=== PATIENT | male | born 1970 | race Caucasian/White ===

== ENCOUNTER → 2022-02-14 15:42 | Outpatient (BNVA) | payer MEDICARE, MEDICAID, SELFPAY | PROVIDERS: PCP Family Medicine; Referring Provider Family Medicine; Visit Provider Nurse Practitioner | DX: Z12.11 Encounter for screening for malignant neoplasm of colon (principal); K75.81 Nonalcoholic steatohepatitis (NASH); K21.9 Gastro-esophageal reflux disease without esophagitis; Z87.19 Personal history of other diseases of the digestive system | CPT/HCPCS: 99212 ==

== ENCOUNTER 2022-06-27 11:58 | Outpatient (REF) | payer MEDICARE, MEDICAID, SELFPAY ==
[2022-06-27 12:37] LABS: MANUAL DIFF FLAG NO
[2022-06-27 13:41] LABS: Basophils Percent Auto 0.3 % (0-2); Eosinophils Absolute Auto 0.2 X10*3/uL (0.0-0.4); Eosinophils Percent Auto 3.2 % (0-4); Hematocrit 42.5 % (42.0-52.0); Hemoglobin 13.9 g/dl (14.0-18.0); Imm Gran Abs Auto 0.03 X10*3/uL (0.00-0.03); Imm Gran Pct Auto 0.4 % (0.0-0.4); Lymphocytes Absolute Auto 2.2 X10*3/uL (1.2-4.9); Lymphocytes Percent Auto 29.7 % (20-40); Mean Corpuscular HGB Conc 32.7 g/dl (31.0-36.0); Mean Corpuscular Hemoglobin 29.8 pg (27.0-33.0); Mean Platelet Volume 10.5 fL (9.4-12.4); Monocytes Absolute Auto 0.7 X10*3/uL (0.1-1.2); Monocytes Percent Auto 9.6 % (2-11); Neutrophils Absolute Auto 4.3 x10*3/uL (2.0-8.3); Neutrophils Percent Auto 56.8 % (45-73); Platelet Count 197 X10*3/uL (160-400); Red Blood Count 4.67 X10*6/uL (4.60-5.80); White Blood Count 7.5 X10*3/uL (4.8-10.8)
[2022-06-27 14:13] LABS: Alanine Aminotransferase 30 U/L (0-40); Albumin Level 4.1 g/dL (3.5-5.0); Alkaline Phosphatase 100 U/L (39-117); Anion Gap 15 (12-20); Aspartate Amino Transferase 23 U/L (5-37); Bilirubin Total 0.2 mg/dL (0.0-1.0); Blood Urea Nitrogen 15 mg/dL (9-16); Calcium 9.4 mg/dL (8.4-10.2); Carbon Dioxide 26 mmol/L (22-29); Chloride 104 mmol/L (96-108); Estimated Glomerular Filt Rate > 60; Glucose Random 90 mg/dL (60-115); Potassium 4.8 mmol/L (3.3-5.1); Sodium 140 mmol/L (135-145); Total Protein 7.2 g/dL (6.5-8.0)
== END 2022-06-27 11:59 | disposition home or self-care (01) ==
LOC: HO.LAB 11:58
PROVIDERS: PCP Family Medicine; Visit Provider Nurse Practitioner
DX: K21.9 Gastro-esophageal reflux disease without esophagitis (principal); K75.81 Nonalcoholic steatohepatitis (NASH); Z87.19 Personal history of other diseases of the digestive system
CPT/HCPCS: 36415; 80053; 85025

== ENCOUNTER 2022-07-01 08:47 | Day surgery (SDC) | payer MEDICARE, MEDICAID, SELFPAY ==
[2022-07-01 08:59] VITALS: BMI 26.6
[2022-07-01 09:24] LABS: Glucose, Whole Blood 33 mg/dL (60-115)
[2022-07-01 09:24] LABS: Glucose, Whole Blood 38 mg/dL (60-115)
[2022-07-01] MEDS: Lactated Ringers 1,000 ML 100 ML IVCONT (09:28)
--- NOTE | 2022-07-01 09:28 | P.HPSUR_ITS ---
Pre-Procedural Eval Section A Date of Service: 07/01/22 Section B Chief Complaint: screening Relevant Family History (Specify if Yes): No Present Medications: see Short Stay Collaborative assessment Medical History: Significant History (GERD, JACOBO) History of Previous Operations: Relevant previous surgery/procedure and date(s) (History of esophagogastroduodenoscopy (EGD) Hx of cholecystectomy Hx of edwin ulder surgery) Allergies: Allergies Allergy/AdvReac Type Severity Reaction Status Date / Time No Known Allergies Allergy Unverified 06/26/22 15:27 [No Known Allergies*] Review of Systems Sugical H&P ROS: Negative: Constitution, Cardiovascular, Respiratory and Gastrointestinal Exam Surgical H&P Exam: Normal: Heart, Normal: Lungs, Normal: Extremities and Normal: Abdomen Plan Diagnosis/Plan: Unchanged I have reviewed the history and physical and performed a pertinent physical examination on my patient. No changes have occurred unless specified.
--- NOTE | 2022-07-01 09:29 | PC.NURSE ---
Addendum entered by Shabbir Madison RN 07/01/22 09:53: POC [address] Linda aware. Original Note: patient POC 34 critical, rechecked and POC 33. Patient asymptomatic and denies dizziness or blurred vision, patient states he can tell when blood sugar is too low and feels normal . Dr Linda, anesthesiologist notified and D5W 250mL running. will recheck POC.
[2022-07-01 09:33] VITALS: BP 96/51; PULSE 53; RESP 16; TEMP 36.6; O2SAT 98
[2022-07-01 09:54] LABS: Glucose, Whole Blood 105 mg/dL (60-115)
--- NOTE | 2022-07-01 09:57 | P.CONAN_ITS ---
HPI - Anesthesia Eval Consult details Narrative: Colonic Surveillance [facility] Active Problems Active Problems: All Active Problems (Updated 06/26/22 @ 15:28 by Joya Kelley RN) Colon cancer screening (Acute) JACOBO (nonalcoholic steatohepatitis) (Acute) GERD (gastroesophageal reflux disease) (Acute) History of pancreatitis (Acute) Past Medical History Medical History Anemia Anxiety disorder Chronic back pain Depression Diabetes Elevated cholesterol GERD (gastroesophageal reflux disease) Family History Family History Mother Diabetes Heart problem Father Diabetes Brother No problems noted. Maternal Grandfather Heart problem Family history of problems with anesthesia: No Surgical History Surgical History History of esophagogastroduodenoscopy (EGD) History of lithotripsy Hx of cholecystectomy Hx of shoulder surgery History of Problems with Anesthesia: No Social History Social History Patient Tobacco Use Status: Current everyday Tobacco user Tobacco use type: Cigarette Cigarettes Per Day: 3 Second Hand Smoke Exposure: No Use of substances other than those prescribed or required for medical reasons: Yes Are you DNR?: No Advance Directives: No Advance Directives Information Provided: Yes Advance Directives on File: No Meds Allergies Allergy/AdvReac Type Severity Reaction Status Date / Time No Known Allergies Allergy Unverified 06/26/22 15:27 [No Known Allergies*] Active Medications: Current Medications Lactated Ringer's (Lr) 1,000 mls @ 100 mls/hr IVCONT .Q10H HUGH Last Admin: 07/01/22 09:28 Dose: 100 mls/hr Dextrose (D5w) 250 mls @ 0 mls/hr IV .Q0M PRN PRN Reason: Per Protocol Home Medications Medication Instructions Recorded Confirmed Last Taken Type [id number] 1 cap PO QID 07/10/20 06/26/22 Unknown History 24,000-76,000-120,000 unit capsule,delayed rel (Creon) omeprazole 20 mg capsule,delayed 20 mg PO DAILY 07/10/20 06/26/22 Unknown History release alcohol swabs (Alcohol Prep Pads) 1 pad topical QID 02/14/22 06/26/22 Unknown History aspirin 81 mg tablet,delayed 81 mg PO DAILY 02/14/22 06/26/22 Unknown History release atorvastatin 20 mg tablet 20 mg PO DAILY 02/14/22 06/26/22 Unknown History blood sugar diagnostic (FreeStyle #10 ea 02/14/22 Unknown History Lite Strips) cholecalciferol (vitamin D3) 25 25 mcg PO QAM 02/14/22 06/26/22 Unknown History mcg (1,000 unit) capsule (Vitamin D3) clonazepam 1 mg tablet 1 mg PO TID PRN Anxiety 02/14/22 06/26/22 Unknown History cyanocobalamin (vitamin B-12) 1,000 mcg PO DAILY 02/14/22 06/26/22 Unknown History 1,000 mcg tablet empagliflozin 25 mg tablet 25 mg PO DAILY 02/14/22 06/26/22 Unknown History (Jardiance) ergocalciferol (vitamin D2) 1,250 1,250 mcg PO QWEEK 02/14/22 06/26/22 Unknown History mcg (50,000 unit) capsule escitalopram oxalate 20 mg tablet 20 mg PO DAILY 02/14/22 06/26/22 Unknown History insulin aspart U-100 100 unit/mL 20 unit subcut TID 02/14/22 06/26/22 Unknown History (3 mL) subcutaneous pen (Novolog Flexpen U-100 Insulin aspart) lancets 33 gauge (TRUEplus Lancets) #100 ea 02/14/22 Unknown History losartan 25 mg tablet 12.5 mg PO DAILY 02/14/22 06/26/22 Unknown History metformin 500 mg tablet,extended 500 mg PO DAILY 02/14/22 06/26/22 Unknown History release 24 hr omega-3 fatty acids-fish oil 340 2 cap PO BID 02/14/22 06/26/22 Unknown History mg-1,000 mg capsule (Fish Oil) pen needle, diabetic 32 gauge x #50 ea 02/14/22 Unknown History (Pentips) trazodone 150 mg tablet 150 mg PO BEDTIME 02/14/22 06/26/22 Unknown History insulin degludec 100 unit/mL (3 60 unit subcut BEDTIME 06/26/22 06/26/22 Unknown History mL) subcutaneous pen (Tresiba FlexTouch U-100 insulin) Exam Exam Date and Time: July 01, 2022 0957 Height,Weight and Vital Signs: Height 5 ft 7 in Weight 77.111 kg Last Vital Signs Temp 97.8 F 07/01/22 09:33 Pulse 53 07/01/22 09:33 Resp 16 07/01/22 09:33 BP 96/51 L 07/01/22 09:33 Pulse Ox 98 07/01/22 09:33 O2 Del Method 07/01/22 09:33 Pertinent Lab Results Pertinent Lab Results: Laboratory Tests 07/01/22 07/01/22 07/01/22 09:17 09:21 09:51 POC Glucose 38 L* 33 L* 105 Airway Mallampati Class: II TM Dist: >3cm Neck ROM: Full Loose/Missing/Broken Teeth: No (teeth all spaced apart, none loose as per patient) Heart: [id number] Lungs: cta b/l Assessment and Plan Assessment Anesthesia Assessment: Anesthesia Plan Discussed Final Anesthetic Review Family History of Problems with Anesthesia: No History of Problems with Anesthesia: No NPO: Yes ASA Class: III Final Preanesthetic Review: No Changes in Pt Med Stat, Meds/Allgs Chart Reviewed, Consent Obtained/Reviewed and Anes Risks/Benef Reviewed Patient Risk: Intermediate Procedure Risk: Intermediate Assessment/Block/Sedation in SS: Assess/Block/Sedation-SS Anesthetic Plan Anesthetic Plan: MAC: and Agree w/ Assess. and Plan Disposition: Standard PACU
[2022-07-01 11:19] VITALS: BP 129/72; PULSE 58; RESP 16; TEMP 36.3; O2SAT 98
--- NOTE | 2022-07-01 11:21 | P.BOP_ITS ---
Brief Operative Note Date of Service: 07/01/22 Pre-op diagnosis: Colon cancer screening Post-op diagnosis: other (Colon polyp, diverticulosis, hemorrhoids) Procedure: COLONOSCOPY TO CECUM WITH SNARE POLYPECTOMY Surgeon: Linnette Worrell MD Anesthesia: MAC Was an Digital Marketing Intern used for this Procedure?: Yes Digital Marketing Intern: James Chaves Estimated blood loss (mL): 0 Pathology: other (A) Polyp Transverse Colon) Condition: stable Disposition: PACU
--- NOTE | 2022-07-01 11:21 | W.PM.OPN ---
Operative Note Operative Note Date of Service: 07/01/22 Narrative: Pre-op diagnosis: Colon cancer screening Post-op diagnosis:?other (Colon polyp, diverticulosis, hemorrhoids) Surgeon: Linnette Worrell MD Anesthesia:?MAC COLONOSCOPY TILL CECUM WITH SNARE POLYPECTOMY Consent: Indications for the procedure and potential complications of bleeding, perforation, reaction to medications and missed diagnosis were discussed with the patient and informed consent was obtained. Instrument: Olympus PCF H 190 L variable stiffness pediatric colonoscope Monitoring: Vital signs and clinical assessment, intermittent blood pressure monitoring, continuous EKG monitoring, Pulse oximetry and Carbon Dioxide monitoring were done throughout the procedure. Colon withdrawl time was 25 minutes. Procedure: The patient was placed in the left lateral decubitis position and pre-procedure medications were administered. After a digital rectal examination of the ano-rectum, the video colonoscope was inserted into the rectum and advanced through the colon to the cecum. The colonoscope was slowly withdrawn in a retrograde panoramic fashion and the colon mucosa was carefully examined including a retroflexed view of the rectum. Findings and interventions are described below. Procedure Difficulty: LLQ pressure applied to intubate the ascending colon/cecum Findings: Terminal Ileum: Not evaluated Cecum: Normal Ascending Colon: Normal Transverse Colon: A 10 mm sessile polyp removed with a cold snare Descending Colon: Normal Sigmoid Colon: Moderate diverticulosis Rectum: Normal Ano-rectum: Moderate internal hemorrhoids Colon preparation: Good after copious irrigation and fair in some areas of the colon Impression and Post Procedure Diagnosis: Colonoscopy Findings: One medium sized polyp removed Moderate diverticulosis seen in the sigmoid colon Moderate hemorrhoids on retroflexed exam. Plan: Await pathology results Patient has an appointment on 07/16/22 in the [facility] with Soniya Hanson NP. Repeat Colonoscopy interval based on path results - in 3 years if polyps are adenomatous and due to fair prep (adult colonoscope for future colonoscopies). Above findings were reviewed with the patient and colon polyps and diverticulosis handouts were given in the discharge area
[2022-07-01 11:34] VITALS: BP 108/65; PULSE 50; RESP 17; TEMP 36.1; O2SAT 98
[2022-07-01 11:48] VITALS: BP 116/54; PULSE 52; RESP 18; TEMP 36.6; O2SAT 98
== END 2022-07-01 12:31 | disposition home or self-care (01) ==
PROVIDERS: PCP Family Medicine; Visit Provider Internal Medicine Gastroenterology
PROC: 0DJD8ZZ Inspection of Lower Intestinal Tract, Via Natural or Artificial Opening Endoscopic (ICD-10-PCS; CPT 45378; principal; 2022-07-01 10:10)
DX: Z12.11 Encounter for screening for malignant neoplasm of colon (principal); D12.3 Benign neoplasm of transverse colon; K57.30 Diverticulosis of large intestine without perforation or abscess without bleeding; K64.8 Other hemorrhoids; K21.9 Gastro-esophageal reflux disease without esophagitis; K75.81 Nonalcoholic steatohepatitis (NASH); E11.9 Type 2 diabetes mellitus without complications; E78.00 Pure hypercholesterolemia, unspecified; Z79.4 Long term (current) use of insulin; Z79.82 Long term (current) use of aspirin; Z79.899 Other long term (current) drug therapy; Z90.49 Acquired absence of other specified parts of digestive tract; F17.210 Nicotine dependence, cigarettes, uncomplicated
CPT/HCPCS: 45385; 82947; 88305

== ENCOUNTER → 2022-07-16 15:21 | Outpatient (BNVA) | payer MEDICARE, MEDICAID, SELFPAY | PROVIDERS: PCP Family Medicine; Visit Provider Nurse Practitioner | DX: D12.6 Benign neoplasm of colon, unspecified (principal); Z98.890 Other specified postprocedural states | CPT/HCPCS: 99212 ==

== ENCOUNTER 2023-04-20 21:52 | Inpatient (IN) | payer MEDICARE, MEDICAID, SELFPAY ==
--- NOTE | ~2023-04-20 | CT_ITS ---
EXAMINATION: CT ABDOMEN AND PELVIS WITHOUT CONTRAST CLINICAL INFORMATION: Abdominal pain. COMPARISON: CT of the abdomen and pelvis done on 04/15/2019. TECHNIQUE: Multidetector volumetric imaging was performed from the superior aspect of the liver through the pubic symphysis. Sagittal and coronal reformatted images were obtained on the technologist's workstation. This CT examination was performed using dose optimization techniques as appropriate, variously including the following: *Automated exposure control *Adjustment of mA and/or kV according to patient size (this includes techniques or standardized protocols for targeted exams where dose is matched to indication/reason for exam; i.e. extremities or head) *Use of iterative reconstruction technique DLP: 448 mGy-cm FINDINGS: LUNG BASES: The visualized lung bases are unremarkable. LIVER, GALLBLADDER, AND BILIARY TREE: The liver is normal in size, shape, and attenuation. No focal hepatic lesion .The gallbladder is surgically absent. Possible pneumobilia within the distal part of the common bile duct. PANCREAS: Clusters of microcalcification in the head of the pancreas and extending into the uncinate process as well as the proximal part of the body, consistent with chronic calcific pancreatitis. No evidence of any ductal dilatation or discrete pancreatic mass on this nonenhanced study. SPLEEN: Unremarkable. ADRENAL GLANDS: Unremarkable. KIDNEYS AND URETERS: The kidneys are normal in size, shape, and attenuation. No hydronephrosis, hydroureter, or calculi seen. No perinephric stranding. BLADDER: Suboptimally distended, shows apparent diffuse wall thickening possibly physiologic. GASTROINTESTINAL TRACT: The small and large bowel loops are decompressed. Nonvisualized appendix without any inflammatory changes around the cecum, unchanged. ABDOMINAL WALL: No significant hernia is appreciated. LYMPH NODES: Normal. VASCULAR: Calcific atherosclerotic disease of the aorta without aneurysm formation. PELVIC VISCERA: Unremarkable. OSSEOUS STRUCTURES: No suspicious focal lesion. CT/CT abdomen pelvis wo IV con IMPRESSION: 1. No CT evidence of any acute intra-abdominal and/or intrapelvic pathology. 2. Incidental note is made of extensive calcification involving the pancreas, consistent with chronic calcific pancreatitis. No evidence of any ductal dilatation or discrete mass on this nonenhanced study. 3. Surgically absent gallbladder and possible pneumobilia involving the distal common bile duct. Fleischner guidelines were followed.
[2023-04-20 21:56] VITALS: BP 121/79; BP 134/81; PULSE 66; PULSE 72; RESP 18; TEMP 37.7; O2SAT 100; O2SAT 99; BMI 25.6
[2023-04-20 22:22] LABS: MANUAL DIFF FLAG NO
[2023-04-20 22:23] LABS: Basophils Percent Auto 0.2 % (0-2); Eosinophils Percent Auto 0.2 % (0-4); Hematocrit 39.2 % (42.0-52.0); Hemoglobin 13.6 g/dl (14.0-18.0); Imm Gran Abs Auto 0.11 X10*3/uL (0.00-0.03); Imm Gran Pct Auto 0.7 % (0.0-0.4); Lymphocytes Absolute Auto 1.5 X10*3/uL (1.2-4.9); Lymphocytes Percent Auto 9.8 % (20-40); Mean Corpuscular HGB Conc 34.7 g/dl (31.0-36.0); Mean Corpuscular Hemoglobin 29.2 pg (27.0-33.0); Mean Corpuscular Volume 84.1 fL (80.0-98.0); Monocytes Percent Auto 6.7 % (2-11); Neutrophils Absolute Auto 12.6 x10*3/uL (2.0-8.3); Neutrophils Percent Auto 82.4 % (45-73); Platelet Count 152 X10*3/uL (160-400); Red Blood Count 4.66 X10*6/uL (4.60-5.80); Red Cell Distribution Width 13.2 % (11.0-16.0); White Blood Count 15.3 X10*3/uL (4.8-10.8)
--- NOTE | 2023-04-20 22:36 | ED_ITS ---
HPI - Abdominal Pain General Chief Complaint: Abdominal Pain Stated Complaint: hand cramping/ abd pain Time Seen by Provider: 04/20/23 22:28 Source: patient and EMS Mode of arrival: EMS Limitations: no limitations History of Present Illness HPI narrative: 53-year-old male with history of insulin-dependent diabetes controlled with insulin, patient felt the diaphoretic and shaky felt his blood sugar was low there started to have cramps in both hands and on the right side of the abdomen which she never happened before when blood sugar goes down, cramps are better still complaining of right-sided abdominal pain. No nausea, vomiting, no diarrhea. Related Data Home Medications Medication Instructions Recorded Confirmed [id number] 1 cap PO QID 07/10/20 06/26/22 24,000-76,000-120,000 unit capsule,delayed rel (Creon) omeprazole 20 mg capsule,delayed 20 mg PO DAILY 07/10/20 06/26/22 release alcohol swabs (Alcohol Prep Pads) 1 pad topical QID 02/14/22 06/26/22 aspirin 81 mg tablet,delayed 81 mg PO DAILY 02/14/22 06/26/22 release atorvastatin 20 mg tablet 20 mg PO DAILY 02/14/22 06/26/22 blood sugar diagnostic (FreeStyle #10 ea 02/14/22 Lite Strips) cholecalciferol (vitamin D3) 25 25 mcg PO QAM 02/14/22 06/26/22 mcg (1,000 unit) capsule (Vitamin D3) clonazepam 1 mg tablet 1 mg PO TID PRN Anxiety 02/14/22 06/26/22 cyanocobalamin (vitamin B-12) 1,000 mcg PO DAILY 02/14/22 06/26/22 1,000 mcg tablet empagliflozin 25 mg tablet 25 mg PO DAILY 02/14/22 06/26/22 (Jardiance) ergocalciferol (vitamin D2) 1,250 1,250 mcg PO QWEEK 02/14/22 06/26/22 mcg (50,000 unit) capsule escitalopram oxalate 20 mg tablet 20 mg PO DAILY 02/14/22 06/26/22 insulin aspart U-100 100 unit/mL 20 unit subcut TID 02/14/22 06/26/22 (3 mL) subcutaneous pen (Novolog FlexPen U-100 Insulin aspart) lancets 33 gauge (TRUEplus Lancets) #100 ea 02/14/22 losartan 25 mg tablet 12.5 mg PO DAILY 02/14/22 06/26/22 metformin 500 mg tablet,extended 500 mg PO DAILY 02/14/22 06/26/22 release 24 hr omega-3 fatty acids-fish oil 340 2 cap PO BID 02/14/22 06/26/22 mg-1,000 mg capsule (Fish Oil) pen needle, diabetic 32 gauge x #50 ea 02/14/22 (Pentips) trazodone 150 mg tablet 150 mg PO BEDTIME 02/14/22 06/26/22 insulin degludec 100 unit/mL (3 60 unit subcut BEDTIME 06/26/22 06/26/22 mL) subcutaneous pen (Tresiba FlexTouch U-100 insulin) Allergies Allergy/AdvReac Type Severity Reaction Status Date / Time No Known Allergies Allergy Verified 04/20/23 22:07 [No Known Allergies*] Review of Systems Review of Systems All other systems are reviewed and are negative Constitutional: Reports as per HPI and Reports no additional constitutional complaints Eyes: Reports as per HPI and Reports no additional eye complaints Reports system reviewed and no additional complaints, except as documented Cardiovascular: Reports as per HPI and Reports no additional cardiovascular complaints Respiratory: Reports as per HPI and Reports no additional respiratory complaints Gastrointestinal: Reports as per HPI and Reports no additional gastrointestinal complaints Genitourinary: Reports no additional female genitourinary complaints Musculoskeletal: Reports no additional musculoskeletal complaints Skin/Breast: Reports system reviewed and no additional complaints, except as docu Psychiatric: Reports no additional psychiatric complaints Endocrine: Reports no additional endocrine complaints Hematologic/Lymphatic: Reports no additional hematologic/lymphatic complaints Allergic/Immunologic: Reports no additional allergic/immunologic complaints Reports system reviewed and no additional complaints, except as documented and Reports Abnormal speech present PMFSH Past Medical History Medical History Anemia Anxiety disorder Chronic back pain Depression Diabetes Elevated cholesterol GERD (gastroesophageal reflux disease) Surgical History H/O colonoscopy History of esophagogastroduodenoscopy (EGD) History of lithotripsy Hx of cholecystectomy Hx of shoulder surgery Family History Family History Mother Diabetes Heart problem Father Diabetes Brother No problems noted. Maternal Grandfather Heart problem Social History Social History Alcohol intake: never Patient Tobacco Use Status: Current everyday Tobacco user Tobacco use type: Cigarette Cigarettes Per Day: 3 Smoked in Last 30 Days: Yes Second Hand Smoke Exposure: No Use of substances other than those prescribed or required for medical reasons: Yes Substance Use Type: Marijuana Substance Use Frequency: Chronic Longstanding Advance Directives: No Advance Directives Information Provided: No Physical Exam ED Vital Signs: Vital Signs - 24 hr 04/20/23 21:56 Temperature 99.8 F Pulse Rate 66 Respiratory Rate 18 Blood Pressure 134/81 Pulse Oximetry 99 Oxygen Delivery Method Room Air BMI result Body Mass Index 25.6 Vital signs have been reviewed as appeared to be correct. Blood pressure normal. Heart rate normal. Respiration rate normal. Temperature normal. Oxygen saturation normal. Appearance: Alert. Oriented X3. No acute distress. Head: Normal external exam. Normocephalic. Atraumatic. No Smyth signs noted. No raccoon eyes noted Eyes: PERRLA. EOMI. Conjunctiva and sclera normal. Eyelids normal. ENT: TM's Normal. Pharynx normal. Uvula midline. Moist mucous membranes. No trismus noted. No drooling noted. No muffled voice noted. Neck: Normal inspection. Neck supple. FROM. No adenopathy. Thyroid Normal. No meningeal signs. No neck mass noted. CVS: Normal heart rate and rhythm. Heart sound normal. No murmurs noted. Pulses normal throughout. Respiratory: No respiratory distress. Painless inspiration. Breath sounds normal. No wheezes/rales/rhonchi noted. Chest nontender. No accessory muscle usage noted or decreased air movement noted. Abdomen: Soft and nontender. Bowel sounds normal in all 4 quadrants. No distention noted. No organomegaly noted. No visible injury noted. Back: No CVA tenderness. Full range of motion noted. Skin: Skin warm and dry. Normal skin color. Normal skin turgor. No rashes/lesions/lacerations noted. Extremities: No lower extremity edema. Extremities exhibit normal range of motion. Extremities nontender. Neuro: Oriented X 3. Cranial nerve exam: II-XII are grossly intact No motor deficit. No sensory deficit. Reflexes normal. Course Course Course Narrative: 53-year-old male insulin-dependent diabetes came in for hypoglycemia, patient found to be in acute renal insufficiency will start the patient on IV hydration and admit the patient for close monitoring of kidney function. Medical Decision Making Differential Diagnosis Differential Diagnoses: The differential diagnosis associated with the presentation includes (DKA, hyperglycemia, electrolyte abnormality, severe anemia, UTI.) Admission/Observation Consideration of admission/observation: Escalation of care including admission/observation considered Consult Healthcare Provider Management of the patient was discussed with: Hospitalist (Dr. Leggett) Lab Data MDM Lab Attestation statement: I reviewed the patient's lab results. 04/20/23 22:12 04/20/23 22:12 Labs: Lab Results 04/20/23 04/20/23 04/20/23 Range/Units 22:12 22:12 23:58 WBC 15.3 H (4.8-10.8) X10*3/uL RBC 4.66 (4.60-5.80) X10*6/uL Hgb 13.6 L (14.0-18.0) g/dl Hct 39.2 L (42.0-52.0) % MCV 84.1 (80.0-98.0) fL MCH 29.2 (27.0-33.0) pg MCHC 34.7 (31.0-36.0) g/dl RDW 13.2 (11.0-16.0) % Plt Count 152 L (160-400) X10*3/uL MPV 10.0 (9.4-12.4) fL Immature Gran % (Auto) 0.7 H (0.0-0.4) % Neut % (Auto) 82.4 H (45-73) % Lymph % (Auto) 9.8 L (20-40) % [place] % (Auto) 6.7 (2-11) % Eos % (Auto) 0.2 (0-4) % Baso % (Auto) 0.2 (0-2) % Lymph # (Auto) 1.5 (1.2-4.9) X10*3/uL [place] # (Auto) 1.0 (0.1-1.2) X10*3/uL Eos # (Auto) 0.0 (0.0-0.4) X10*3/uL Baso # (Auto) 0.0 (0.0-0.2) X10*3/uL Abs Immat Gran (auto) 0.11 H (0.00-0.03) X10*3/uL Absolute Neuts (auto) 12.6 H (2.0-8.3) x10*3/uL Absolute Nucleated RBC 0.000 (0.0-0.012) X10*3/uL Nucleated RBC % (auto) 0.0 (0.0-0.2) /100WBC Sodium 130 L (135-145) mmol/L Potassium 3.8 D (3.3-5.1) mmol/L Chloride 98 (96-108) mmol/L Carbon Dioxide 18 L (22-29) mmol/L Anion Gap 18 (12-20) BUN 27 H (9-16) mg/dL Creatinine 1.98 H (0.5-1.4) mg/dL Estim Creat Clear Calc 39.8 Estimated GFR 35 Random Glucose 367 H* (60-115) mg/dL Calcium 9.6 (8.4-10.2) mg/dL Total Bilirubin 0.4 (0.0-1.0) mg/dL AST 16 (5-37) U/L ALT 34 (0-40) U/L Alkaline Phosphatase 110 (39-117) U/L Total Protein 7.8 (6.5-8.0) g/dL Albumin 4.1 (3.5-5.0) g/dL Lipase < 4 L (8-78) U/L Urine Color Yellow Urine Appearance Clear Urine pH 5.5 (5.0-9.0) Ur Specific [place] 1.020 (1.005-1.025) Urine Protein 30 (1+) H (Neg-Trace) mg/dL Urine Glucose (UA) >=1000 H (Negative) mg/dL Urine Ketones 15 (Negative) mg/dL Urine Blood Negative (Negative) Urine Nitrite Negative (Negative) Ur Leukocyte Esterase Negative (Negative) Urine RBC 0-2 (0-2) /HPF Urine WBC 0-5 (0-5) /HPF Ur Squamous Epith Cells 0-2 (0-2) /HPF Calcium Oxalate Crystal Present Urine Bacteria None Seen (None Seen) Hyaline Casts >20 (0-2) /LPF Independent Interpretation I performed an independent interpretation of an: CT Scan (Abdomen and pelvis: No acute intra-abdominal pathology, chronic calcific pancreatitis.) Radiology Impression Discussion of test interpretation with radiology: I have reviewed the radiolog ist's reading. (1. No CT evidence of any acute intra-abdominal and/or intrapelvic pathology. 2. Incidental note is made of extensive calcification involving the pancreas, consistent with chronic calcific pancreatitis. No evidence of any ductal dilatation or discrete mass on this nonenhanced study. 3. Surgically abs) Medications Administered Discontinued Medications Generic Name Dose Route Start Last Admin Trade Name Freq PRN Reason Stop Dose Admin Sodium Chloride 1,000 mls @ 999 mls/hr 04/20/23 22:55 04/20/23 23:00 Ns IV 04/20/23 23:55 999 mls/hr .Q1H1M STA Administration Discharge Plan Discharge Clinical Impression: Acute renal insufficiency, Acute hyperglycemia, Leukocytosis Patient Disposition: Admitted As Inpatient
[2023-04-20 22:40] LABS: Alanine Aminotransferase 34 U/L (0-40); Albumin Level 4.1 g/dL (3.5-5.0); Alkaline Phosphatase 110 U/L (39-117); Anion Gap 18 (12-20); Aspartate Amino Transferase 16 U/L (5-37); Bilirubin Total 0.4 mg/dL (0.0-1.0); Blood Urea Nitrogen 27 mg/dL (9-16); Calcium 9.6 mg/dL (8.4-10.2); Carbon Dioxide 18 mmol/L (22-29); Chloride 98 mmol/L (96-108); Creatinine Clr Calc Pharmacy 39.8; Estimated Glomerular Filt Rate 35; Glucose Random 367 mg/dL (60-115); Lipase < 4 U/L (8-78); Potassium 3.8 mmol/L (3.3-5.1); Sodium 130 mmol/L (135-145); Total Protein 7.8 g/dL (6.5-8.0)
[2023-04-20] MEDS: 0.9 % Sodium Chloride 1,000 ML 999 ML IV (23:00)
--- NOTE | 2023-04-20 23:54 | P.HPHOSP_ITS ---
History of Present Illness Date of Service: 04/20/23 Chief Complaint: Cramps This is a 53-year-old male with pertinent history of chronic pancreatitis, gastroesophageal reflux disease, mood disorder, insulin-dependent diabetes mellitus who presents to the emergency department for evaluation of cramps in bilateral upper extremities and abdominal discomfort. Patient states he had a busy day and did not eat or drink much throughout the day. Denies vomiting or diarrhea. Patient states that he had cramps in bilateral upper extremities and abdominal cramps which he thought was due to hypoglycemia and patient drank some juice. This symptoms resolved with juice but patient decided to present to the ER for further evaluations. He denies fever, chills, chest discomfort, palpitations, shortness of breath, changes in urinary or bowel habits. In the emergency department, creatinine was found to be elevated Review of Systems Constitutional: Constitutional: Reports fatigue, Reports lethargy and Reports malaise Cardiovascular: Cardiovascular: Reports no additional cardiovascular complaints Respiratory: Respiratory: Reports no additional respiratory complaints Gastrointestinal: Gastrointestinal: Reports no additional gastrointestinal complaints Genitourinary: Genitourinary: Reports no additional male genitourinary complaints Endocrine: Endocrine: Reports fatigue [facility] Medical History Anemia Anxiety disorder Chronic back pain Depression Diabetes Elevated cholesterol GERD (gastroesophageal reflux disease) Family History Mother Diabetes Heart problem Father Diabetes Brother No problems noted. Maternal Grandfather Heart problem Surgical History H/O colonoscopy History of esophagogastroduodenoscopy (EGD) History of lithotripsy Hx of cholecystectomy Hx of shoulder surgery Social History Alcohol intake: never Patient Tobacco Use Status: Current everyday Tobacco user Tobacco use type: Cigarette Cigarettes Per Day: 3 Smoked in Last 30 Days: Yes Second Hand Smoke Exposure: No Use of substances other than those prescribed or required for medical reasons: Yes Substance Use Type: Marijuana Substance Use Frequency: Chronic Longstanding Advance Directives: No Advance Directives Information Provided: No Meds Allergies Allergy/AdvReac Type Severity Reaction Status Date / Time No Known Allergies Allergy Verified 04/20/23 22:07 [No Known Allergies*] Active Medications: Current Medications Sodium Chloride (Ns) 1,000 mls @ 999 mls/hr IV .Q1H1M STA Stop: 04/20/23 23:55 Last Admin: 04/20/23 23:00 Dose: 999 mls/hr Home Medications Medication Instructions Recorded Confirmed Last Taken Type [id number]-[id number] 1 cap PO QID 07/10/20 06/26/22 Unknown History 24,000-76,000-120,000 unit capsule,delayed rel (Creon) omeprazole 20 mg capsule,delayed 20 mg PO DAILY 07/10/20 06/26/22 Unknown History release alcohol swabs (Alcohol Prep Pads) 1 pad topical QID 02/14/22 06/26/22 Unknown History aspirin 81 mg tablet,delayed 81 mg PO DAILY 02/14/22 06/26/22 Unknown History release atorvastatin 20 mg tablet 20 mg PO DAILY 02/14/22 06/26/22 Unknown History blood sugar diagnostic (FreeStyle #10 ea 02/14/22 Unknown History Lite Strips) cholecalciferol (vitamin D3) 25 25 mcg PO QAM 02/14/22 06/26/22 Unknown History mcg (1,000 unit) capsule (Vitamin D3) clonazepam 1 mg tablet 1 mg PO TID PRN Anxiety 02/14/22 06/26/22 Unknown History cyanocobalamin (vitamin B-12) 1,000 mcg PO DAILY 02/14/22 06/26/22 Unknown History 1,000 mcg tablet empagliflozin 25 mg tablet 25 mg PO DAILY 02/14/22 06/26/22 Unknown History (Jardiance) ergocalciferol (vitamin D2) 1,250 1,250 mcg PO QWEEK 02/14/22 06/26/22 Unknown History mcg (50,000 unit) capsule escitalopram oxalate 20 mg tablet 20 mg PO DAILY 02/14/22 06/26/22 Unknown History insulin aspart U-100 100 unit/mL 20 unit subcut TID 02/14/22 06/26/22 Unknown History (3 mL) subcutaneous pen (Novolog FlexPen U-100 Insulin aspart) lancets 33 gauge (TRUEplus Lancets) #100 ea 02/14/22 Unknown History losartan 25 mg tablet 12.5 mg PO DAILY 02/14/22 06/26/22 Unknown History metformin 500 mg tablet,extended 500 mg PO DAILY 02/14/22 06/26/22 Unknown History release 24 hr omega-3 fatty acids-fish oil 340 2 cap PO BID 02/14/22 06/26/22 Unknown History mg-1,000 mg capsule (Fish Oil) pen needle, diabetic 32 gauge x #50 ea 02/14/22 Unknown History (Pentips) trazodone 150 mg tablet 150 mg PO BEDTIME 02/14/22 06/26/22 Unknown History insulin degludec 100 unit/mL (3 60 unit subcut BEDTIME 06/26/22 06/26/22 Unknown History mL) subcutaneous pen (Tresiba FlexTouch U-100 insulin) Physical Exam Vital Signs and Narrative: Vital Signs: Last Vital Signs Temp 99.8 F 04/20/23 21:56 Pulse 66 04/20/23 21:56 Resp 18 04/20/23 21:56 BP 134/81 04/20/23 21:56 Pulse Ox 99 04/20/23 21:56 O2 Del Method Room Air 04/20/23 21:56 BMI result Body Mass Index 25.6 Middle-aged male lying in bed in no distress Neck supple, no JVD Regular rate and rhythm, S1-S2 heard Regular breath sounds bilaterally, no wheezing or crackles appreciated Abdomen soft nontender, no guarding, no rigidity Patient is awake, alert and oriented to self, place, time and person ; no focal motor deficit Psych: Normal mood No pedal edema Results Labs 04/20/23 22:12 04/20/23 22:12 Labs: Laboratory Results - last 24 hr 04/20/23 04/20/23 22:12 22:12 MCV 84.1 MCH 29.2 MCHC 34.7 RDW 13.2 Plt Count 152 L MPV 10.0 Immature Gran % (Auto) 0.7 H Neut % (Auto) 82.4 H Lymph % (Auto) 9.8 L [place] % (Auto) 6.7 Eos % (Auto) 0.2 Baso % (Auto) 0.2 Lymph # (Auto) 1.5 [place] # (Auto) 1.0 Eos # (Auto) 0.0 Baso # (Auto) 0.0 Abs Immat Gran (auto) 0.11 H Absolute Neuts (auto) 12.6 H Absolute Nucleated RBC 0.000 Nucleated RBC % (auto) 0.0 Anion Gap 18 Estim Creat Clear Calc 39.8 Estimated GFR 35 Random Glucose 367 H* Calcium 9.6 Total Bilirubin 0.4 AST 16 ALT 34 Alkaline Phosphatase 110 Total Protein 7.8 Albumin 4.1 Lipase < 4 L Imaging Radiologist's Impressions: Impressions Abdomen/Pelvis CT 04/20/23 23:[address]: [address] evidence of any acute intra-abdominal and/or intrapelvic pathology. 2. Incidental note is made of extensive calcification involving the pancreas, consistent with chronic calcific pancreatitis. No evidence of any ductal dilatation or discrete mass on this nonenhanced study. 3. Surgically absent gallbladder and possible pneumobilia involving the distal common bile duct. Fleischner guidelines were followed. Assessment and Plan (1) Acute renal insufficiency: Status: Acute Plan This is a 53-year-old male with pertinent history of chronic pancreatitis, gastroesophageal reflux disease, mood disorder, insulin-dependent diabetes mellitus who will be admitted for evaluation and treatment of MARÍA ELENA #. Acute kidney injury, stage I nonoliguric. Resuscitated with IV crystalloids. Monitor creatinine and urine output with crystalloid resuscitation. Avoid nephrotoxins #. Essential hypertension. Hold losartan in the setting of above. #. Chronic pancreatitis with pancreatic insufficiency. Continue pancreatic enzyme supplements #. Insulin-dependent diabetes mellitus with hyperglycemia. Reduce basal insuli n and initiate Accu-Cheks with sliding scale insulin. No evidence of hypoglycemia in the ER #. Mood disorder. Continue home mood stabilizers #. Reactive leukocytosis Med rec pending Full code DVT prophylaxis: Peewee Will admit as inpatient and will likely require to midnight hospital stay for close monitoring of kidney function and optimizing insulin regimen Time Spent With Patient Time: Total time managing care of this patient today ____ minutes. Quality Stroke Does the patient have a stroke diagnosis?: No VTE Prior VTE?: No VTE Risk Level:: Medical - moderate - high VTE Device Contraindication: Treatment Not Indicated VTE Drug Contraindication: N/A - Med Ordered
[2023-04-21 00:09] LABS: Appearance Urine Clear; Color Urine Yellow; Glucose Urine UA >=1000 mg/dL (Negative); Leukocyte Esterase Urine Negative (Negative); Nitrite Urine Negative (Negative); PH 5.5 (5.0-9.0); UMIC TRIGGER UACC YES; Urine Blood Negative (Negative); Urine Ketones 15 mg/dL (Negative); Urine Protein 30 (1+) mg/dL (Neg-Trace)
[2023-04-21 00:22] LABS: Bacteria Urine None Seen (None Seen); Calcium Oxalate Crystals Urine Present; Hyaline Casts Urine >20 /LPF (0-2); RBC Urine 0-2 /HPF (0-2); Squamous Epithelial Cell Urine 0-2 /HPF (0-2); WBC Urine 0-5 /HPF (0-5)
[2023-04-21 00:43] VITALS: BP 143/74; PULSE 61; RESP 18; TEMP 37.5; O2SAT 99
--- NOTE | 2023-04-21 00:44 | PC.NURSE ---
this rn made dr gomez aware of poc of 295 and oral temp of 99.5 no new orders at this time
[2023-04-21 00:45] LABS: Glucose, Whole Blood 295 mg/dL (60-115)
--- NOTE | 2023-04-21 03:00 | PC.NURSE ---
med rec completed via medical record
[2023-04-21 05:14] LABS: MANUAL DIFF FLAG NO
[2023-04-21 05:17] LABS: Basophils Percent Auto 0.3 % (0-2); Eosinophils Absolute Auto 0.2 X10*3/uL (0.0-0.4); Eosinophils Percent Auto 1.7 % (0-4); Hematocrit 40.7 % (42.0-52.0); Imm Gran Abs Auto 0.04 X10*3/uL (0.00-0.03); Imm Gran Pct Auto 0.3 % (0.0-0.4); Lymphocytes Absolute Auto 2.8 X10*3/uL (1.2-4.9); Lymphocytes Percent Auto 23.8 % (20-40); Mean Corpuscular HGB Conc 34.4 g/dl (31.0-36.0); Mean Corpuscular Hemoglobin 29.2 pg (27.0-33.0); Mean Corpuscular Volume 84.8 fL (80.0-98.0); Mean Platelet Volume 10.2 fL (9.4-12.4); Monocytes Percent Auto 8.5 % (2-11); Neutrophils Absolute Auto 7.6 x10*3/uL (2.0-8.3); Neutrophils Percent Auto 65.4 % (45-73); Platelet Count 168 X10*3/uL (160-400); Red Cell Distribution Width 13.2 % (11.0-16.0); White Blood Count 11.6 X10*3/uL (4.8-10.8)
[2023-04-21 05:34] LABS: Anion Gap 13 (12-20); Blood Urea Nitrogen 21 mg/dL (9-16); Calcium 9.5 mg/dL (8.4-10.2); Carbon Dioxide 22 mmol/L (22-29); Chloride 102 mmol/L (96-108); Creatinine Clr Calc Pharmacy 65.7; Estimated Glomerular Filt Rate > 60; Glucose Random 261 mg/dL (60-115); Potassium 3.7 mmol/L (3.3-5.1); Sodium 133 mmol/L (135-145)
[2023-04-21 06:00] VITALS: BP 117/79; PULSE 57; RESP 17; TEMP 36.9; O2SAT 98
[2023-04-21 07:00] VITALS: BP 119/81; PULSE 58; RESP 18; TEMP 36.6; O2SAT 98
--- NOTE | 2023-04-21 07:14 | PHA.MEDREC ---
Pharmacy Consult ? Medication Reconciliation Pharmacy has completed the medication reconciliation. Completed by RN reviewed by pharmacy Hunter
[2023-04-21 07:25] LABS: Glucose, Whole Blood 373 mg/dL (60-115)
[2023-04-21] MEDS: Escitalopram Oxalate 20 MG TABLET PO (07:56)
[2023-04-21] MEDS: Aspirin Enteric Coated 81 MG TABLET.DR PO (07:56)
[2023-04-21] MEDS: Cyanocobalamin (Vitamin B-12) 1,000 MCG TABLET 1000 MCG PO (07:56)
[2023-04-21] MEDS: Atorvastatin Calcium 20 MG TABLET PO (07:56)
[2023-04-21] MEDS: Insulin Lispro 100 UNIT/ML 3 ML VIAL SUBCUT (07:57)
[2023-04-21] MEDS: Enoxaparin Sodium 40 MG/0.4 ML SYRINGE SUBCUT (07:57)
[2023-04-21] MEDS: Cholecalciferol (Vitamin D3) 25 MCG TABLET PO (07:57)
[2023-04-21] MEDS: 0.9 % Sodium Chloride Flush 3 ML SYRINGE IVFLUSH (08:00)
--- NOTE | 2023-04-21 08:42 | PC.NURSE ---
Jardiance and Creon not available. Pharmacy called.
--- NOTE | 2023-04-21 09:00 | PC.NURSE ---
pt seen by Dr. Marcelino, per doctor possible d/c today.
[2023-04-21] MEDS: Empagliflozin 25 MG TABLET PO (09:03)
[2023-04-21] MEDS: Lipase/Prot/Amylase 24/76/120K 1 CAP CAPSULE.DR 2 CAP PO (09:03)
--- NOTE | 2023-04-21 09:16 | PM.DS ---
DS: Providers Provider Date of Service: 04/21/23 Date of admission: 04/20/23 23:51 Primary care physician: Mae Hall MD DS: Diagnosis Discharge Diagnosis (1) Acute renal insufficiency: Status: Acute DS: Summary Hospital Course Hospital Course: Date of Service: 04/20/23 Chief Complaint: Cramps This is a 53-year-old male with pertinent history of chronic pancreatitis, gastroesophageal reflux disease, mood disorder, insulin-dependent diabetes mellitus who presents to the emergency department for evaluation of cramps in bilateral upper extremities and abdominal discomfort.? Patient states he had a busy day and did not eat or drink much throughout the day.? Denies vomiting or diarrhea.? Patient states that he had cramps in bilateral upper extremities and abdominal cramps which he thought was due to hypoglycemia and patient drank some juice.? This symptoms resolved with juice but patient decided to present to the ER for further evaluations.? He denies fever, chills, chest discomfort, palpitations, shortness of breath, changes in urinary or bowel habits. In the emergency department, creatinine was found to be elevated. History of presenting illness 53-year-old male with pertinent history of chronic pancreatitis, gastroesophageal reflux disease, mood disorder, insulin-dependent diabetes mellitus admitted to [facility] with a diagnosis of acute kidney injury likely pre renal patient treated with IV fluids, renal function normalized, patient also noted to have elevated WBC count that is trending down , likely reactive, no evidence of infection, since patient is feeling better with complete resolution of his abdominal and upper extremity g therefore he is being discharged home he is recommended to resume losartan low-dose, in regard to insulin dependent diabetes mellitus he has been recommended to follow blood sugars and continue all home medications in regard to Chronic pancreatitis with pancreatic insufficiency his recommended to continue pancreatic enzyme supplements Time Spent with Patient Time attestation: Total time managing care of this patient today ____ minutes. Discharge coordination time: Greater than 30 minutes Quality: Safe Use of Opioids Does Pt have an Active Cancer Diagnosis on the Problem List?: No Quality: Stroke Does the patient have a stroke diagnosis?: No Physical Exam Vital Signs: Vital Signs: Last Vital Signs Temp 97.9 F 04/21/23 07:00 Pulse 58 04/21/23 07:00 Resp 18 04/21/23 07:00 BP 119/81 04/21/23 07:00 Pulse Ox 98 04/21/23 07:00 O2 Del Method Room Air 04/21/23 07:00 BMI result Body Mass Index 25.6 Const: Other: General awake alert in no acute distress. Neck is supple no JVD. CVS regular rate rhythm, Respiratory lungs clear to auscultation, no respiratory distress, no wheeze, no rhonchi. Gastrointestinal abdomen soft, nontender, bowel sounds audible, x3, no guarding , no rigidity. Extremities no edema. Neuro nonfocal ,moving all 4 extremity, speech clear. Skin no rash psych appropriate affect DS: Data Data Completed and Pending Labs on day of discharge: Laboratory Results - last 24 hr 04/20/23 04/20/23 04/20/23 22:12 22:12 23:58 WBC 15.3 H RBC 4.66 Hgb 13.6 L Hct 39.2 L MCV 84.1 MCH 29.2 MCHC 34.7 RDW 13.2 Plt Count 152 L MPV 10.0 Immature Gran % (Auto) 0.7 H Neut % (Auto) 82.4 H Lymph % (Auto) 9.8 L [place] % (Auto) 6.7 Eos % (Auto) 0.2 Baso % (Auto) 0.2 Lymph # (Auto) 1.5 [place] # (Auto) 1.0 Eos # (Auto) 0.0 Baso # (Auto) 0.0 Abs Immat Gran (auto) 0.11 H Absolute Neuts (auto) 12.6 H Absolute Nucleated RBC 0.000 Nucleated RBC % (auto) 0.0 Sodium 130 L Potassium 3.8 D Chloride 98 Carbon Dioxide 18 L Anion Gap 18 BUN 27 H Creatinine 1.98 H Estim Creat Clear Calc 39.8 Estimated GFR 35 POC Glucose Random Glucose 367 H* Calcium 9.6 Total Bilirubin 0.4 AST 16 ALT 34 Alkaline Phosphatase 110 Total Protein 7.8 Albumin 4.1 Lipase < 4 L Urine Color Yellow Urine Appearance Clear Urine pH 5.5 Ur Specific [place] 1.020 Urine Protein 30 (1+) H Urine Glucose (UA) >=1000 H Urine Ketones 15 Urine Blood Negative Urine Nitrite Negative Ur Leukocyte Esterase Negative Urine RBC 0-2 Urine WBC 0-5 Ur Squamous Epith Cells 0-2 Calcium Oxalate Crystal Present Urine Bacteria None Seen Hyaline Casts >20 04/21/23 04/21/23 04/21/23 00:41 04:43 04:43 WBC 11.6 H RBC 4.80 Hgb 14.0 Hct 40.7 L MCV 84.8 MCH 29.2 MCHC 34.4 RDW 13.2 Plt Count 168 MPV 10.2 Immature Gran % (Auto) 0.3 Neut % (Auto) 65.4 Lymph % (Auto) 23.8 [place] % (Auto) 8.5 Eos % (Auto) 1.7 Baso % (Auto) 0.3 Lymph # (Auto) 2.8 [place] # (Auto) 1.0 Eos # (Auto) 0.2 Baso # (Auto) 0.0 Abs Immat Gran (auto) 0.04 H Absolute Neuts (auto) 7.6 Absolute Nucleated RBC 0.000 Nucleated RBC % (auto) 0.0 Sodium 133 L Potassium 3.7 Chloride 102 Carbon Dioxide 22 Anion Gap 13 BUN 21 H Creatinine 1.20 Estim Creat Clear Calc 65.7 Estimated GFR > 60 POC Glucose 295 H Random Glucose 261 H Calcium 9.5 Total Bilirubin AST ALT Alkaline Phosphatase Total Protein Albumin Lipase Urine Color Urine Appearance Urine pH Ur Specific [place] Urine Protein Urine Glucose (UA) Urine Ketones Urine Blood Urine Nitrite Ur Leukocyte Esterase Urine RBC Urine WBC Ur Squamous Epith Cells Calcium Oxalate Crystal Urine Bacteria Hyaline Casts 04/21/23 07:22 WBC RBC Hgb Hct MCV MCH MCHC RDW Plt Count MPV Immature Gran % (Auto) Neut % (Auto) Lymph % (Auto) [place] % (Auto) Eos % (Auto) Baso % (Auto) Lymph # (Auto) [place] # (Auto) Eos # (Auto) Baso # (Auto) Abs Immat Gran (auto) Absolute Neuts (auto) Absolute Nucleated RBC Nucleated RBC % (auto) Sodium Potassium Chloride Carbon Dioxide Anion Gap BUN Creatinine Estim Creat Clear Calc Estimated GFR POC Glucose 373 H* Random Glucose Calcium Total Bilirubin AST ALT Alkaline Phosphatase Total Protein Albumin Lipase Urine Color Urine Appearance Urine pH Ur Specific [place] Urine Protein Urine Glucose (UA) Urine Ketones Urine Blood Urine Nitrite Ur Leukocyte Esterase Urine RBC Urine WBC Ur Squamous Epith Cells Calcium Oxalate Crystal Urine Bacteria Hyaline Casts Discharge Plan Discharge Anticipated Discharge Date/Time: 04/21/23 08:59 Patient Disposition: Home, Self-Care Discharge Diagnosis: acute kidney injury Referrals: Mae Hall MD [Primary Care Provider] - 1 Week Discharge Medications: Continued insulin degludec [Tresiba FlexTouch U-100] 100 unit/mL (3 mL) insulin pen 60 unit subcut BEDTIME omeprazole 20 mg capsule,delayed release(DR/EC) 20 mg PO BID Creon 24,000-76,000 -120,000 unit capsule,delayed release(DR/EC) 2 cap PO TID Rx Instructions: administer with meals and/or snacks Jardiance 25 mg tablet 25 mg PO DAILY Fish Oil 340-1,000 mg capsule 2 cap PO BID insulin aspart U-100 [Novolog FlexPen U-100 Insulin] 100 unit/mL (3 mL) insulin pen 20 unit subcut TID escitalopram oxalate 20 mg tablet 20 mg PO DAILY cholecalciferol (vitamin D3) [Vitamin D3] 25 mcg (1,000 unit) capsule 25 mcg PO QAM metformin 500 mg tablet extended release 24 hr 500 mg PO DAILY alcohol swabs [Alcohol Prep Pads] Pads, Medicated 1 pad topical QID trazodone 150 mg tablet 150 mg PO BEDTIME PRN (Reason: Insomnia) aspirin 81 mg tablet,delayed release (DR/EC) 81 mg PO DAILY cyanocobalamin (vitamin B-12) 1,000 mcg tablet 1,000 mcg PO DAILY clonazepam 1 mg tablet 1 mg PO TID PRN (Reason: Anxiety) atorvastatin 20 mg tablet 20 mg PO DAILY (DME) lancets [TRUEplus Lancets] 33 gauge misc See Rx Instructions Not Applicable QID Qty: 100 Rx Instructions: As directed (DME) pen needle, diabetic [Pentips] 32 gauge x 5/32 needle See Rx Instructions .ROUTE .MEDSUPPLY Qty: 50 Rx Instructions: As directed losartan 25 mg tablet 12.5 mg PO DAILY (DME) FreeStyle Lite Strips Strip See Rx Instructions Not Applicable QID Qty: 10 Rx Instructions: As directed ergocalciferol (vitamin D2) 1,250 mcg (50,000 unit) capsule 1,250 mcg PO QWEEK Discharge Orders: Discharge Order (Routine); Ordered 04/21/23 Ordered By: Thomas Marcelino Diet: Diabetic diet Activity on Discharge: As tolerated Stand Alone Forms: Patient Portal Discharge page Care Plan Goals: drink plenty of fluids, monitor blood sugars follow diabetic diet Health Concerns: Diabetes mellitus Plan of Treatment: outpatient follow-up with primary care physician call for appointment. Assessment: as above
[2023-04-21 10:00] VITALS: BP 128/78; PULSE 54
--- NOTE | 2023-04-28 16:01 | P.CDIM_ITS ---
PROVIDER RESPONSE TEXT: To clarify, the appropriate diagnosis supported by the clinical indicators: Acute renal failure QUERY TEXT: PHYSICIAN'S DOCUMENTATION REQUEST Date of Query: 04/25/2023 10:25 AM EDT Patient Name: Jose Alfredo Celis Admit Date: 04/21/2023 Dear Thomas Marcelino, A review of the medical record indicates additional documentation may be needed. Please review below and update the documentation accordingly. Clinical Indicators: Ed: 04/20 - Clinical impression - Acute renal insufficiency Discharge summary 04/21 - Discharge dx: Acute kidney insufficiency Admitted to hospital with a diagnosis of acute kidney injury likely pre renal patient treated with IV fluids. Renal function normal BUN 27 Cr 1.98 GFR 35 >60 Clarity and consistency of a diagnosis documented within the medical record: Acute renal failure Acute kidney Insufficiency Other (explain)Clinically unable to determine (explain)Thank you, Evelyn Castellanos, CCS, CDIS Use of terms such as suspected, likely, concern for, or probable (associated with a specific diagnosi s that is being evaluated, monitored, or treated as if it exists) are acceptable and can be coded in the inpatient se tting, when documented at the time of discharge. Please use your independent medical judgment in providing your response. THIS QUERY IS PART OF THE PERMANENT MEDICAL RECORD
== END 2023-04-21 14:07 | disposition home or self-care (01) | DRG 683 ==
LOC: HO.ED 04-21 00:25 → HO.EDOVER 04-21 00:38
PROVIDERS: Admitting Provider Student in an Organized Health Care Education/Training Program; Emergency Provider Emergency Medicine; PCP Family Medicine; Visit Provider Hospitalist
DX: N17.9 Acute kidney failure, unspecified (principal); K86.1 Other chronic pancreatitis; E11.65 Type 2 diabetes mellitus with hyperglycemia; F41.9 Anxiety disorder, unspecified; F32.A Depression, unspecified; K21.9 Gastro-esophageal reflux disease without esophagitis; E78.00 Pure hypercholesterolemia, unspecified; K86.89 Other specified diseases of pancreas; I10 Essential (primary) hypertension; F17.210 Nicotine dependence, cigarettes, uncomplicated; Z71.6 Tobacco abuse counseling; Z79.4 Long term (current) use of insulin; Z79.82 Long term (current) use of aspirin; Z79.84 Long term (current) use of oral hypoglycemic drugs; Z79.899 Other long term (current) drug therapy
CPT/HCPCS: 36415; 74176; 80048; 80053; 81001; 82947; 83690; 85025; 99285; J1650

== ENCOUNTER → 2023-04-20 23:51 | Outpatient (BNV) | payer MEDICARE, MEDICAID, SELFPAY | PROVIDERS: Admitting Provider Student in an Organized Health Care Education/Training Program; Emergency Provider Emergency Medicine; PCP Family Medicine; Visit Provider Student in an Organized Health Care Education/Training Program | DX: N28.9 Disorder of kidney and ureter, unspecified (principal) | CPT/HCPCS: 99222; 99239 ==

== ENCOUNTER 2023-05-20 16:43 | Emergency (ER) | payer MEDICARE, MEDICAID, SELFPAY ==
[2023-05-20 16:49] VITALS: BMI 25.3
--- NOTE | 2023-05-20 17:09 | ECG_ITS ---
Test Reason : ALTERED MENTAL STATUS Blood Pressure : / mmHG Vent. Rate : 061 BPM Atrial Rate : 061 BPM P-R Int : 118 ms QRS Dur : 092 ms QT Int : 490 ms P-R-T Axes : 069 063 069 degrees QTc Int : 493 ms Normal sinus rhythm Prolonged QT Abnormal ECG When compared with ECG of 22-MAY-2015 17:58, Non-specific change in ST segment in Anterior leads Nonspecific T wave abnormality no longer evident in Inferior leads QT has lengthened Referred By: Cristobal John Electronically Signed By:EVON LEO
[2023-05-20 17:10] VITALS: BP 175/91; PULSE 72; RESP 16
--- NOTE | 2023-05-20 17:15 | PC.NURSE ---
A & Ox3. BIBA @ 16:49 from home c/o feeling weak, nothing to eat today and slurred speech. 18g was placed in L ac by EMS. Upon assessment diaphoretic, has chills, slurred speech, difficulty sitting still, and lethargic. Presented hypertensive w/ a BP of 175/91 w/ hr of 72. pt POC upon arrival was 41. Kofi CASTELLANOS was notified, verbal order for 50 mls of 50% Dextrose IV push was ordered and given. Shortly after receiving IV dextrose, pts speech was improved. Speaking clearly and full sentences. Pt verbalized that he was feeling better. JASMIN Kirby notified. Pt placed on bedside monitor. 17 :23 -- BP recheck 125/87 w/ HR of 63.
--- NOTE | 2023-05-20 17:25 | ED.GENADULT ---
HPI - General Adult General Chief complaint: Altered Mental Status Stated complaint: AMS WEAKNESS Time Seen by Provider: 05/20/23 16:59 Source: patient, RN notes reviewed and old records reviewed Mode of arrival: EMS Limitations: no limitations History of Present Illness HPI narrative: 53-year-old male presents for evaluation of ?altered mental status and weakness. ? Patient arrives via EMS and apparently he called self to reports that he was not feeling himself. He is speaking very slowly He reports that he is ?cold and weak. ? On arrival to the ED a point of care glucose found his glucose to be 41 He was given an amp of D50 with immediate improvement in his symptoms Patient became more awake, speaking clearly and reported that he feels much better He is able to the report that he takes Lantus at night and denies taking any extra insulin or double dosing by accident He states he not take any insulin today but did not eat much today. He reports that his girlfriend thought his sugar was level and gave him ?soda and a banana earlier. ? He denies any other complaints or concerns at this time Related Data Home Medications Medication Instructions Recorded Confirmed [id number] 2 cap PO TID 07/10/20 04/21/23 24,000-76,000-120,000 unit capsule,delayed rel (Creon) omeprazole 20 mg capsule,delayed 20 mg PO BID 07/10/20 04/21/23 release alcohol swabs (Alcohol Prep Pads) 1 pad topical QID 02/14/22 06/26/22 aspirin 81 mg tablet,delayed 81 mg PO DAILY 02/14/22 04/21/23 release atorvastatin 20 mg tablet 20 mg PO DAILY 02/14/22 04/21/23 blood sugar diagnostic (FreeStyle #10 ea 02/14/22 Lite Strips) cholecalciferol (vitamin D3) 25 25 mcg PO QAM 02/14/22 04/21/23 mcg (1,000 unit) capsule (Vitamin D3) clonazepam 1 mg tablet 1 mg PO TID PRN Anxiety 02/14/22 04/21/23 cyanocobalamin (vitamin B-12) 1,000 mcg PO DAILY 02/14/22 04/21/23 1,000 mcg tablet empagliflozin 25 mg tablet 25 mg PO DAILY 02/14/22 04/21/23 (Jardiance) ergocalciferol (vitamin D2) 1,250 1,250 mcg PO QWEEK 02/14/22 04/21/23 mcg (50,000 unit) capsule escitalopram oxalate 20 mg tablet 20 mg PO DAILY 02/14/22 04/21/23 insulin aspart U-100 100 unit/mL 20 unit subcut TID 02/14/22 04/21/23 (3 mL) subcutaneous pen (Novolog FlexPen U-100 Insulin aspart) lancets 33 gauge (TRUEplus Lancets) #100 ea 02/14/22 losartan 25 mg tablet 12.5 mg PO DAILY 02/14/22 04/21/23 metformin 500 mg tablet,extended 500 mg PO DAILY 02/14/22 04/21/23 release 24 hr omega-3 fatty acids-fish oil 340 2 cap PO BID 02/14/22 04/21/23 mg-1,000 mg capsule (Fish Oil) pen needle, diabetic 32 gauge x #50 ea 02/14/22 (Pentips) trazodone 150 mg tablet 150 mg PO BEDTIME PRN Insomnia 02/14/22 04/21/23 insulin degludec 100 unit/mL (3 60 unit subcut BEDTIME 06/26/22 04/21/23 mL) subcutaneous pen (Tresiba FlexTouch U-100 insulin) Allergies Allergy/AdvReac Type Severity Reaction Status Date / Time No Known Allergies Allergy Verified 05/20/23 17:17 [No Known Allergies*] Review of Systems Constitutional: Constitutional: Denies body ache(s), Denies chills, Denies fever(s), Denies headache(s) and Reports weakness Eyes: Eyes: Denies blurry vision ENT: Denies dizziness and Denies headache(s) Cardiovascular: Cardiovascular: Denies chest pain and Denies dyspnea Respiratory: Respiratory: Denies cough and Denies dyspnea Gastrointestinal: Gastrointestinal: Denies abdominal pain, Denies nausea and Denies vomiting Musculoskeletal: Musculoskeletal: Denies back pain Integumentary/Breasts: Skin/Breast: Denies rash Neurologic: Denies dizziness, Denies headache(s) and Reports weakness PMFSH Past Medical History Medical History Anemia Anxiety disorder Chronic back pain Depression Diabetes Elevated cholesterol GERD (gastroesophageal reflux disease) Surgical History H/O colonoscopy History of esophagogastroduodenoscopy (EGD) History of lithotripsy Hx of cholecystectomy Hx of shoulder surgery Family History Family History Mother Diabetes Heart problem Father Diabetes Brother No problems noted. Maternal Grandfather Heart problem Social History Social History Alcohol intake: never Patient Tobacco Use Status: Current everyday Tobacco user Tobacco use type: Cigarette Cigarettes Per Day: 3 Second Hand Smoke Exposure: No Use of substances other than those prescribed or required for medical reasons: No Substance Use Type: Marijuana Advance Directives: No Advance Directives Information Provided: No Physical Exam ED Vital Signs: Vital Signs - 24 hr 05/20/23 17:10 05/20/23 18:00 Temperature 98.4 F Pulse Rate 72 64 Respiratory Rate 16 16 Blood Pressure 175/91 H 108/65 Pulse Oximetry 100 Oxygen Delivery Method Room Air BMI result Body Mass Index 25.3 Course Reevaluation(s) Reevaluation #1: He remains awake, and oriented without any complaints or concerns. Vital signs are stable Time: 17:50 Reevaluation #2: Patient re-evaluated again, he is sitting up eating dinner, remains asymptomatic. Time: 19:01 Reevaluation #3: Patient's glucose repeated and it went down to 53 again. The patient was alert and oriented time. He was given or issues which improved the glucose to 73. Will continue to monitor the patient is a do not feel he is safe for discharge as his glucose has now drops more than 1 occasion without receiving any insulin. I again asked the patient if he can remember taking a 2nd dose of insulin last night or this morning and he does not believe he did so. It is unclear why his glucose is dropping Time: 19:38 Additional Reevaluation(s): 9:37 p.m. patient has additional repeat glucose was 170. He has not had any further intervention for several hours now on his glucose remains adequate. He remains asymptomatic, he is stable for discharge Medications Administered Discontinued Medications Generic Name Dose Route Start Last Admin Trade Name Freq PRN Reason Stop Dose Admin Dextrose 25 gm 05/20/23 17:29 05/20/23 17:32 Dextrose 50 % 25 Gm/50 Ml Syringe IVPUSH 05/20/23 17:30 25 gm ONCE ONE Administration Medical Decision Making Medical Decision Making [facility] Narrative: 53-year-old male presents for evaluation of altered mental status. His point of care glucose was 41 on arrival and he immediately improved with IV dextrose. Plan to check basic labs, EKG. The patient is awake alert deficits or complaints at this time. Will follow his glucose levels closely Differential Diagnosis Differential Diagnoses: The differential diagnosis associated with the presentation includes Hypoglycemia Medication noncompliance Altered mental status CVA Sepsis Lab Data 05/20/23 17:50 05/20/23 17:50 Labs: Lab Results 05/20/23 05/20/23 05/20/23 Range/Units 16:57 17:26 17:50 WBC 8.8 (4.8-10.8) X10*3/uL RBC 4.77 (4.60-5.80) X10*6/uL Hgb 13.9 L (14.0-18.0) g/dl Hct 43.0 (42.0-52.0) % MCV 90.1 (80.0-98.0) fL MCH 29.1 (27.0-33.0) pg MCHC 32.3 (31.0-36.0) g/dl RDW 14.2 (11.0-16.0) % Plt Count 167 (160-400) X10*3/uL MPV 9.8 (9.4-12.4) fL Immature Gran % (Auto) 0.2 (0.0-0.4) % Neut % (Auto) 79.4 H (45-73) % Lymph % (Auto) 14.7 L (20-40) % [place] % (Auto) 5.0 (2-11) % Eos % (Auto) 0.5 (0-4) % Baso % (Auto) 0.2 (0-2) % Lymph # (Auto) 1.3 (1.2-4.9) X10*3/uL [place] # (Auto) 0.4 (0.1-1.2) X10*3/uL Eos # (Auto) 0.0 (0.0-0.4) X10*3/uL Baso # (Auto) 0.0 (0.0-0.2) X10*3/uL Abs Immat Gran (auto) 0.02 (0.00-0.03) X10*3/uL Absolute Neuts (auto) 7.0 (2.0-8.3) x10*3/uL Absolute Nucleated RBC 0.000 (0.0-0.012) X10*3/uL Nucleated RBC % (auto) 0.0 (0.0-0.2) /100WBC PT 11.2 (11.1-13.3) SEC INR 0.9 (0.9-1.1) APTT 33.7 (26.0-36.4) SEC Sodium 139 (135-145) mmol/L Potassium 5.2 H D (3.3-5.1) mmol/L Chloride 106 (96-108) mmol/L Carbon Dioxide 27 (22-29) mmol/L Anion Gap 11 L (12-20) BUN 15 (9-16) mg/dL Creatinine 0.82 (0.5-1.4) mg/dL Estim Creat Clear Calc 96.2 Estimated GFR > 60 POC Glucose 41 L* 169 H (60-115) mg/dL Random Glucose 122 H (60-115) mg/dL Calcium 9.0 (8.4-10.2) mg/dL Total Bilirubin 0.3 (0.0-1.0) mg/dL AST 20 (5-37) U/L ALT 16 (0-40) U/L Alkaline Phosphatase 81 (39-117) U/L Troponin I High Sens < 2.7 (<3.5-35.0) ng/L Total Protein 7.7 (6.5-8.0) g/dL Albumin 4.2 (3.5-5.0) g/dL Lipase < 4 L (8-78) U/L Ethyl Alcohol < 10 mg/dL 05/20/23 05/20/23 05/20/23 Range/Units 18:14 19:18 19:23 WBC (4.8-10.8) X10*3/uL RBC (4.60-5.80) X10*6/uL Hgb (14.0-18.0) g/dl Hct (42.0-52.0) % MCV (80.0-98.0) fL MCH (27.0-33.0) pg MCHC (31.0-36.0) g/dl RDW (11.0-16.0) % Plt Count (160-400) X10*3/uL MPV (9.4-12.4) fL Immature Gran % (Auto) (0.0-0.4) % Neut % (Auto) (45-73) % Lymph % (Auto) (20-40) % [place] % (Auto) (2-11) % Eos % (Auto) (0-4) % Baso % (Auto) (0-2) % Lymph # (Auto) (1.2-4.9) X10*3/uL [place] # (Auto) (0.1-1.2) X10*3/uL Eos # (Auto) (0.0-0.4) X10*3/uL Baso # (Auto) (0.0-0.2) X10*3/uL Abs Immat Gran (auto) (0.00-0.03) X10*3/uL Absolute Neuts (auto) (2.0-8.3) x10*3/uL Absolute Nucleated RBC (0.0-0.012) X10*3/uL Nucleated RBC % (auto) (0.0-0.2) /100WBC PT (11.1-13.3) SEC INR (0.9-1.1) APTT (26.0-36.4) SEC Sodium (135-145) mmol/L Potassium (3.3-5.1) mmol/L Chloride (96-108) mmol/L Carbon Dioxide (22-29) mmol/L Anion Gap (12-20) BUN (9-16) mg/dL Creatinine (0.5-1.4) mg/dL Estim Creat Clear Calc Estimated GFR POC Glucose 159 H 53 L* 72 (60-115) mg/dL Random Glucose (60-115) mg/dL Calcium (8.4-10.2) mg/dL Total Bilirubin (0.0-1.0) mg/dL AST (5-37) U/L ALT (0-40) U/L Alkaline Phosphatase (39-117) U/L Troponin I High Sens (<3.5-35.0) ng/L Total Protein (6.5-8.0) g/dL Albumin (3.5-5.0) g/dL Lipase (8-78) U/L Ethyl Alcohol mg/dL 05/20/23 Range/Units 20:35 WBC (4.8-10.8) X10*3/uL RBC (4.60-5.80) X10*6/uL Hgb (14.0-18.0) g/dl Hct (42.0-52.0) % MCV (80.0-98.0) fL MCH (27.0-33.0) pg MCHC (31.0-36.0) g/dl RDW (11.0-16.0) % Plt Count (160-400) X10*3/uL MPV (9.4-12.4) fL Immature Gran % (Auto) (0.0-0.4) % Neut % (Auto) (45-73) % Lymph % (Auto) (20-40) % [place] % (Auto) (2-11) % Eos % (Auto) (0-4) % Baso % (Auto) (0-2) % Lymph # (Auto) (1.2-4.9) X10*3/uL [place] # (Auto) (0.1-1.2) X10*3/uL Eos # (Auto) (0.0-0.4) X10*3/uL Baso # (Auto) (0.0-0.2) X10*3/uL Abs Immat Gran (auto) (0.00-0.03) X10*3/uL Absolute Neuts (auto) (2.0-8.3) x10*3/uL Absolute Nucleated RBC (0.0-0.012) X10*3/uL Nucleated RBC % (auto) (0.0-0.2) /100WBC PT (11.1-13.3) SEC INR (0.9-1.1) APTT (26.0-36.4) SEC Sodium (135-145) mmol/L Potassium (3.3-5.1) mmol/L Chloride (96-108) mmol/L Carbon Dioxide (22-29) mmol/L Anion Gap (12-20) BUN (9-16) mg/dL Creatinine (0.5-1.4) mg/dL Estim Creat Clear Calc Estimated GFR POC Glucose 129 H (60-115) mg/dL Random Glucose (60-115) mg/dL Calcium (8.4-10.2) mg/dL Total Bilirubin (0.0-1.0) mg/dL AST (5-37) U/L ALT (0-40) U/L Alkaline Phosphatase (39-117) U/L Troponin I High Sens (<3.5-35.0) ng/L Total Protein (6.5-8.0) g/dL Albumin (3.5-5.0) g/dL Lipase (8-78) U/L Ethyl Alcohol mg/dL Discharge Plan Discharge Clinical Impression: Hypoglycemia Patient Disposition: Home, Self-Care Instructions: Hypoglycemia in a Person with Diabetes (ED) Additional Instructions: Make sure you take her insulin exactly as prescribed. You need to make sure you are eating and or drinking some sugary food/beverage is if you are taking your insulin This will help prevent your blood sugar from going too low as it did today Prescriptions: No Action insulin degludec [Tresiba FlexTouch U-100] 100 unit/mL (3 mL) insulin pen 60 unit subcut BEDTIME omeprazole 20 mg capsule,delayed release(DR/EC) 20 mg PO BID Creon 24,000-76,000 -120,000 unit capsule,delayed release(DR/EC) 2 cap PO TID Rx Instructions: administer with meals and/or snacks Jardiance 25 mg tablet 25 mg PO DAILY Fish Oil 340-1,000 mg capsule 2 cap PO BID insulin aspart U-100 [Novolog FlexPen U-100 Insulin] 100 unit/mL (3 mL) insulin pen 20 unit subcut TID escitalopram oxalate 20 mg tablet 20 mg PO DAILY cholecalciferol (vitamin D3) [Vitamin D3] 25 mcg (1,000 unit) capsule 25 mcg PO QAM metformin 500 mg tablet extended release 24 hr 500 mg PO DAILY alcohol swabs [Alcohol Prep Pads] Pads, Medicated 1 pad topical QID trazodone 150 mg tablet 150 mg PO BEDTIME PRN (Reason: Insomnia) aspirin 81 mg tablet,delayed release (DR/EC) 81 mg PO DAILY cyanocobalamin (vitamin B-12) 1,000 mcg tablet 1,000 mcg PO DAILY clonazepam 1 mg tablet 1 mg PO TID PRN (Reason: Anxiety) atorvastatin 20 mg tablet 20 mg PO DAILY (DME) lancets [TRUEplus Lancets] 33 gauge misc See Rx Instructions Not Applicable QID Qty: 100 Rx Instructions: As directed (DME) pen needle, diabetic [Pentips] 32 gauge x 5/32 needle See Rx Instructions .ROUTE .MEDSUPPLY Qty: 50 Rx Instructions: As directed losartan 25 mg tablet 12.5 mg PO DAILY (DME) FreeStyle Lite Strips Strip See Rx Instructions Not Applicable QID Qty: 10 Rx Instructions: As directed ergocalciferol (vitamin D2) 1,250 mcg (50,000 unit) capsule 1,250 mcg PO QWEEK
--- NOTE | 2023-05-20 17:26 | PC.NURSE ---
POC recheck of 169. Speech clear and speaking in full sentences w/o difficulty
[2023-05-20] MEDS: Dextrose 50 % 25 GM/50 ML SYRINGE IVPUSH (17:32)
[2023-05-20 17:55] LABS: MANUAL DIFF FLAG NO
[2023-05-20 17:59] LABS: Basophils Percent Auto 0.2 % (0-2); Eosinophils Percent Auto 0.5 % (0-4); Hemoglobin 13.9 g/dl (14.0-18.0); Imm Gran Abs Auto 0.02 X10*3/uL (0.00-0.03); Imm Gran Pct Auto 0.2 % (0.0-0.4); Lymphocytes Absolute Auto 1.3 X10*3/uL (1.2-4.9); Lymphocytes Percent Auto 14.7 % (20-40); Mean Corpuscular HGB Conc 32.3 g/dl (31.0-36.0); Mean Corpuscular Hemoglobin 29.1 pg (27.0-33.0); Mean Corpuscular Volume 90.1 fL (80.0-98.0); Mean Platelet Volume 9.8 fL (9.4-12.4); Monocytes Absolute Auto 0.4 X10*3/uL (0.1-1.2); Neutrophils Percent Auto 79.4 % (45-73); Platelet Count 167 X10*3/uL (160-400); Red Blood Count 4.77 X10*6/uL (4.60-5.80); Red Cell Distribution Width 14.2 % (11.0-16.0); White Blood Count 8.8 X10*3/uL (4.8-10.8)
[2023-05-20 18:00] VITALS: BP 108/65; PULSE 64; RESP 16; TEMP 36.9; O2SAT 100
[2023-05-20 18:04] LABS: INTERNATIONAL NORM RATIO 0.9 (0.9-1.1); Prothrombin Time 11.2 SEC (11.1-13.3)
[2023-05-20 18:07] LABS: Partial Thromboplastin Time 33.7 SEC (26.0-36.4)
--- NOTE | 2023-05-20 18:16 | PC.NURSE ---
POC recheck 159
[2023-05-20 18:18] LABS: Alanine Aminotransferase 16 U/L (0-40); Albumin Level 4.2 g/dL (3.5-5.0); Alkaline Phosphatase 81 U/L (39-117); Anion Gap 11 (12-20); Aspartate Amino Transferase 20 U/L (5-37); Bilirubin Total 0.3 mg/dL (0.0-1.0); Blood Urea Nitrogen 15 mg/dL (9-16); Carbon Dioxide 27 mmol/L (22-29); Chloride 106 mmol/L (96-108); Creatinine Clr Calc Pharmacy 96.2; Estimated Glomerular Filt Rate > 60; Ethanol < 10 mg/dL; Glucose Random 122 mg/dL (60-115); Lipase < 4 U/L (8-78); Potassium 5.2 mmol/L (3.3-5.1); Sodium 139 mmol/L (135-145); Total Protein 7.7 g/dL (6.5-8.0)
[2023-05-20 18:21] LABS: Troponin-I High Sensitivity < 2.7 ng/L (<3.5-35.0)
[2023-05-20 19:27] LABS: Glucose, Whole Blood 53 mg/dL (60-115)
[2023-05-20 19:27] LABS: Glucose, Whole Blood 159 mg/dL (60-115)
[2023-05-20 19:27] LABS: Glucose, Whole Blood 41 mg/dL (60-115)
[2023-05-20 19:27] LABS: Glucose, Whole Blood 169 mg/dL (60-115)
[2023-05-20 19:27] LABS: Glucose, Whole Blood 72 mg/dL (60-115)
[2023-05-20 20:39] LABS: Glucose, Whole Blood 129 mg/dL (60-115)
[2023-05-20 21:48] VITALS: BP 130/73; PULSE 67; RESP 14; TEMP 37.3; O2SAT 99
== END 2023-05-20 21:59 | disposition home or self-care (01) ==
PROVIDERS: Physician Assistant; Emergency Provider Internal Medicine
DX: E11.649 Type 2 diabetes mellitus with hypoglycemia without coma (principal); E78.5 Hyperlipidemia, unspecified; D64.9 Anemia, unspecified; K75.81 Nonalcoholic steatohepatitis (NASH); F17.210 Nicotine dependence, cigarettes, uncomplicated; Z79.899 Other long term (current) drug therapy; Z79.4 Long term (current) use of insulin; Z79.82 Long term (current) use of aspirin
CPT/HCPCS: 36415; 80053; 80307; 82947; 83690; 84484; 85025; 85610; 85730; 93005; 96374; 99284; 99285

== ENCOUNTER 2023-05-21 14:07 | Observation (INO) | payer MEDICARE, MEDICAID, SELFPAY ==
[2023-05-21 14:12] VITALS: BP 115/66; BP 140/86; PULSE 59; PULSE 62; RESP 18; TEMP 36.7; O2SAT 98; O2SAT 99; BMI 26.6
[2023-05-21 14:17] LABS: Glucose, Whole Blood 60 mg/dL (60-115)
--- NOTE | 2023-05-21 14:43 | ED.GENADULT ---
HPI - General Adult General Chief complaint: General Medical Stated complaint: LOW BLOOD SUGAR ? Time Seen by Provider: 05/21/23 14:35 Source: patient and EMS Mode of arrival: EMS Limitations: no limitations History of Present Illness HPI narrative: 53-year-old male insulin-dependent diabetes managed by 64 units of Lantus at nighttime and sliding scale with NovoLog. He has been on this daily routine for the past 30 days, patient found himself disoriented and confused call 911 found to have low blood sugar in the 80s that went down to 60s, patient was given orange juice in the ED and started to feel gradually back to normal. Patient also was seen yesterday in the emergency department for hypoglycemia. Patient ensured that he follow his doctor instruction and take the exact dose as instructed. Related Data Home Medications Medication Instructions Recorded Confirmed [id number]-jykaucur-rfrqfer 2 cap PO TID 07/10/20 04/21/23 24,000-76,000-120,000 unit capsule,delayed rel (Creon) omeprazole 20 mg capsule,delayed 20 mg PO BID 07/10/20 04/21/23 release alcohol swabs (Alcohol Prep Pads) 1 pad topical QID 02/14/22 06/26/22 aspirin 81 mg tablet,delayed 81 mg PO DAILY 02/14/22 04/21/23 release atorvastatin 20 mg tablet 20 mg PO DAILY 02/14/22 04/21/23 blood sugar diagnostic (FreeStyle #10 ea 02/14/22 Lite Strips) cholecalciferol (vitamin D3) 25 25 mcg PO QAM 02/14/22 04/21/23 mcg (1,000 unit) capsule (Vitamin D3) clonazepam 1 mg tablet 1 mg PO TID PRN Anxiety 02/14/22 04/21/23 cyanocobalamin (vitamin B-12) 1,000 mcg PO DAILY 02/14/22 04/21/23 1,000 mcg tablet empagliflozin 25 mg tablet 25 mg PO DAILY 02/14/22 04/21/23 (Jardiance) ergocalciferol (vitamin D2) 1,250 1,250 mcg PO QWEEK 02/14/22 04/21/23 mcg (50,000 unit) capsule escitalopram oxalate 20 mg tablet 20 mg PO DAILY 02/14/22 04/21/23 insulin aspart U-100 100 unit/mL 20 unit subcut TID 02/14/22 04/21/23 (3 mL) subcutaneous pen (Novolog FlexPen U-100 Insulin aspart) lancets 33 gauge (TRUEplus Lancets) #100 ea 02/14/22 losartan 25 mg tablet 12.5 mg PO DAILY 02/14/22 04/21/23 metformin 500 mg tablet,extended 500 mg PO DAILY 02/14/22 04/21/23 release 24 hr omega-3 fatty acids-fish oil 340 2 cap PO BID 02/14/22 04/21/23 mg-1,000 mg capsule (Fish Oil) pen needle, diabetic 32 gauge x #50 ea 02/14/22 (Pentips) trazodone 150 mg tablet 150 mg PO BEDTIME PRN Insomnia 02/14/22 04/21/23 insulin degludec 100 unit/mL (3 60 unit subcut BEDTIME 06/26/22 04/21/23 mL) subcutaneous pen (Tresiba FlexTouch U-100 insulin) Allergies Allergy/AdvReac Type Severity Reaction Status Date / Time No Known Allergies Allergy Verified 05/20/23 17:17 [No Known Allergies*] Review of Systems Review of Systems: All other systems are reviewed and are negative Constitutional: Reports as per HPI and Reports no additional constitutional complaints Eyes: Reports as per HPI and Reports no additional eye complaints Reports system reviewed and no additional complaints, except as documented Cardiovascular: Reports as per HPI and Reports no additional cardiovascular complaints Respiratory: Reports as per HPI and Reports no additional respiratory complaints Gastrointestinal: Reports as per HPI and Reports no additional gastrointestinal complaints Genitourinary: Reports no additional female genitourinary complaints Musculoskeletal: Reports no additional musculoskeletal complaints Skin/Breast: Reports system reviewed and no additional complaints, except as docu Psychiatric: Reports no additional psychiatric complaints Endocrine: Reports no additional endocrine complaints Hematologic/Lymphatic: Reports no additional hematologic/lymphatic complaints Allergic/Immunologic: Reports no additional allergic/immunologic complaints Reports system reviewed and no additional complaints, except as documented and Reports Abnormal speech present PMFSH Past Medical History Medical History Anemia Elevated cholesterol Diabetes GERD (gastroesophageal reflux disease) Chronic back pain Depression Anxiety disorder Surgical History H/O colonoscopy History of lithotripsy Hx of shoulder surgery Hx of cholecystectomy History of esophagogastroduodenoscopy (EGD) Family History Family History Mother Diabetes Heart problem Father Diabetes Brother No problems noted. Maternal Grandfather Heart problem Social History Social History Alcohol intake: never Patient Tobacco Use Status: Current everyday Tobacco user Tobacco use type: Cigarette Cigarettes Per Day: 3 Smoked in Last 30 Days: Yes Second Hand Smoke Exposure: No Use of substances other than those prescribed or required for medical reasons: Yes Substance Use Type: Marijuana Advance Directives: No Advance Directives Information Provided: Yes Physical Exam ED Vital Signs: Vital Signs - 24 hr 05/21/23 14:12 Temperature 98.1 F Pulse Rate 59 Respiratory Rate 18 Blood Pressure 115/66 Pulse Oximetry 99 Oxygen Delivery Method Room Air BMI result Body Mass Index 26.6 Vital signs have been reviewed and appear to be correct. Blood pressure elevated. Heart rate normal. Respiratory rate normal. Temperature normal. Oxygen saturation normal. Appearance: Alert. Oriented X3. No acute distress. Head: Normal external exam. Normocephalic. Atraumatic. No Smyth signs noted. No raccoon eyes noted Eyes: PERRLA. EOMI. Conjunctiva and sclera normal. Eyelids normal. ENT: TM's Normal. Pharynx normal. Uvula midline. Moist mucous membranes. No trismus noted. No drooling noted. No muffled voice noted. Neck: Normal inspection. Neck supple. FROM. No adenopathy. Thyroid Normal. No meningeal signs. No neck mass noted. CVS: Normal heart rate and rhythm. Heart sound normal. No murmurs noted. Pulses normal throughout. Respiratory: No respiratory distress. Painless inspiration. Breath sounds normal. No wheezes/rales/rhonchi noted. Chest nontender. No accessory muscle usage noted or decreased air movement noted. Abdomen: Soft and nontender. Bowel sounds normal in all 4 quadrants. No distention noted. No organomegaly noted. No visible injury noted. Back: No CVA tenderness. Full range of motion noted. Skin: Skin warm and dry. Normal skin color. Normal skin turgor. No rashes/lesions/lacerations noted. Extremities: No lower extremity edema. Extremities exhibit normal range of motion. Extremities nontender. Neuro: Oriented X 3. Cranial nerve exam: II-XII are grossly intact No motor deficit. No sensory deficit. Reflexes normal. Course Course Course Narrative: 2nd return to the ED for hypoglycemia reaction to insulin. Will start the patient on D5W 1/2normal saline and admit for continuous POC and adjustment of outpatient Insulin dosage. Medications Administered Discontinued Medications Generic Name Dose Route Start Last Admin Trade Name Freq PRN Reason Stop Dose Admin Sodium Chloride 1,000 mls @ 999 mls/hr 05/21/23 14:50 05/21/23 15:03 Ns IV 05/21/23 15:50 999 mls/hr .Q1H1M ONE Administration Medical Decision Making Differential Diagnosis Differential Diagnoses: The differential diagnosis associated with the presentation includes ( Hypoglycemia due to insulin, electrolyte abnormality, severe anemia.) Admission/Observation Consideration of admission/observation: Escalation of care including admission/observation considered Consult Healthcare Provider Management of the patient was discussed with: Hospitalist ( Dr. Dailey) Lab Data MDM Lab Attestation statement: I reviewed the patient's lab results. 05/21/23 15:02 05/21/23 15:02 Labs: Lab Results 05/21/23 05/21/23 05/21/23 Range/Units 14:11 14:50 15:02 WBC 6.8 (4.8-10.8) X10*3/uL RBC 4.32 L (4.60-5.80) X10*6/uL Hgb 12.6 L (14.0-18.0) g/dl Hct 38.6 L (42.0-52.0) % MCV 89.4 (80.0-98.0) fL MCH 29.2 (27.0-33.0) pg MCHC 32.6 (31.0-36.0) g/dl RDW 14.2 (11.0-16.0) % Plt Count 148 L (160-400) X10*3/uL MPV 9.3 L (9.4-12.4) fL Immature Gran % (Auto) 0.3 (0.0-0.4) % Neut % (Auto) 69.1 (45-73) % Lymph % (Auto) 21.4 (20-40) % [place] % (Auto) 8.2 (2-11) % Eos % (Auto) 0.7 (0-4) % Baso % (Auto) 0.3 (0-2) % Lymph # (Auto) 1.5 (1.2-4.9) X10*3/uL [place] # (Auto) 0.6 (0.1-1.2) X10*3/uL Eos # (Auto) 0.1 (0.0-0.4) X10*3/uL Baso # (Auto) 0.0 (0.0-0.2) X10*3/uL Abs Immat Gran (auto) 0.02 (0.00-0.03) X10*3/uL Absolute Neuts (auto) 4.7 (2.0-8.3) x10*3/uL Absolute Nucleated RBC 0.000 (0.0-0.012) X10*3/uL Nucleated RBC % (auto) 0.0 (0.0-0.2) /100WBC Sodium 140 (135-145) mmol/L Potassium 4.1 D (3.3-5.1) mmol/L Chloride 110 H (96-108) mmol/L Carbon Dioxide 28 (22-29) mmol/L Anion Gap 6 L (12-20) BUN 12 (9-16) mg/dL Creatinine 0.88 (0.5-1.4) mg/dL Estim Creat Clear Calc 89.7 Estimated GFR > 60 POC Glucose 60 68 (60-115) mg/dL Random Glucose 61 (60-115) mg/dL Calcium 8.8 (8.4-10.2) mg/dL Lipase 5 L (8-78) U/L 05/21/ Range/Units 15:38 WBC (4.8-10.8) X10*3/uL RBC (4.60-5.80) X10*6/uL Hgb (14.0-18.0) g/dl Hct (42.0-52.0) % MCV (80.0-98.0) fL MCH (27.0-33.0) pg MCHC (31.0-36.0) g/dl RDW (11.0-16.0) % Plt Count (160-400) X10*3/uL MPV (9.4-12.4) fL Immature Gran % (Auto) (0.0-0.4) % Neut % (Auto) (45-73) % Lymph % (Auto) (20-40) % [place] % (Auto) (2-11) % Eos % (Auto) (0-4) % Baso % (Auto) (0-2) % Lymph # (Auto) (1.2-4.9) X10*3/uL [place] # (Auto) (0.1-1.2) X10*3/uL Eos # (Auto) (0.0-0.4) X10*3/uL Baso # (Auto) (0.0-0.2) X10*3/uL Abs Immat Gran (auto) (0.00-0.03) X10*3/uL Absolute Neuts (auto) (2.0-8.3) x10*3/uL Absolute Nucleated RBC (0.0-0.012) X10*3/uL Nucleated RBC % (auto) (0.0-0.2) /100WBC Sodium (135-145) mmol/L Potassium (3.3-5.1) mmol/L Chloride (96-108) mmol/L Carbon Dioxide (22-29) mmol/L Anion Gap (12-20) BUN (9-16) mg/dL Creatinine (0.5-1.4) mg/dL Estim Creat Clear Calc Estimated GFR POC Glucose 119 H (60-115) mg/dL Random Glucose (60-115) mg/dL Calcium (8.4-10.2) mg/dL Lipase (8-78) U/L Chronic Conditions Patient?s care impacted by: Diabetes Discharge Plan Discharge Clinical Impression: Hypoglycemia due to insulin Patient Disposition: Admitted As Inpatient
--- NOTE | 2023-05-21 14:48 | PC.NURSE ---
poc was 60 at 1411 gave OJ and sandwich will recheck poc in an hour.
[2023-05-21 14:53] LABS: Glucose, Whole Blood 68 mg/dL (60-115)
[2023-05-21] MEDS: 0.9 % Sodium Chloride 1,000 ML 999 ML IV (15:03)
[2023-05-21 15:07] LABS: MANUAL DIFF FLAG NO
[2023-05-21 15:10] LABS: Basophils Percent Auto 0.3 % (0-2); Eosinophils Absolute Auto 0.1 X10*3/uL (0.0-0.4); Eosinophils Percent Auto 0.7 % (0-4); Hematocrit 38.6 % (42.0-52.0); Hemoglobin 12.6 g/dl (14.0-18.0); Imm Gran Abs Auto 0.02 X10*3/uL (0.00-0.03); Imm Gran Pct Auto 0.3 % (0.0-0.4); Lymphocytes Absolute Auto 1.5 X10*3/uL (1.2-4.9); Lymphocytes Percent Auto 21.4 % (20-40); Mean Corpuscular HGB Conc 32.6 g/dl (31.0-36.0); Mean Corpuscular Hemoglobin 29.2 pg (27.0-33.0); Mean Corpuscular Volume 89.4 fL (80.0-98.0); Mean Platelet Volume 9.3 fL (9.4-12.4); Monocytes Absolute Auto 0.6 X10*3/uL (0.1-1.2); Monocytes Percent Auto 8.2 % (2-11); Neutrophils Absolute Auto 4.7 x10*3/uL (2.0-8.3); Neutrophils Percent Auto 69.1 % (45-73); Platelet Count 148 X10*3/uL (160-400); Red Blood Count 4.32 X10*6/uL (4.60-5.80); Red Cell Distribution Width 14.2 % (11.0-16.0); White Blood Count 6.8 X10*3/uL (4.8-10.8)
[2023-05-21 15:24] LABS: Anion Gap 6 (12-20); Blood Urea Nitrogen 12 mg/dL (9-16); Calcium 8.8 mg/dL (8.4-10.2); Carbon Dioxide 28 mmol/L (22-29); Chloride 110 mmol/L (96-108); Creatinine Clr Calc Pharmacy 89.7; Estimated Glomerular Filt Rate > 60; Glucose Random 61 mg/dL (60-115); Lipase 5 U/L (8-78); Potassium 4.1 mmol/L (3.3-5.1); Sodium 140 mmol/L (135-145)
[2023-05-21 15:43] LABS: Glucose, Whole Blood 119 mg/dL (60-115)
[2023-05-21 16:18] VITALS: BP 137/72; PULSE 56; RESP 15; TEMP 36.9; O2SAT 97
[2023-05-21] MEDS: Dextrose 5 % and 0.9 % NaCl 1,000 ML 100 ML IVCONT (16:23)
--- NOTE | 2023-05-21 17:11 | PHA.MEDREC ---
Pharmacy Consult ? Medication Reconciliation Pharmacy has completed the medication reconciliation. Patient report his medication are in a box. Patient listed medications out of the box included clonazepam, trazodone and insulins. Report Novolog is a SSI and Tresiba is 64 units. Patient unsure what day of the week his vitaming D2 is. Lori Lu, PharmD
[2023-05-21 17:20] VITALS: BP 148/74; PULSE 56; RESP 18; TEMP 36.8; O2SAT 98
[2023-05-21 17:28] LABS: Glucose, Whole Blood 118 mg/dL (60-115)
--- NOTE | 2023-05-21 18:46 | PM.IMHP ---
History of Present Illness Date of Service: 06/04/23 Attending physician on admission: Chelle Dailey Chief Complaint: hypoglycemia 53-year-old male with pertinent history of chronic pancreatitis, gastroesophageal reflux disease, mood disorder, insulin-dependent diabetes mellitus who presents to the emergency department for evaluation of hypoglycemia: Patient says that he is having on and off symptom of hypoglycemia including generalized weakness, confusion, sweatiness also on and off leg cramps-he uses some juice. This symptoms resolved with juice but patient decided to present to the ER for further evaluations. He says that these symptoms are from at least 2 months since his Lantus is increased from 60 to 64 units. On and off also decreased p.o. intake. denies fever, chills, chest discomfort, palpitations, shortness of breath, changes in urinary or bowel habits. Review of Systems Review of Systems: As above. [facility] Medical History Anemia Elevated cholesterol Diabetes GERD (gastroesophageal reflux disease) Chronic back pain Depression Anxiety disorder Family History Mother Diabetes Heart problem Father Diabetes Brother No problems noted. Maternal Grandfather Heart problem Surgical History H/O colonoscopy History of lithotripsy Hx of shoulder surgery Hx of cholecystectomy History of esophagogastroduodenoscopy (EGD) Social History Alcohol intake: never Patient Tobacco Use Status: Current everyday Tobacco user Tobacco use type: Cigarette Cigarettes Per Day: 3 Smoked in Last 30 Days: Yes Second Hand Smoke Exposure: No Use of substances other than those prescribed or required for medical reasons: Yes Substance Use Type: Marijuana Advance Directives: No Advance Directives Information Provided: Yes Meds Allergies Allergy/AdvReac Type Severity Reaction Status Date / Time No Known Allergies Allergy Verified 05/20/23 17:17 [No Known Allergies*] Active Medications: Current Medications Lipase/Protease/Amylase (Lipase/Prot/Amylase 24/76/120k 1 Cap Capsule.) 2 cap PO TID HUGH Aspirin (Aspirin Enteric Coated 81 Mg Tablet.) 81 mg PO DAILY@1200 [facility] Atorvastatin Calcium (Atorvastatin Calcium 20 Mg Tablet) 20 mg PO BEDTIME [facility] Clonazepam (Clonazepam 1 Mg Tablet) 1 mg PO TID PRN PRN Reason: Anxiety Cyanocobalamin (Cyanocobalamin (Vitamin B-12) 1,000 Mcg Tablet) 1,000 mcg PO DAILY [facility] Enoxaparin Sodium (Enoxaparin Sodium 40 Mg/0.4 Ml Syringe) 40 mg SUBCUT DAILY [facility] Ergocalciferol (Ergocalciferol (Vitamin D2) 1,250 Mcg Capsule) 1,250 mcg PO [facility] Escitalopram Oxalate (Escitalopram Oxalate 20 Mg Tablet) 20 mg PO DAILY [facility] Dextrose/Sodium Chloride (D5ns) 1,000 mls @ 100 mls/hr IVCONT .Q10H [facility] Last Admin: 05/21/23 16:23 Dose: 100 mls/hr Losartan Potassium (Losartan Potassium 25 Mg Tablet) 12.5 mg PO DAILY [facility]; Protocol Omeprazole (Omeprazole 20 Mg Capsule.Dr) 20 mg PO BID@0630,1630 [facility] Sodium Chloride (0.9 % Sodium Chloride Flush 3 Ml Syringe) 3 ml IVFLUSH QSHIFT [facility] Trazodone HCl (Trazodone Hcl 50 Mg Tablet) 150 mg PO BEDTIME PRN PRN Reason: Insomnia Vitamin D (Cholecalciferol (Vitamin D3) 25 Mcg Tablet) 25 mcg PO DAILY [facility] Home Medications Medication Instructions Recorded Confirmed Last Taken Type pqqlim-bkocgjrx-jfjrikj 2 cap PO TID 07/10/20 05/21/23 Unknown History 24,000-76,000-120,000 unit capsule,delayed rel (Creon) omeprazole 20 mg capsule,delayed 20 mg PO BID 07/10/20 05/21/23 Unknown History release aspirin 81 mg tablet,delayed 81 mg PO DAILY@1200 02/14/22 05/21/23 Unknown History release atorvastatin 20 mg tablet 20 mg PO BEDTIME 02/14/22 05/21/23 Unknown History blood sugar diagnostic (FreeStyle #10 ea 02/14/22 Unknown History Lite Strips) cholecalciferol (vitamin D3) 25 25 mcg PO QAM 02/14/22 05/21/23 Unknown History mcg (1,000 unit) capsule (Vitamin D3) clonazepam 1 mg tablet 1 mg PO TID PRN Anxiety 02/14/22 05/21/23 Unknown History cyanocobalamin (vitamin B-12) 1,000 mcg PO DAILY 02/14/22 05/21/23 Unknown History 1,000 mcg tablet empagliflozin 25 mg tablet 25 mg PO DAILY 02/14/22 05/21/23 Unknown History (Jardiance) ergocalciferol (vitamin D2) 1,250 1,250 mcg PO QWEEK 02/14/22 05/21/23 Unknown History mcg (50,000 unit) capsule escitalopram oxalate 20 mg tablet 20 mg PO DAILY 02/14/22 05/21/23 Unknown History insulin aspart U-100 100 unit/mL 0 sliding scale dose subcut TIDAC 02/14/22 05/21/23 Unknown History (3 mL) subcutaneous pen (Novolog FlexPen U-100 Insulin aspart) lancets 33 gauge (TRUEplus Lancets) #100 ea 02/14/22 Unknown History losartan 25 mg tablet 12.5 mg PO DAILY 02/14/22 05/21/23 Unknown History metformin 500 mg tablet,extended 500 mg PO DAILY@1730 02/14/22 05/21/23 Unknown History release 24 hr pen needle, diabetic 32 gauge x #50 ea 02/14/22 Unknown History (Pentips) trazodone 150 mg tablet 150 mg PO BEDTIME PRN Insomnia 02/14/22 05/21/23 Unknown History insulin degludec 100 unit/mL (3 64 unit subcut BEDTIME 06/26/22 05/21/23 Unknown History mL) subcutaneous pen (Tresiba FlexTouch U-100 insulin) omega-3 300 mg-dha 120 mg-epa 180 2 cap PO BID@1200,2100 05/21/23 05/21/23 Unknown History mg-fish oil 1,000 mg capsule Physical Exam Vital Signs and Narrative: Vital Signs: Last Vital Signs Temp 98.2 F 05/21/23 17:20 Pulse 56 05/21/23 17:20 Resp 18 05/21/23 17:20 BP 148/74 H 05/21/23 17:20 Pulse Ox 98 05/21/23 17:20 O2 Del Method Room Air 05/21/23 17:20 BMI result Body Mass Index 26.6 Middle-aged male lying in bed in no distress Neck supple, no JVD Regular rate and rhythm, S1-S2 heard Regular breath sounds bilaterally, no wheezing or crackles appreciated Abdomen soft nontender, no guarding, no rigidity Patient is awake, alert and oriented to self, place, time and person ; no focal motor deficit Psych: Normal mood No pedal edema Results Labs 05/21/23 15:02 05/21/23 15:02 Labs: Laboratory Results - last 24 hr 05/21/23 05/21/23 05/21/23 14:11 14:50 15:02 MCV 89.4 MCH 29.2 MCHC 32.6 RDW 14.2 Plt Count 148 L MPV 9.3 L Immature Gran % (Auto) 0.3 Neut % (Auto) 69.1 Lymph % (Auto) 21.4 [place] % (Auto) 8.2 Eos % (Auto) 0.7 Baso % (Auto) 0.3 Lymph # (Auto) 1.5 [place] # (Auto) 0.6 Eos # (Auto) 0.1 Baso # (Auto) 0.0 Abs Immat Gran (auto) 0.02 Absolute Neuts (auto) 4.7 Absolute Nucleated RBC 0.000 Nucleated RBC % (auto) 0.0 Anion Gap 6 L Estim Creat Clear Calc 89.7 Estimated GFR > 60 POC Glucose 60 68 Random Glucose 61 Calcium 8.8 Lipase 5 L 05/21/23 05/21/23 15:38 17:22 MCV MCH MCHC RDW Plt Count MPV Immature Gran % (Auto) Neut % (Auto) Lymph % (Auto) [place] % (Auto) Eos % (Auto) Baso % (Auto) Lymph # (Auto) [place] # (Auto) Eos # (Auto) Baso # (Auto) Abs Immat Gran (auto) Absolute Neuts (auto) Absolute Nucleated RBC Nucleated RBC % (auto) Anion Gap Estim Creat Clear Calc Estimated GFR POC Glucose 119 H 118 H Random Glucose Calcium Lipase Assessment and Plan (1) Hypoglycemia due to insulin: Status: Acute Plan 53-year-old male with pertinent history of chronic pancreatitis, gastroesophageal reflux disease, mood disorder, insulin-dependent diabetes mellitus who will be admitted for eval-with hypoglycemia. Insulin-dependent diabetes mellitus with hyperglycemia. hold lantus ,check hba1c levels Encouraged for p.o. intake, fingerstick with adjusted sliding scale coverage, avoid coverage below 200 mg/dL. Continue IV fluid with d5ns. Essential hypertension. continue losartan in the setting of above. Chronic pancreatitis with pancreatic insufficiency. Continue pancreatic enzyme supplements Mood disorder. Continue home mood stabilizers DVT prophylaxis: Lovenox patient will likely require to midnight hospital stay for close monitoring -for hypoglycemia, optimizing insulin regimen Time Spent With Patient Time: Total time managing care of this patient today ____ minutes. Quality Stroke Does the patient have a stroke diagnosis?: No VTE Prior VTE?: No VTE Risk Level:: Medical - moderate - high VTE Device Contraindication: N/A - Device Ordered VTE Drug Contraindication: N/A - Med Ordered
[2023-05-21] MEDS: Enoxaparin Sodium 40 MG/0.4 ML SYRINGE SUBCUT (19:44)
[2023-05-21 20:00] VITALS: BP 140/71; PULSE 62; RESP 18; TEMP 36.6; O2SAT 99
[2023-05-21 21:02] LABS: Glucose, Whole Blood 201 mg/dL (60-115)
[2023-05-21] MEDS: Atorvastatin Calcium 20 MG TABLET PO (21:18)
[2023-05-21] MEDS: Lipase/Prot/Amylase 24/76/120K 1 CAP CAPSULE.DR 2 CAP PO (21:18)
[2023-05-21] MEDS: Insulin Lispro 100 UNIT/ML 3 ML VIAL SUBCUT (21:18)
[2023-05-21 21:29] VITALS: BMI 27.6
[2023-05-21 23:43] LABS: Appearance Urine Clear; Color Urine Yellow; Glucose Urine UA 100 mg/dL (Negative); Leukocyte Esterase Urine Negative (Negative); Nitrite Urine Negative (Negative); PH 5.5 (5.0-9.0); Urine Blood Negative (Negative); Urine Ketones Negative (Negative); Urine Protein Negative (Neg-Trace)
[2023-05-22] VITALS: BP 141/79; PULSE 56; RESP 20; TEMP 36.2; O2SAT 97
[2023-05-22] MEDS: Dextrose 5 % and 0.9 % NaCl 1,000 ML 100 ML IVCONT (02:56)
[2023-05-22 04:00] VITALS: BP 130/70; PULSE 59; RESP 18; TEMP 36.2; O2SAT 98
[2023-05-22] MEDS: Omeprazole 20 MG CAPSULE.DR PO (05:52)
[2023-05-22 07:54] LABS: Estimated Average Glucose 252 mg/dL; Hemoglobin A1c % 10.4 % (<6.0)
[2023-05-22 08:00] VITALS: BP 141/68; PULSE 52; RESP 18; TEMP 36.7; O2SAT 96
[2023-05-22 08:04] LABS: Glucose, Whole Blood 243 mg/dL (60-115)
[2023-05-22] MEDS: Insulin Lispro 100 UNIT/ML 3 ML VIAL SUBCUT (08:09)
[2023-05-22] MEDS: Lipase/Prot/Amylase 24/76/120K 1 CAP CAPSULE.DR 2 CAP PO (08:10)
[2023-05-22] MEDS: Cholecalciferol (Vitamin D3) 25 MCG TABLET PO (08:10)
[2023-05-22] MEDS: Losartan Potassium 25 MG TABLET 12.5 MG PO (08:10)
[2023-05-22] MEDS: Escitalopram Oxalate 20 MG TABLET PO (08:10)
[2023-05-22] MEDS: Cyanocobalamin (Vitamin B-12) 1,000 MCG TABLET 1000 MCG PO (08:10)
[2023-05-22 11:18] LABS: Glucose, Whole Blood 180 mg/dL (60-115)
[2023-05-22 11:36] VITALS: BP 165/78; PULSE 58; RESP 18; TEMP 37.1; O2SAT 99
[2023-05-22] MEDS: Aspirin Enteric Coated 81 MG TABLET.DR PO (11:45)
--- NOTE | 2023-05-22 11:57 | PM.DS ---
DS: Providers Provider Date of Service: 05/22/23 Date of admission: 05/21/23 18:35 Date of discharge: 05/22/23 Primary care physician: Unknown Physician DS: Diagnosis Discharge Diagnosis (1) Hypoglycemia due to insulin: Status: Acute DS: Summary Hospital Course Hospital Course: 53-year-old male with pertinent history of chronic pancreatitis, gastroesophageal reflux disease, mood disorder, insulin-dependent diabetes mellitus who presents to the emergency department for evaluation of cramps in bilateral upper extremities and abdominal discomfort. Patient states he had a busy day and did not eat or drink much throughout the day. Denies vomiting or diarrhea. Patient states that he had cramps in bilateral upper extremities and abdominal cramps which he thought was due to hypoglycemia and patient drank some juice. This symptoms resolved with juice but patient decided to present to the ER for further evaluations. He denies fever, chills, chest discomfort, palpitations, shortness of breath, changes in urinary or bowel habits. In the emergency department, creatinine was found to be elevated. hospital course: Patient was admitted for hypoglycemia-which seems to be related to decreased p.o. intake, and use of increased does of Lantus: Patient was given IV D5 NS-fingersticks some approved a IV fluids stopped and fingersticks are maintained, hemoglobin A1c 10.4,no further episode of hypoglycemia, patient was encouraged for p.o. intake and diabetic education given, in addition we adjusted his Tresiba to 10 units. He was strongly advised to monitor fingersticks at home and follow-up with primary doctor. Assessment plan coordination time spent 50 minute. Above management Discussed with patient in detail-he understands and in agreement with above plan. Time Spent with Patient Time attestation: Total time managing care of this patient today ____ minutes. Discharge coordination time: Greater than 30 minutes Quality: Safe Use of Opioids Does Pt have an Active Cancer Diagnosis on the Problem List?: No Quality: Stroke Does the patient have a stroke diagnosis?: No Physical Exam Vital Signs: Vital Signs: Last Vital Signs Temp 98.7 F 05/22/23 11:36 Pulse 58 05/22/23 11:36 Resp 18 05/22/23 11:36 BP 165/78 H 05/22/23 11:36 Pulse Ox 99 05/22/23 11:36 O2 Del Method Room Air 05/22/23 11:36 BMI result Body Mass Index 27.6 resting in bed ,not in any distress. Neck supple, no JVD Regular rate and rhythm, S1-S2 heard Regular breath sounds bilaterally, no wheezing or crackles appreciated Abdomen soft nontender, no guarding, no rigidity Patient is awake, alert and oriented to self, place, time and person ; no focal motor deficit Psych: Normal mood No pedal edema DS: Data Data Completed and Pending Labs on day of discharge: Laboratory Results - last 24 hr 05/21/23 05/21/23 05/21/23 14:11 14:50 15:02 WBC 6.8 RBC 4.32 L Hgb 12.6 L Hct 38.6 L MCV 89.4 MCH 29.2 MCHC 32.6 RDW 14.2 Plt Count 148 L MPV 9.3 L Immature Gran % (Auto) 0.3 Neut % (Auto) 69.1 Lymph % (Auto) 21.4 [place] % (Auto) 8.2 Eos % (Auto) 0.7 Baso % (Auto) 0.3 Lymph # (Auto) 1.5 [place] # (Auto) 0.6 Eos # (Auto) 0.1 Baso # (Auto) 0.0 Abs Immat Gran (auto) 0.02 Absolute Neuts (auto) 4.7 Absolute Nucleated RBC 0.000 Nucleated RBC % (auto) 0.0 Sodium 140 Potassium 4.1 D Chloride 110 H Carbon Dioxide 28 Anion Gap 6 L BUN 12 Creatinine 0.88 Estim Creat Clear Calc 89.7 Estimated GFR > 60 POC Glucose 60 68 Random Glucose 61 Estimat Average Glucose 252 Hemoglobin A1c % 10.4 H Calcium 8.8 Lipase 5 L Urine Color Urine Appearance Urine pH Ur Specific [place] Urine Protein Urine Glucose (UA) Urine Ketones Urine Blood Urine Nitrite Ur Leukocyte Esterase 05/21/23 05/21/23 05/21/23 15:38 17:22 20:56 WBC RBC Hgb Hct MCV MCH MCHC RDW Plt Count MPV Immature Gran % (Auto) Neut % (Auto) Lymph % (Auto) [place] % (Auto) Eos % (Auto) Baso % (Auto) Lymph # (Auto) [place] # (Auto) Eos # (Auto) Baso # (Auto) Abs Immat Gran (auto) Absolute Neuts (auto) Absolute Nucleated RBC Nucleated RBC % (auto) Sodium Potassium Chloride Carbon Dioxide Anion Gap BUN Creatinine Estim Creat Clear Calc Estimated GFR POC Glucose 119 H 118 H 201 H Random Glucose Estimat Average Glucose Hemoglobin A1c % Calcium Lipase Urine Color Urine Appearance Urine pH Ur Specific [place] Urine Protein Urine Glucose (UA) Urine Ketones Urine Blood Urine Nitrite Ur Leukocyte Esterase 05/21/23 05/22/23 05/22/23 23:28 07:48 11:10 WBC RBC Hgb Hct MCV MCH MCHC RDW Plt Count MPV Immature Gran % (Auto) Neut % (Auto) Lymph % (Auto) [place] % (Auto) Eos % (Auto) Baso % (Auto) Lymph # (Auto) [place] # (Auto) Eos # (Auto) Baso # (Auto) Abs Immat Gran (auto) Absolute Neuts (auto) Absolute Nucleated RBC Nucleated RBC % (auto) Sodium Potassium Chloride Carbon Dioxide Anion Gap BUN Creatinine Estim Creat Clear Calc Estimated GFR POC Glucose 243 H 180 H Random Glucose Estimat Average Glucose Hemoglobin A1c % Calcium Lipase Urine Color Yellow Urine Appearance Clear Urine pH 5.5 Ur Specific [place] 1.020 Urine Protein Negative Urine Glucose (UA) 100 H Urine Ketones Negative Urine Blood Negative Urine Nitrite Negative Ur Leukocyte Esterase Negative Discharge Plan Discharge Anticipated Discharge Date/Time: 05/22/23 11:47 Patient Disposition: Home, Self-Care Discharge Diagnosis: hypoglycemia Referrals: Physician,Alfredo J [Primary Care Provider] - 1 Week Discharge Medications: Continued omega 6-byw-fre-fish oil 300 mg (120 mg- 180mg)-1,000 mg capsule 2 cap PO BID@1200,2100 omeprazole 20 mg capsule,delayed release(DR/EC) 20 mg PO BID Creon 24,000-76,000 -120,000 unit capsule,delayed release(DR/EC) 2 cap PO TID Rx Instructions: administer with meals and/or snacks Jardiance 25 mg tablet 25 mg PO DAILY insulin aspart U-100 [Novolog FlexPen U-100 Insulin] 100 unit/mL (3 mL) insulin pen 0 sliding scale dose subcut TIDAC Protocol: Insulin Correction Scale Less than or equal to 110 ---- Give (units): 0 111 to 150 Give (units): 0 151 to 200 Give (units): 2 201 to 250 Give (units): 4 251 to 300 Give (units): 6 301 to 350 Give (units): 8 Greater than 350 Give (units): 10 Call MD if Blood Glucose > : 350 escitalopram oxalate 20 mg tablet 20 mg PO DAILY cholecalciferol (vitamin D3) [Vitamin D3] 25 mcg (1,000 unit) capsule 25 mcg PO QAM metformin 500 mg tablet extended release 24 hr 500 mg PO DAILY@1730 trazodone 150 mg tablet 150 mg PO BEDTIME PRN (Reason: Insomnia) aspirin 81 mg tablet,delayed release (DR/EC) 81 mg PO DAILY@1200 cyanocobalamin (vitamin B-12) 1,000 mcg tablet 1,000 mcg PO DAILY clonazepam 1 mg tablet 1 mg PO TID PRN (Reason: Anxiety) atorvastatin 20 mg tablet 20 mg PO BEDTIME (DME) lancets [TRUEplus Lancets] 33 gauge misc See Rx Instructions Not Applicable QID Qty: 100 Rx Instructions: As directed (DME) pen needle, diabetic [Pentips] 32 gauge x 5/32 needle See Rx Instructions .ROUTE .MEDSUPPLY Qty: 50 Rx Instructions: As directed losartan 25 mg tablet 12.5 mg PO DAILY (DME) FreeStyle Lite Strips Strip See Rx Instructions Not Applicable QID Qty: 10 Rx Instructions: As directed ergocalciferol (vitamin D2) 1,250 mcg (50,000 unit) capsule 1,250 mcg PO QWEEK Changed insulin degludec [Tresiba FlexTouch U-100] 100 unit/mL (3 mL) insulin pen 10 unit subcut BEDTIME Qty: 1 0RF Discharge Orders: Discharge Order (Routine); Ordered 05/22/23 Ordered By: Chelle Dailey Diet: Advance to usual diet Activity on Discharge: As tolerated Stand Alone Forms: Patient Portal Discharge page Care Plan Goals: Patient was admitted for hypoglycemia-which seems to be related to decreased p.o. intake, and use of increased does of Lantus: Patient was given IV D5 NS-fingersticks some approved a IV fluids stopped and fingersticks are maintained, hemoglobin A1c 10.4,no further episode of hypoglycemia, patient was encouraged for p.o. intake and diabetic education given, in addition we adjusted his Tresiba to 10 units. He was strongly advised to monitor fingersticks at home and follow-up with primary doctor. Health Concerns: As above. Plan of Treatment: As above. Assessment: As above.
--- NOTE | 2023-05-22 13:10 | MHC.CM.PN ---
Patient discharged prior to being seen by gerri.
== END 2023-05-22 12:37 | disposition home or self-care (01) ==
LOC: HO.ED 17:12 → HO.EDOVER 18:54 → HO.S3 19:19
PROVIDERS: Admitting Provider Internal Medicine; Emergency Provider Emergency Medicine; Visit Provider Internal Medicine
DX: E16.0 Drug-induced hypoglycemia without coma (principal); T38.3X5A Adverse effect of insulin and oral hypoglycemic [antidiabetic] drugs, initial encounter; E11.649 Type 2 diabetes mellitus with hypoglycemia without coma; Z79.4 Long term (current) use of insulin; F17.200 Nicotine dependence, unspecified, uncomplicated; Z71.6 Tobacco abuse counseling
CPT/HCPCS: 36415; 80048; 81003; 82947; 83036; 83690; 85025; 96360; 96361; 96372; 99221; 99285; J1650

== ENCOUNTER → 2023-05-21 18:35 | Outpatient (BNV) | payer MEDICARE, MEDICAID, SELFPAY | PROVIDERS: Admitting Provider Internal Medicine; Emergency Provider Emergency Medicine; Visit Provider Internal Medicine | DX: E11.649 Type 2 diabetes mellitus with hypoglycemia without coma (principal); T38.3X5A Adverse effect of insulin and oral hypoglycemic [antidiabetic] drugs, initial encounter | CPT/HCPCS: 99222; 99239 ==

== ENCOUNTER 2023-07-30 10:03 | Outpatient (REF) | payer MEDICARE, MEDICAID, SELFPAY ==
[2023-07-30 11:24] LABS: MANUAL DIFF FLAG NO
[2023-07-30 11:35] LABS: Basophils Percent Auto 0.4 % (0-2); Eosinophils Absolute Auto 0.2 X10*3/uL (0.0-0.4); Eosinophils Percent Auto 2.9 % (0-4); Hematocrit 41.6 % (42.0-52.0); Hemoglobin 13.3 g/dl (14.0-18.0); Imm Gran Abs Auto 0.03 X10*3/uL (0.00-0.03); Imm Gran Pct Auto 0.4 % (0.0-0.4); Lymphocytes Absolute Auto 2.2 X10*3/uL (1.2-4.9); Lymphocytes Percent Auto 28.8 % (20-40); Mean Corpuscular Hemoglobin 29.6 pg (27.0-33.0); Mean Corpuscular Volume 92.4 fL (80.0-98.0); Mean Platelet Volume 10.5 fL (9.4-12.4); Monocytes Absolute Auto 0.6 X10*3/uL (0.1-1.2); Monocytes Percent Auto 8.5 % (2-11); Neutrophils Absolute Auto 4.4 x10*3/uL (2.0-8.3); Platelet Count 185 X10*3/uL (160-400); Red Cell Distribution Width 14.2 % (11.0-16.0); White Blood Count 7.5 X10*3/uL (4.8-10.8)
[2023-07-30 11:54] LABS: Cholesterol 171 mg/dL (<200); HDL Cholesterol 46 mg/dL (>40); LDL Cholesterol Calculated 79 mg/dL (<100); Triglycerides 233 mg/dL (<150)
[2023-07-30 12:17] LABS: Alanine Aminotransferase 27 U/L (0-40); Albumin Level 4.3 g/dL (3.5-5.0); Alkaline Phosphatase 77 U/L (39-117); Anion Gap 11 (12-20); Aspartate Amino Transferase 32 U/L (5-37); Bilirubin Total 0.3 mg/dL (0.0-1.0); Blood Urea Nitrogen 22 mg/dL (9-16); Calcium 9.4 mg/dL (8.4-10.2); Carbon Dioxide 24 mmol/L (22-29); Chloride 104 mmol/L (96-108); Estimated Glomerular Filt Rate > 60; Glucose Random 277 mg/dL (60-115); Potassium 4.3 mmol/L (3.3-5.1); Sodium 135 mmol/L (135-145); Total Protein 7.9 g/dL (6.5-8.0)
[2023-07-30 12:23] LABS: HBS Num1 71.01 mIU/mL (0-7.99); HBc Num1 0.09 S/CO (0.00-0.79); HIV AB/AG Nonreactive (Nonreactive); HIV Num 1 0.04 S/CO (0.00-0.99); Hepatitis B Core Antibody Nonreactive (Nonreactive); ~HepC Num1 0.09 S/CO (0.00-0.79); ~Hepatitis B Surface Antibody REACTIVE (Nonreactive); ~Hepatitis C Antibody Nonreactive (Nonreactive)
[2023-07-30 12:28] LABS: Folate 10.3 ng/mL (> or = 4.0); Vitamin B12 692 pg/mL (200-900)
[2023-07-30 12:37] LABS: Creatinine Urine 188.87 mg/dL
[2023-07-30 12:38] LABS: Free T4 (Free Thyroxine) 0.78 ng/dL (0.71-1.85)
[2023-07-30 13:38] LABS: Reflex LDLD? No
[2023-07-30 15:27] LABS: CT PCR NOT DETECTED (Not Detect.); NG PCR NOT DETECTED (Not Detect.)
== END 2023-07-30 10:04 | disposition home or self-care (01) ==
LOC: HO.HHCL 10:03
PROVIDERS: Visit Provider Family Medicine
DX: Z11.4 Encounter for screening for human immunodeficiency virus [HIV] (principal); E11.65 Type 2 diabetes mellitus with hyperglycemia; Z20.2 Contact with and (suspected) exposure to infections with a predominantly sexual mode of transmission; Z79.4 Long term (current) use of insulin; Z11.59 Encounter for screening for other viral diseases; Z72.89 Other problems related to lifestyle
CPT/HCPCS: 0353U; 80053; 80061; 82043; 82570; 82607; 82746; 84439; 84443; 85025; 86704; 86706; 86803; 87389

== ENCOUNTER 2023-10-19 02:39 | Emergency (ER) | payer MEDICARE, MEDICAID, SELFPAY ==
--- NOTE | ~2023-10-19 | CT_ITS ---
EXAMINATION: CT ABDOMEN AND PELVIS WITH CONTRAST CLINICAL INFORMATION: Abdominal pain. COMPARISON: None available. TECHNIQUE: Multidetector volumetric images were obtained from the superior aspect of the liver through the pubic symphysis following administration 85 mL of Omnipaque 350 intravenous contrast. Sagittal and coronal reformatted images were obtained on the technologist's workstation. Oral contrast: No This CT examination was performed using dose optimization techniques as appropriate, variously including the following: *Automated exposure control *Adjustment of mA and/or kV according to patient size (this includes techniques or standardized protocols for targeted exams where dose is matched to indication/reason for exam; i.e. extremities or head) *Use of iterative reconstruction technique DLP: 599 mGy-cm FINDINGS: LUNG BASES: The visualized lung bases are unremarkable. LIVER, GALLBLADDER, AND BILIARY TREE: The liver is normal in size and attenuation. There is intrahepatic biliary duct dilatation. There has been a prior cholecystectomy. PANCREAS: There is pancreatic head calcification. Common bile duct measures up to 1 cm and appears to taper abruptly at the superior pancreatic head. SPLEEN: Unremarkable. ADRENAL GLANDS: Unremarkable. KIDNEYS AND URETERS: The kidneys are normal in size, shape, and attenuation. There is a small right lower pole renal cyst. There is bilateral renal collecting system prominence and prominence of both ureters without ureteral calculi. BLADDER: The urinary bladder is mildly distended. GASTROINTESTINAL TRACT: There is retained stool. Appendix is visualized and is within normal limits. ABDOMINAL WALL: No significant hernia is appreciated. LYMPH NODES: Normal. 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 PELVIC VISCERA: Unremarkable. OSSEOUS STRUCTURES: There is mild diffuse thoracolumbar disc degenerative change. CT/CT abdomen pelvis w IV con IMPRESSION: 1. Pancreatic head calcification suggestive of chronic pancreatitis. There is dilatation of the common bile duct and intrahepatic biliary duct dilatation. There is abrupt tapering of the common bile duct at the superior pancreatic head. This could be further evaluated with MRI/MRCP. 2. Splenic/retroperitoneal varices. 3. Bilateral renal collecting system prominence and prominence of both ureters without ureteral calculi. 4. Constipation. Fleischner guidelines were followed.
[2023-10-19 02:45] VITALS: BP 150/88; BP 150/90; PULSE 72; PULSE 74; RESP 20; TEMP 36.7; O2SAT 96; O2SAT 97; BMI 29.8
--- NOTE | 2023-10-19 02:51 | ECG_ITS ---
Test Reason : ABDOMINAL PAIN Blood Pressure : / mmHG Vent. Rate : 066 BPM Atrial Rate : 066 BPM P-R Int : 142 ms QRS Dur : 076 ms QT Int : 416 ms P-R-T Axes : 049 037 056 degrees QTc Int : 436 ms Normal sinus rhythm Normal ECG When compared with ECG of 20-MAY-2023 17:39, QT has shortened Referred By: Trisha Camargo Electronically Signed By:Oscar Ramos
--- NOTE | 2023-10-19 02:54 | ED_ITS ---
HPI - Abdominal Pain General Chief Complaint: Abdominal Pain Stated Complaint: lower stomach pain Time Seen by Provider: 10/19/23 02:46 Source: patient Mode of arrival: EMS Limitations: no limitations History of Present Illness HPI narrative: Patient comes to the emergency room complaining of diffuse abdominal pain but much worse in the epigastric area, nausea vomiting, no diarrhea or fever. Patient states that he has had history of pancreatitis in the past. Patient denies drinking alcohol. Patient states that the 1st time that he had pancreatitis, no one was able to tell him why he had pancreatitis. Patient denies hematuria dysuria. No flank pain. Related Data Home Medications Medication Instructions Recorded Confirmed mgazsi-cxqafjti-kyyphhu 2 cap PO TID 07/10/20 05/21/23 24,000-76,000-120,000 unit capsule,delayed rel (Creon) omeprazole 20 mg capsule,delayed 20 mg PO BID 07/10/20 05/21/23 release aspirin 81 mg tablet,delayed 81 mg PO DAILY@1200 02/14/22 05/21/23 release atorvastatin 20 mg tablet 20 mg PO BEDTIME 02/14/22 05/21/23 blood sugar diagnostic (FreeStyle #10 ea 02/14/22 Lite Strips) cholecalciferol (vitamin D3) 25 25 mcg PO QAM 02/14/22 05/21/23 mcg (1,000 unit) capsule (Vitamin D3) clonazepam 1 mg tablet 1 mg PO TID PRN Anxiety 02/14/22 05/21/23 cyanocobalamin (vitamin B-12) 1,000 mcg PO DAILY 02/14/22 05/21/23 1,000 mcg tablet empagliflozin 25 mg tablet 25 mg PO DAILY 02/14/22 05/21/23 (Jardiance) ergocalciferol (vitamin D2) 1,250 1,250 mcg PO QWEEK 02/14/22 05/21/23 mcg (50,000 unit) capsule escitalopram oxalate 20 mg tablet 20 mg PO DAILY 02/14/22 05/21/23 insulin aspart U-100 100 unit/mL 0 sliding scale dose subcut TIDAC 02/14/22 05/21/23 (3 mL) subcutaneous pen (Novolog FlexPen U-100 Insulin aspart) lancets 33 gauge (TRUEplus Lancets) #100 ea 02/14/22 losartan 25 mg tablet 12.5 mg PO DAILY 02/14/22 05/21/23 metformin 500 mg tablet,extended 500 mg PO DAILY@1730 02/14/22 05/21/23 release 24 hr pen needle, diabetic 32 gauge x #50 ea 02/14/22 (Pentips) trazodone 150 mg tablet 150 mg PO BEDTIME PRN Insomnia 02/14/22 05/21/23 omega-3 300 mg-dha 120 mg-epa 180 2 cap PO BID@1200,2100 05/21/23 05/21/23 mg-fish oil 1,000 mg capsule Previous Rx's Medication Instructions Recorded insulin degludec 100 unit/mL (3 10 unit (0.1 mL) subcut BEDTIME #1 05/22/23 mL) subcutaneous pen (Tresiba mL FlexTouch U-100 insulin) hyoscyamine sulfate 0.125 mg tablet 0.125 mg PO QID PRN dyspepsia #14 10/19/23 tabs ondansetron HCl 4 mg tablet 4 mg PO Q6H PRN nausea and 10/19/23 vomiting #20 tabs Allergies Allergy/AdvReac Type Severity Reaction Status Date / Time No Known Allergies Allergy Verified 10/19/23 02:52 [No Known Allergies*] Review of Systems Review of Systems Constitutional : No Weight loss, No Fever, No Chills, No Night Sweats, No Fatigue, No Malaise ENT/Mouth : No Hearing loss, No Ear Pain, No Nasal Congestion, No Sinus Pain, No Hoarseness, No sore throat, No Rhinorrhea, No Swallowing Difficulty Eyes: No Eye Pain, No Swelling, No Redness, No Foreign Body, No Discharge, No Vision Changes Cardiovascular : No Chest Pain, No SOB, No Dyspnea on Exertion, No Orthopnea, No Edema, No Palpitations Respiratory : No Cough, No Sputum, No Wheezing, No Smoke Exposure, No Dyspnea Gastrointestinal : Complaining of nausea, vomiting, no diarrhea, complaining of diffuse abdominal pain but much worse in the epigastric area. No blood/black stool Genitourinary : no irregular bleeding, No Dysuria, No Urinary Frequency, No Hematuria, No Urinary Incontinence, No Urgency, No Flank Pain, No Urinary Flow Changes, No Hesitancy Musculoskeletal : No joint pain, No Myalgias, No Joint Swelling Skin : No Skin Lesions, No rash Neuro : No Weakness, No Numbness, No Paresthesias, No Loss of Consciousness, No Dizziness, No Headache Psych : No Anxiety/Panic, No Depression, No SI/HI/AH/VH, No Social Issues, Heme/Lymph: No Bruising, No Bleeding,No Lymphadenopathy Endocrine : No Polyuria, No Polydipsia, No Temperature Intolerance [facility] Past Medical History Medical History Anemia Elevated cholesterol Diabetes GERD (gastroesophageal reflux disease) Chronic back pain Depression Anxiety disorder Surgical History H/O colonoscopy History of lithotripsy Hx of shoulder surgery Hx of cholecystectomy History of esophagogastroduodenoscopy (EGD) Family History Family History Mother Diabetes Heart problem Father Diabetes Brother No problems noted. Maternal Grandfather Heart problem Social History Social History Alcohol intake: never Patient Tobacco Use Status: Current everyday Tobacco user Tobacco use type: Cigarette Cigarettes Per Day: 3 Smoked in Last 30 Days: No Second Hand Smoke Exposure: No Use of substances other than those prescribed or required for medical reasons: No Substance Use Type: Marijuana Advance Directives: No Advance Directives Information Provided: No Physical Exam ED Vital Signs: Vital Signs - 24 hr 10/19/23 02:45 10/19/23 06:04 Temperature 98.1 F 98.0 F Pulse Rate 74 61 Respiratory Rate 20 16 Blood Pressure 150/88 H 163/81 H Pulse Oximetry 97 96 Oxygen Delivery Method Room Air Room Air BMI result Body Mass Index 29.8 Const Other: Appearance: Alert. Oriented X3. No acute distress. Eyes: Pupils equal, round and reactive to light. ENT: Pharynx normal. Neck: Normal inspection. Neck supple. No lymph nodes noted. No crepitus CVS: Normal heart rate and rhythm. Pulses normal. Normal S1 and S2 Respiratory: No respiratory distress. Breath sounds normal. No Wheezing. No rales Abdomen: Soft , distended, tenderness to palpation in epigastric area, guarding in the right upper quadrant Skin: Skin warm and dry. Normal skin color. Normal skin turgor. Extremities: No lower extremity edema. No Lacerations. No Rash Neuro: Oriented X 3. No motor deficit. No sensory deficit. Moving all extremities. No slurred speech. CN 2 through 12 grossly intact Psych: calm, cooperative, normal affect Course Course Course Narrative: -patient receiving IV fluids, Zofran and morphine -all the labs and imaging pending Medical Decision Making Medical Decision Making [facility] Narrative: -my interpretation of labs: White blood cell count is normal, LFTs normal. -my interpretation of CT scan: No SBO, no obvious abnormality. -CT scan report: Tested dilation of the common bile duct and intrahepatic biliary duct dilation. Patient's LFTs are normal. This can be secondary to chronic pancreatitis versus cholecystectomy. At this time, patient's pain is well-controlled, there is no need to do an emergent MRCP. 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 Differential Diagnosis Differential Diagnoses: The differential diagnosis associated with the presentation includes (Acute pancreatitis, chronic pancreatitis, gastritis, gastroenteritis) Admission/Observation Consideration of admission/observation: Escalation of care including admission/observation considered (Given patient's initial presentation, patient was considered) Lab Data [facility] Lab Attestation statement: I reviewed the patient's lab results. 10/19/23 02:59 10/19/23 02:59 Labs: Lab Results 10/19/23 10/19/23 Range/Units 02:59 06:08 WBC 7.2 (4.8-10.8) X10*3/uL RBC 4.12 L (4.60-5.80) X10*6/uL Hgb 12.2 L (14.0-18.0) g/dl Hct 35.5 L (42.0-52.0) % MCV 86.2 (80.0-98.0) fL MCH 29.6 (27.0-33.0) pg MCHC 34.4 (31.0-36.0) g/dl RDW 13.2 (11.0-16.0) % Plt Count 216 (160-400) X10*3/uL MPV 9.4 (9.4-12.4) fL Immature Gran % (Auto) 0.4 (0.0-0.4) % Neut % (Auto) 52.6 (45-73) % Lymph % (Auto) 33.8 (20-40) % Weber % (Auto) 11.0 (2-11) % Eos % (Auto) 1.8 (0-4) % Baso % (Auto) 0.4 (0-2) % Lymph # (Auto) 2.4 (1.2-4.9) X10*3/uL Weber # (Auto) 0.8 (0.1-1.2) X10*3/uL Eos # (Auto) 0.1 (0.0-0.4) X10*3/uL Baso # (Auto) 0.0 (0.0-0.2) X10*3/uL Abs Immat Gran (auto) 0.03 (0.00-0.03) X10*3/uL Absolute Neuts (auto) 3.8 (2.0-8.3) x10*3/uL Absolute Nucleated RBC 0.000 (0.0-0.012) X10*3/uL Nucleated RBC % (auto) 0.0 (0.0-0.2) /100WBC PT 10.5 L (11.1-13.3) SEC INR 0.9 (0.9-1.1) Sodium 137 (135-145) mmol/L Potassium 4.8 (3.3-5.1) mmol/L Chloride 104 (96-108) mmol/L Carbon Dioxide 25 (22-29) mmol/L Anion Gap 13 (12-20) BUN 20 H (9-16) mg/dL Creatinine 1.12 (0.5-1.4) mg/dL Estim Creat Clear Calc 79.0 Estimated GFR > 60 Random Glucose 205 H (60-115) mg/dL Calcium 8.5 D (8.4-10.2) mg/dL Magnesium 1.9 (1.6-2.6) mg/dL Total Bilirubin 0.2 (0.0-1.0) mg/dL Direct Bilirubin < 0.2 (0.0-0.5) mg/dL AST 22 (5-37) U/L ALT 31 (0-40) U/L Alkaline Phosphatase 79 (39-117) U/L Troponin I High Sens 3.0 (<3.5-35.0) ng/L Total Protein 7.3 (6.5-8.0) g/dL Albumin 3.8 (3.5-5.0) g/dL Lipase < 4 L (8-78) U/L Urine Color Yellow Urine Appearance Clear Urine pH 5.5 (5.0-9.0) Ur Specific [place] 1.025 (1.005-1.025) Urine Protein Negative (Neg-Trace) mg/dL Urine Glucose (UA) Negative (Negative) mg/dL Urine Ketones Negative (Negative) mg/dL Urine Blood Negative (Negative) Urine Nitrite Negative (Negative) Ur Leukocyte Esterase Negative (Negative) Urine Opiates Screen POSITIVE H (Not Detect) Urine Fentanyl Screen Not Detected (Not Detect) Ur Barbiturates Screen Not Detected (Not Detect) Ur Phencyclidine Scrn Not Detected (Not Detect) Ur Amphetamines Screen Not Detected (Not Detect) U Benzodiazepines Scrn Not Detected (Not Detect) Urine Cocaine Screen Not Detected (Not Detect) U Marijuana (THC) Screen Not Detected (Not Detect) Ethyl Alcohol < 10 mg/dL Independent Interpretation I performed an independent interpretation of an: CT Scan Radiology Impression Discussion of test interpretation with radiology: I have reviewed the radiologist's reading. Radiologist Impression: FINDINGS: LUNG BASES: The visualized lung bases are unremarkable. LIVER, GALLBLADDER, AND BILIARY TREE: The liver is normal in size and attenuation. There is intrahepatic biliary duct dilatation. There has been a prior cholecystectomy. PANCREAS: There is pancreatic head calcification. Common bile duct measures up to 1 cm and appears to taper abruptly at the superior pancreatic head. SPLEEN: Unremarkable. ADRENAL GLANDS: Unremarkable. KIDNEYS AND URETERS: The kidneys are normal in size, shape, and attenuation. There is a small right lower pole renal cyst. There is bilateral renal collecting system prominence and prominence of both ureters without ureteral calculi. BLADDER: The urinary bladder is mildly distended. GASTROINTESTINAL TRACT: There is retained stool. Appendix is visualized and is within normal limits. ABDOMINAL WALL: No significant hernia is appreciated. LYMPH NODES: Normal. 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 PELVIC VISCERA: Unremarkable. OSSEOUS STRUCTURES: There is mild diffuse thoracolumbar disc degenerative change. CT/CT abdomen pelvis w IV con IMPRESSION: 1. Pancreatic head calcification suggestive of chronic pancreatitis. There is dilatation of the common bile duct and intrahepatic biliary duct dilatation. There is abrupt tapering of the common bile duct at the superior pancreatic head. This could be further evaluated with MRI/MRCP. 2. Splenic/retroperitoneal varices. 3. Bilateral renal collecting system prominence and prominence of both ureters without ureteral calculi. 4. Constipation. Fleischner guidelines were followed. Medications Administered Discontinued Medications Generic Name Dose Route Start Last Admin Trade Name Freq PRN Reason Stop Dose Admin Sodium Chloride 1,000 mls @ 999 mls/hr 10/19/23 02:51 10/19/23 04:02 Ns IVCONT 10/19/23 03:51 Infused .Q1H1M ONE Infusion Iohexol 85 ml 10/19/23 04:13 10/19/23 04:14 Iohexol 350 Mg/Ml 100 Ml Infus..Btl IV 10/19/23 04:14 85 ml ONCE ONE Administration Ketorolac Tromethamine 30 mg 10/19/23 05:11 10/19/23 06:11 Ketorolac Tromethamine 30 Mg/Ml Vial IVPUSH 10/19/23 05:12 30 mg ONCE ONE Administration Morphine Sulfate 4 mg 10/19/23 02:51 10/19/23 03:02 Morphine Sulfate 4 Mg/Ml Cartridge IVPUSH 10/19/23 02:52 4 mg ONCE ONE Administration Protocol Ondansetron HCl 4 mg 10/19/23 02:51 10/19/23 03:02 Ondansetron Hcl 4 Mg/2 Ml Vial IVPUSH 10/19/23 02:52 4 mg ONCE ONE Administration Critical Care Time Critical Care Time Critical Care Time: Yes Total Critical Care Time: 60 Attestation: I have personally provided critical care time. Time includes review of lab data, radiology results, discussion with consultants, and monitoring for potential decompensation. Intervention performed as documented. Discharge Plan Discharge Clinical Impression: Nausea & vomiting, Abdominal pain Patient Disposition: Home, Self-Care Instructions: Acute Nausea and Vomiting (ED), Abdominal Pain (ED) Additional Instructions: Please follow-up with your primary care physician tomorrow. If you have any worsening or new symptoms, please return to the emergency room or call 911 Prescriptions: New hyoscyamine sulfate 0.125 mg tablet 0.125 mg PO QID PRN (Reason: dyspepsia) Qty: 14 0RF ondansetron HCl 4 mg tablet 4 mg PO Q6H PRN (Reason: nausea and vomiting) Qty: 20 0RF No Action omega 5-zdc-kaj-fish oil 300 mg (120 mg- 180mg)-1,000 mg capsule 2 cap PO BID@1200,2100 insulin degludec [Tresiba FlexTouch U-100] 100 unit/mL (3 mL) insulin pen 10 unit subcut BEDTIME Qty: 1 0RF omeprazole 20 mg capsule,delayed release(DR/EC) 20 mg PO BID Creon 24,000-76,000 -120,000 unit capsule,delayed release(DR/EC) 2 cap PO TID Rx Instructions: administer with meals and/or snacks Jardiance 25 mg tablet 25 mg PO DAILY insulin aspart U-100 [Novolog FlexPen U-100 Insulin] 100 unit/mL (3 mL) insulin pen 0 sliding scale dose subcut TIDAC Protocol: Insulin Correction Scale Less than or equal to 110 ---- Give (units): 0 111 to 150 Give (units): 0 151 to 200 Give (units): 2 201 to 250 Give (units): 4 251 to 300 Give (units): 6 301 to 350 Give (units): 8 Greater than 350 Give (units): 10 Call MD if Blood Glucose > : 350 escitalopram oxalate 20 mg tablet 20 mg PO DAILY cholecalciferol (vitamin D3) [Vitamin D3] 25 mcg (1,000 unit) capsule 25 mcg PO QAM metformin 500 mg tablet extended release 24 hr 500 mg PO DAILY@1730 trazodone 150 mg tablet 150 mg PO BEDTIME PRN (Reason: Insomnia) aspirin 81 mg tablet,delayed release (DR/EC) 81 mg PO DAILY@1200 cyanocobalamin (vitamin B-12) 1,000 mcg tablet 1,000 mcg PO DAILY clonazepam 1 mg tablet 1 mg PO TID PRN (Reason: Anxiety) atorvastatin 20 mg tablet 20 mg PO BEDTIME (DME) lancets [TRUEplus Lancets] 33 gauge misc See Rx Instructions Not Applicable QID Qty: 100 Rx Instructions: As directed (DME) pen needle, diabetic [Pentips] 32 gauge x needle See Rx Instructions .ROUTE .MEDSUPPLY Qty: 50 Rx Instructions: As directed losartan 25 mg tablet 12.5 mg PO DAILY (DME) FreeStyle Lite Strips Strip See Rx Instructions Not Applicable QID Qty: 10 Rx Instructions: As directed ergocalciferol (vitamin D2) 1,250 mcg (50,000 unit) capsule 1,250 mcg PO QWEEK
[2023-10-19 03:02] LABS: MANUAL DIFF FLAG NO
[2023-10-19] MEDS: Morphine Sulfate 4 MG/ML CARTRIDGE IVPUSH (03:02)
[2023-10-19] MEDS: ondansetron HCL 4 MG/2 ML VIAL IVPUSH (03:02)
[2023-10-19 03:03] LABS: Basophils Percent Auto 0.4 % (0-2); Eosinophils Absolute Auto 0.1 X10*3/uL (0.0-0.4); Eosinophils Percent Auto 1.8 % (0-4); Hematocrit 35.5 % (42.0-52.0); Hemoglobin 12.2 g/dl (14.0-18.0); Imm Gran Abs Auto 0.03 X10*3/uL (0.00-0.03); Imm Gran Pct Auto 0.4 % (0.0-0.4); Lymphocytes Absolute Auto 2.4 X10*3/uL (1.2-4.9); Lymphocytes Percent Auto 33.8 % (20-40); Mean Corpuscular HGB Conc 34.4 g/dl (31.0-36.0); Mean Corpuscular Hemoglobin 29.6 pg (27.0-33.0); Mean Corpuscular Volume 86.2 fL (80.0-98.0); Mean Platelet Volume 9.4 fL (9.4-12.4); Monocytes Absolute Auto 0.8 X10*3/uL (0.1-1.2); Neutrophils Absolute Auto 3.8 x10*3/uL (2.0-8.3); Neutrophils Percent Auto 52.6 % (45-73); Platelet Count 216 X10*3/uL (160-400); Red Blood Count 4.12 X10*6/uL (4.60-5.80); Red Cell Distribution Width 13.2 % (11.0-16.0); White Blood Count 7.2 X10*3/uL (4.8-10.8)
[2023-10-19] MEDS: 0.9 % Sodium Chloride 1,000 ML 999 ML IVCONT (03:04)
[2023-10-19 03:09] LABS: INTERNATIONAL NORM RATIO 0.9 (0.9-1.1); Prothrombin Time 10.5 SEC (11.1-13.3)
--- OUTSIDE RECORDS SUMMARY | 2023-10-19 03:17 | XMS_ITS | Continuity of Care Document ---
Author Name Unknown Organization [facility] ter Address [address] [place] [id number] Care Team Providers Care Inspector Insulation Name Role Phone Rafael MCLEAN, Mae Primary Care Physician [place] [facility] [place]09[place]23 - 06/11/[address] [address]- Encounter Diagnosis DKA (diabetic ketoacidosis)(Final) - 06/09/23 Abdominal pain(Final) - 06/09/23 Metabolic acidosis(Final) - 06/09/23 Discharge Disposition: A-D/C Home Attending Physician: Charley Hyman MD Admitting Physician: Mehnaz Gómez MD Referring Physician: Not on Staff, Referring MD Allergies, Adverse Reactions, Alerts No Known Allergies Immunizations Given and Recorded Vaccine Date Status Refusal Reason pneumococcal 23-valent vaccine 08/16/14 Given Medications Aspirin Tablet 81 mg, By Mouth, Daily, Maintenance, 08/19/14 10:51:46 Start Date: 08/19/14 Status: Ordered atorvastatin 20 mg oral tablet = 20 mg, By Mouth, Daily at bedtime, 0 Refills, Maintenance, 08/19/14 10:50:04, Tablet Start Date: 08/19/14 Status: Ordered bupropion 200 mg oral tablet, extended release = 200 mg, By Mouth, Daily at bedtime, 0 Refills, Maintenance, 08/19/14 10:51:20, ER Tablet Start Date: 08/19/14 Status: Ordered Creon 24,000 units oral delayed release capsule 2 capsule, By Mouth, 3 times a day, with meals, 0 Refills, Maintenance Start Date: 08/31/13 Status: Ordered ferrous sulfate 325 mg oral tablet 1 tablet = 325 mg, By Mouth, 2 times a day, 0 Refills, Maintenance Start Date: 08/31/13 Status: Ordered Fish Oil 1000 mg oral capsule 2 capsule = 2,000 mg, By Mouth, 2 times a day, 0 Refills, Maintenance Start Date: 08/31/13 Status: Ordered Freestyle Lite Monitor See Instructions, # 1 each, Maintenance, use as directed for Type 2 Diabetes Mellitus ICD code 10 E10. 9 i for lifetime use to check blood sugars three times a day before meals and once at night as needed for symptoms of hypoglycemia., 06/11/23 15... Start Date: 06/11/23 Status: Ordered Freestyle Lite Test Strips See Instructions, # 600 each, Tot. Refills 2, Maintenance, use as directed for Type 2 Diabetes Mellitus ICD code 10 E10. 9 i for lifetime use to check blood sugars three times a day before meals and once at night as needed for symptoms of hypoglyc... Start Date: 06/11/23 Stop Date: 09/09/23 Status: Ordered insulin aspart 100 units/mL subcutaneous solution See Instructions, check blood sugars before every meal and given insulin novolong 10-15 minutes before eating. For sugars (100-139) give 10 units. for (140-179) give 12 units. for (180-219) give 14 units. for (220-259) give 16 units. for (260-299... Start Date: 06/11/23 Status: Ordered Klonopin 1 mg oral tablet 1 tablet = 1 mg, By Mouth, Daily, in am, 0 Refills, Maintenance Start Date: 08/31/13 Status: Ordered Klonopin 2 mg oral tablet 1 tablet = 2 mg, By Mouth, Daily at bedtime, 0 Refills, Maintenance Start Date: 08/31/13 Status: Ordered Lantus 100 u/ml subcutaneous solution = 32 units, Subcutaneous Injection, Daily, rotate injection sites. take onc e a day, # 15 mL, 0 Refills, Maintenance, 06/11/23 15:48:00 EDT, [place], [facility], Partial fill upon patient request if the prescription is for a sched... Start Date: 06/11/23 Status: Ordered losartan 25 mg oral tablet = 25 mg, By Mouth, Daily, 0 Refills, Maintenance, 08/19/14 10:49:01, Tablet Start Date: 08/19/14 Status: Ordered metFORMIN 500 mg oral tablet, extended release 1 tablet = 500 mg, By Mouth, Daily, # 30 tablet, 0 Refills, Maintenance, 06/11/23 15:41:00 EDT, ER Tablet, [facility], Partial fill upon patient request if the prescription is fora schedule II opioid drug., 170, cm, 06/10/23 2:52:... Start Date: 06/11/23 Status: Ordered omeprazole 20 mg oral enteric coated capsule 1 capsule = 20 mg, By Mouth, Daily, 0 Refills, Maintenance, 08/31/13 19:29:11 Start Date: 08/31/13 Status: Ordered Percocet-5/325 325 mg-5 mg oral tablet 1, tablet, By Mouth, Every 6 hours, PRN, # 8 tablet, Refills 0, Tot. Refills 0, Maintenance, Pain ,Moderate, 03/24/16 23:28:52, Print Requisition Start Date: 03/24/16 Stop Date: 03/26/16 Status: Ordered Vistaril pamoate 25 mg oral capsule 2 capsule = 50 mg, By Mouth, Daily at bedtime, 0 Refills, Maintenance, 05/31/15 7:40:50 Start Date: 05/31/15 Status: Ordered Vitamin B-12 Tablet 1 tab, By Mouth, Daily, Maintenance, 08/31/13 19:30:10 Start Date: 08/31/13 Status: Ordered Vitamin C 500 mg oral tablet 1 tablet = 500 mg, By Mouth, 2 times a day, 0 Refills, Maintenance Start Date: 08/31/13 Status: Ordered Problem List Condition Confirmation Course Effective Dates Status [facility] at Informant Ankle pain Confirmed Active Marijuana use Confirmed Active Chronic abdominal pain Confirmed Active Chronic pancreatitis Confirmed Active Depression Confirmed Active Diabetes mellitus 1 Confirmed Active Dyslipidemia Confirmed Active Limitation due to disability 2 Confirmed Active Drug or alcohol risk assessment or counseling 3 Confirmed Active H/O anxiety disorder Confirmed Active History of suicide attempt Confirmed Active H/O obsessive compulsive disorder Confirmed Active History of surgery 4 Confirmed Active Personal history of kidney stones Confirmed Active History of nicotine use Confirmed Active Hypertension Confirmed Active Low back pain Confirmed Active Myofascial pain Confirmed Active Tendon rupture, Achilles 5 Confirmed Active 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 Active 1Pancreatic exocrine insufficiency 2initial Oswestry Disability Index: 44% ( severe disability ) on 05/05/15; initial [place]:8 on 05/05/15 3SOAPP-R: 35 on 05/05/15 4Left shoulder surgery 1990s 5x 2 Results Orders for Microbiology Reports Name Date Blood Culture 06/09/23 Blood Culture #2 06/09/23 Microbiology Reports TEST:Blood Culture, Second Order STATUS:Unauthenticated BODY SITE: SOURCE:Blood COLLECTED DATE/TIME:06/09/23 6:32 PM Blood Culture, Second Order SPECIMEN DESCRIPTION : BLOOD R HAND SPECIAL REQUESTS : NONE CULTURE : NO GROWTH AFTER 48 HOURS REPORT STATUS : PRELIMINARY REPORT TEST:Blood Culture STATUS:Unauthenticated BODY SITE: SOURCE:Blood COLLECTED DATE/TIME:06/09/23 6:00 PM Blood Culture SPECIMEN DESCRIPTION : BLOOD LAC SPECIAL REQUESTS : NONE CULTURE : NO GROWTH AFTER 48 HOURS REPORT STATUS : PRELIMINARY REPORT Radiology Reports * Exam Date Time Procedure Performing Provider Status 06/09/23 5:[address] Angio Abdomen and Pelvis Tia Ortiz; Auth (Verified) Notes: (CT Angio Abdomen and Pelvis) Reason For Exam: Renal artery dissection suspected;Other: RESULT: CT Angio Abdomen and Pelvis EXAMINATION: CT Angio Chest, CT Angio Abdomen and Pelvis INDICATION: Hx of Present Illness: pt presented to ED with SOB Back pain x1day. EMS [id number]. Tachypnea, pt given fent, ASA, ad calcium en route. EKG noted peaked T waves.; Reason: Other:; Aortic disease, nontraumatic; Clinical Question(s): Other:; Aortic Dissection; Order Comment: TECHNIQUE: An initial noncontrast CT of the chest was performed. Spiral CTA of the chest, abdomen, and pelvis was performed after rapid IV contrast administration without cardiac gating triggered by an DOMINGA on the aorta. Images are formatted in multiple planes using 2-D multiplanar and 3-D maximum intensity projection. Gated axial images through the aortic root were also acquired during a [id number] injection of IV contrast with separate reconstructions of this data set formatted in multiple planes using 2-D multiplanar and 3-D maximum intensity projection. cc of was administered intravenously. Weight-based protocol using automatic tube modulation was used to optimize exposure parameters. CTDIvol Body: 6.00 mGy, DLP Body: 459 mGy*cm. COMPARISONS: CT abdomen and pelvis without contrast 03/24/2026 ANGIOGRAPHIC FINDINGS: No aortic dissection or aneurysm. Mild atherosclerotic calcification. The right brachiocephalic andleft common carotid arteries share a common origin, a normal anatomic variant. Pulmonary arteries are normal in caliber. No evidence of central pulmonary embolism on this study performed without dedicated technique. Abdominal aorta: No aortic aneurysm or dissection. Minimal vascular calcifications. Celiac axis: Patent. Superior mesenteric artery: Patent. Right renal artery: Patent. Left renal artery: Patent. Inferior mesenteric artery: Patent. Right common iliac artery: Patent. Right internal iliac artery: Patent. Right external iliac artery: Patent. Right common femoral artery: Patent. Visualized right superficial and deep femoral arteries: Patent. Left common iliac artery: Patent. Left internal iliac artery: Patent. Left external iliac artery: Patent. Left common femoral artery: Patent. Visualized left superficial and deep femoral arteries: Patent. NON-ANGIOGRAPHIC FINDINGS: Planning And Analysis Manager View Findings, Lines and Tubes: None. Trachea and Airways: Patent without evidence of tracheal or endobronchial lesion. Lungs and Pleura: Clear lungs. No effusion or pneumothorax. Mediastinum and christiano: No mass or hematoma. No mediastinal or hilar lymphadenopathy. No esophageal abnormality. Heart: Heart is normal in size. No pericardial effusion. Mild coronary artery calcification. Chest Wall Soft Tissues: Normal. Liver: Hepatomegaly. Hepatic steatosis. No focal liver lesions. Gallbladder: Surgically absent. Bile ducts: The common bile duct measures approximately 1 cm which is unchanged from the prior study and is likely result of prior cholecystectomy. Spleen: Normal. Pancreas: Several calcifications are seen within the pancreas, increased from the prior study, suggesting chronic pancreatitis. The pancreas is severely atrophic, particularly the pancreatic body andtail. The pancreatic duct is difficult to visualize . Adrenal Glands: Normal. Kidneys and Ureters: No hydronephrosis or nephroureterolithiasis Bladder: Moderately distended. No asymmetric wall thickening. Stomach, Small bowel and Large Bowel: Stomach is moderately distended. Limited evaluation of bowel due to phase of enhancement, no oral contrast and mild motion. No gross abnormality Appendix: Normal. Peritoneum, omentum and mesentery: No ascites or pneumoperitoneum. No omental or mesenteric lesions. Lymph nodes: No pathologically enlarged lymph nodes. Blood vessels: No abnormalities are seen. No aneurysm. Abdominal /pelvic wall: Unremarkable. Reproductive organs: Unremarkable. Bones: Moderate chronic degenerative changes in the spine. No acute findings. . IMPRESSION: No acute arterial abnormality. Ancillary findings including hepatic steatosis and sequelae of chronic pancreatitis as above WSN: [id number] Ordering Physician: Hernando Young Dictated By: Ross Farias MD Dictated Date/Time: 06/09/23 6:21 pm Reviewed By: Ross Farias MD Signed By: Ross Farias MD Signed Date/Time: 06/09/23 6:21 pm Transcribed By: JATIN Transcribed Date/Time: 06/09/23 5:59 pm * Exam Date Time Procedure Performing Provider Status 06/09/23 5:[address] Angio Chest Tia Ortiz; Auth (Verified) Notes: (CT Angio Chest) Reason For Exam: Aortic disease, nontraumatic;Other: RESULT: CT Angio Chest EXAMINATION: CT Angio Chest, CT Angio Abdomen and Pelvis INDICATION: Hx of Present Illness: pt presented to ED with SOB Back pain x1day. EMS [id number]. Tachypnea, pt given fent, ASA, ad calcium en route. EKG noted peaked T waves.; Reason: Other:; Aortic disease, nontraumatic; Clinical Question(s): Other:; Aortic Dissection; Order Comment: TECHNIQUE: An initial noncontrast CT of the chest was performed. Spiral CTA of the chest, abdomen, and pelvis was performed after rapid IV contrast administration without cardiac gating triggered by an DOMINGA on the aorta. Images are formatted in multiple planes using 2-D multiplanar and 3-D maximum intensity projection. Gated axial images through the aortic root were also acquired during a [id number] injection of IV contrast with separate reconstructions of this data set formatted in multiple planes using 2-D multiplanar and 3-D maximum intensity projection. cc of was administered intravenously. Weight-based protocol using automatic tube modulation was used to optimize exposure parameters. CTDIvol Body: 6.00 mGy, DLP Body: 459 mGy*cm. COMPARISONS: CT abdomen and pelvis without contrast 03/24/2026 ANGIOGRAPHIC FINDINGS: No aortic dissection or aneurysm. Mild atherosclerotic calcification. The right brachiocephalic andleft common carotid arteries share a common origin, a normal anatomic variant. Pulmonary arteries are normal in caliber. No evidence of central pulmonary embolism on this study performed without dedicated technique. Abdominal aorta: No aortic aneurysm or dissection. Minimal vascular calcifications. Celiac axis: Patent. Superior mesenteric artery: Patent. Right renal artery: Patent. Left renal artery: Patent. Inferior mesenteric artery: Patent. Right common iliac artery: Patent. Right internal iliac artery: Patent. Right external iliac artery: Patent. Right common femoral artery: Patent. Visualized right superficial and deep femoral arteries: Patent. Left common iliac artery: Patent. Left internal iliac artery: Patent. Left external iliac artery: Patent. Left common femoral artery: Patent. Visualized left superficial and deep femoral arteries: Patent. NON-ANGIOGRAPHIC FINDINGS: Planning And Analysis Manager View Findings, Lines and Tubes: None. Trachea and Airways: Patent without evidence of tracheal or endobronchial lesion. Lungs and Pleura: Clear lungs. No effusion or pneumothorax. Mediastinum and christiano: No mass or hematoma. No mediastinal or hilar lymphadenopathy. No esophageal abnormality. Heart: Heart is normal in size. No pericardial effusion. Mild coronary artery calcification. Chest Wall Soft Tissues: Normal. Liver: Hepatomegaly. Hepatic steatosis. No focal liver lesions. Gallbladder: Surgically absent. Bile ducts: The common bile duct measures approximately 1 cm which is unchanged from the prior study and is likely result of prior cholecystectomy. Spleen: Normal. Pancreas: Several calcifications are seen within the pancreas, increased from the prior study, suggesting chronic pancreatitis. The pancreas is severely atrophic, particularly the pancreatic body andtail. The pancreatic duct is difficult to visualize . Adrenal Glands: Normal. Kidneys and Ureters: No hydronephrosis or nephroureterolithiasis Bladder: Moderately distended. No asymmetric wall thickening. Stomach, Small bowel and Large Bowel: Stomach is moderately distended. Limited evaluation of bowel due to phase of enhancement, no oral contrast and mild motion. No gross abnormality Appendix: Normal. Peritoneum, omentum and mesentery: No ascites or pneumoperitoneum. No omental or mesenteric lesions. Lymph nodes: No pathologically enlarged lymph nodes. Blood vessels: No abnormalities are seen. No aneurysm. Abdominal /pelvic wall: Unremarkable. Reproductive organs: Unremarkable. Bones: Moderate chronic degenerative changes in the spine. No acute findings. . IMPRESSION: No acute arterial abnormality. Ancillary findings including hepatic steatosis and sequelae of chronic pancreatitis as above WSN: [id number] Ordering Physician: Hernando Young Dictated By: Ross Farias MD Dictated Date/Time: 06/09/23 6:21 pm Reviewed By: Ross Farias MD Signed By: Ross Farias MD Signed Date/Time: 06/09/23 6:21 pm Transcribed By: JATIN Transcribed Date/Time: 06/09/23 5:59 pm Vital Signs Most recent to oldest [Reference Range]: 1 2 3 Height 170 cm (06/10/23 2:52 AM) Weight 63.3 kg (06/10/23 2:52 AM) Oxygen Saturation [94-100 %] 97 % (06/11/23 4:00 PM) 98 % (06/11/23 2:00 PM) 98 % (06/11/23 12:00 PM) Pulse Rate [55-90 bpm] 77 bpm (06/11/23 12:00 PM) 72 bpm (06/11/23 8:00 AM) 67 bpm (06/10/23 12:00 PM) Body Mass Index [18.5-24.99 kg/m2] 21.9 kg/m2 (06/10/23 2:52 AM) Blood Pressure [90-138/55-84 mm Hg] 112/76mm Hg (06/11/23 4:00 PM) 132/79mm Hg (06/11/23 2:00 PM) 116/79mm Hg (06/11/23 12:00 PM) Respiratory Rate [16-30 br/min] 16 br/min (06/11/23 4:00 PM) 16 br/min (06/11/23 2:00 PM) 11 br/min *L* (06/11/23 12:00 PM) Temperature [96.8-100.4 DegF] 98.7 DegF (06/11/23 12:00 PM) 98.7 DegF (06/11/23 8:00 AM) 98.1 DegF (06/11/23 4:00 AM) Mode of Delivery (Oxygen) Room air (06/11/23 4:00 PM) Room air (06/11/23 2:00 PM) Room air (06/11/23 12:00 PM) Blood pressure sites Arm, right (06/11/23 4:00 PM) Arm, right (06/11/23 2:00 PM) Arm, right (06/11/23 12:00 PM) Temperature Route Temporal (06/11/23 12:00 PM) Temporal (06/11/23 8:00 AM) Oral (06/11/23 4:00 AM) Dry Weight 63.3 kg (06/10/23 2:52 AM) Social History Social History Type Response Smoking Status Current some day smo ker; Type: Cigarettes; Interested in cessation: Yes; Tobacco use times per day: 2 cigarettes a day; Number of years: 25; entered on: 08/15/14 Sex History and physical note * Sarmad Virk MD: PERFORM, MODIFY Event Display: History and Physical Hospital Authored Date: [id number] Patient: ??VAUGHN CARDENAS ? Age:??53 Years?Sex:??Male?:??1970?? Chief Complaint/Reason for Consultation Pt reports SOB and chest tightness starting 06/08, called ems this AM. Peaked T waves notes, pt anx. History of Present Illness 53-year-old male with a history of chronic pancreatitis and chronic abdominal pain??presented to the emergency room earlier today complaining of acute on chronic abdominal pain??and worsening shortness of breath.?? He tells me that??he has a long history of chronic abdominal pain??but it was getting worse over the last??24 hours.?? He describes it as a central abdominal pain without radiation??and sharp in nature.?? He also developed shortness of breath??which was new for him. ??He denied any cough,??fever, diarrhea,??blood per rectum, focal weakness,??dysuria, chest pain.?? He did vomit several times today.?? In the emergency room he had a CT abdomen??which revealed evidence of chronic panc reatitis no acute change.?? He was also found to be in DKA??and was started on insulin infusion.?? For what I can tell he has not been checking his blood sugars at home. ??He states he is taking Tresiba??but is not very clear about the dose.?? After receiving IV fluids and starting the insulin he tells me the abdominal pain has??nearly resolved and his shortness of breath has also improved. ? RESULT: CT Angio Abdomen and Pelvis EXAMINATION: CT Angio Chest, CT Angio Abdomen and Pelvis?? FINDINGS: IMPRESSION:?? No acute arterial abnormality. Ancillary findings including hepatic steatosis and sequelae of chronic pancreatitis as above Review of Systems Constitutional:??Fatigue Eyes:??No visual loss, blurred vision, double vision or yellow sclera ENT:??No hearing loss, sneezing, congestion, runny nose or sore throat. Respiratory:??No shortness of breath, cough or sputum production. Cardiovascular:??No chest pain, chest pressure or chest discomfort. No palpitations or pedal edema. Gastrointestinal:??Abdominal pain Genitourinary:??No burning micturition. No urinary frequency or incontinence. Neurologic:??No headache, dizziness, syncope, unilateral weakness, ataxia, numbness or tingling in the extremities. Musculoskeletal:??No muscle pain, back pain, joint pain or stiffness. Skin:??No rash or itching. Endocrine:??No reports of sweating. No cold or heat intolerance. No polyuria or polydipsia. Psychiatric:??No depression or anxiety. Objective Measurements?? Height: 170 cm (06/10/23) Weight: 63.3 kg (06/10/23) Dry Weight: 63.3 kg (06/10/23) Body Mass Index: 21.9 kg/m2 (06/10/23) ? Vital Signs?? Temperature: 97.7 DegF (06/10/23 03:00:00) Temperature Route: Axillary (06/10/23 03:00:00) Pulse Rate:??53 bpm??Low (06/10/23 02:52:00) Heart Rate Monitored:??52 bpm??Low (06/10/23 00:34:00) Respiratory Rate:??13 br/min??Low (06/10/23 03:00:00) Systolic Blood Pressure: 127 mm Hg (06/10/23 02:52:00) Diastolic Blood Pressure: 73 mm Hg (06/10/23 02:52:00) Blood pressure sites: Arm, right (06/10/23 02:52:00) Mean Arterial Pressure: 91 mm Hg (06/10/23 02:52:00) Pulse Pressure: 54 mm Hg (06/10/23 02:52:00) Oxygen Saturation: 99 % (06/10/23 03:00:00) Mode of Delivery (Oxygen): Room air (06/10/23 02:52:00) Early Warning Score: 8 (06/10/23 04:44:49) ? Physical Exam Constitutional: Alert, in no distress. Mental Status: Oriented to person, place and time. Head: Normocephalic. Eyes: Pupils are equal, round and reactive to light. Extraocular muscles intact. Ear, Nose and Throat: Oropharynx clear, mucous membranes moist. Neck: Supple, Full range of motion. Respiratory: Clear to auscultation. No wheezing, rales or rhonchi. Cardiovascular: S1 S2 regular. No murmurs, rubs or gallops. Gastrointestinal: Abdomen soft, non-tender, non-distended. Normal bowel sounds.. Neurologic: Cranial nerves II-XII grossly intact. No focal neurological deficits. Flexor plantar response. Moves all extremities spontaneously. Sensation intact bilaterally. Skin: No rashes or lesions. No petechiae or purpura.?? Musculoskeletal: No cyanosis or clubbing. No gross deformities. Normal range of motion. Psychiatric: Normal mood and affect Assessment/Plan 53-year-old male??with a history of type 1 diabetes, chronic pancreatitis??presents emergency room with??DKA??abdominal pain,??MARÍA ELENA, and leukocytosis ? DKA (diabetic ketoacidosis) (E11.10):??. Type 1 diabetes (E10.9):??. It is unclear if he is taking his insulin properly at home. ??It does not appear he is checking hissugars. He was noted to be in DKA on arrival and was started on an insulin infusion We will continue with DKA protocol, insulin infusion, and admission to intermediate care Check electrolytes??every 4 hourly Transition off insulin infusion once??gap closes and patient able to tolerate diet Continue IV hydration with??half-normal saline Bids consult this morning His shortness of breath has resolved I suspect this was likely secondary to his underlying acidosis Continue to monitor ? MARÍA ELENA (acute kidney injury) (N17.9):??. Likely element of??prerenal azotemia in the setting of dehydration Continue IV fluids as above Hold losartan Monitor renal function ? Chronic pancreatitis (K86.1):??. Abdominal pain (R10.9):??. Abdominal pain improved with IV hydration Likely chronic pancreatitis/abdominal pain exacerbated by DKA ? Anxiety and depression (F41.9):??. Continue clonazepam as needed and escitalopram ? Hypertension (I10):??. Holding losartan in light of MARÍA ELENA ? Leukocytosis (D72.829):??. No clear infectious source noted. Possibly secondary to DKA Abdominal exam benign Blood culture sent from the emergency room He did receive a dose of ceftriaxone in the ER We will hold further antibiotics pending culture results ? VTE Prophylaxis:??. Heparin subcu ? Code Status:??. Full code Confirmed with patient at bedside ? Patient seen 06/09/2023? Histories Allergies Allergies ?(Active and Proposed Allergies Only) NKA? (Severity: Unknown severity, Onset: Unknown) ? Past Medical History/Problem List Chronic abdominal pain Chronic pancreatitis Depression Diabetes mellitus Dyslipidemia anxiety disorder obsessive compulsive disorder nicotine use Hypertension Low back pain Moderate somatic symptom disorder with predominant pain Myofascial pain kidney stones Tendon rupture, Achilles Endoscopic retrograde cholangiopancreatography (ERCP); with sphincterotomy/papillotomy: 10/10/15 Cholecystectomy ? Social History Lives with his family Smokes occasional cigar Denies alcohol use ? Family History Father diabetes ? Medications Home Medications Aspirin (Aspirin Tablet)?81?Milligram?By Mouth?Daily Atorvastatin (atorvastatin 20 mg oral tablet)?20?Milligram?By Mouth?Daily at bedtime Clonazepam (Klonopin 1 mg oral tablet)?1?tab(s)?1?Milligram?By Mouth?Daily??as needed Cyanocobalamin (Vitamin B-12 Tablet)?1 tab?By Mouth?Daily Insulin Aspart (NovoLog Inj)?See Instructions?4U breakfast, 6U lunch and dinner, TID with meals. insulin degludec (Tresiba)?20?unit(s)?Subcutaneous Infusion?Daily Tresiba??20 units??daily Losartan (losartan 25 mg oral tablet)?25?Milligram?By Mouth?Daily Metformin (metformin 1000 mg oral tablet)?1?tab(s)?1,000?Milligram?By Mouth?2 times a day Omeprazole (omeprazole 20 mg oral enteric coated capsule)?1?capsule?20?Milligram?By Mouth?Daily Pancrelipase (Creon 24,000 units oral delayed release capsule)?2?capsule?By Mouth?3 times a day?with meals ? Results Recent Labs BLOOD BANK Blood Type O Positive ()?? 06/09/2023 15:58 Antibody Screen Negative ()?? 06/09/2023 15:58 ?? BLOOD COUNT & DIFF WBC 26.0 k/mm3 (High)?? 06/10/2023 02:35 RBC 4.75 m/mm3 ()?? 06/10/2023 02:35 Hgb 13.6 Gm/dL (Low)?? 06/10/2023 02:35 Hct 41.2 % ()?? 06/10/2023 02:35 MCV 86.7 femtoliters ()?? 06/10/2023 02:35 MCH 28.6 pg ()?? 06/10/2023 02:35 MCHC 33.0 g/dL ()?? 06/10/2023 02:35 Platelet Count 205 k/mm3 ()?? 06/10/2023 02:35 RDW-SD 44.0 femtoliters ()?? 06/10/2023 02:35 MPV 10.0 femtoliters ()?? 06/10/2023 02:35 Nucleated RBC (Automated) 0.0 #/100 WBC'S ()?? 06/10/2023 02:35 Abs. NRBC 0.0 k/mm3 ()?? 06/10/2023 02:35 Abs. Neut 22.7 k/mm3 (High)?? 06/09/2023 16:14 Abs. Lymph 2.0 k/mm3 ()?? 06/09/2023 16:14 Abs. [place] 1.0 k/mm3 ()?? 06/09/2023 16:14 Abs. Eo 0.0 k/mm3 ()?? 06/09/2023 16:14 Abs. Baso 0.1 k/mm3 ()?? 06/09/2023 16:14 Neut % 86.6 % (High)?? 06/09/2023 16:14 Lymph % 7.5 % (Low)?? 06/09/2023 16:14 [place] % 3.8 % (Low)?? 06/09/2023 16:14 Eos % 0.0 % ()?? 06/09/2023 16:14 Baso % 0.3 % ()?? 06/09/2023 16:14 RBC Morphology MODERATE ()?? 06/09/2023 16:14 Hemoglobin (POC) POC Cartridge 13.9 Gm/dL ()?? 06/09/2023 20:31 Hematocrit (POC) POC Cartridge 41 % ()?? 06/09/2023 20:31 Imm Gran 1.8 % ()?? 06/09/2023 16:14 Abs. Imm Gran 0.5 k/mm3 ()?? 06/09/2023 16:14 ?? BLOOD GAS pH Venous (POC) POC Cartridge 7.18 (Low)?? 06/09/2023 20:31 pCO2 Venous (POC) POC Cartridge 32.4 mm Hg (Low)?? 06/09/2023 20:31 pO2 Venous (POC) POC Cartridge 24 mm Hg (Low)?? 06/09/2023 20:31 Est Bicarbonate (POC) POC Cartridge 12.0 mmol/L (Low)?? 06/09/2023 20:31 % O2 Sat Venous (POC) POC Cartridge 31 ()?? 06/09/2023 20:31 Base Excess (POC) POC Cartridge NEGATIVE 16 ()?? 06/09/2023 20:31 Specimen Type - Blood Gas VENOUS ()?? 06/09/2023 20:31 pH, Venous 7.04 (Low)?? 06/09/2023 16:50 pCO2, Venous 20 mm Hg (Low)?? 06/09/2023 16:50 pO2, Venous 87 mm Hg (High)?? 06/09/2023 16:50 Bicarbonate, Estimated(Venous) 5 mmol/L (Low)?? 06/09/2023 16:50 ?? CARDIAC High Sensitivity Troponin (HSTnT) 30 ng/L (High)?? 06/09/2023 16:14 ?? CHEM GENERAL Sodium 141 mmol/L ()?? 06/10/2023 02:36 Potassium 4.6 mmol/L ()?? 06/10/2023 02:36 Chloride 107 mmol/L ()?? 06/10/2023 02:36 Bicarbonate Level 18 mmol/L (Low)?? 06/10/2023 02:36 Anion Gap 16 ()?? 06/10/2023 02:36 Sodium (POC) POC Cartridge 139 mmol/L ()?? 06/09/2023 20:31 Potassium (POC) POC Cartridge 5.3 mmol/L (High)?? 06/09/2023 20:31 Glucose Level 731 mg/dL (Critical)?? 06/09/2023 16:14 Glucose (POC) POC Cartridge 351 (High)?? 06/09/2023 20:31 Glucose, POC 173 mg/dL (High)?? 06/10/2023 04:43 Beta Hydroxybutyrate 14.24 mmol/L (High)?? 06/09/2023 17:55 BUN 44 mg/dL (High)?? 06/09/2023 16:14 Creatinine-Blood 2.0 mg/dL (High)?? 06/09/2023 16:14 Estimated GFR Creatinine 38 ML/MIN/1.73 M2 ()?? 06/09/2023 16:14 Osmolality 322 mOs/kg (High)?? 06/10/2023 02:36 Calcium 11.2 mg/dL (High)?? 06/09/2023 16:14 Ionized Calcium (POC) POC Cartridge 1.20 mmol/L ()?? 06/09/2023 20:31 Phosphorus 5.1 mg/dL (High)?? 06/09/2023 17:55 Magnesium 2.3 mg/dL ()?? 06/09/2023 17:55 Protein, Total 8.1 Gm/dL ()?? 06/09/2023 16:14 Albumin 4.8 Gm/dL ()?? 06/09/2023 16:14 Alkaline Phosphatase 206 units/L (High)?? 06/09/2023 16:14 Lipase 7 units/L (Low)?? 06/09/2023 16:14 AST (SGOT) 14 units/L ()?? 06/09/2023 16:14 ALT (SGPT) 43 units/L (High)?? 06/09/2023 16:14 Bilirubin, Total 0.3 mg/dL ()?? 06/09/2023 16:14 Bilirubin, Direct <0.2 mg/dL ()?? 06/09/2023 16:14 Bilirubin, Indirect Direct bilirubin is less than the measureable limit. Therefore, indirect mg/dL ()?? 06/09/2023 16:14 Lactate 1.8 mmol/L ()?? 06/10/2023 02:36 ?? COAG APTT 31.3 seconds ()?? 06/09/2023 16:14 ?? HEME OTHER Hold Blue Top SPECIMEN DISCARDED AFTER 4 HOURS. ()?? 06/09/2023 16:14 ?? LIPID STUDIES Triglycerides 876 mg/dL (High)?? 06/09/2023 16:14 ?? MISC. CHEMISTRY Hold Red Top SPECIMEN DISCARDED AFTER 1 WEEK ()?? 06/09/2023 16:14 ?? UA/URINALYSIS Appear/Color, Urine COLORLESS ()?? 06/09/2023 18:45 Specific [place], Urine 1.023 ()?? 06/09/2023 18:45 pH, Urine 5.5 ()?? 06/09/2023 18:45 Albumin, Urine 1+ (Abnormal)?? 06/09/2023 18:45 Glucose, Urine 4+ (Abnormal)?? 06/09/2023 18:45 Ketones, Urine 4+ (Abnormal)?? 06/09/2023 18:45 Bilirubin, Urine NEGATIVE ()?? 06/09/2023 18:45 Hemoglobin, Urine 1+ (Abnormal)?? 06/09/2023 18:45 Nitrite, Urine NEGATIVE ()?? 06/09/2023 18:45 Leukocyte, Urine NEGATIVE ()?? 06/09/2023 18:45 Urobilinogen NORMAL mg/dL ()?? 06/09/2023 18:45 WBC's, Urine 1 /HPF ()?? 06/09/2023 18:45 RBC's, Urine 2 /HPF ()?? 06/09/2023 18:45 Squamous Epith 1 /HPF ()?? 06/09/2023 18:45 Mucus SLIGHT /LPF ()?? 06/09/2023 18:45 Budding Yeast SLIGHT /HPF ()?? 06/09/2023 18:45 Hold Urine Culture Testing available 48 hours from time of collection. ()?? 06/09/2023 18:45 ?? URINE OTHER Est Creatinine Clearance 37.80 mL/min ()?? 06/10/2023 02:57 ?? VIROLOGY COVID-19 by RT-PCR NEGATIVE ()?? 06/09/2023 18:00 ? EKG study * Event Display: ECG 12-Lead Authored Date: Please click on pdf link to open report * Event Display: ECG 12-Lead Authored Date: Ventricular Rate: 52 BPM Atrial Rate: 52 BPM P-R Interval: 126 ms QRS Duration: 84 ms Q-T Interval: 472 ms QTC Calculation(Bazett): 438 ms P [place]: 56 degrees R [place]: 70 degrees T [place]: 80 degrees Sinus bradycardia Otherwise normal ECG When compared with ECG of 24-MAR-2016 21:54, Nonspecific T wave abnormality no longer evident in Inferior leads Nonspecific T wave abnormality no longer evident in Lateral leads Confirmed by JAMES CARBALLO MD ([id number]) on 06/10/2023 9:36:09 AM Jewell: JAMES CARBALLO MD * Event Display: EKG Authored Date: Cardiology * Event Display: Cardiac Rhythm Strips Authored Date: Hospital Progress note * Subha Meier RN: PERFORM, SIGN, VERIFY, SIGN, MODIFY Event Display: Progress Note Hospital Authored Date: Patient: VAUGHN CARDENAS Age: 53 years Sex: Male : 1970 Associated Diagnoses: None Author: Renea CHRISTINE, Subha Findings Problem Related to Alteration in Endocrine : Alteration in Endocrine Function/new 06/11/2023 13:00 EDT Alteration in Endocrine Related to DKA (Diabetic Ketoacidosis) Goals & Outcomes, Endocrine Vital signs, electrolytes & blood glucose will stabilize Interventions, Endocrine Assess/monitor GI/ status, Assess skin turgor, temperature & capillary refill, Consider Top Taper Machine consult; review recommendations, DVT prophylaxis as ordered, Maintain IV access, Maintain strict I&O, Monitor & document daily weight, Monitor pt's response to IVhydration Goals/Interventions, Endocrine Yes Endocrine, Problem Start 06/10/2023 14:34 Reviewed Plan with, Endocrine Patient Patient Progression, Endocrine Pt progressing according to plan . Nursing Data Cardiac Data. : Cardiac Data. 06/11/2023 9:00 EDT Cardiovascular Symptoms None Nail Bed Color, Fingers [place] Skin Temperature Upper Extremities Warm Skin Temperature Lower Extremities Warm Capillary Refill < 3 seconds . Gastrointestinal Data. : Gastrointestinal Data. 06/11/2023 9:00 EDT Gastrointestinal Symptoms Nausea Abdomen Soft, Non-tender Bowel Sounds LUQ Present Bowel Sounds RUQ Present Bowel Sounds LLQ Present Bowel Sounds RLQ Present Last Bowel Movement 06/10/2023 Gastrointestinal Comment Zofran administered . Integumentary Data. : Integumentary Data. 06/11/2023 9:00 EDT Skin Color Normal for ethnicity Skin Description Moist Skin Temperature Warm Skin Integrity Intact Skin Turgor Elastic Mucous Membrane Color [place] Mucous Membrane Description Moist Sensory Perception No impairment Moisture Rarely moist Activity Walks occasionally Mobility Slightly limited Nutrition Adequate Friction and Shear No apparent problem Srinivasan Score 20 Nursing Care Plan initiated/updated Not applicable . Musculoskeletal Data. : Musculoskeletal Data. 06/11/2023 9:00 EDT Musculoskeletal Symptoms None Range of Motion Description Full motion . Neurological Data. : Neurological Data. 06/11/2023 9:00 EDT Neurological Symptoms None Level of Consciousness Full Consciousness Orientated to person, place, time Person, Place, Time, Event Memory Intact Swallow - Neuro Normal . Respiratory/Pulmonary Data. 06/11/2023 9:00 EDT Respiratory Symptoms None Respiratory effort Unlabored Respiratory pattern Regular Left Upper Lobe Breath Sounds Clear Right Upper Lobe Breath Sounds Clear Right Middle Lobe Breath Sounds Clear Left Lower Lobe Breath Sounds Clear Right Lower Lobe Breath Sounds Clear Respiratory Treatment(s) Other: None . Vital Signs : VITAL SIGNS SECTION 06/11/2023 8:00 EDT Temperature 98.7 DegF Temperature Route Temporal Pulse Rate 72 bpm Respiratory Rate 20 br/min Systolic Blood Pressure 128 mm Hg Diastolic Blood Pressure 80 mm Hg Blood pressure sites Arm, right Pulse Pressure 48 mm Hg Oxygen Saturation 99 % Mode of Delivery (Oxygen) Room air . Narrative/Incidental Patient alert/oriented x4. Denies pain. C/O nausea. Zofran administered with +effect. Lungs clear. +BS x4. Abdomen soft, non-tender. See biophysical for full assessment. Bed in low position, bed alarm on. Call figueroa within reach, frequent rounding maintained. . * Subha Meier RN: PERFORM Event Display: Progress Note Hospital Authored Date: Patient discharged with all belongings. States understanding of discharge instructions. * Joi MCLEAN, Velasquez: PERFORM Event Display: Progress Note Hospital Authored Date: Patient: ??VAUGHN CARDENAS ? Age:??53 Years?Sex:??Male?:??1970?? Subjective No acute events overnight. Patient reported that he had a snack after dinner last night, he ate pudding. He will eat a snack at night if it is offered to him. Today he admitted that his blood glucosehas been poorly controlled at home, as it is always high, so he thinks a blood glucose in the 200'sis actually pretty good comparing. He also stated that he had a CGM in the past and was doing better while using that, but since his insurance does not cover it any more and he has not been able to use it, his diabetes has gotten out of control. He also does not currently have a glucometer at home.? Current Inpatient glycemic history and management: - Basal insulin: Lantus 32 units daily - Prandial insulin: Humalog??8 units starting at??100 mg/dL with interval increase of??2 units for every??40 mg/dL rise in blood glucose TIDAC - Diet: 75 g carb per meal ?? Glycemic trends reviewed: Blood glucose range in the past 24 hours 157-230, bedtime??BG??157 and??this morning FBG 217. He received a total of Lantus 32 units and Humalog??12 units yesterday. He was transitioned off the insulin gtt yesterday. Review of Systems Reviewed and negative except??as noted??above. Objective Vitals & Measurements T:??98.7?F?? TMIN:??98.0?F?? TMAX:??99.2?F?? HR:??70??(Monitored)?? RR:??18?? BP:??141/80?? SpO2:??99%?? Physical Exam GENERAL APPEARANCE:??In no acute distress. HEENT: sclerae anicteric, conjunctivae pink and moist. EOMI. Oral mucosa moist NECK: Supple and symmetric. LUNGS: No respiratory distress. CARDIOVASCULAR: Regular rate and rhythm. EXTREMITIES: No cyanosis, clubbing or edema. NEUROLOGIC: Alert and oriented x 3. Normal affect. Assessment/Plan 53-year-old male with medical history of insulin dependent??diabetes mellitus, chronic pancreatitis, chronic abdominal pain who presented on 06/09/23 with complaints of acute on chronic abdominal pain and worsening dyspnea. Labs on presentation were indicative of DKA with VBG pH 7.11, bicarb 7, anion gap 45, blood glucose 731, beta hydroxybutyrate 16.67 and lactate 5.1. He was started on an insulin gtt. BID was consulted for assistance in management of??insulin dependent??diabetes mellitus.? #Insulin-dependent diabetes mellitus HbA1C 13.8% on 06/10/23. Glycemic trends reviewed.?His high fasting blood glucose is likely due to snacking overnight without insulin coverage. Recommend continuing Lantus 32??units??and Humalog sliding scale??8??units starting at 100 mg/dL with interval increase of??2 units??for every 40 mg/dL rise in blood glucose,??3times daily AC, hold if NPO.?? Will add a bedtime snack scale if he has a snack after dinner. Please avoid administering an additional dose of Humalog within a 2 hour period of a previous dose to avoid insulin stacking, which increases your risk of hypoglycemia.??Humalog sliding scale?2??units starting at??140 mg/dL with interval increase of??2 units??for every 40 mg/dL rise in blood glucose, for bedtime snack, hold if snack is held.?? We will continue to monitor glycemic trends and titrate insulin accordingly. Final discharge recommendations detailed below; it is advised that Jardiance is held in the settingof poorly controlled diabetes, due to the increased risk of infections. He will need supplies, suchas a glucometer, lancets, strips and glucose tablets on discharge.?? It is recommended that he follows up with [facility] endocrine on discharge. ? Please copy and paste into the patient's discharge instructions. Discharge recommendations: - Discontinue Jardiance - Resume Metformin 500mg daily - Lantus??32 units every morning - Humalog or NovoLog before meals as per the scale below: Blood sugar? Humalog/NovoLog (units) 100 - 139?10 140 - 179? 12 180 - 219? 14 220 - 259? 16 260 - 299? 18 300 - 339? 20 340 - 379? 22 >380? 24 ?? You will need to test your blood sugar before meals and administer Humalog or NovoLog 10-15 minutesprior to eating, dose determined by the blood sugar level (as detailed by the scale above).? If your fasting??blood glucose is consistently?>120 and your 2 hour post meal??>250, please call your primary care provider for further assistance. ? Hypoglycemia Patient Instructions Hypoglycemia or low blood glucose is when your glucose levels fallen low enough to cause symptoms. This is usually <70 mg/dl, but this may vary from person to person. Symptoms of hypoglycemia include:?? - feeling shaky? - feeling sleepy/lethargic - being nervous or anxious? - feeling weak, having no energy - sweating, chills, clamminess? - blurred/impaired vision - mood swings, irritability, impatience? -tingling/numbness in lips, tongue, cheeks - confusion? - headaches - palpitations/fast heartbeat? - coordination problems, clumsiness - feeling light-headed or dizzy? - nightmares or crying out in sleep - hunger, nausea? - seizures ? How to manage hypoglycemia/low blood sugar:?? Follow the 15-15 rule: have 15 grams of carbohydrate (options listed below) to raise your blood glucose and check it after 15 minutes. If it is still <70 mg/dl or below your low target, have another serving.?? Repeat these steps until your blood glucose is back to normal, eat a meal or snack to ensure it does not go low again.? 15 grams of carbohydrates: -??4 ounces (1/2 cup) of juice or regular soda -??1 tablespoon of sugar, honey or corn syrup -??8 ounces of nonfat or 1% milk -??15 pieces of Skittles?? -??4-7 pieces of hard candy (lifesavers, peppermints or jellybeans) -??3-4 glucose tablets ?? Please call??your primary care provider or us if you need assistance managing your hypoglycemia ([phone]).? Severe hypoglycemia:??When hypoglycemia or low blood sugar is not treated and you need someone to help you recover.?? Glucagon can be injected following the instructions in the Glucagon kit.? Please call 911 if the person is unconscious or glucagon is not sufficient or available! ? Plan of care discussed with Dr.??Nicola, addendum to follow. The plan was also discussed with the patient and the primary team. ?? Thank you for the consultation, we will follow along with you. Please contact us with any questionsor concerns.? Velasquez Tamez MD Endocrinology Fellow, PGY-V * Nicola MCLEAN, Issra: PERFORM Event Display: Progress Note Hospital Authored Date: Attending Attestation : I have discussed the case and seen the patient with the fellow, I agree with the evaluation and treatment plan as outlined in the fellow's note . ?? * Yoselyn Loyola RN: PERFORM, SIGN, VERIFY Event Display: Progress Note Hospital Authored Date: Patient: VAUGHN CARDENAS Age: 53 years Sex: Male : 1970 Associated Diagnoses: None Author: Yoselyn Loyola RN Findings Problem Related to Alteration in Endocrine : Alteration in Endocrine Function/new 06/11/2023 1:00 EDT Alteration in Endocrine Related to DKA (Diabetic Ketoacidosis) Goals & Outcomes, Endocrine Vital signs, electrolytes & blood glucose will stabilize Interventions, Endocrine Maintain IV access, Assess & monitor for insulin effects; hypoglycemia, Collaborate w/provider re: insulin dosage adjustments . Evaluation AOx3. VSS. Tolerating diabetic diet with no NV. POC glucose stable, no s/s hypo/hyperglycemia. See flowsheets for assessment/care. Consult note * Velasquez Tamez MD: PERFORM, MODIFY, MODIFY, MODIFY, MODIFY, MODIFY, MODIFY Event Display: Consultation Note Authored Date: Patient: ??VAUGHN CARDENAS ? Age:??53 Years?Sex:??Male?:??1970?? Chief Complaint Pt reports SOB and chest tightness starting 06/08, called ems this AM. Peaked T waves notes, pt anx. Reason for Consultation Consult type: BIDS Reason: Insulin dependent diabetes mellitus management; DKA Requesting Provider: Sarmad Virk MD History of Present Illness 53-year-old male with medical history of insulin dependent??diabetes mellitus,??hyperlipidemia,??chronic pancreatitis, chronic abdominal pain who presented on 06/09/23 with complaints of acute on chronic abdominal pain and worsening dyspnea. Labs on presentation were indicative of DKA with VBG pH 7.11, bicarb 7, anion gap 45, blood glucose 731, beta hydroxybutyrate 16.67 and lactate 5.1. He was started on an insulin gtt. BID was consulted for assistance in management of??insulin dependent??diabetes mellitus.? Seen and evaluated bedside, patient reported that he does not feel well.?? He was unable to??explain exactly how he feels.??On further questioning, it appears that there may be a component of medication non-adherence. ?? Diabetes History: DM duration: 13 years ago. He mentioned that he was diagnosed with type I diabetes mellitus, however, his home regimen??is more indicative of??type II diabetes mellitus diagnosis. ?? Outpatient diabetes medications: Tresiba??20 units every evening, NovoLog sliding scale (reportedly he takes 14 to 15 units with meals,??but admits to missing doses), Jardiance 25 mg daily, metformin 500 mg daily ?? Home blood glucose monitoring: SMBG, per report checks 2-3 times a day ?? Home blood glucose control: Per report blood glucose, normal??in the 120-130 range ?? HbA1C: None on file. ?? Hypoglycemia: Reportedly his blood glucose was 130s about 3 weeks ago.?? He reported symptoms ofweakness, confusion, palpitations and shakiness when??he has hypoglycemia. ?? Complications: Retinopathy: Denied Nephropathy: No Neuropathy:??Denied numbness and paresthesias Ulcer(s)/amputation(s):??Denied ASCVD: No history of heart disease, peripheral artery disease or stroke. Gastroparesis:??Denied ?? Outpatient DM provider:??PCP ? Current Inpatient glycemic history and management: ?- Basal insulin: Insulin gtt @ 5 units/hr ?- Diet:??NPO ?- IVF:??D5 half-normal saline @ 200 cc/hr ?? Glycemic trends reviewed: Blood glucose range in the past 24 hours??117-731. Review of Systems Reviewed and negative except??as noted??above. Physical Exam Vitals & Measurements T:??98.2?F?? TMIN:??97.7?F?? TMAX:??98.3?F?? HR:??63??(Monitored)?? RR:??15?? BP:??112/69?? SpO2:??100%?? WT:??63.3??kg?? GENERAL APPEARANCE:??Ill appearing HEENT: sclerae anicteric, conjunctivae pink and moist. EOMI. Oral mucosa moist NECK: Supple and symmetric. LUNGS: No respiratory distress. CARDIOVASCULAR: Regular rate and rhythm. EXTREMITIES: No cyanosis or??clubbing. NEUROLOGIC: Alert and oriented x 3. Normal affect. Assessment/Plan 53-year-old male with medical history of insulin dependent??diabetes mellitus, chronic pancreatitis, chronic abdominal pain who presented on 06/09/23 with complaints of acute on chronic abdominal pain and worsening dyspnea. Labs on presentation were indicative of DKA with VBG pH 7.11, bicarb 7, anion gap 45, blood glucose 731, beta hydroxybutyrate 16.67 and lactate 5.1. He was started on an insulin gtt. BID was consulted for assistance in management of??insulin dependent??diabetes mellitus.? #Insulin-dependent diabetes mellitus There is no HbA1c on file, will order. With his history of chronic pancreatitis, patient possibly has pancreoprivic diabetes, will add on a C-peptide level to assess his insulin reserve. If his C- peptide is high, it indicates he has some insulin reserve. However, if it is low this cannot be accurately assessed in the acute setting of glucotoxicity; if it is low this will need to be reassessed when his diabetes is better controlled. His most recent bicarb and AG have improved and are at goal, therefore, he can be transitioned to abasal-bolus regimen. 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 We will continue to monitor glycemic trends and titrate insulin accordingly. Final discharge recommendations pending hospital course.? Plan of care discussed with Dr.??Nicola, addendum to follow. The plan was also discussed with thepatient. ?? Thank you for the consultation, we will follow along with you. Please contact us with any questionsor concerns.? Velasquez Tamez MD Endocrinology Fellow, PGY-V Problem List/Past Medical History Ongoing Ankle pain Chronic abdominal pain Chronic pancreatitis Depression Diabetes mellitus Drug or alcohol risk assessment or counseling Dyslipidemia H/O anxiety disorder H/O obsessive compulsive disorder History of nicotine use History of suicide attempt History of surgery Hypertension Limitation due to disability Low back pain Marijuana use Moderate somatic symptom disorder with predominant pain Myofascial pain Personal history of kidney stones Tendon rupture, Achilles Procedure/Surgical History ???Endoscopic retrograde cholangiopancreatography (ERCP); with sphincterotomy/papillotomy (10/10/2015) Medications Inpatient 0.45% NaCl 1,000 mL, 1000 mL, IV Infusion Acetaminophen Tablet, 650 mg, By Mouth, Every 4 hours, PRN aspirin 81 mg oral delayed release tablet, 81 mg, By Mouth, Daily clonazePAM 1 mg oral tablet, 1 mg, By Mouth, Every 8 hours, PRN D5%/NaCl 0.45% 1,000 mL, 1000 mL, IV Infusion Docusate Sodium Capsule, 100 mg= 1 capsule, By Mouth, 2 times a day, PRN escitalopram 10 mg oral tablet, 20 mg, By Mouth, Daily in AM Heparin Inj, 5000 units= 1 mL, Subcutaneous Injection, 3 times a day Influenza, Quadrivalent Vaccine (Fluzone Quad), 0.5 mL, Intramuscular, Once Insulin R 100 units in 100 mL Premix 100 units [5 units/hr] + NaCL 0.9% Premixed IV 100 mL Lipitor 20 mg oral tablet, 20 mg, By Mouth, Daily at bedtime Melatonin Tablet, 3 mg, By Mouth, Daily at bedtime, PRN NaCL 0.9% Flush, 3 mL, IV Push, Every 8 hours NaCL 0.9% Flush, 3 mL, IV Push, Every 8 hours, PRN NaCL 0.9% Flush, 3 mL, IV Push, Every 8 hours Ondansetron Inj, 4 mg, IV Push, Every 4 hours, PRN Senna Tablet, 8.6 mg= 1 tablet, By Mouth, 2 times a day, PRN traZODone 50 mg oral tablet, 150 mg, By Mouth, Daily at bedtime, PRN Home Aspirin Tablet, 81 mg, By Mouth, Daily atorvastatin 20 mg oral tablet, 20 mg, By Mouth, Daily at bedtime bupropion 200 mg oral tablet, extended release, 200 mg, By Mouth, Daily at bedtime Creon 24,000 units oral delayed release capsule, 2 capsule, By Mouth, 3 times a day ferrous sulfate 325 mg oral tablet, 325 mg= 1 tablet, By Mouth, 2 times a day Fish Oil 1000 mg oral capsule, 2000 mg= 2 capsule, By Mouth, 2 times a day Klonopin 1 mg oral tablet, 1 mg= 1 tablet, By Mouth, Daily Klonopin 2 mg oral tablet, 2 mg= 1 tablet, By Mouth, Daily at bedtime losartan 25 mg oral tablet, 25 mg, By Mouth, Daily metformin 1000 mg oral tablet, 1000 mg= 1 tablet, By Mouth, 2 times a day Novolin N human recombinant 100 u/ml subcutaneous injection, 52 units, Subcutaneous Injection, Daily at bedtime NovoLog Inj, See Instructions omeprazole 20 mg oral enteric coated capsule, 20 mg= 1 capsule, By Mouth, Daily Percocet-5/325 325 mg-5 mg oral tablet, 1 tablet, By Mouth, Every 6 hours, PRN Tresiba, 20 units, Subcutaneous Infusion, Daily Vistaril pamoate 25 mg oral capsule, 50 mg= 2 capsule, By Mouth, Daily at bedtime Vitamin B-12 Tablet, 1 tab, By Mouth, Daily Vitamin C 500 mg oral tablet, 500 mg= 1 tablet, By Mouth, 2 times a day Allergies NKA Social History Alcohol Use: Never. Employment/School Status: Unemployed. Home/Environment Living situation: Home/Independent. Lives with: Mother, Siblings. Substance Abuse Use: Current. Type: Marijuana. Other: does not have state certificate. Frequency: Several times perday. Tobacco Current some day smoker, Type: Cigarettes. Tobacco use times per day: 2 cigarettes a day. 25 Numberof years:. Interested in cessation: Yes. Immunizations Vaccine Date Status pneumococcal 23-valent vaccine 08/16/2014 Given * Nicola MCLEAN, Issra: PERFORM Event Display: Consultation Note Authored Date: [id number] Attending Attestation : I have discussed the case and seen the patient with the fellow, I agree with the evaluation and treatment plan as outlined in the fellow's note . ?? Note * Subha Meier RN: PERFORM Event Display: Discharge/Transfer Note Hospital Authored Date: [id number] Nursing Discharge Note Entered On: 06/11/2023 18:13 EDT Performed On: 06/11/2023 18:12 EDT by Subha Meier RN Nursing Discharge Note 2 Discharge Time : 06/11/2023 18:04 EDT Discharge Level of Care at Discharge : Homehealth/VNA Discharge VNA/Hospice/Home Care(v001) : [facility] [phone] Patient Left Unit Via : Wheelchair Patient Accompanied Off Unit with : Responsible adult DC Instructions Provided & Signed by Pt : Yes Patient Understands D/C Instructions : Yes Patient Instructions Discharge Signed : Yes Did Pt have Specialty Bed or Wound Vac : No Sbuha Meier RN - 06/11/2023 18:12 EDT * Fawn Espana MD: MODIFY, MODIFY, PERFORM Event Display: Discharge/Transfer Note Hospital Authored Date: [id number] Patient: ??CARDENASVAUGHN Waterman ? Age:??53 Years?Sex:??Male?:??1970?? Patient Information Discharge Location: [facility] Primary Care Physician: Mae Hall MD Admit Date/Time: 06/09/23 20:31 Discharge Disposition Discharge Disposition: Home: No Services Discharge Diagnosis MARÍA ELENA (acute kidney injury) (N17.9) Abdominal pain (R10.9) Anxiety and depression (F41.9) Chronic pancreatitis (K86.1) DKA (diabetic ketoacidosis) (E11.10) Hypertension (I10) Leukocytosis (D72.829) Metabolic acidosis (E87.20) Type 1 diabetes (E10.9) ?? _ Discharge Medications Ascorbic Acid (Vitamin C 500 mg oral tablet)?1?tab(s)?500?Milligram?By Mouth?2 times a day Aspirin (Aspirin Tablet)?81?Milligram?By Mouth?Daily Atorvastatin (atorvastatin 20 mg oral tablet)?20?Milligram?By Mouth?Daily at bedtime BuPROpion (bupropion 200 mg oral tablet, extended release)?200?Milligram?By Mouth?Dailyat bedtime Clonazepam (Klonopin 1 mg oral tablet)?1?tab(s)?1?Milligram?By Mouth?Daily?in am Clonazepam (Klonopin 2 mg oral tablet)?1?tab(s)?2?Milligram?By Mouth?Daily at bedtime Cyanocobalamin (Vitamin B-12 Tablet)?1 tab?By Mouth?Daily Durable Medical Equipment (Freestyle Lite Monitor)?See Instructions?use as directed for Type 2 Diabetes Mellitus ICD code 10 E10. 9 ifor lifetime useto check blood sugars three times a day before meals and once at night as needed for symptoms of hypoglycemia. Durable Medical Equipment (Freestyle Lite Test Strips)?See Instructions?for 90?Days?useas directed for Type 2 Diabetes Mellitus ICD code 10 E10. 9 ifor lifetime useto check blood sugars three times a day before meals and once at night as needed for symptoms of hypoglycemia. Ferrous Sulfate (ferrous sulfate 325 mg oral tablet)?1?tab(s)?325?Milligram?By Mouth?2 times a day HydrOXYzine (Vistaril pamoate 25 mg oral capsule)?2?capsule?50?Milligram?By Mouth?Daily at bedtime Insulin Aspart (insulin aspart 100 units/mL subcutaneous solution)?See Instructions?check blood sugars before every meal and given insulin novolong 10-15 minutes before eating. For sugars (100-139) give 10 units. for (140-179) give 12 units. for (180-219) give 14 units. for (220-259) give 16 units. ??for (260-299) give 18 units. fo... Insulin Glargine (Lantus 100 u/ml subcutaneous solution)?32?unit(s)?Subcutaneous Injection?Daily?rotate injection sites. take onc e a day Losartan (losartan 25 mg oral tablet)?25?Milligram?By Mouth?Daily Metformin (metFORMIN 500 mg oral tablet, extended release)?1?tab(s)?500?Milligram?ByMouth?Daily [place]oc[place]ont[place]-3 Polyunsaturated Fatty Acids (Fish Oil 1000 mg oral capsule)?2?capsule?2,000?Milligram?By Mouth?2 times a day Omeprazole (omeprazole 20 mg oral enteric coated capsule)?1?capsule?20?Milligram?By Mouth?Daily Oxycodone / Acetaminophen (Percocet-5/325 325 mg-5 mg oral tablet)?1?tab(s)?By Mouth?Every 6 hours?as needed?for 2?Days?Pain , Moderate Pancrelipase (Creon 24,000 units oral delayed release capsule)?2?capsule?By Mouth?3 times a day?with meals ? Medications Started none Medications Discontinued jardiance Doses Changed tresiba, novolog, metformin PCP Follow-Up/Heads-Up - please send prior auth for medicare part B for glucose sensor. ej said that medicare part Brequires it and they sent you the documentation for it in December - HbA1c ~14. modified diabetes regimen - stopping jardiance Hospital Course ??This is a 53-year-old male past medical history of nephrolithiasis, chronic and recurrent pancreatitis, insulin-dependent type 1 diabetes, hyperlipidemia presented on 06/09/2023 with abdominal pain and shortness of breath??and was found to be in diabetic ketoacidosis. ??Patient found to be with leukocytosis and underwent CTA chest which was negative for any pulmonary emboli or infectious processas well as CT angio abdomen and pelvis which was negative for any acute intra-abdominal abnormality. ??Patient was started on diabetic ketoacidosis management protocol with insulin drip and fluids. ??Patient closed there on 06/10/2023 and started on their home insulin regimen. ??Etiology was suspected to be due to difficulty with compliance with her home insulin regimen (A1c 13.8). ??Has been tolerating regular diet by mouth and is now ready to continue their care at home. ? Diabetic ketoacidosis abdominal pain?? vomiting Leukocytosis (resolved) ? s/p insulin drip?? started on insulin total daily dose ??total daily dose of 1.0 unit/kg (Lantus 32 units QHS and sliding scale 8 units starting at 100 mg/dL with interval increase of 2 units for 40 every mg/dL rise inblood glucose, 3 times daily AC, hold if NPO) etiology attributed to difficulty with ocmpliance with home insulin regimen. leukocytosis 2/2 stress state and resolved with DKA resolution - no evidence of infectious process? Recommendations: please follow up with endocrinology please follow the instructions for insulin coverage as velow: ? Please copy and paste into the patient's discharge instructions. Discharge recommendations: - Discontinue Jardiance - Resume Metformin 500mg daily - Lantus??32 units every morning - Humalog or NovoLog before meals as per the scale below: Blood sugar? Humalog/NovoLog (units) 100 - 139?10 140 - 179? 12 180 - 219? 14 220 - 259? 16 260 - 299? 18 300 - 339? 20 340 - 379? 22 > 380? 24 ?? You will need to test your blood sugar before meals and administer Humalog or NovoLog 10-15 minutesprior to eating, dose determined by the blood sugar level (as detailed by the scale above).? If your fasting??blood glucose is consistently?>120 and your 2 hour post meal??>250, please call your primary care provider for further assistance. ? Hypoglycemia Patient Instructions Hypoglycemia or low blood glucose is when your glucose levels fallen low enough to cause symptoms. This is usually <70 mg/dl, but this may vary from person to person. Symptoms of hypoglycemia include:?? - feeling shaky? - feeling sleepy/lethargic - being nervous or anxious? - feeling weak, having no energy - sweating, chills, clamminess? - blurred/impaired vision - mood swings, irritability, impatience? -tingling/numbness in lips, tongue, cheeks - confusion? - headaches - palpitations/fast heartbeat? - coordination problems, clumsiness - feeling light-headed or dizzy? - nightmares or crying out in sleep - hunger, nausea? - seizures ? How to manage hypoglycemia/low blood sugar:?? Follow the 15-15 rule: have 15 grams of carbohydrate (options listed below) to raise your blood glucose and check it after 15 minutes. If it is still <70 mg/dl or below your low target, have another serving.?? Repeat these steps until your blood glucose is back to normal, eat a meal or snack to ensure it does not go low again.? 15 grams of carbohydrates: -??4 ounces (1/2 cup) of juice or regular soda -??1 tablespoon of sugar, honey or corn syrup -??8 ounces of nonfat or 1% milk -??15 pieces of Skittles?? -??4-7 pieces of hard candy (lifesavers, peppermints or jellybeans) -??3-4 glucose tablets ?? Please call??your primary care provider or us if you need assistance managing your hypoglycemia ([phone]).? Severe hypoglycemia:??When hypoglycemia or low blood sugar is not treated and you need someone to help you recover.?? Glucagon can be injected following the instructions in the Glucagon kit.? Please call 911 if the person is unconscious or glucagon is not sufficient or available! ? MARÍA ELENA, resolved (2/2 dehydration/prerenal azotemia d/t DKA) Hypertension: continue home losartan?Fawn Espana MD, MPH Medicine Pediatrics Resident PGY-2. P. [id number] Patient??and plan discussed with attending physician, Dr. Espana Objective Vital Signs?? Temperature: 98.7 DegF (06/11/23 12:00:00) Temperature Route: Temporal (06/11/23 12:00:00) Pulse Rate: 77 bpm (06/11/23 12:00:00) Heart Rate Monitored: 70 bpm (06/11/23 14:00:00) Respiratory Rate: 16 br/min (06/11/23 14:00:00) Systolic Blood Pressure: 132 mm Hg (06/11/23 14:00:00) Diastolic Blood Pressure: 79 mm Hg (06/11/23 14:00:00) Blood pressure sites: Arm, right (06/11/23 14:00:00) Pulse Pressure: 53 mm Hg (06/11/23 14:00:00) Oxygen Saturation: 98 % (06/11/23 14:00:00) Mode of Delivery (Oxygen): Room air (06/11/23 14:00:00) Early Warning Score: 0 (06/11/23:43:46) ? . Physical Exam Constitutional: Alert, in no distress, sitting up comfortably in bed talking garciaht [place] Mental Status: Oriented to person, place and time. Head: Normocephalic. Eyes: Pupils are equal, round. Extraocular muscles intact. Respiratory: Clear to auscultation. Cardiovascular: S1 S2 regular. Gastrointestinal: Abdomen soft, non-tender, non-distended. Normal bowel sounds. . Psychiatric: anxious Consultants Endocrinology - Joi MCLEAN, Velasquez Pending Results Add On Lab Order ordered on 06/10/2023 Add On Lab Order ordered on 06/10/2023 Blood Culture ordered on 06/09/2023 Blood Culture #2 ordered on 06/09/2023 C Peptide ordered on 06/10/2023 Hold Lavender Tube (BB) ordered on 06/09/2023 Patient Education Titles Diabetic Ketoacidosis?? Discharge Instructions: Checking for Ketones?? Follow-Up Appointments Added Follow Up ?Time Frame ?Comments Rafael MCLEAN , Mae?Within one week?please call to make an appointment Patient Instructions You came to the hospital for chest pain and were found to be in diabetic ketoacidosis. You had a work up for infection that was negative. Your A1c level was very high so we think it may have been cause you need more strict management of your sugars. We spoke with the diabetes doctors who gave us the recommendations as below: ?? Please follow up with your PCP in the next week Please stop Jardiance Please continue metformin 500mg daily please oyster picker your new freestyle lyte monitor from [facility] today. Your pharmacist said you recently picked up lancets and test strips but I am sending a script just in case ?? Here are your new insulin instructions: - Lantus??32 units every morning - Humalog or NovoLog before meals as per the scale below: Blood sugar? Humalog/NovoLog (units) 100 - 139?10 140 - 179? 12 180 - 219? 14 220 - 259? 16 260 - 299? 18 300 - 339? 20 340 - 379? 22 > 380? 24 ?? You will need to test your blood sugar before meals and administer Humalog or NovoLog 10-15 minutesprior to eating, dose determined by the blood sugar level (as detailed by the scale above).? If your fasting??blood glucose is consistently?>120 and your 2 hour post meal??>250, please call your primary care provider for further assistance. ? Hypoglycemia Patient Instructions Hypoglycemia or low blood glucose is when your glucose levels fallen low enough to cause symptoms. This is usually <70 mg/dl, but this may vary from person to person. Symptoms of hypoglycemia include:?? - feeling shaky? - feeling sleepy/lethargic - being nervous or anxious? - feeling weak, having no energy - sweating, chills, clamminess? - blurred/impaired vision - mood swings, irritability, impatience? -tingling/numbness in lips, tongue, cheeks - confusion? - headaches - palpitations/fast heartbeat? - coordination problems, clumsiness - feeling light-headed or dizzy? - nightmares or crying out in sleep - hunger, nausea? - seizures ? How to manage hypoglycemia/low blood sugar:?? Follow the 15-15 rule: have 15 grams of carbohydrate (options listed below) to raise your blood glucose and check it after 15 minutes. If it is still <70 mg/dl or below your low target, have another serving.?? Repeat these steps until your blood glucose is back to normal, eat a meal or snack to ensure it does not go low again.? 15 grams of carbohydrates: -??4 ounces (1/2 cup) of juice or regular soda -??1 tablespoon of sugar, honey or corn syrup -??8 ounces of nonfat or 1% milk -??15 pieces of Skittles?? -??4-7 pieces of hard candy (lifesavers, peppermints or jellybeans) -??3-4 glucose tablets ?? Please call??your primary care provider or us if you need assistance managing your hypoglycemia ([phone]).? Severe hypoglycemia:??When hypoglycemia or low blood sugar is not treated and you need someone to help you recover.?? Glucagon can be injected following the instructions in the Glucagon kit.? Please call 911 if the person is unconscious or glucagon is not sufficient or available! Home Health Face to Face ^HomeHealthFTF Results Discharge Labs BLOOD BANK Blood Type O Positive ()?? 06/09/2023 15:58 Antibody Screen Negative ()?? 06/09/2023 15:58 ?? BLOOD COUNT & DIFF WBC 10.2 k/mm3 ()?? 06/11/2023 04:16 RBC 4.65 m/mm3 (Low)?? 06/11/2023 04:16 Hgb 13.6 Gm/dL (Low)?? 06/11/2023 04:16 Hct 39.1 % (Low)?? 06/11/2023 04:16 MCV 84.1 femtoliters ()?? 06/11/2023 04:16 MCH 29.2 pg ()?? 06/11/2023 04:16 MCHC 34.8 g/dL ()?? 06/11/2023 04:16 Platelet Count 158 k/mm3 ()?? 06/11/2023 04:16 RDW-SD 42.5 femtoliters ()?? 06/11/2023 04:16 MPV 10.4 femtoliters ()?? 06/11/2023 04:16 Nucleated RBC (Automated) 0.0 #/100 WBC'S ()?? 06/11/2023 04:16 Abs. NRBC 0.0 k/mm3 ()?? 06/11/2023 04:16 Abs. Neut 7.6 k/mm3 (High)?? 06/11/2023 04:16 Abs. Lymph 1.9 k/mm3 ()?? 06/11/2023 04:16 Abs. [place] 0.7 k/mm3 ()?? 06/11/2023 04:16 Abs. Eo 0.1 k/mm3 ()?? 06/11/2023 04:16 Abs. Baso 0.0 k/mm3 ()?? 06/11/2023 04:16 Neut % 73.9 % ()?? 06/11/2023 04:16 Lymph % 18.2 % ()?? 06/11/2023 04:16 [place] % 6.7 % ()?? 06/11/2023 04:16 Eos % 0.6 % ()?? 06/11/2023 04:16 Baso % 0.2 % ()?? 06/11/2023 04:16 RBC Morphology MODERATE ()?? 06/09/2023 16:14 Hemoglobin (POC) POC Cartridge 13.9 Gm/dL ()?? 06/09/2023 20:31 Hematocrit (POC) POC Cartridge 41 % ()?? 06/09/2023 20:31 Imm Gran 0.4 % ()?? 06/11/2023 04:16 Abs. Imm Gran 0.0 k/mm3 ()?? 06/11/2023 04:16 ? BLOOD GAS pH Venous (POC) POC Cartridge 7.18 (Low)?? 06/09/2023 20:31 pCO2 Venous (POC) POC Cartridge 32.4 mm Hg (Low)?? 06/09/2023 20:31 pO2 Venous (POC) POC Cartridge 24 mm Hg (Low)?? 06/09/2023 20:31 Est Bicarbonate (POC) POC Cartridge 12.0 mmol/L (Low)?? 06/09/2023 20:31 % O2 Sat Venous (POC) POC Cartridge 31 ()?? 06/09/2023 20:31 Base Excess (POC) POC Cartridge NEGATIVE 16 ()?? 06/09/2023 20:31 Specimen Type - Blood Gas VENOUS ()?? 06/09/2023 20:31 pH, Venous 7.04 (Low)?? 06/09/2023 16:50 pCO2, Venous 20 mm Hg (Low)?? 06/09/2023 16:50 pO2, Venous 87 mm Hg (High)?? 06/09/2023 16:50 Bicarbonate, Estimated(Venous) 5 mmol/L (Low)?? 06/09/2023 16:50 ? CARDIAC High Sensitivity Troponin (HSTnT) 30 ng/L (High)?? 06/09/2023 16:14 ? CHEM GENERAL Sodium 136 mmol/L ()?? 06/11/2023 04:19 Potassium 3.3 mmol/L (Low)?? 06/11/2023 04:19 Chloride 96 mmol/L (Low)?? 06/11/2023 04:19 Bicarbonate Level 27 mmol/L ()?? 06/11/2023 04:19 Anion Gap 13 ()?? 06/11/2023 04:19 Sodium (POC) POC Cartridge 139 mmol/L ()?? 06/09/2023 20:31 Potassium (POC) POC Cartridge 5.3 mmol/L (High)?? 06/09/2023 20:31 Glucose Level 180 mg/dL (High)?? 06/11/2023 04:19 Glucose (POC) POC Cartridge 351 (High)?? 06/09/2023 20:31 Glucose, POC 237 mg/dL (High)?? 06/11/2023 11:16 Hemoglobin A1C (Monitoring) 13.8 % (High)?? 06/10/2023 02:35 Beta Hydroxybutyrate 14.24 mmol/L (High)?? 06/09/2023 17:55 BUN 11 mg/dL ()?? 06/11/2023 04:19 Creatinine-Blood 0.6 mg/dL (Low)?? 06/11/2023 04:19 Estimated GFR Creatinine 114 ML/MIN/1.73 M2 ()?? 06/11/2023 04:19 Osmolality 322 mOs/kg (High)?? 06/10/2023 02:36 Calcium 8.3 mg/dL (Low)?? 06/11/2023 04:19 Ionized Calcium (POC) POC Cartridge 1.20 mmol/L ()?? 06/09/2023 20:31 Phosphorus 5.1 mg/dL (High)?? 06/09/2023 17:55 Magnesium 1.8 mg/dL ()?? 06/11/2023 04:19 Protein, Total 6.1 Gm/dL (Low)?? 06/11/2023 04:19 Albumin 3.6 Gm/dL ()?? 06/11/2023 04:19 AG Ratio 1.4 ()?? 06/11/2023 04:19 Alkaline Phosphatase 138 units/L (High)?? 06/11/2023 04:19 Lipase 7 units/L (Low)?? 06/09/2023 16:14 AST (SGOT) 20 units/L ()?? 06/11/2023 04:19 ALT (SGPT) 27 units/L ()?? 06/11/2023 04:19 Bilirubin, Total 0.4 mg/dL ()?? 06/11/2023 04:19 Bilirubin, Direct <0.2 mg/dL ()?? 06/09/2023 16:14 Bilirubin, Indirect Direct bilirubin is less than the measureable limit. Therefore, indirect mg/dL ()?? 06/09/2023 16:14 Lactate 1.8 mmol/L ()?? 06/10/2023 02:36 ? COAG APTT 31.3 seconds ()?? 06/09/2023 16:14 ? HEME OTHER Hold Blue Top SPECIMEN DISCARDED AFTER 4 HOURS. ()?? 06/09/2023 16:14 ? LIPID STUDIES Triglycerides 876 mg/dL (High)?? 06/09/2023 16:14 ? MISC. CHEMISTRY Hold Red Top SPECIMEN DISCARDED AFTER 1 WEEK ()?? 06/09/2023 16:14 ? UA/URINALYSIS Appear/Color, Urine COLORLESS ()?? 06/09/2023 18:45 Specific [place], Urine 1.023 ()?? 06/09/2023 18:45 pH, Urine 5.5 ()?? 06/09/2023 18:45 Albumin, Urine 1+ (Abnormal)?? 06/09/2023 18:45 Glucose, Urine 4+ (Abnormal)?? 06/09/2023 18:45 Ketones, Urine 4+ (Abnormal)?? 06/09/2023 18:45 Bilirubin, Urine NEGATIVE ()?? 06/09/2023 18:45 Hemoglobin, Urine 1+ (Abnormal)?? 06/09/2023 18:45 Nitrite, Urine NEGATIVE ()?? 06/09/2023 18:45 Leukocyte, Urine NEGATIVE ()?? 06/09/2023 18:45 Urobilinogen NORMAL mg/dL ()?? 06/09/2023 18:45 WBC's, Urine 1 /HPF ()?? 06/09/2023 18:45 RBC's, Urine 2 /HPF ()?? 06/09/2023 18:45 Squamous Epith 1 /HPF ()?? 06/09/2023 18:45 Mucus SLIGHT /LPF ()?? 06/09/2023 18:45 Budding Yeast SLIGHT /HPF ()?? 06/09/2023 18:45 Hold Urine Culture Testing available 48 hours from time of collection. ()?? 06/09/2023 18:45 ? URINE OTHER Est Creatinine Clearance 126.01 mL/min ()?? 06/11/2023 06:22 ? VIROLOGY COVID-19 by RT-PCR NEGATIVE ()?? 06/09/2023 18:00 ? 30 minutes spent on discharge ? Fawn Espana MD, MPH Medicine Pediatrics Resident PGY-3 P. [id number] Patient??and plan discussed with attending physician, Dr. Hyman * Bre Hutchison: VERIFY, PERFORM, SIGN Event Display: Case Management Discharge Plan Authored Date: Patient: VAUGHN CARDENAS Age: 53 years Sex: Male : 1970 Associated Diagnoses: None Author: Bre Hutchison Discharge Plan Case Management Discharge Plan : Case Management Discharge Plan Data 06/11/2023 15:15 EDT Discharge Level of Care at Discharge Homehealth/VNA Discharge VNA/Hospice/Home Care [facility] [phone] Name of Agency #1 [facility] Categories #1 [facility] Comments #1 [facility] will be in contact within 24 hrs of discharge please call main number if not contacted or for concerns. * Subha Meier RN: PERFORM Event Display: Patient Education/Instruction Authored Date: Inpatient Adult Discharge Instructions [address] [address] Name: VAUGHN CARDENAS : 1970 Visit: 06/09/2023 20:31:00 Current Date: 06/11/2023 17:12 Account: [id number] Inpatient Adult Discharge Instructions We would like to thank you for allowing us to assist you with your healthcare needs. The following includes patient education materials and information regarding your injury/illness. Our entire staffstrives to provide an excellent experience for our patients and their families. PLEASE ENSURE YOU FOLLOW-UP PER THE INSTRUCTIONS BELOW! ?? YOUR OPINION IS IMPORTANT TO US! Please complete the survey you may receive by mail or email. Your feedback will be used to make improvements to the healthcare experiences of our patients and their families. Surveys are administered by [employer]. ?? If further treatment with your primary care physician or another doctor is recommended, it is important for you to keep the appointment. Call your primary care physician or return to the Emergency Department immediately if your condition worsens, fails to improve, or new symptoms develop. If you need to find a doctor, you can call [facility] Link for a referral at [phone] or toll free at [phone]) or log in to [email or web address] on TV.. ?? [facility], in keeping with [facility] guidance, no longer requires face masks for staff, patientsor visitors in most situations. Similiar to time spent indoors at other locations, there is the chance that you were exposed to repiratory viruses during your time with us (such as flu or COVID-19). If you develop symptoms concerning for a viral respiratory infection, please seek testing (and treatment if indicated) from your medical provider or home test kit. ?? You can view and manage your care through the patient portal or by using a health care jakob of your choosing. [employer] is a website that allows you to securely view your medical information including your hospital discharge summary, office visit summaries, medications and follow-up visits. You can also request appointments, renew medications, and request access to your medical information using a health care jakob of your choosing, or just ask a question. You can enroll at [email or web address] or register during your next office visit. You have been discharged from [facility], Patient Care Unit: D6B. If you have any questions regarding these instructions after you leave, please call us and we will be happy to assist you. [facility] Your Care Team Attending Physician Boogie MCLEAN, Charley Consulting Providers Nicola MCLEAN, Nataliia Discharging Providers Fawn Espana MD Reason for Admission Pt reports SOB and chest tightness starting 10/8, called ems this AM. Peaked T waves notes, pt anx. Your Diagnosis DKA (diabetic ketoacidosis) Abdominal pain Metabolic acidosis DKA (diabetic ketoacidosis) Chronic pancreatitis Leukocytosis Type 1 diabetes MARÍA ELENA (acute kidney injury) Hypertension Anxiety and depression Tests Performed Below is a partial list of the tests performed during your hospitalization. You may have had other tests and procedures not included in this list. Please discuss all test results with your provider. BASE EXCESS POC CARTRIDGE Basic Metabolic Panel Beta Hydroxybutyrate BUN CALCIUM IONIZED POC CART Calcium Level CBC CBC w/ Differential Comprehensive Metabolic Panel COVID-19 (Novel Coronavirus), Rapid PCR Creatinine Electrolytes Glucose Level GLUCOSE POC GLUCOSE POC CARTRIDGE HEMATOCRIT POC CARTRIDGE HEMOGLOBIN A1C HEMOGLOBIN POC CARTRIDGE High??Sensitivity??Troponin T Hold Blue Top Tube Hold Red Top Tube Lactate Level Lactic Acid Level Lipase Liver Function Panel Lytes Magnesium Level Osmolality Phosphorus Level POTASSIUM POC CARTRIDGE PTT SODIUM POC CARTRIDGE TRIGLYCERIDE Type and Screen Urinalysis w/hold for Urine Culture VBG VBG POC CARTRIDGE CT Angio Abdomen and Pelvis CT Angio Chest Primary Care Provider Rafael MCLEAN , Mae Advance Directive Health Care Proxy on File No Patient refuses to discuss Discharge Vitals Temperature: 98.7 DegF Height: 170 cm Pulse Rate: 77 bpm Weight: 63.3 kg Respiratory Rate: 16 br/min Body Mass Index: 21.9 kg/m2 Systolic Blood Pressure: 112 mm Hg Body surface area: 1.73 Diastolic Blood Pressure: 76 mm Hg ?? Oxygen Saturation: 97 % ?? Studies Pending All tests and labs ordered during this hospital stay have been completed unless listed below. Please discuss all pending results with your provider listed above in these instructions. ?? Add On Lab Order Blood Culture Blood Culture #2 C Peptide (C-PEPTIDE) Calcium Level Electrolytes Glucose Level Hold Lavender Tube (BB) Magnesium Level What to do next Instructions From Your Doctor You came to the hospital for chest pain and were found to be in diabetic ketoacidosis. You had a work up for infection that was negative. Your A1c level was very high so we think it may have been cause you need more strict management of your sugars. We spoke with the diabetes doctors who gave us the recommendations as below: ?? Please follow up with your PCP in the next week Please stop Jardiance Please continue metformin 500mg daily please oyster picker your new freestyle lyte monitor from [facility] pharmacy today. Your pharmacist said you recently picked up lancets and test strips but I am sending a script just in case ?? Here are your new insulin instructions: -??Lantus 32 units every morning - Humalog or NovoLog before meals as per the scale below: Blood sugar? Humalog/NovoLog (units) 100 - 139?10 140 - 179? 12 180 - 219? 14 220 - 259? 16 260 - 299? 18 300 - 339? 20 340 - 379? 22 > 380? 24 ?? You will need to test your blood sugar before meals and administer Humalog or NovoLog 10-15 minutesprior to eating, dose determined by the blood sugar level (as detailed by the scale above).? If your fasting??blood glucose is consistently?>120 and your 2 hour post meal??>250, please call your primary care provider for further assistance. ? Hypoglycemia Patient Instructions Hypoglycemia or low blood glucose is when your glucose levels fallen low enough to cause symptoms. This is usually <70 mg/dl, but this may vary from person to person. Symptoms of hypoglycemia include:?? - feeling shaky? - feeling sleepy/lethargic - being nervous or anxious? - feeling weak, having no energy - sweating, chills, clamminess? - blurred/impaired vision - mood swings, irritability, impatience? -tingling/numbness in lips, tongue, cheeks - confusion? - headaches - palpitations/fast heartbeat? - coordination problems, clumsiness - feeling light-headed or dizzy? - nightmares or crying out in sleep - hunger, nausea? - seizures ? How to manage hypoglycemia/low blood sugar:?? Follow the 15-15 rule: have 15 grams of carbohydrate (options listed below) to raise your blood glucose and check it after 15 minutes. If it is still <70 mg/dl or below your low target, have another serving.?? Repeat these steps until your blood glucose is back to normal, eat a meal or snack to ensure it does not go low again.? 15 grams of carbohydrates: -??4 ounces (1/2 cup) of juice or regular soda -??1 tablespoon of sugar, honey or corn syrup -??8 ounces of nonfat or 1% milk -??15 pieces of Skittles?? -??4-7 pieces of hard candy (lifesavers, peppermints or jellybeans) -??3-4 glucose tablets ?? Please call??your primary care provider or us if you need assistance managing your hypoglycemia ([phone]).? Severe hypoglycemia:??When hypoglycemia or low blood sugar is not treated and you need someone to help you recover.?? Glucagon can be injected following the instructions in the Glucagon kit.? Please call 911 if the person is unconscious or glucagon is not sufficient or available! Discharge Orders Activity:??Ambulate with assistance 3 times a day unless otherwise specified Code Status:?? Full Resuscitation You Need to Schedule the Following Appointments Follow Up with??Rafael MCLEAN , Mae When:??Within Within one week Why: please call to make an appointment Where: [address] [place] [address]- Discharge Medications VAUGHN CARDENAS :1970 Visit Date:06/09/2023 Medications: Please continue your medications until treatment is completed or stopped by your provider. Medications not listed below should be discontinued. Discuss any questions related to medications with your provider. What How Much When Instructions Next Dose New Durable Medical Equipment (Freestyle Lite Monitor) See instructions use as directed for Type 2 Diabetes Mellitus ICD code 10 E10. 9 i ?? for lifetime use to check blood sugars three times a day before meals and once at night as needed for symptoms of hypoglycemia. ?? Pickup at [facility] New Durable Medical Equipment (Freestyle Lite Test Strips) See instructions Duration: 90 Days use as directed for Type 2 Diabetes Mellitus ICD code 10 E10. 9 i ?? for lifetime use to check blood sugars three times a day before meals and once at night as needed for symptoms of hypoglycemia. ?? Pickup at [facility] New Insulin Glargine (Lantus 100 u/ ml subcutaneous solution) 32 unit(s) Subcutaneous Injection Daily rotate injection sites. take onc e a day ?? Pickup at [facility] 06/12 1200 Changed Insulin Aspart (insulin aspart 100 units/ mL subcutaneous solution) See instructions check blood sugars before every meal and given insulin novolong 10-15 minutes before eating. ?? For sugars (100-139) give 10 units. for (140-179) give 12 units. for (180-219) give 14 units. for (220-259) give 16 units. ??for (260-299) give 18 units. for (300-339) give 20 units. for (340-379) give 22 units. for > 380 give 24 units ? . ?? Pickup at [facility] Resume home administration times Changed Metformin (metFORMIN 500 mg oral tablet, extended release) 1 tab(s) Oral Daily Pickup at [facility] Resume home administration times Unchanged Ascorbic Acid (Vitamin C 500 mg oral tablet) 1 tab(s) Oral Twice a day 06/11 2100 Unchanged Aspirin (Aspirin Tablet) 81 Milligram Oral Daily 10/12 0900 Unchanged Atorvastatin (atorvastatin 20 mg oral tablet) 20 Milligram Oral Daily at Bedtime 06/11 2100 Unchanged BuPROpion (bupropion 200 mg oral tablet, extended release) 200 Milligram Oral Daily at Bedtime 06/11 2100 Unchanged Clonazepam (Klonopin 1 mg oral tablet) 1 tab(s) Oral Daily in am ?? 06/12 900 Unchanged Clonazepam (Klonopin 2 mg oral tablet) 1 tab(s) Oral Daily at Bedtime 06/11 2100 Unchanged Cyanocobalamin (Vitamin B-12 Tablet) 1 tab Oral Daily Resume home administration times Unchanged Ferrous Sulfate (ferrous sulfate 325 mg oral tablet) 1 tab(s) Oral Twice a day 06/11 2100 Unchanged HydrOXYzine (Vistaril pamoate 25 mg oral capsule) 2 capsule Oral Daily at Bedtime 06/11 2100 Unchanged Losartan (losartan 25 mg oral tablet) 25 Milligram Oral Daily 06/12 900 Unchanged [place]-3 Polyunsaturated Fatty Acids (Fish Oil 1000 mg oral capsule) 2 capsule Oral Twice a day 06/11 2100 Unchanged Omeprazole (omeprazole 20 mg oral enteric coated capsule) 1 capsule Oral Daily 06/12 900 Unchanged Oxycodone / Acetaminophen (Percocet-5/ 325 325 mg-5 mg oral tablet) 1 tab(s) Oral Every 6 hours as needed for Pain , Moderate Duration: 2 Days As needed Unchanged Pancrelipase (Creon 24,000 units oral delayed release capsule) 2 capsule Oral 3 times a day with meals ?? Resume home administration times Pharmacy Information [facility]: [address] [place] [address] [phone] ?? What How Much When Comments Stop Taking insulin degludec (Tresiba) 20 unit(s) Subcutaneous Infusion Daily Stop Taking Insulin NPH (Novolin N human recombinant 100 u/ ml subcutaneous injection) 52 unit(s) Subcutaneous Injection Daily at Bedtime Test Results Below is a partial list of the most recent Laboratory test results done prior to this discharge. You may have had other tests and procedures not included in this list. Please discuss all test resultswith your provider. Est Creatinine Clearance - 126.01 mL/min (06/11/2023) BASE EXCESS POC CARTRIDGE (06/09/2023) ???Base Excess (POC) POC Cartridge - NEGATIVE 16 Basic Metabolic Panel (06/09/2023) ???Sodium - 131 mmol/L???Potassium - 5.3 mmol/L???Chloride - 79 mmol/L???Bicarbonate Level - 7 mmol/L???Anion Gap - 45???Glucose Level - 731 mg/dL???BUN - 44 mg/dL???Creatinine-Blood - 2.0 mg/dL???Estimated GFR Creatinine - 38 ML/MIN/1.73 M2???Calcium - 11.2 mg/dL Beta Hydroxybutyrate (06/09/2023) ???Beta Hydroxybutyrate - 14.24 mmol/L BUN (06/10/2023) ???BUN - 25 mg/dL CALCIUM IONIZED POC CART (06/09/2023) ???Ionized Calcium (POC) POC Cartridge - 1.20 mmol/L Calcium Level (06/10/2023) ???Calcium - 8.3 mg/dL CBC (06/10/2023) ???WBC - 26.0 k/mm3???RBC - 4.75 m/mm3???Hgb - 13.6 Gm/dL???Hct - 41.2 %???MCV - 86.7 femtoliters???MCH - 28.6 pg???MCHC - 33.0 g/dL???Platelet Count - 205 k/mm3???RDW-SD - 44.0 femtoliters???MPV - 10.0 femtoliters???Nucleated RBC (Automated) - 0.0 #/100 WBC'S???Abs. NRBC - 0.0 k/mm3 CBC w/ Differential (06/11/2023) ???WBC - 10.2 k/mm3???RBC - 4.65 m/mm3???Hgb - 13.6 Gm/dL???Hct - 39.1 %???MCV - 84.1 femtoliters???MCH - 29.2 pg???MCHC - 34.8 g/dL???Platelet Count - 158 k/mm3???RDW-SD - 42.5 femtoliters???MPV - 10.4 femtoliters???Nucleated RBC (Automated) - 0.0 #/100 WBC'S???Abs. NRBC - 0.0 k/mm3???Abs. Neut - 7.6 k/mm3???Abs. Lymph - 1.9 k/mm3???Abs. [place] - 0.7 k/mm3???Abs. Eo - 0.1 k/mm3???Abs. Baso - 0.0 k/mm3???Neut % - 73.9 %???Lymph % - 18.2 %???[place] % - 6.7 %???Eos % - 0.6 %???Baso % - 0.2 %???Imm Gran - 0.4 %???Abs. Imm Gran - 0.0 k/mm3 Comprehensive Metabolic Panel (06/11/2023) ???Sodium - 136 mmol/L???Potassium - 3.3 mmol/L???Chloride - 96 mmol/L???Bicarbonate Level - 27 mmol/L???Anion Gap - 13???Glucose Level - 180 mg/dL???BUN - 11 mg/dL???Creatinine-Blood - 0.6 mg/dL???Estimated GFR Creatinine - 114 ML/MIN/1.73 M2???Calcium - 8.3 mg/dL???Protein, Total - 6.1 Gm/dL???Alb umin - 3.6 Gm/dL???AG Ratio - 1.4???Alkaline Phosphatase - 138 units/L???AST (SGOT) - 20 units/L???ALT (SGPT) - 27 units/L???Bilirubin, Total - 0.4 mg/dL COVID-19 (Novel Coronavirus), Rapid PCR (06/09/2023) ???COVID-19 by RT-PCR - NEGATIVE Creatinine (06/10/2023) ???Creatinine-Blood - 0.8 mg/dL???Estimated GFR Creatinine - 106 ML/MIN/1.73 M2 Electrolytes (06/10/2023) ???Sodium - 135 mmol/L???Potassium - 3.9 mmol/L???Chloride - 99 mmol/L???Bicarbonate Level - 26 mmol/L???Anion Gap - 10 Glucose Level (06/10/2023) ???Glucose Level - 193 mg/dL GLUCOSE POC (06/11/2023) ???Glucose, POC - 239 mg/dL GLUCOSE POC CARTRIDGE (06/09/2023) ???Glucose (POC) POC Cartridge - 351 HEMATOCRIT POC CARTRIDGE (06/09/2023) ???Hematocrit (POC) POC Cartridge - 41 % HEMOGLOBIN A1C (06/10/2023) ???Hemoglobin A1C (Monitoring) - 13.8 % HEMOGLOBIN POC CARTRIDGE (06/09/2023) ???Hemoglobin (POC) POC Cartridge - 13.9 Gm/dL High??Sensitivity??Troponin T (06/09/2023) ???High Sensitivity Troponin (HSTnT) - 30 ng/L Hold Blue Top Tube (06/09/2023) ???Hold Blue Top - SPECIMEN DISCARDED AFTER 4 HOURS. Hold Red Top Tube (06/09/2023) ???Hold Red Top - SPECIMEN DISCARDED AFTER 1 WEEK Lactate Level (06/10/2023) ???Lactate - 1.8 mmol/L Lactic Acid Level (06/09/2023) ???Lactate - 3.2 mmol/L Lipase (06/09/2023) ???Lipase - 7 units/L Liver Function Panel (06/09/2023) ???Protein, Total - 8.1 Gm/dL???Albumin - 4.8 Gm/dL???Alkaline Phosphatase - 206 units/L???AST (SGOT) - 14 units/L? ?ALT (SGPT) - 43 units/L? ?Bilirubin, Total - 0.3 mg/dL? ?Bilirubin, Direct - <0.2 mg/dL???Bilirubin, Indirect - Direct bilirubin is less than the measureable limit. Therefore, indirect Lytes (06/10/2023) ???Sodium - 140 mmol/L???Potassium - 3.9 mmol/L???Chloride - 107 mmol/L???Bicarbonate Level - 22 mmol/L???Anion Gap - 11 Magnesium Level (06/11/2023) ???Magnesium - 1.8 mg/dL Osmolality (06/10/2023) ???Osmolality - 322 mOs/kg Phosphorus Level (06/09/2023) ???Phosphorus - 5.1 mg/dL POTASSIUM POC CARTRIDGE (06/09/2023) ???Potassium (POC) POC Cartridge - 5.3 mmol/L PTT (06/09/2023) ???APTT - 31.3 seconds SODIUM POC CARTRIDGE (06/09/2023) ???Sodium (POC) POC Cartridge - 139 mmol/L TRIGLYCERIDE (06/09/2023) ???Triglycerides - 876 mg/dL Type and Screen (06/09/2023) ???Blood Type - O Positive???Antibody Screen - Negative Urinalysis w/hold for Urine Culture (06/09/2023) ???Appear/Color, Urine - COLORLESS???Specific [place], Urine - 1.023???pH, Urine - 5.5???Albumin, Urine - 1+???Glucose, Urine - 4+???Ketones, Urine - 4+???Bilirubin, Urine - NEGATIVE???Hemoglobin, Urine - 1+???Nitrite, Urine - NEGATIVE???Leukocyte, Urine - NEGATIVE???Urobilinogen - NORMAL???WBC's, Urine - 1 /HPF???RBC's, Urine - 2 /HPF???Squamous Epith - 1 /HPF???Mucus - SLIGHT???Budding Yeast - SLIGHT???Hold Urine Culture - Testing available 48 hours from time of collection. VBG (06/09/2023) ???Specimen Type - Blood Gas - VENOUS???pH, Venous - 7.04???pCO2, Venous - 20 mm Hg???pO2, Venous -87 mm Hg???Bicarbonate, Estimated(Venous) - 5 mmol/L VBG POC CARTRIDGE (06/09/2023) ???pH Venous (POC) POC Cartridge - 7.18???pCO2 Venous (POC) POC Cartridge - 32.4 mm Hg???pO2 Venous(POC) POC Cartridge - 24 mm Hg???Est Bicarbonate (POC) POC Cartridge - 12.0 mmol/L???% O2 Sat Venous (POC) POC Cartridge - 31???Specimen Type - Blood Gas - VENOUS Immunizations This Visit Not Given Vaccine Commentsinfluenza virus vaccine, inactivated Patient Refuses Allergies (NKA means No Known Allergies) NKA Problems Active Problems??(20) Ankle pain?? Chronic abdominal pain?? Chronic pancreatitis?? Depression?? Diabetes mellitus?? Drug or alcohol risk assessment or counseling?? Dyslipidemia?? H/O anxiety disorder?? H/O obsessive compulsive disorder?? History of nicotine use?? History of suicide attempt?? History of surgery?? Hypertension?? Limitation due to disability?? Low back pain?? Marijuana use?? Moderate somatic symptom disorder with predominant pain?? Myofascial pain?? Personal history of kidney stones?? Tendon rupture, Achilles?? Education Materials Below is the list of Educational Leaflet Providered with your Discharge Instructions. Diabetic Ketoacidosis?? Discharge Instructions: Checking for Ketones?? Valuables and Belongings I fully understand and agree that [facility] accepts no responsibility for all my personal property including clothing, toilet articles, radios, jewelry, dentures, hearing aids, rings, money, or any other property that is in my possession or is brought to me after admission. I understand certain valuables may be placed in a hospital safe for a short period of time. I understand that the hospital is not liable for loss or damage due to accident, fire, or other natural occurrence while said property is in the safe. I accept full responsibility for any personal property that I keep with me, and will not hold the hospital responsible in case of loss or disappearance. I acknowledge that i have been encouraged to send valuables and belongings home. ?? No Valuables/Belongings: No valuables/belongings present Review of Valuable and Belonging List: With patient Date for Pt to Sign Valuables/Belongings: 06/10/23 00:03:00 ?? Other Discharge Information ?? Wound Assessment?? Wound Assessment?? Wound Location I: left knee abrasion, cut ?? Case Management Discharge Plan?? Discharge Plan?? Discharge Agency Information?? Discharge Level of Care at Discharge: Homehealth/VNA Name of Agency #1: [facility] Discharge VNA/Hospice/Home Care: [facility] [phone] Service Categories #1: Prison ?? Service Comments #1: [facility] will be in contact within 24 hrs of discharge please call mainnumber if not contacted or for concerns. ?? Pulmonary Rehab Status?? Pulmonary Rehab Discharge Status?? Respiratory Rate: 16 br/min ? Common Emergency Awareness Tips IS IT A STROKE? Act FAST and Check for these signs: FACE Does the face look uneven? ARM Does one arm drift down? SPEECH Does their speech sound strange? TIME Call at any sign of stroke ?? Heart Attack Signs Chest discomfort: Most heart attacks involve discomfort in the center of the chest and lasts more than a few minutes, or goes away and comes back. It can feel like uncomfortable pressure, squeezing, fullness or pain. Discomfort in upper body: Symptoms can include pain or discomfort in one or both arms, back, neck, jaw or stomach. Shortness of breath: With or without discomfort. Other signs: Breaking out in a cold sweat, nausea, or lightheaded. Remember, MINUTES DO MATTER. If you experience any of these heart attack warning signs, call to get immediate medical attention! ?? Smoking can increase your chances of developing chronic health problems and can cause harmful effects to other family members in your house. If you smoke, you are strongly encouraged to quit. Please call [facility] at [phone] or [phone] ([phone]) or log in to [email or web address] for referrals to smoking cessation programs. ?? 278 Suicide & Crisis Lifeline is available 24/03 if you or someone you know needs to find a reason to keep living. By calling 387 you'll be connected to a skilled, trained counselor at a crisis center in your area. INPATIENT DISCHARGE INSTRUCTIONS SIGNATURE PAGE VAUGHN CARDENAS Location:[facility] Registration Date and Time:06/09/2023 20:31 EDT Primary Care Physician: Rafael MCLEAN , Mae, Attending Physician: Charley Hyman MD, I CARDENASVAUGHN PRICE, have received the above patient education materials/instructions and have verbalized understanding. If ambulance or transport services are being used I further acknowledge being givena choice of service. ?? If you need to contact me, please call me at this number: . Patient/Restaurant Attendant Name: Patient/Restaurant Attendant Signature: Relationship to Patient: Witness Name/Signature: Date: * Fawn Espana MD: PERFORM Event Display: Patient Education Leaflets Authored Date: [id number] Diabetic Ketoacidosis ?? [id number] Diabetic Ketoacidosis Diabetic ketoacidosis (DKA) is a serious problem that can happen in people with diabetes. DKA should be treated as a medical emergency. This is because it can lead to coma or . If you have the symptoms of DKA, get medical help right away. DKA happens more often in people with type 1 diabetes. It can also happen to people with type 2 diabetes who are taking the SLGT-2 inhibitors for diabetes control. It also can happen in women with diabetes during (gestational diabetes). DKA happens when insulin levels are too low. Without enough insulin, sugar (glucose) can???t get tothe cells of your body. The glucose stays in the blood. The liver then puts out even more glucose into the blood. This causes high blood glucose (hyperglycemia). Your body breaks down stored fat, when your cells don't get the glucose they need for energy. When this happens, acids called ketones arereleased into the blood. This is called ketosis. High levels of ketones (ketoacidosis) can be harmful to you. Hyperglycemia and ketoacidosis can also cause serious problems in the blood and your body, such as: ??? Low levels of potassium and phosphate ??? Damage to kidneys or other organs ??? Coma ??? Dehydration What causes diabetic ketoacidosis? In people with diabetes, DKA is most often caused by too little insulin in the body. It's also caused by: ??? Diabetes that's not under good control ??? Infections such as a urinary tract infection or pneumonia ??? Serious health problems such as a heart attack ??? Reactions to certain prescribed medicines used to treat type 2 diabetes ??? Reactions to illegal drugs including cocaine ??? Problemswith insulin delivery from an insulin pump ?? Symptoms of diabetic ketoacidosis DKA most often happens slowly over time. But it can worsen in a few hours if you are vomiting and dehydrated. The first symptoms are: ??? Thirst and dry mouth ??? Urinating a lot ??? Belly pain ??? Nausea or vomiting ??? Breath that smells fruity (from the ketones) Over time, these symptoms may happen or get worse: ??? Dry or flushed skin ??? Nausea and vomiting ??? Loss of appetite ??? Weight loss ??? Belly pain ??? Trouble breathing or breathing that is deep and rapid ??? Trouble thinking or confusion ??? Feeling very tired or weak. This can lead to coma. ?? How is diabetic ketoacidosis diagnosed? Your healthcare provider will ask about your health history. They will give you a physical exam. You may also have these tests: ??? Blood tests to check your glucose levels and ketones ??? Blood tests to check your electrolytes, such as potassium, sodium, and bicarbonate ??? Urine test to check for ketones ??? Electrocardiogram (ECG) These tests are done to check for DKA, and watch it over time. ?? How is diabetic ketoacidosis treated? DKA needs treatment right away in the hospital. Treatment includes: ??? Insulin. This is the main type of treatment. Insulin allows the cells to use the glucose in the blood. This lowers the levels of both blood glucose and ketones. ??? Fluids and electrolytes. These are given by IV (intravenous) line into a vein. Fluids are replaced and abnormal electrolyte levels are corrected. ??? Other medicines. These may be given to treat an illness that caused DKA. For example, antibiotics may be given to treat a urinary tract infection that caused DKA. ?? Preventing diabetic ketoacidosis To help prevent DKA, make sure you: ??? Take all of your medicines for diabetes exactly as prescribed. This includes insulin. ??? Check your blood glucose levels exactly as instructed. ??? Be very careful when you are sick with an illness or an infection. Take extra care to follow diabetes care instructions for sick days. Check your blood glucose more often. Contact your healthcare provider if you have questions about how to manage your diabetes while you are ill. ??? Don't exercise when your blood sugar is high and you have ketones in your urine.? Check your urine ketone levels if told to do so. This is done with a urine test strip. Ask your provider how often to check your urine. ?? When to call your healthcare provider Call your provider right away if you: ??? Have symptoms of DKA ??? Have very high blood glucose levels or high levels of ketones in your urine ??? Are getting sick with another illness ??? Are confused about how to manage your diabetes ?? Last Reviewed Date: 2021 ?? [employer]. All rights reserved. This information is not intended as a substitute for professional medical care. Always follow your healthcare professional's instructions. ?? * Fawn Espana MD: PERFORM Event Display: Patient Education Leaflets Authored Date: [id number] Discharge Instructions: Checking for Ketones ?? 13292 Discharge Instructions: Checking for Ketones Glucose is a kind of sugar from food. It's your body's normal energy source. Your body uses a hormone called insulin to help glucose get into your cells. People with diabetes don't make insulin. Or their body can't use insulin well. If your body doesn't have enough insulin to use glucose, your body starts burning fat instead. Whenfat is burned, it makes chemicals called ketones.??Ketones can build up in the blood and urine. This buildup can cause a dangerous condition called ketoacidosis. Diabetic ketoacidosis (DKA) can lead to diabetic coma or . For this reason, you need to check for ketones at times when you are mostat risk.?? When to check for ketones Check for ketones, especially if you have type 1 diabetes.??Do this when any of the following is true, or as directed by your healthcare provider: ??? Your blood sugar is above?? 240 mg/dL. ??? You are ill or under stress. ??? You have diarrhea or stomach pain. ??? You are very thirsty. ??? You need to urinate often. ??? You have a dry mouth. ??? Your breath smells fruity. ? You feel sick or nauseated. Or you have vomited and are becoming dehydrated. ??? You have run out of your usual diabetes medicines and can't get them right away. This is especially true if you use insulin.?? It's also important to check for ketones if you have type 2 diabetes and are taking a certain type of medicine (SGLT-2 inhibitors). ?? How to check for ketones Tips for checking for ketones:? Use testing tablets or strips. Different test kits are available from your pharmacy. ??? Depending on the kit, you can check for ketones in your urine or in your blood. Follow the directions on the packaging. ??? Record your test results. Show them to your healthcare provider at your next visit. ??? Call your healthcare provider right away if you test positivefor ketones. Follow the directions in your sick day guidelines on what to do when you have high glucose and ketones.? Do not exercise if you find ketones in your blood or urine and your blood sugar is high. ?? Urine tests Urine tests are one way of checking ketones. Tips for using urine tests:? Follow the package directions carefully. ??? Use a clean container to get a sample of your urine. You can clean a container by washing it with soap and water. ??? Place the test strip in the urine sample. Or pass the strip through your urine stream. ??? Gently shake extra urine off the strip. ??? Wait for the strip to change color. The directions will tell you how long to wait. ??? Compare the strip with the color chart on the bottle or package. This gives you a range for the number of ketones in your urine. ??? Record your results. ?? Blood tests Tips for testing your blood:? Use the meter and blood ketone strips as directed by your healthcare provider ??? Record your results. ?? To learn more The resources below can help you learn more: ??? [place] [employer] at www.diabetes.org or 824-756-1402 ??? [facility] at www.hormone.org or 551-285-0640 ?? Follow-up Make a follow-up appointment, or as advised. ?When to call your healthcare provider Call your healthcare provider right away or go to the nearest emergency room if any of the following occur: ??? Moderate to large amounts of ketones, or as advised by your healthcare provider ??? Fever??of??100.4??F (38??C)??or higher, or as advised by your healthcare provider ??? Tiredness (fatigue) ??? Dry or flushed skin ??? Nausea or vomiting ??? Stomach pain ??? Difficulty breathing ??? A sweet, fruity odor on your breath ??? Confusion ?? Last Reviewed Date: 2022 ?? [id number] [employer]. All rights reserved. This information is not intended as a substitute for professional medical care. Always follow your healthcare professional's instructions. ?? Patient Care team information Care Team Personnel Name: Jena Caceres RN Position: [facility] RN Member Role: Primary Care Nurse Name: Adriana Horvath RN Position: [facility] RN Member Role: Primary Care Nurse Name: Adriane Garnica RN Position: [facility] RN Member Role: Primary Care Nurse Name: Pita Madrigal CNM Position: [facility] Separations Scientist Member Role: Primary Care Nurse Address: Address: [address] [place] [address] [place] [address]- [place] Name: Subha Meier RN Position: [facility] RN Member Role: Primary Care Nurse Name: Mae Hall MD Position: [facility] Outreach Member Role: PCP Address: Address: [address] [place] [address]- Name: Alessandro Jacobo RN Position: [facility] RN Member Role: Primary Care Nurse Name: RENETTA Inseth Attending Position: [facility] ED Medicine MD Name: Justina Siddiqui RN Position: [facility] ED RN W/OE and Tasks Member Role: Patient Care Provider Name: Cintia Lawson RN Position: [facility] ED RN W/OE and Tasks Member Role: Patient Care Provider Name: Korey Foster Position: [facility] ED TA [facility] Name: Hernando Young DO Position: [facility] Resident Member Role: ED Resident Address: Address: [address] [place] [address] [place] [address]- [place] Care Team Related Persons Name: RED MCDONOUGH Address: [place] [address] Name: DILAN STRATTON Address: home [address] [place] [id number]
--- OUTSIDE RECORDS SUMMARY | 2023-10-19 03:17 | XMS_ITS | Continuity of Care Document ---
Author Name Unknown Organization [facility] ter Address [address] [place] [id number]- Care Team Providers Care Veterinary Parasitologist Name Role Phone Rafael MCLEAN, Mae Primary Care Physician Encounter [facility] [place] Date(s): 06/11/23 - 07/11/[address] [address] Attending Physician: Not on Staff, Attending MD Admitting Physician: Not on Staff, Admitting MD Referring Physician: Not on Staff, Referring [...] mL, 0 Refills, Maintenance, 06/11/23 15:48:00 EDT, Solution, [facility], Partial fill upon patient request [...] Refills, Maintenance, 06/11/23 15:41:00 EDT, ER Tablet, [facility], Partial fill upon patient request [...] List Condition Confirmation Course Effective Dates Status Health St atus Informant Ankle pain Confirmed Active Marijuana use [...] ( severe disability ) on 05/05/15; initial [place]:8 on 05/05/15 3SOAPP-R: 35 on 05/05/15 4Left shoulder surgery 1990s 5x 2 Social History Social History Type Response Smoking Status Current some day smo ker; Type: Cigarettes; Interested in cessation: Yes; Tobacco use times per day: 2 cigarettes a day; Number of years: 25; entered on: 08/15/14 Sex Patient Care team information Care Team Personnel Name: Jena Caceres RN Position: [facility] RN Member Role: Primary Care Nurse Name: Adriana Horvath RN Position: S RN Member Role: Primary Care Nurse Name: Adriane Garnica RN Position: [facility] SN RN Member Role: Primary Care Nurse Name: Pita Madrigal CNM Position: [facility] Army Manager Member Role: Primary Care Nurse Address: Address: [address] [place], [place] [address] [address]- Name: Subha Meier RN Position: [facility] RN Member Role: Primary Care Nurse Name: Mae Hall MD Position: [facility] Outreach Member Role: PCP Address: Address: [address] [place] [address]- [place] Name: Alessandro Jacobo RN Position: [facility] RN Member Role: Primary Care Nurse Care Team Related Persons Name: RED MCDONOUGH Address: [place] [address] Name: DILAN STRATTON Address: home [address] [place] [address]
[2023-10-19 03:20] LABS: Alanine Aminotransferase 31 U/L (0-40); Albumin Level 3.8 g/dL (3.5-5.0); Alkaline Phosphatase 79 U/L (39-117); Anion Gap 13 (12-20); Aspartate Amino Transferase 22 U/L (5-37); Bilirubin Direct < 0.2 mg/dL (0.0-0.5); Bilirubin Total 0.2 mg/dL (0.0-1.0); Blood Urea Nitrogen 20 mg/dL (9-16); Calcium 8.5 mg/dL (8.4-10.2); Carbon Dioxide 25 mmol/L (22-29); Chloride 104 mmol/L (96-108); Estimated Glomerular Filt Rate > 60; Glucose Random 205 mg/dL (60-115); Potassium 4.8 mmol/L (3.3-5.1); Sodium 137 mmol/L (135-145); Total Protein 7.3 g/dL (6.5-8.0)
[2023-10-19 03:21] LABS: Ethanol < 10 mg/dL; Magnesium 1.9 mg/dL (1.6-2.6)
[2023-10-19 03:33] LABS: Lipase < 4 U/L (8-78)
--- NOTE | 2023-10-19 04:00 | PC.NURSE ---
pt reporting no relief of pain from morphine administration - MD Raman null
[2023-10-19] MEDS: iohexoL 350 MG/ML 100 ML INFUS..BTL 85 ML IV (04:14)
[2023-10-19 06:04] VITALS: BP 163/81; PULSE 61; RESP 16; TEMP 36.7; O2SAT 96
[2023-10-19] MEDS: Ketorolac Tromethamine 30 MG/ML VIAL IVPUSH (06:11)
--- NOTE | 2023-10-19 06:15 | PC.NURSE ---
pt medicated with toradol as ordered for pain - waiting for official read of CT scan results. plan of care ongoing
[2023-10-19 06:16] LABS: Appearance Urine Clear; Color Urine Yellow; Glucose Urine UA Negative (Negative); Leukocyte Esterase Urine Negative (Negative); Nitrite Urine Negative (Negative); PH 5.5 (5.0-9.0); Specific Gravity - Urine 1.025 (1.005-1.025); Urine Blood Negative (Negative); Urine Ketones Negative (Negative); Urine Protein Negative (Neg-Trace)
[2023-10-19 06:24] LABS: Amphetamine Screen Urine Not Detected (Not Detect); Barbiturates, Urine Not Detected (Not Detect); Benzodiazepines Screen Urine Not Detected (Not Detect); Cannabinoid Screen Urine Not Detected (Not Detect); Cocaine Screen Urine Not Detected (Not Detect); Fentanyl, urine Not Detected (Not Detect); Opiate Screen Urine POSITIVE (Not Detect); Phencyclidine Screen Urine Not Detected (Not Detect)
[2023-10-19] MEDS: oxyCODONE HCl Immed Release 5 MG TABLET PO (07:31)
== END 2023-10-19 07:55 | disposition home or self-care (01) ==
PROVIDERS: Emergency Provider Emergency Medicine
DX: R11.2 Nausea with vomiting, unspecified (principal); R10.13 Epigastric pain; E11.9 Type 2 diabetes mellitus without complications; E78.00 Pure hypercholesterolemia, unspecified; K85.90 Acute pancreatitis without necrosis or infection, unspecified; F12.90 Cannabis use, unspecified, uncomplicated; F17.210 Nicotine dependence, cigarettes, uncomplicated; Z79.4 Long term (current) use of insulin; Z79.84 Long term (current) use of oral hypoglycemic drugs; Z79.899 Other long term (current) drug therapy
CPT/HCPCS: 36415; 74177; 80048; 80076; 80307; 81003; 83690; 83735; 84484; 85025; 85610; 93005; 96361; 96374; 96375; 99284; 99285; J1885; J2270; J2405; Q9967

== ENCOUNTER → 2023-10-19 02:51 | Outpatient (BNV) | payer MEDICARE, MEDICAID, SELFPAY | PROVIDERS: Emergency Provider Emergency Medicine; Visit Provider Internal Medicine Cardiovascular Disease | DX: R10.9 Unspecified abdominal pain (principal) | CPT/HCPCS: 93010 ==

== ENCOUNTER 2024-10-10 00:02 | Emergency (ER) | payer MEDICARE, MEDICAID, SELFPAY ==
[2024-10-10 00:12] VITALS: BP 143/69; PULSE 68; O2SAT 97
[2024-10-10 00:18] VITALS: BP 130/84; PULSE 56; RESP 19; TEMP 36.4; O2SAT 98; BMI 28.7
--- NOTE | 2024-10-10 00:22 | ED.GENADULT ---
HPI - General Adult General Chief complaint: General Medical Stated complaint: Hyperglycemia >500, out of Novolog since friday Time Seen by Provider: 10/10/24 00:22 Source: patient Mode of arrival: ambulatory Limitations: no limitations History of Present Illness ED Provider: HPI narrative: Patient has insulin dependent diabetes take Lantus and Humalog sliding scale ran out of his Humalog for last 2 days but he took his Lantus 24 units at about 10 comes here blood sugar was reading high and patient was feeling slightly foggy and tired POC was 600 on arrival no abdominal pain no vomiting no abdominal pain Related Data Home Medications ?Medication ?Instructions ?Recorded ?Confirmed bijetk-krivkwsx-fhiagpj 2 cap PO TID 07/10/20 05/21/23 24,000-76,000-120,000 unit capsule,delayed rel (Creon) omeprazole 20 mg capsule,delayed 20 mg PO BID 07/10/20 05/21/23 release aspirin 81 mg tablet,delayed 81 mg PO DAILY@1200 02/14/22 05/21/23 release atorvastatin 20 mg tablet 20 mg PO BEDTIME 02/14/22 05/21/23 blood sugar diagnostic (FreeStyle #10 ea 02/14/22 Lite Strips) cholecalciferol (vitamin D3) 25 25 mcg PO QAM 02/14/22 05/21/23 mcg (1,000 unit) capsule (Vitamin D3) clonazepam 1 mg tablet 1 mg PO TID PRN Anxiety 02/14/22 05/21/23 cyanocobalamin (vitamin B-12) 1,000 mcg PO DAILY 02/14/22 05/21/23 1,000 mcg tablet empagliflozin 25 mg tablet 25 mg PO DAILY 02/14/22 05/21/23 (Jardiance) ergocalciferol (vitamin D2) 1,250 1,250 mcg PO QWEEK 02/14/22 05/21/23 mcg (50,000 unit) capsule escitalopram oxalate 20 mg tablet 20 mg PO DAILY 02/14/22 05/21/23 insulin aspart U-100 100 unit/mL 0 sliding scale dose subcut TIDAC 02/14/22 05/21/23 (3 mL) subcutaneous pen (Novolog FlexPen U-100 Insulin aspart) lancets 33 gauge (TRUEplus Lancets) #100 ea 02/14/22 losartan 25 mg tablet 12.5 mg PO DAILY 02/14/22 05/21/23 metformin 500 mg tablet,extended 500 mg PO DAILY@1730 02/14/22 05/21/23 release 24 hr pen needle, diabetic 32 gauge x #50 ea 02/14/22 (Pentips Pen Needle) trazodone 150 mg tablet 150 mg PO BEDTIME PRN Insomnia 02/14/22 05/21/23 omega-3 300 mg-dha 120 mg-epa 180 2 cap PO BID@1200,2100 05/21/23 05/21/23 mg-fish oil 1,000 mg capsule Previous Rx's ?Medication ?Instructions ?Recorded insulin degludec 100 unit/mL (3 10 unit (0.1 mL) subcut BEDTIME #1 05/22/23 mL) subcutaneous pen (Tresiba mL FlexTouch U-100 insulin) hyoscyamine sulfate 0.125 mg tablet 0.125 mg PO QID PRN dyspepsia #14 10/19/23 tabs ondansetron HCl 4 mg tablet 4 mg PO Q6H PRN nausea and 10/19/23 vomiting #20 tabs insulin aspart U-100 100 unit/mL 1 sliding scale dose subcut 10/10/24 (3 mL) subcutaneous pen (Novolog USEASDIRECTD #15 mL FlexPen U-100 Insulin aspart) Allergies Allergy/AdvReac Type Severity Reaction Status Date / Time No Known Allergies Allergy Verified 10/10/24 00:22 [No Known Allergies*] Review of Systems Review of Systems: Yes all other systems are reviewed and are negative [facility] Past Medical History Medical History Anemia Elevated cholesterol Diabetes GERD (gastroesophageal reflux disease) Chronic back pain Depression Anxiety disorder Surgical History H/O colonoscopy History of lithotripsy Hx of shoulder surgery Hx of cholecystectomy History of esophagogastroduodenoscopy (EGD) Family History Family History Mother Diabetes Heart problem Father Diabetes Brother No problems noted. Maternal Grandfather Heart problem Social History Social History Alcohol intake: never Patient Tobacco Use Status: Current everyday Tobacco user Tobacco use type: Cigarette Cigarettes Per Day: 3 Smoked in Last 30 Days: Yes Second Hand Smoke Exposure: No Use of substances other than those prescribed or required for medical reasons: Yes Substance Use Type: Marijuana Advance Directives: No Advance Directives Information Provided: Yes Physical Exam ED Vital Signs: Vital Signs - 24 hr 10/10/24 00:18 10/10/24 00:36 10/10/24 02:13 Temperature 97.6 F 97.6 F Pulse Rate 56 52 59 Respiratory Rate 19 19 18 Blood Pressure 130/84 130/84 139/74 Pulse Oximetry 98 98 98 Oxygen Delivery Method Room Air Room Air Room Air 10/10/24 05:44 Temperature 97.9 F Pulse Rate 53 Respiratory Rate 16 Blood Pressure 124/70 Pulse Oximetry 98 Oxygen Delivery Method Room Air BMI result Body Mass Index 28.7 Appearance: Alert. Oriented X3. No acute distress. Eyes: No pallor or icterus ENT: Pharynx normal. Oral Mucosa moist Neck: Normal inspection. Neck supple. CVS: Normal heart rate and rhythm. Pulses normal. Respiratory: No respiratory distress. Equal air entry bilateral, no wheezing/rales/rhonchi Abdomen: Soft and nontender. Bowel sounds are present, no mass palpable, no CVA tenderness Skin: Skin warm and dry. Normal skin color. Normal skin turgor. Extremities: No lower extremity edema. No calf tenderness Neuro: Oriented X 3. No motor deficit. No sensory deficit.No cerebellar signs , cranial nerves II-XII intact Medications Administered Discontinued Medications Generic Name Dose Route Start Last Admin Trade Name Freq PRN Reason Stop Dose Admin Sodium Chloride 1,000 mls @ 999 mls/hr 10/10/24 00:23 10/10/24 01:33 Ns IV 10/10/24 01:23 Infused .Q1H1M ONE Infusion Sodium Chloride 1,000 mls @ 999 mls/hr 10/10/24 01:14 10/10/24 03:40 Ns IV 10/10/24 02:14 Infused .Q1H1M ONE Infusion Insulin Human Lispro 14 unit 10/10/24 00:23 10/10/24 00:30 Insulin Lispro 100 Unit/Ml 3 Ml Vial SUBCUT 10/10/24 00:24 14 unit ONCE ONE Administration Insulin Human Lispro 14 unit 10/10/24 01:56 10/10/24 02:07 Insulin Lispro 100 Unit/Ml 3 Ml Vial SUBCUT 10/10/24 01:57 14 unit ONCE ONE Administration Medical Decision Making Medical Decision Making [facility] Narrative: Patient is insulin dependent diabetic nonketotic came here for hyperglycemia secondary to unable to get his NovoLog for last 2 days no ketoacidosis noticed patient improved after IV hydration and sudden replacement had p.o. fluids last POC was 202 Differential Diagnosis Differential Diagnoses: The differential diagnosis associated with the presentation includes Lab Data [facility] Lab Attestation statement: I reviewed the patient's lab results. 10/10/24 00:41 10/10/24 00:41 Labs: Lab Results 10/10/24 10/10/24 10/10/24 Range/Units 00:17 00:41 00:44 WBC 5.8 (4.8-10.8) X10*3/uL RBC 4.18 L (4.60-5.80) X10*6/uL Hgb 12.4 L (14.0-18.0) g/dl Hct 36.5 L (42.0-52.0) % MCV 87.3 (80.0-98.0) fL MCH 29.7 (27.0-33.0) pg MCHC 34.0 (31.0-36.0) g/dl RDW 13.1 (11.0-16.0) % Plt Count 146 L D (160-400) X10*3/uL MPV 10.0 (9.4-12.4) fL Immature Gran % (Auto) 0.2 (0.0-0.4) % Neut % (Auto) 60.0 (45-73) % Lymph % (Auto) 30.6 (20-40) % Clarke % (Auto) 7.3 (2-11) % Eos % (Auto) 1.7 (0-4) % Baso % (Auto) 0.2 (0-2) % Lymph # (Auto) 1.8 (1.2-4.9) X10*3/uL Clarke # (Auto) 0.4 (0.1-1.2) X10*3/uL Eos # (Auto) 0.1 (0.0-0.4) X10*3/uL Baso # (Auto) 0.0 (0.0-0.2) X10*3/uL Abs Immat Gran (auto) 0.01 (0.00-0.03) X10*3/uL Absolute Neuts (auto) 3.5 (2.0-8.3) x10*3/uL Absolute Nucleated RBC 0.000 (0.0-0.012) X10*3/uL Nucleated RBC % (auto) 0.0 (0.0-0.2) /100WBC VBG pH 7.44 H (7.32-7.43) VBG pCO2 46 mmHg VBG pO2 35 mmHg VBG HCO3 32 H (22-26) mmol/L VBG O2 Saturation 43.0 % VBG Base Excess 7.0 mmol/L Sodium 131 L (135-145) mmol/L Potassium 5.0 (3.3-5.1) mmol/L Chloride 95 L (96-108) mmol/L Carbon Dioxide 28 (22-29) mmol/L Anion Gap 13 (12-20) BUN 22 H (9-16) mg/dL Creatinine 1.58 H (0.5-1.4) mg/dL Estim Creat Clear Calc 54.4 Estimated GFR 46 POC Glucose 600 H* (60-115) mg/dL Random Glucose 671 H* (60-115) mg/dL Calcium 8.4 (8.4-10.2) mg/dL Total Bilirubin 0.4 (0.0-1.0) mg/dL AST 28 (5-37) U/L ALT 26 (0-40) U/L Alkaline Phosphatase 72 (39-117) U/L Total Protein 7.0 (6.5-8.0) g/dL Albumin 3.6 (3.5-5.0) g/dL Beta-Hydroxybutyrate 0.16 (0.02-0.27) mmol/L Urine Color Urine Appearance Urine pH (5.0-9.0) Ur Specific [place] (1.005-1.025) Urine Protein (Neg-Trace) mg/dL Urine Glucose (UA) (Negative) mg/dL Urine Ketones (Negative) mg/dL Urine Blood (Negative) Urine Nitrite (Negative) Ur Leukocyte Esterase (Negative) Urine RBC (0-2) /HPF Urine WBC (0-5) /HPF Ur Squamous Epith Cells (0-2) /HPF Urine Bacteria (None Seen) Hyaline Casts (0-2) /LPF 10/10/24 10/10/24 10/10/24 Range/Units 01:07 01:13 02:27 WBC (4.8-10.8) X10*3/uL RBC (4.60-5.80) X10*6/uL Hgb (14.0-18.0) g/dl Hct (42.0-52.0) % MCV (80.0-98.0) fL MCH (27.0-33.0) pg MCHC (31.0-36.0) g/dl RDW (11.0-16.0) % Plt Count (160-400) X10*3/uL MPV (9.4-12.4) fL Immature Gran % (Auto) (0.0-0.4) % Neut % (Auto) (45-73) % Lymph % (Auto) (20-40) % Clarke % (Auto) (2-11) % Eos % (Auto) (0-4) % Baso % (Auto) (0-2) % Lymph # (Auto) (1.2-4.9) X10*3/uL Clarke # (Auto) (0.1-1.2) X10*3/uL Eos # (Auto) (0.0-0.4) X10*3/uL Baso # (Auto) (0.0-0.2) X10*3/uL Abs Immat Gran (auto) (0.00-0.03) X10*3/uL Absolute Neuts (auto) (2.0-8.3) x10*3/uL Absolute Nucleated RBC (0.0-0.012) X10*3/uL Nucleated RBC % (auto) (0.0-0.2) /100WBC VBG pH (7.32-7.43) VBG pCO2 mmHg VBG pO2 mmHg VBG HCO3 (22-26) mmol/L VBG O2 Saturation % VBG Base Excess mmol/L Sodium (135-145) mmol/L Potassium (3.3-5.1) mmol/L Chloride (96-108) mmol/L Carbon Dioxide (22-29) mmol/L Anion Gap (12-20) BUN (9-16) mg/dL Creatinine (0.5-1.4) mg/dL Estim Creat Clear Calc Estimated GFR POC Glucose 507 H* 406 H* (60-115) mg/dL Random Glucose (60-115) mg/dL Calcium (8.4-10.2) mg/dL Total Bilirubin (0.0-1.0) mg/dL AST (5-37) U/L ALT (0-40) U/L Alkaline Phosphatase (39-117) U/L Total Protein (6.5-8.0) g/dL Albumin (3.5-5.0) g/dL Beta-Hydroxybutyrate (0.02-0.27) mmol/L Urine Color Yellow Urine Appearance Clear Urine pH 5.5 (5.0-9.0) Ur Specific [place] 1.025 (1.005-1.025) Urine Protein Negative (Neg-Trace) mg/dL Urine Glucose (UA) >=1000 H (Negative) mg/dL Urine Ketones Negative (Negative) mg/dL Urine Blood Negative (Negative) Urine Nitrite Negative (Negative) Ur Leukocyte Esterase Negative (Negative) Urine RBC 0-2 (0-2) /HPF Urine WBC 0-5 (0-5) /HPF Ur Squamous Epith Cells 0-2 (0-2) /HPF Urine Bacteria None Seen (None Seen) Hyaline Casts 0-2 (0-2) /LPF 10/10/24 Range/Units 04:14 WBC (4.8-10.8) X10*3/uL RBC (4.60-5.80) X10*6/uL Hgb (14.0-18.0) g/dl Hct (42.0-52.0) % MCV (80.0-98.0) fL MCH (27.0-33.0) pg MCHC (31.0-36.0) g/dl RDW (11.0-16.0) % Plt Count (160-400) X10*3/uL MPV (9.4-12.4) fL Immature Gran % (Auto) (0.0-0.4) % Neut % (Auto) (45-73) % Lymph % (Auto) (20-40) % Clarke % (Auto) (2-11) % Eos % (Auto) (0-4) % Baso % (Auto) (0-2) % Lymph # (Auto) (1.2-4.9) X10*3/uL Clarke # (Auto) (0.1-1.2) X10*3/uL Eos # (Auto) (0.0-0.4) X10*3/uL Baso # (Auto) (0.0-0.2) X10*3/uL Abs Immat Gran (auto) (0.00-0.03) X10*3/uL Absolute Neuts (auto) (2.0-8.3) x10*3/uL Absolute Nucleated RBC (0.0-0.012) X10*3/uL Nucleated RBC % (auto) (0.0-0.2) /100WBC VBG pH (7.32-7.43) VBG pCO2 mmHg VBG pO2 mmHg VBG HCO3 (22-26) mmol/L VBG O2 Saturation % VBG Base Excess mmol/L Sodium (135-145) mmol/L Potassium (3.3-5.1) mmol/L Chloride (96-108) mmol/L Carbon Dioxide (22-29) mmol/L Anion Gap (12-20) BUN (9-16) mg/dL Creatinine (0.5-1.4) mg/dL Estim Creat Clear Calc Estimated GFR POC Glucose 202 H (60-115) mg/dL Random Glucose (60-115) mg/dL Calcium (8.4-10.2) mg/dL Total Bilirubin (0.0-1.0) mg/dL AST (5-37) U/L ALT (0-40) U/L Alkaline Phosphatase (39-117) U/L Total Protein (6.5-8.0) g/dL Albumin (3.5-5.0) g/dL Beta-Hydroxybutyrate (0.02-0.27) mmol/L Urine Color Urine Appearance Urine pH (5.0-9.0) Ur Specific [place] (1.005-1.025) Urine Protein (Neg-Trace) mg/dL Urine Glucose (UA) (Negative) mg/dL Urine Ketones (Negative) mg/dL Urine Blood (Negative) Urine Nitrite (Negative) Ur Leukocyte Esterase (Negative) Urine RBC (0-2) /HPF Urine WBC (0-5) /HPF Ur Squamous Epith Cells (0-2) /HPF Urine Bacteria (None Seen) Hyaline Casts (0-2) /LPF Discharge Plan Discharge Clinical Impression: Controlled diabetes mellitus with hyperglycemia Patient Disposition: Home, Self-Care Instructions: Diabetic Hyperglycemia (ED) Additional Instructions: Drink plenty of fluids Take your insulin on time Follow with your PCP Prescriptions: New insulin aspart U-100 [Novolog FlexPen U-100 Insulin] 100 unit/mL (3 mL) insulin pen 1 sliding scale dose subcut USEASDIRECTD Qty: 15 3RF No Action omega 8-gph-wey-fish oil 300 mg (120 mg- 180mg)-1,000 mg capsule 2 cap PO BID@1200,2100 insulin degludec [Tresiba FlexTouch U-100] 100 unit/mL (3 mL) insulin pen 10 unit subcut BEDTIME Qty: 1 0RF hyoscyamine sulfate 0.125 mg tablet 0.125 mg PO QID PRN (Reason: dyspepsia) Qty: 14 0RF ondansetron HCl 4 mg tablet 4 mg PO Q6H PRN (Reason: nausea and vomiting) Qty: 20 0RF omeprazole 20 mg capsule,delayed release(DR/EC) 20 mg PO BID Creon 24,000-76,000 -120,000 unit capsule,delayed release(DR/EC) 2 cap PO TID Rx Instructions: administer with meals and/or snacks Jardiance 25 mg tablet 25 mg PO DAILY insulin aspart U-100 [Novolog FlexPen U-100 Insulin] 100 unit/mL (3 mL) insulin pen 0 sliding scale dose subcut TIDAC Protocol: Insulin Correction Scale Less than or equal to 110 ---- Give (units): 0 111 to 150 Give (units): 0 151 to 200 Give (units): 2 201 to 250 Give (units): 4 251 to 300 Give (units): 6 301 to 350 Give (units): 8 Greater than 350 Give (units): 10 Call MD if Blood Glucose > : 350 escitalopram oxalate 20 mg tablet 20 mg PO DAILY cholecalciferol (vitamin D3) [Vitamin D3] 25 mcg (1,000 unit) capsule 25 mcg PO QAM metformin 500 mg tablet extended release 24 hr 500 mg PO DAILY@1730 trazodone 150 mg tablet 150 mg PO BEDTIME PRN (Reason: Insomnia) aspirin 81 mg tablet,delayed release (DR/EC) 81 mg PO DAILY@1200 cyanocobalamin (vitamin B-12) 1,000 mcg tablet 1,000 mcg PO DAILY clonazepam 1 mg tablet 1 mg PO TID PRN (Reason: Anxiety) atorvastatin 20 mg tablet 20 mg PO BEDTIME (DME) lancets [TRUEplus Lancets] 33 gauge misc See Rx Instructions Not Applicable QID Qty: 100 Rx Instructions: As directed (DME) pen needle, diabetic [Pentips Pen Needle] 32 gauge x 5/32 needle See Rx Instructions .ROUTE .MEDSUPPLY Qty: 50 Rx Instructions: As directed losartan 25 mg tablet 12.5 mg PO DAILY (DME) FreeStyle Lite Strips Strip See Rx Instructions Not Applicable QID Qty: 10 Rx Instructions: As directed ergocalciferol (vitamin D2) 1,250 mcg (50,000 unit) capsule 1,250 mcg PO QWEEK Print Language: Kyrgyz
[2024-10-10 00:24] LABS: Glucose, Whole Blood 600 mg/dL (60-115)
[2024-10-10] MEDS: 0.9 % Sodium Chloride 1,000 ML 999 ML IV ×2 (00:30→01:32)
[2024-10-10] MEDS: Insulin Lispro 100 UNIT/ML 3 ML VIAL 14 UNIT SUBCUT ×2 (00:30→02:07)
[2024-10-10 00:36] VITALS: BP 130/84; PULSE 52; RESP 19; TEMP 36.4; O2SAT 98
[2024-10-10 00:48] LABS: MANUAL DIFF FLAG NO
[2024-10-10 00:49] LABS: VBG HCO3 32 mmol/L (22-26); VBG pCO2 46 mmHg; VBG pH 7.44 (7.32-7.43); VBG pO2 35 mmHg
[2024-10-10 00:49] LABS: Basophils Percent Auto 0.2 % (0-2); Eosinophils Absolute Auto 0.1 X10*3/uL (0.0-0.4); Eosinophils Percent Auto 1.7 % (0-4); Hematocrit 36.5 % (42.0-52.0); Hemoglobin 12.4 g/dl (14.0-18.0); Imm Gran Abs Auto 0.01 X10*3/uL (0.00-0.03); Imm Gran Pct Auto 0.2 % (0.0-0.4); Lymphocytes Absolute Auto 1.8 X10*3/uL (1.2-4.9); Lymphocytes Percent Auto 30.6 % (20-40); Mean Corpuscular Hemoglobin 29.7 pg (27.0-33.0); Mean Corpuscular Volume 87.3 fL (80.0-98.0); Monocytes Absolute Auto 0.4 X10*3/uL (0.1-1.2); Monocytes Percent Auto 7.3 % (2-11); Neutrophils Absolute Auto 3.5 x10*3/uL (2.0-8.3); Platelet Count 146 X10*3/uL (160-400); Red Blood Count 4.18 X10*6/uL (4.60-5.80); Red Cell Distribution Width 13.1 % (11.0-16.0); White Blood Count 5.8 X10*3/uL (4.8-10.8)
[2024-10-10 00:54] LABS: Venous Blood Gas Refer to POC result
[2024-10-10 00:58] LABS: Beta-Hydroxybutyrate 0.16 mmol/L (0.02-0.27)
[2024-10-10 01:05] LABS: Alkaline Phosphatase 72 U/L (39-117)
[2024-10-10 01:09] LABS: Alanine Aminotransferase 26 U/L (0-40); Albumin Level 3.6 g/dL (3.5-5.0); Anion Gap 13 (12-20); Aspartate Amino Transferase 28 U/L (5-37); Bilirubin Total 0.4 mg/dL (0.0-1.0); Blood Urea Nitrogen 22 mg/dL (9-16); Calcium 8.4 mg/dL (8.4-10.2); Carbon Dioxide 28 mmol/L (22-29); Chloride 95 mmol/L (96-108); Creatinine Clr Calc Pharmacy 54.4; Estimated Glomerular Filt Rate 46; Glucose Random 671 mg/dL (60-115); Sodium 131 mmol/L (135-145)
[2024-10-10 01:14] LABS: Glucose, Whole Blood 507 mg/dL (60-115)
[2024-10-10 01:19] LABS: Appearance Urine Clear; Color Urine Yellow; Glucose Urine UA >=1000 mg/dL (Negative); Leukocyte Esterase Urine Negative (Negative); Nitrite Urine Negative (Negative); PH 5.5 (5.0-9.0); Specific Gravity - Urine 1.025 (1.005-1.025); UMIC TRIGGER UACC YES; Urine Blood Negative (Negative); Urine Ketones Negative (Negative); Urine Protein Negative (Neg-Trace)
[2024-10-10 01:24] LABS: Bacteria Urine None Seen (None Seen); Hyaline Casts Urine 0-2 /LPF (0-2); RBC Urine 0-2 /HPF (0-2); Squamous Epithelial Cell Urine 0-2 /HPF (0-2); WBC Urine 0-5 /HPF (0-5)
--- NOTE | 2024-10-10 01:31 | PC.NURSE ---
Addendum entered by Tamiko Pedersen RN 10/10/24 04:35: pts POC 202. MD Roland aware, no new order at this time Addendum entered by Tamiko Pedersen RN 10/10/24 02:30: pts POC 406, MD Roland aware no new orders at this time Original Note: pts POC 507, aware, no new orders at this time
[2024-10-10 02:13] VITALS: BP 139/74; PULSE 59; RESP 18; O2SAT 98
[2024-10-10 02:31] LABS: Glucose, Whole Blood 406 mg/dL (60-115)
[2024-10-10 04:19] LABS: Glucose, Whole Blood 202 mg/dL (60-115)
[2024-10-10 05:44] VITALS: BP 124/70; PULSE 53; RESP 16; TEMP 36.6; O2SAT 98
[2024-10-10 06:38] VITALS: BP 124/70; PULSE 53; RESP 16; TEMP 36.6; O2SAT 98
== END 2024-10-10 06:39 | disposition home or self-care (01) ==
PROVIDERS: Emergency Provider Internal Medicine; PCP Family Medicine
DX: E11.65 Type 2 diabetes mellitus with hyperglycemia (principal); R11.0 Nausea; F17.210 Nicotine dependence, cigarettes, uncomplicated; Z79.899 Other long term (current) drug therapy; Z79.4 Long term (current) use of insulin
CPT/HCPCS: 36415; 80053; 81001; 82010; 82803; 82947; 85025; 96360; 96361; 99284

== ENCOUNTER 2024-11-11 10:26 | Outpatient (REF) | payer MEDICARE, MEDICAID, SELFPAY ==
--- NOTE | ~2024-11-11 | US_ITS ---
EXAMINATION: US ABDOMEN COMPLETE WITH LIVER ELASTOGRAPHY HISTORY: MASLD TECHNIQUE: Real-time grayscale ultrasound imaging of the abdomen was performed and images were reviewed. COMPARISON: Comparison is made with the prior examination dated 06/03/2018. FINDINGS: Liver: The right lobe of the liver measures 13.5 cm in size. The left lobe of the liver measures 9.3 cm in size. The liver demonstrates increased echotexture, consistent with steatosis. No focal mass or intrahepatic biliary ductal dilatation is identified. There is normal hepatopedal flow in the portal vein. Ultrasound elastography of the liver was performed with 10 separate measurements of the liver parenchyma with the patient in the supine position. Measurements were obtained approximately 2 cm below Mary's capsule and perpendicular to the capsule. Images are of satisfactory quality. The median shear wave velocity is 1.53 m/s. The interquartile range/median (IQR/median) is 0.06. Gallbladder and biliary tree: The gallbladder is surgically absent. The common bile duct is normal in caliber measuring 8 mm. Kidneys: The right kidney measures 11.1 cm in length and demonstrates a lower pole cyst measuring 1.0 x 1.5 x 1.3 cm. The left kidney measures 11.3 cm in length. The kidneys are otherwise unremarkable, without evidence of solid masses, hydronephrosis, or calculi. Pancreas: The pancreatic head, neck, and body are unremarkable. The pancreatic tail is obscured by bowel gas. Spleen: The spleen is normal in size and contour, measuring 11.6 cm in length. Abdominal aorta and inferior vena cava: The visualized portions of the abdominal aorta and inferior vena cava are normal in caliber. There is no free fluid in the abdomen. US/US abdomen comp w elastography IMPRESSION: Hepatic steatosis. The median shear wave velocity in the liver is 1.53 m/s, corresponding to a median liver stiffness of 7.39 kPa. The IQR/median value is 0.06. This is indicative of a quality data set. Findings are indicative of a low elastography value which rules out advanced chronic liver disease in asymptomatic patients. REFERENCE: Society of Radiologists in Ultrasound Liver Stiffness Thresholds (2020): LIVER STIFFNESS THRESHOLDS: *Shear wave velocity less than 1.3 m/s (Liver Stiffness equal or less than 5 kPa): High probability of being normal. *Shear wave velocity less than 1.7 m/s (Liver Stiffness less than 9 kPa): In the absence of other known clinical signs, rules out compensated advanced chronic liver disease. *Shear wave velocity between 1.7-2.1 m/s (Liver Stiffness 9-13 kPa): Suggestive of compensated advanced chronic liver disease but need further test for confirmation. *Shear wave velocity between 2.1-2.4 m/s (Liver Stiffness 13-17 kPa): Rules in compensated advanced chronic liver disease. *Shear wave velocity greater than 2.4 m/s (Liver Stiffness over 17 kPa): Suggestive of clinically significant portal hypertension. QUALITY OF DATA SET: *IQR/Median value equal or less than 0.15 implies a quality data set. *IQR/Median value over 0.15 implies a poor quality data set. SIGNIFICANT CHANGE FROM PRIOR EXAM: Significant change if liver stiffness measurement is 10% or greater from prior exam. OTHER CONSIDERATIONS: The stage of liver fibrosis may be overestimated in the setting of acute hepatitis, liver inflammation, elevated liver function tests, hepatic vascular congestion, obstructive cholestasis, non-fasting state, and infiltrative diseases such as amyloidosis and lymphoma. In some patients with NAFLD, the liver stiffness thresholds for compensated advanced chronic liver disease may be lower. In causes other than viral hepatitis and NAFLD, liver stiffness thresholds are not well established. Electronically signed by: James Tineo MD 11/11/2024 11:44 AM EDT
--- OUTSIDE RECORDS SUMMARY | 2024-11-11 13:01 | XMS_ITS | Continuity of Care Document ---
Author Organization [facility] Address [address] [place] [address]- Care Team Providers Care Roadability Machine Operator Name Role Phone Rafael MCLEAN, Mae Primary Care Physician Encounter [facility] [place](s): 09/22/24 - 10/22/24 [facility] [address] [place] [phone]- Encounter Type: Triage Allergies, Adverse Reactions, Alerts No Known Allergies Immunizations Given and Recorded Vaccine Date Status Refusal Reason pneumococcal 23-valent vaccine 08/16/14 Given Medications Aspirin Enteric Coated 81 mg oral delayed release tablet TAKE 1 TABLET BY MOUTH EVERYDAY AT NOON Start Date: 07/15/23 Status: Ordered Repeat number: 1 Aspirin Low Dose 81 mg oral delayed release tablet 90 each, 0 Refill(s), TAKE 1 TABLET BY MOUTH EVERYDAY AT NOON, 0 Refills, 07/30/24 9:57:00 AM EST, Partial fill upon patient request if the prescription is for a schedule II opioid drug. Start Date: 07/30/24 Status: Ordered Repeat number: 1 atorvastatin 20 mg oral tablet TAKE 1 TABLET BY MOUTH AT BEDTIME Start Date: 07/15/23 Status: Ordered Repeat number: 1 bupropion 200 mg oral tablet, extended release = 200 mg, By Mouth, Daily at bedtime, 0 Refills, Maintenance, 08/19/14 10:51:20 AM EST, ER Tablet Start Date: 08/19/14 Status: Ordered Repeat number: 1 clonazePAM 1 mg oral tablet 90 each, 0 Refill(s), TAKE 1 TABLET BY MOUTH THREE TIMES DAILY NEEDED, 0 Refills, 07/30/24 9:57:00 AM EST, Partial fill upon patient request if the prescription is for a schedule II opioid drug. Start Date: 07/30/24 Status: Ordered Repeat number: 1 Creon 24,000 units oral delayed release capsule TAKE 2 CAPSULES BY MOUTH THREE TIMES DAILY IN THE MORNING, AT NOON AND THE EVENING AND TAKE 1 CAPSULE WITH SNACKS Start Date: 07/15/23 Status: Ordered Repeat number: 1 Easy Touch Alcohol Prep Pads Easy Touch Alcohol Prep Pads, USE TO TEST BLOOD SUGAR FOUR TIMES DAILY NEEDED Start Date: 07/15/23 Status: Ordered Repeat number: 1 Easy Touch Twist Lancets 33 gauge Easy Touch Twist Lancets 33 gauge, TEST BLOOD SUGAR 4 TIMES A DAY Start Date: 07/15/23 Status: Ordered Repeat number: 1 escitalopram 20 mg oral tablet 1 tablet = 20 mg, By Mouth, Daily, # 90 tablet, 0 Refills, Maintenance, 07/15/23 12:42:00 PM EST, Tablet, Partial fill upon patient request if the prescription is for a schedule II opioid drug. Start Date: 07/15/23 Status: Ordered Quantity: 90.0 Unit: tablet Repeat number: 1 Fish Oil 1000 mg oral capsule TAKE 2 CAPSULES BY MOUTH TWICE DAILY AT NOON AND BEDTIME Start Date: 07/15/23 Status: Ordered Repeat number: 1 FreeStyle [place] Lite kit FreeStyle [place] Lite kit, TEST BLOOD SUGAR THREE TIMES DAILY BEFORE MEALS AND ONCE AT NIGHT NEEDED FOR SYMPTOMS OF LOW BLOOD SUGAR Start Date: 07/15/23 Status: Ordered Repeat number: 1 FreeStyle Doug 2 Sensor kit FreeStyle Doug 2 Sensor kit, USE DIRECTED Start Date: 07/15/23 Status: Ordered Repeat number: 1 Freestyle Lite Monitor See Instructions, # 1 each, Maintenance, use as directed for Type 2 Diabetes Mellitus ICD code 10 E10. 9 i for lifetime use to check blood sugars three times a day before meals and once at night as needed for symptoms of hypoglycemia., 06/11/23 3:43:00 PM EDT, Supply, 170, cm, 06/10/23 2:52:00 EDT,Height, 63.3, kg, 06/10/23 2:52:00 EDT, Dry Weight Start Date: 06/11/23 Status: Ordered Quantity: 1.0 Unit: each Repeat number: 1 FreeStyle Lite Strips FreeStyle Lite Strips, TEST BLOOD SUGAR 4 TIMES A DAY Start Date: 07/15/23 Status: Ordered Repeat number: 1 Freestyle Lite Test Strips See Instructions, # 600 each, Tot. Refills 2, Maintenance, use as directed for Type 2 Diabetes Mellitus ICD code 10 E10. 9 i for lifetime use to check blood sugars three times a day before meals and once at night as needed for symptoms of hypoglycemia., 06/11/23 3:43:00 PM EDT, Supply, 170, cm, 06/10/23 2:52:00 EDT, Height, 63.3, kg, 06/10/23 2:52:00 EDT, Dry Weight Start Date: 06/11/23 Stop Date: 09/09/23 Status: Ordered Quantity: 600.0 Unit: each Repeat number: 3 Gvoke HypoPen 1 mg/0.2 mL subcutaneous solution 0 Refill(s), INJECT 1 PEN SUBCUTANEOUSLY IF BLOOD SUGAR IS LESS THAN 40 AND unable TO tolerate BY MOUTH. Contact EMS, MAY REPEAT ONCE IN 15 MINUTE, 0 Refills, 07/30/24 9:57:00 AM EST, Partial fill upon patient request if the prescription is for a schedule II opioid drug. Start Date: 07/30/24 Status: Ordered Repeat number: 1 Gvoke HypoPen Two Pack 1 mg/0.2 mL subcutaneous solution = 1 mg, Subcutaneous Infusion, Once, To be used for severe hypoglycemia if BG less than 40, unable to tolerate PO, unconscious. Contact EMS. may repeat once in 15 minutes, # 2 each, 1 Refills, Soft Stop, 08/01/24 6:39:00 PM EST, [facility]/pharmacy #[id number], Dx: E11.9, 170, cm, 07/30/24 10:00:00 EST, Height, 63.3, kg, 06/10/23 2:52:00 EDT, Dry Weight Start Date: 08/01/24 Status: Ordered Quantity: 2.0 Unit: each Repeat number: 2 isopropyl alcohol 70% topical pad 0 Refills, Maintenance, 07/15/23 12:41:00 PM EST, Partial fill upon patient request if the prescription is for a schedule II opioid drug. Start Date: 07/15/23 Status: Ordered Repeat number: 1 Klonopin 2 mg oral tablet 1 tablet = 2 mg, By Mouth, Daily at bedtime, 0 Refills, Maintenance, 08/31/13 7:38:17 PM EST Start Date: 08/31/13 Status: Ordered Repeat number: 1 losartan 25 mg oral tablet 1 tablet = 25 mg, By Mouth, Daily, # 90 tablet, 0 Refills, Maintenance, 07/15/23 12:42:00 PM EST, Tablet, Partial fill upon patient request if the prescription is for a schedule II opioid drug. Start Date: 07/15/23 Status: Ordered Quantity: 90.0 Unit: tablet Repeat number: 1 Medbox Status Medbox Status, USE DIRECTED Start Date: 07/15/23 Status: Ordered Repeat number: 1 MetFORMIN (Eqv-Glucophage XR) 500 mg oral tablet, extended release 2 tablet, By Mouth, Daily in AM, AND EVENING., # 360 tablet, 3 Refills, Maintenance, 10/19/24 9:11:00 AM EST, [facility], 170, cm, 07/30/24 10:00:00 EST, Height, 63.3, kg, :52:00 EDT, Dry Weight Start Date: 10/19/24 Status: Ordered Quantity: 360.0 Unit: tablet Repeat number: 1 NovoLOG FlexPen 100 units/mL injectable solution See Instructions, subcutaneous injection 3 times a day before meals per sliding scale. max daily dose 72 units E11.9, # 30 mL, 11 Refills, Maintenance, 10/10/24 11:16:00 AM EST, [facility]/pharmacy #[id number], Partial fill upon patient request if the prescription is for a schedule II opioid drug., 170, cm, 07/30/24 10:00:00 EST, Height, 63.3, kg, 06/10/23 2:52:00 EDT, Dry Weight Start Date: 10/10/24 Status: Ordered Quantity: 30.0 Unit: mL Repeat number: 12 omeprazole 20 mg oral enteric coated capsule TAKE 1 CAPSULE BY MOUTH TWICE DAILY IN THE MORNING AND IN THE EVENING Start Date: 07/15/23 Status: Ordered Repeat number: 1 Pen [place], 31 G x 5 mm BD Ultra Fine III See Instructions, # 200 each, Refills 11, Tot. Refills 11, Maintenance, Use as directed for diabetes care 4 times per day, 08/01/24 6:35:00 PM EST, Supply, 170, cm, 07/30/24 10:00:00 EST, Height, 63.3, kg, 06/10/23 2:52:00 EDT, Dry Weight Start Date: 08/01/24 Status: Ordered Quantity: 200.0 Unit: each Repeat number: 12 Precision Vickey Test Strips Precision Vickey Test Strips, See Instructions, # 150 each, Refills 11, Tot. Refills 11, Maintenance, Use for blood glucose monitoring 3 times daily prior to insulin administration Dx: E11.9, 07/30/24 10:17:00 AM EST, Supply, 170, cm, 07/30/24 10:00:00 EST, Height, 63.3, kg, 06/10/23 2:52:00 EDT, Dry Weight Start Date: 07/30/24 Status: Ordered Quantity: 150.0 Unit: each Repeat number: 12 Indication: Type 2 diabetes mellitus without complications traZODone 150 mg oral tablet 1 tablet = 150 mg, By Mouth, Daily at bedtime, # 90 tablet, 0 Refills, Maintenance, 07/15/23 12:42:00 PM EST, Tablet, Partial fill upon patient request if the prescription is for a schedule II opioiddrug. Start Date: 07/15/23 Status: Ordered Quantity: 90.0 Unit: tablet Repeat number: 1 Tresiba FlexTouch 100 units/mL subcutaneous solution See Instructions, INJECT 20 UNITS SUBCUTANEOUSLY EVERY DAY., # 30 mL, 11 Refills, Maintenance, 09/22/24 3:39:00 PM EST, [facility], 170, cm, 07/30/24 10:00:00 EST, Height, 63.3, kg, 06/10/23 2:52:00 EDT, Dry Weight Start Date: 09/22/24 Status: Ordered Quantity: 30.0 Unit: mL Repeat number: 12 TRUEplus Lancets 33 gauge TRUEplus Lancets 33 gauge, TEST BLOOD SUGAR 4 TIMES A DAY Start Date: 07/15/23 Status: Ordered Repeat number: 1 Vitamin B-12 1000 mcg oral tablet TAKE 1 TABLET BY MOUTH EVERYDAY AT NOON Start Date: 07/15/23 Status: Ordered Repeat number: 1 Vitamin C 500 mg oral tablet 1 tablet = 500 mg, By Mouth, 2 times a day, 0 Refills, Maintenance, 08/31/13 7:39:28 PM EST Start Date: 08/31/13 Status: Ordered Repeat number: 1 Vitamin D3 1000 intl units oral capsule TAKE 1 CAPSULE BY MOUTH EVERY MORNING Start Date: 07/15/23 Status: Ordered Repeat number: 1 Problem List Condition Confirmation Course Effective Dates [...] ( severe disability ) on 05/05/15; initial Greene:8 on 05/05/15 3SOAPP-R: 35 on 05/05/15 4Left shoulder surgery 1990s 5x 2 Social History Social History Type Response Smoking Status Former smoker, quit more than 30 days ago entered on: 07/15/23 Sex Sex Representation Male (finding) Patient Care team information Care Team Personnel Name: Jena Caceres RN Position: [facility] RN Member Role: Primary Care Nurse Name: Adriane Garnica RN Position: [facility] SN RN Member Role: Primary Care Nurse Name: Subha Meier RN Position: [facility] RN Member Role: Primary Care Nurse Name: Pita Gama CNM Position: [facility] Property Disposal Manager Member Role: Primary Care Nurse Address: [address] [place] [address]- Telecom: Name: Mae Hall MD Position: [facility] Outreach Member Role: PCP Address: [address] [place] [address]- Telecom: Name: Alessandro Jacobo RN Position: [facility] RN Member Role: Primary Care Nurse Care Team Related Persons Name: RED MCDONOUGH Name: DILAN STRATTON Insurance Providers Guarantor name: VAUGHN CARDENAS [facility] Information #: 1 Payer: NA Member Number: NA Policy Number: NA Group Number: [id number]
--- OUTSIDE RECORDS SUMMARY | 2024-11-11 13:01 | XMS_ITS | Encounter Summary ---
Author Organization [employer] Address [address] [facility] 7t [place] [address] Care Team Providers Care Cad Technician Name Role Phone Mae Hall MD Primary Care Provider [phone] Connor Bergeron PharmD Unavailable [phone] Encounter Details Date Type Department Care Team (Late st Contact Info) Description 06/13/2023 Orders Only [facility]INE [address] [place], [place] [phone] Mae Hall MD [address] [place] [address] Type 2 diabetes mellitus with hyperglycemia, with long-term current use of insulin ([facility]) Social History Tobacco Use Types Packs/Day Years Used Date Smoking Tobacco: Every Day Cigarettes Smokeless Tobacco: Never Depression Answer Date Recorded Patient Health Questionnaire-9 Score 11 09/09/2022 Housing Stability Answer Date Recorded What is your housing situation today? I have housing today, but I am worried about losing housing in the future 06/17/[address] you li ve. Do you have problems with any of the following? None of the above 06/17/2023 Food Insecurity Answer Date Recorded Within the past 12 months, y ou worried that your food would run out before you got money to buy more: Never True 06/17/2023 Within the past 12 months,th e food you bought just didn't last and you didn't have enough money to get more: Never True Transportation Answer Date Recorded In the past 12 months, has l ack of transportation kept you from medical appts, meetings, work or from getting things needed for daily living? No 06/17/2023 Utilities Answer Date Recorded In the past 12 months, has t he electric, gas, oil or water company threatened to shut off services in your home? No 06/17/2023 Depression Answer Date Recorded Patient Health Questionnaire-2 Score 4 09/09/2022 Sex and Gender Information Value Date Recorded Sex Assigned at Male 07/01/2022 10:19 AM EDT Legal Sex Male 10:19 AM EDT Gender Identity Male 07/01/2022 10:19 AM EDT Sexual Orientation Straight 07/01/2022 10 :19 AM EDT documented as of this encounter Plan of Treatment Upcoming Encounters Date Type Department Care Team (Late st Contact Info) Description 11/15/2024 1:00 PM EDT Medication Management [facility] MEDICINE [address] [place] [address] Connor Bergeron, PharmThais [address] [place] [address] 01/31/2025 1:30 PM EDT Office Visit [facility] [address] [place] [address] Cesar, Maria Alejandra, OD [address] [place] [address] documented as of this encounter Visit Diagnoses Diagnosis Type 2 diabetes mellitus with hyperglycemia, with long-term current use of insulin ([facility]) documented in this encounter Additional Health Concerns Assessment Noted Time PHQ-9 Depression Total Score: 11 023 4:03 PM EST documented as of this encounter Care Teams Cad Technician Relationship Specialty Start Date End Date Mae Hall MD [address] [place] [id number] PCP - General Family Medicine 09/01/18 Connor Bergeron, PharmD [address] [place] [address] [phone] Pharmacist Internal Medicine 07/04/23 documented as of this encounter
--- OUTSIDE RECORDS SUMMARY | 2024-11-11 13:01 | XMS_ITS | Encounter Summary ---
Author Organization [employer] Address [address] [facility] 7t [place] [address] Care Team Providers Care Extraction Supervisor Name Role Phone Mae Hall MD Primary Care Provider [phone] Connor Bergeron PharmD Unavailable [phone] Reason for Visit * Reason Onset Date Comments Med Refill 10/07/2024 Encounter Details Date Type Department Care Team (Late st Contact Info) Description 10/07/2024 Telephone [facility] MEDICINE [address] [place] [address] Mae Hall MD [address] [place], [place] [phone] Med Refill Social History Tobacco Use Types Packs/Day Years Used Date Smoking Tobacco: Some Days Cigarettes Smokeless Tobacco: Never Alcohol Use Standard Drinks/Week Comments Never 0 (1 standard drink = 0.6 oz pur e alcohol) Depression Answer Date Recorded Patient Health Questionnaire-9 Score 13 10/05/2024 Patient Health Questionnaire-9 Score 13 10/05/2024 Last PHQ-9: Questionnaire Data Not on file 0 10/05/2024 Housing Stability Answer Date Recorded What is your housing situation today? I have audra rios 09/21/[address] you li ve. Do you have problems with any of the following? None of the above 09/21/2024 Food Insecurity Answer Date Recorded Within the past 12 months, y ou worried that your food would run out before you got money to buy more: Often true 09/21/2024 Within the past 12 months,th e food you bought just didn't last and you didn't have enough money to get more: Often true Transportation Answer Date Recorded In the past 12 months, has l ack of transportation kept you from medical appts, meetings, work or from getting things needed for daily living? Yes, it has kept me from medical appointments or getting medications. 09/21/2024 Utilities Answer Date Recorded In the past 12 months, has t he electric, gas, oil or water company threatened to shut off services in your home? No 09/21/2024 Depression Answer Date Recorded Patient Health Questionnaire-2 Score 4 10/05/2024 Internet Access Answer Date Recorded Internet Access Q1 Yes 09/21/2024 Internet Access Q2 Not on file 09/21/2024 Sex and Gender Information Value Date Recorded Sex Assigned at Male 07/01/2022 10:19 AM EDT Legal Sex Male 10:19 AM EDT Gender Identity Male 07/01/2022 10:19 AM EDT Sexual Orientation Straight 07/01/2022 10 :19 AM EDT documented as of this encounter Miscellaneous Notes * Telephone Encounter - Hannah Gutiérrez LPN - 10/07/2024 3:28 PM EST Medication isn't prescribed by PCP. * Telephone Encounter - oTmy Santana - 10/07/2024 3:21 PM EST TC from pt requesting medication refill. Medications needing refill : insulin aspart (NovoLOG FLEXPEN) 100 UNIT/ML pen To be sent to: [facility] *pt states out of the medication documented in this encounter Plan of Treatment Upcoming Encounters Date Type Department Care Team (Late st Contact Info) Description 11/15/2024 1:00 PM EDT Medication Management [facility] MEDICINE [address] [place] [address] Connor Bergeron, PharmD [address] [place] [address] 01/31/2025 1:30 PM EDT Office Visit [facility] OPTOMETRY [address] [place] [address] Maria Alejandra Guerrero, OD [address] [place] [address] documented as of this encounter Goals Goal Patient Goal Type Associated Problems Recent Progress Patient-Stated? Author Blood Pressure < 140/90 Blood Pressure 138/72(2024 3:46 PM EST) No Connor Bergeron PharmD Hemoglobin A1c < 7 Result Component 9.4( 3:03 PM EST) No Connor Bergeron PharmD documented as of this encounter Visit Diagnoses Diagnosis Type 2 diabetes mellitus with hyperglycemia, with long-term current use of insulin ([facility]) documented in this encounter Additional Health Concerns Assessment Noted Time PHQ-9 Depression Total Score: 13 025 3:49 PM EST documented as of this encounter Care Teams Extraction Supervisor Relationship Specialty Start Date End Date Mae Hall MD [address] [place] [phone] PCP - General Family Medicine 09/01/18 Connor Bergeron, KizzyD [address] [place] [phone] Pharmacist Internal Medicine 07/04/23 documented as of this encounter
--- OUTSIDE RECORDS SUMMARY | 2024-11-11 13:02 | XMS_ITS | Encounter Summary ---
Author Organization [employer] Address [address] [facility] 7t [place] [address] Care Team Providers Care Protection Officer Name Role Phone Mae Hall MD Primary Care Provider [phone] Connor Bergeron PharmD Unavailable [phone] Encounter Details Date Type Department Care Team (Latest Contact Info) Description 10/22/2024 Travel Social History Tobacco Use Types Packs/Day Years [...] Description 11/15/2024 1:00 PM EDT Medication Management [facility] MEDICINE [address] [place] [address] Connor Bergeron PharmD [address] [place] [address] 01/31/2025 1:30 PM EDT Office Visit [facility] OPTOMETRY [address] [place] [address] Cesar, Maria Alejandra, OD [address] [place] [address] documented as of this encounter Goals Goal Patient Goal Type Associated Problems Recent Progress Patient-Stated? Author Blood Pressure < 140/90 Blood Pressure 138/72(2024 3:46 PM EST) No Connor Bergeron PharmD Hemoglobin A1c < 7 Result Component 9.4( 3:03 PM EST) No Cnonor Bergeron PharmD documented as of this encounter Visit Diagnoses Not on filedocumented in this encounter Additional Health Concerns Assessment Noted Time PHQ-9 Depression Total Score: 13 025 3:49 PM EST documented as of this encounter Care Teams Protection Officer Relationship Specialty Start Date End Date Mae Hall MD [address] [place] [phone] PCP - General Family Medicine 09/01/18 Connor Bergeron PharmD [address] [place] [phone] Pharmacist Internal Medicine 07/04/23 documented as of this encounter
--- OUTSIDE RECORDS SUMMARY | 2024-11-11 13:02 | XMS_ITS | Encounter Summary ---
Author Organization [employer] Address [address] [facility] [address]t [place] [address] Care Team Providers Care Quahogger Name Role Phone Mae Hall MD Primary Care Provider [phone] Connor Bergeron PharmD Unavailable [phone] Reason for Visit * Reason Comments Med Refill Encounter Details Date Type Department Care Team ([facility] st Contact Info) Description 10/19/2024 Refill [facility] MEDICINE [address] [place], [place] [phone] Mae Hall MD [address] [place], [place] [phone] Dyslipidemia; Vitamin deficiency Social History Tobacco Use Types Packs/Day Years [...] Description 11/15/2024 1:00 PM EDT Medication Management [facility] MEDICINE [address] [place] [address] Connor Bergeron, PharmD [address] [place] [address] 01/31/2025 1:30 PM EDT Office Visit [facility] OPTOMETRY [address] [place] [address] Cesar, Maria Alejandra, OD [address] [place] [address] documented as of this encounter Goals Goal Patient Goal Type Associated Problems Recent Progress Patient-Stated? Author Blood Pressure < 140/90 Blood Pressure 138/72(2024 3:46 PM EST) No Connor Bergeron PharmThais Hemoglobin A1c < 7 Result Component 9.4( 3:03 PM EST) No Connor Bergeron PharmD documented as of this encounter Visit Diagnoses Diagnosis Dyslipidemia Other and unspecified hyperlipidemia Vitamin deficiency Unspecified vitamin deficiency documented in this encounter Additional Health Concerns Assessment Noted Time PHQ-9 Depression Total Score: 13 025 3:49 PM EST documented as of this encounter Care Teams Quahogger Relationship Specialty Start Date End Date Mae Hall MD [address] [place] [address] PCP - General Family Medicine 09/01/18 Connor Bergeron, KizzyD [address] [place] [address] Pharmacist Internal Medicine 07/04/23 documented as of this encounter
--- OUTSIDE RECORDS SUMMARY | 2024-11-11 13:02 | XMS_ITS | Encounter Summary ---
Author Organization [employer] Address [address] [facility] [address]t [place] [address] Care Team Providers Care Supervisor Production Managing Name Role Phone Mae Hall MD Primary Care Provider [phone] Connor Bergeron PharmD Unavailable [phone] Reason for Visit * Reason Onset Date Comments [facility] 11/05/2024 B oost, glucose control very vanilla 8oz (24/cs) Encounter Details Date Type Department Care Team (Late st Contact Info) Description 11/05/2024 Telephone [facility] MEDICINE [address] [place] [address] Mae Hall MD [address] [place], [place] [phone] [facility] (Boost, glucose control very vanilla 8oz (24/cs)) Social History Tobacco Use Types Packs/Day Years [...] encounter Miscellaneous Notes * Telephone Encounter - Mary Jo Joy - 11/09/2024 1:54 PM EDT Confirmation of order for Boost signed and faxed to [facility] . Confirmation received and sent to scan. If patient calls to check status on above, please advise them to contact [facility] at [phone]. * Telephone Encounter - Bk Peraza [place] - 11/05/2024 10:12 AM EST Received medical necessity form from [facility] for Boost, glucose control very vanilla 8oz. Form has been filled out and placed on PCP desk fro their signature. documented in this encounter Plan of Treatment Upcoming Encounters Date Type Department Care Team ([facility] st Contact Info) Description 11/15/2024 1:00 PM EDT Medication Management [facility] MEDICINE [address] [place] [address] Connor Bergreon, PharmD [address] [place] [address] 01/31/2025 1:30 PM EDT Office Visit [facility] OPTOMETRY [address] [place], [place] [phone] Maria Alejandra Guerrero, OD [address] [place] [address] documented as of this encounter Goals Goal [...] documented as of this encounter Care Teams Supervisor Production Managing Relationship Specialty Start Date End Date Mae Hall MD [address] [place], [place] [phone] PCP - General Family Medicine 09/01/18 Connor Bergeron PharmD [address] [place] [address] Pharmacist Internal Medicine 07/04/23 documented as of this encounter
--- OUTSIDE RECORDS SUMMARY | 2024-11-11 13:02 | XMS_ITS | Encounter Summary ---
Author Organization [employer] Address [address] [facility] [address] [place] [address] Care Team Providers Care Tree Deadener Name Role Phone Mae Hall MD Primary Care Provider [phone] Connor Bergeron PharmD Unavailable [phone] Reason for Visit * Reason Onset Date Comments may recall 11/02/2024 Encounter Details Date Type Department Care Team ([facility] st Contact Info) Description 11/02/2024 Telephone [facility] MED[facility] [address] [place] [address] Mae Hall MD [address] [place], [place] [phone] may recall Social History Tobacco Use Types Packs/Day Years [...] encounter Miscellaneous Notes * Telephone Encounter - Ashley Escobar MA - 11/02/2024 9:52 AM EST ..Telephone call to patient to schedule a recall appointment. No answer, Left voicemail to return call to clinic.. Recall letter sent. Visit type: Office Visit Appointment notes: DM due: December With: Rafael Please schedule appointment above if patient returns call documented in this encounter Plan of Treatment Upcoming Encounters Date Type Department Care Team (Late st Contact Info) Description 11/15/2024 1:00 PM EDT Medication Management [facility] MEDICINE [address] [place] [address] Connor Bergeron, PharmD [address] [place] [address] 01/31/2025 1:30 PM EDT Office Visit [facility] OPTOMETRY [address] [place] [address] Maria Alejandra Guerrero, OD [address] [place] [address] documented as of this encounter Goals Goal [...] documented as of this encounter Care Teams Tree Deadener Relationship Specialty Start Date End Date Mae Hall MD [address] [place] [address] PCP - General Family Medicine 09/01/18 Connor Bergeron, Michael [address] [place] [address] Pharmacist Internal Medicine 07/04/23 documented as of this encounter
--- OUTSIDE RECORDS SUMMARY | 2024-11-11 13:02 | XMS_ITS | Encounter Summary ---
Author Organization [employer] Address [address] [facility] [address] [place] [address] Care Team Providers Care Service Cleaner Name Role Phone Mae Hall MD Primary Care Provider Connor Bergeron PharmD Unavailable [phone] Reason for Visit * Reason Onset Date Comments Paperwork/Forms 10/13/2024 Encounter Details Date Type Department Care Team ([facility] st Contact Info) Description 10/13/2024 Telephone [facility] MED[facility]INE [address] [place] [address] Jacki Tellez, RN [address] [place] [address] Paperwork/Forms Social History Tobacco Use Types Packs/Day Years [...] encounter Miscellaneous Notes * Telephone Encounter - Shwetha Deal RN - 10/15/2024 3:57 PM EST Faxed signed MedB form and CGM supplies form back to [facility] pharmacy, confirmation received. * Telephone Encounter - Jacki Tellez RN - 10/13/2024 10:30 AM EST Received med B forms for both pt's diabetes supplies and CGM supplies. Filled out both and placed on PCP's desk. Pending signature. documented in this encounter Plan of Treatment Upcoming Encounters Date Type Department Care Team (Late st Contact Info) Description 11/15/2024 1:00 PM EDT Medication Management [facility] [address] [place] [address] Connor Bergeron, PharmD [address] [place] [address] 01/31/2025 1:30 PM EDT Office Visit [facility] OPTOMETRY [address] [place] [address] Maria Alejandra Guerrero, OD [address] [place] [address] documented as of this encounter Goals Goal [...] documented as of this encounter Care Teams Service Cleaner Relationship Specialty Start Date End Date Mae Hall MD [address] [place] [address] PCP - General Family Medicine 09/01/18 Connor Bergeron PharmD [address] [place] [id number] Pharmacist Internal Medicine 07/04/23 documented as of this encounter
--- OUTSIDE RECORDS SUMMARY | 2024-11-11 13:02 | XMS_ITS | Encounter Summary ---
Author Organization [employer] Address [address] [facility] [address] [place] [address] Care Team Providers Care Signalman Name Role Phone Mae Hall MD Primary Care Provider [phone] Connor Bergeron PharmD Unavailable [phone] Reason for Referral * Medications - Closed Specialty Diagnoses / Procedures Referred By Mirela t Referred To Contact Diagnoses Type 2 diabetes mellitus with diabetic polyneuropathy, with long-term current use of insulin (CMS/HCC) Mae Hall MD [address] [place] [address] Phone: tel: fax: Referral ID Status Reason Start Date Expiration Date Visits Re quested Visits Authorized [id number] Closed 11/08/2024 11/08/2025 1 1 Reason for Visit * Reason Comments Med Refill Encounter Details Date Type Department Care Team (Late st Contact Info) Description 11/07/2024 Refill [facility] MED[facility]INE [address] [place], [place] [phone] Hannah Quijano NP [address] [place], [place] [phone] Type 2 diabetes mellitus with diabetic polyneuropathy, with long-term current use of insulin (CMS/HCC) Social History Tobacco Use Types Packs/Day Years [...] Description 11/15/2024 1:00 PM EDT Medication Management [facility] MED[facility] [address] [place] [address] Connor Bergeron, PharmD [address] [place] [address] 01/31/2025 1:30 PM EDT Office Visit [facility] OPTOMETRY [address] [place] [address] Maria Alejandra Guerrero, OD [address] [place] [address] documented as of this encounter Goals Goal Patient Goal Type Associated Problems Recent Progress Patient-Stated? Author Blood Pressure < 140/90 Blood Pressure 138/72(2024 3:46 PM EST) No Connor Bergeron PharmD Hemoglobin A1c < 7 Result Component 9.4( 3:03 PM EST) No Connor Bergeron PharmD documented as of this encounter Visit Diagnoses Diagnosis Type 2 diabetes mellitus with diabetic polyneuropathy, with long-term current use of insulin ([facility]) documented in this encounter Additional Health Concerns Assessment Noted Time PHQ-9 Depression Total Score: 13 025 3:49 PM EST documented as of this encounter Care Teams Signalman Relationship Specialty Start Date End Date Mae Hall MD [address] [place] [phone] PCP - General Family Medicine 09/01/18 Connor Bergeron PharmD [address] [place] [id number] Pharmacist Internal Medicine 07/04/23 documented as of this encounter
--- OUTSIDE RECORDS SUMMARY | 2024-11-11 13:02 | XMS_ITS | Clinical Summary ---
Author Organization [employer] Address [address] [place] [address] Care Team Providers Care Book Salesman Name Role Phone Mae Hall MD Primary Care Provider [phone] Connor Bergeron PharmD Unavailable [phone] Allergies No known active allergies Medications clonazePAM (KlonoPIN) 1 MG tablet Take 1 tablet three times daily as needed 023 Active escitalopram (Lexapro) 20 MG tablet Take 1 tablet by mouth in the morning 023 Active traZODone (Desyrel) 150 MG tablet Take 1 tablet by mouth at bedtime as needed 023 Active insulin aspart (NovoLOG FLEXPEN) 100 UNIT/ML penIndications: Type 2 diabetes mellitus with hyperglycemia, with long-term current use of insulin ([facility]) Administer insulin per sliding scale, 8-22 units with breakfast, lunch and dinner. Avoid administering insulin within 2 hours from the last dose. 15 mL 2 023 Active Additional Information Patient taking differently: Administer insulin per sliding scale, 11-25 units with breakfast, lunch and dinner. Avoid administering insulin within 2 hours from the last dose., Reason: Other (Instructions from [employer] 07/15/2023), Reported on 08/05/2023 cyanocobalamin (Vitamin B-12) 1000 MCG tablet TAKE 1 TABLET BY MOUTH EVERYDAY AT NOON 90 tablet 3 024 Active losartan (Cozaar) 25 MG tablet TAKE 1/2 TABLET BY MOUTH EVERY MORNING 45 tablet 3 024 Active glucagon (Baqsimi One Pack) 3 MG/DOSE nasal powder 3 mg actuation In one nostril as needed;?may repeat in 15 minutes alternate nostrils 024 Active insulin degludec (Tresiba FlexTouch) 100 UNIT/ML injection Inject 30 Units under the skin. 024 Active metFORMIN XR (Glucophage-XR) 500 MG 24 hr tablet Take 2 tablets by mouth 2 times daily. Do not crush, chew, or split. Active Aspirin Adult Low Strength 81 MG EC tablet TAKE 1 TABLET BY MOUTH EVERYDAY AT NOON 90 tablet 3 024 Active omeprazole (PriLOSEC) [address] capsule TAKE 1 CAPSULE BY MOUTH TWICE DAILY IN THE MORNING AND IN THE EVENING 180 capsule 3 024 Active Blood Glucose Monitoring Suppl (FreeStyle [place] Lite) w/Device kitIndications: Type 2 diabetes mellitus with hyperglycemia ([facility]) Use to test blood sugar bid dx dm 1 kit 024 Active omega-3 (Fish Oil) 1000 MG capsuleIndicati ons:Dyslipidemi a TAKE 2 CAPSULES BY MOUTH TWICE DAILY AT NOON AND BEDTIME 120 capsule 11 024 Active Creon 84628-34531 units capsule TAKE 2 CAPSULES BY MOUTH THREE TIMES DAILY IN THE MORNING, AT NOON, AND IN THE EVENING AND TAKE 1 CAPSULE WITH SNACK 200 capsule 2 025 Active Blood Glucose Monitoring Suppl (FreeStyle [place] Lite) w/Device kit TEST BLOOD SUGAR THREE TIMES DAILY BEFORE MEALS AND ONCE AT NIGHT NEEDED FOR SYMPTOMS OF LOW BLOOD SUGAR 1 kit 3 025 Active Alcohol Swabs (Alcohol Prep) 70 % padsIndications :Type 2 diabetes mellitus with diabetic polyneuropathy, with long-term current use of insulin ([facility]) TEST BLOOD SUGAR 3 TIMES DAILY and NEEDED 100 each 1 025 Active TRUEplus Lancets 33G miscIndications :Type 2 diabetes mellitus with hyperglycemia ([facility]) Check blood sugar 3 times daily and as needed when feeling sick 100 each 11 025 Active atorvastatin (Lipitor) 20 MG tabletIndicatio ns:Dyslipidemia TAKE 1 TABLET BY MOUTH AT BEDTIME 90 tablet 3 025 Active D3-1000 25 MCG (1000 UT) capsuleIndicati ons:Vitamin deficiency TAKE 1 CAPSULE BY MOUTH EVERY MORNING 90 capsule 3 025 Active Continuous Glucose Sensor (FreeStyle Doug 3 Plus Sensor) miscIndications :Type 2 diabetes mellitus with hyperglycemia, with long-term current use of insulin ([facility]) 1 Device every 15 days. Use daily to monitor blood glucose. Change every 15 days as directed. 2 each 5 025 Active Continuous Glucose Seismographer (FreeStyle Doug 3 [place]) deviceIndicatio ns:Type 2 diabetes mellitus with hyperglycemia, with long-term current use of insulin (CMS/HCC) 1 Device Once per day. Use as directed to monitor blood glucose 1 each 025 Active glucose blood (FreeStyle Precision Vickey Test) test stripIndication s:Type 2 diabetes mellitus with hyperglycemia, with long-term current use of insulin (CMS/HCC) Use to test blood sugar 3 times daily as needed for hypoglycemia or sensor failure 100 each 11 025 2025 Active Lancet Devices (Lancing Device) miscIndications :Type 2 diabetes mellitus with hyperglycemia, with long-term current use of insulin ([facility]) 1 Device Once per day. 1 each 025 Active BD Pen Needle Ailin U/F 32G X 4 MM miscIndications :Type 2 diabetes mellitus with diabetic polyneuropathy, with long-term current use of insulin ([facility]) USE DIRECTED TO TEST BLOOD SUGAR FIVE TIMES DAILY 100 each 11 025 Active Continuous Blood Gluc Seismographer (FreeStyle Doug 2 [place]) device USE DIRECTED 022 2024 Discontinued(A lternate therapy) Vitamin D High Potency 25 MCG (1000 UT) capsuleIndicati ons:Vitamin deficiency TAKE 1 CAPSULE BY MOUTH EVERY MORNING 90 capsule 3 024 2024 Discontinued atorvastatin (Lipitor) 20 MG tabletIndicatio ns:Dyslipidemia TAKE 1 TABLET BY MOUTH AT BEDTIME 90 tablet 3 024 2024 Discontinued TRUEplus Lancets 30G miscIndications :Type 2 diabetes mellitus with hyperglycemia (CMS/HCC) Check bs as advised 100 each 2 024 2024 Discontinued BD Pen Needle Ailin U/F 32G X 4 MM miscIndications :Type 2 diabetes mellitus with diabetic polyneuropathy, with long-term current use of insulin (CMS/HCC) USE DIRECTED FIVE TIMES DAILY 100 each 1 12/27/2 024 2024 Discontinued Continuous Glucose Sensor (FreeStyle Doug 2 Sensor) miscIndications :Type 2 diabetes mellitus with hyperglycemia (CMS/HCC) USE DIRECTED CHANGE EVERY 14 DAYS 2 each 11 025 2024 Discontinued(A lternate therapy) FREESTYLE LITE test strip Check blood glucose three times a day and as needed 100 each 12 025 2024 Discontinued glucose blood (FreeStyle Precision Vickey Test) test stripIndication s:Type 2 diabetes mellitus with hyperglycemia, with long-term current use of insulin ([facility]) Use to test blood sugar up to 3 times daily 100 each 11 025 2024 Discontinued glucose blood (FREESTYLE LITE) test stripIndication s:Type 2 diabetes mellitus with hyperglycemia (CMS/HCC) Use bid. Dx diabetes 60 each 11 025 2024 Discontinued Active Problems Problem Noted Date Diagnosed Date Poor dentition 08/17/2023 Assessment & Plan (10/12/2024 12:30 PM EST): - urged to make an appt with dentist JAKOB - urgent referral sent Assessment & Plan (08/17/2023 11:03 AM EST): - urged to make an appt with dentist JAKOB - pt was scheduled to see dentist tomorrow Somatoform pain disorder 07/02/2023 023 Personal history of kidney stones 07/02/2023 07/02/2023 Myofascial pain 07/02/2023 07/02/2023 History of suicide attempt 07/02/202307/02 H/O obsessive compulsive disorder 07/02/2023 07/02/2023 Cannabis abuse 07/02/2023 07/02/2023 Forgetfulness 03/11/2023 Assessment & Plan (03/18/2023 10:27 AM EDT): - likely pseudodementia and/or related with his stress / mood disorder - initial work-up with lab - consider head MRI if worsen - judicious and responsible use of marijuana Abnormal weight loss 12/17/2022 Assessment & Plan (06/27/2023 4:32 PM EDT): Noted 10 pounds weight loss in last 3 months -could be from uncontrolled DM 2 -will increase basal insulin -pt will f w PCP in next 4 to 6 weeks to monitor weight and if ongoing weight loss and no obvious cause will need to further eval to r/o malignancy -colonoscopy 07/01/22 One medium sized polyp removed - 10 mm sessile polyp Moderate diverticulosis seen in the sigmoid colon Moderate hemorrhoids on retroflexed exam. --path tubular adenoma and rec to repeat in 3 years for fair prep -CT abd/pelvic 2019 : intra and extrahepatic biliary dilation and calcifications w pancreatic duct --used to f w GI for this Dr Hanson. From recent hospital discharge records pt had CTA of chest and abd/pelvis 06/09/2023 with no major pathology reported,described several calcification are seen within the pancreas ,severely atrophic , no lymphadenopathy . Assessment & Plan (12/17/2022 5:01 PM EDT): Differential Diagnosis includes: inadequate insulin, anxiety, occult malignancy, inflammation/infection -Will evaluate with lab -keep close follow-ups -if he continues to lose weight, will evaluate with CT scan of chest and abdomen Tubular adenoma of colon 09/09/2022 Assessment & Plan (09/09/2022 5:27 PM EST): -07/01/[address] Worrell -Repeat in 3 years Tobacco use 09/09/2022 Assessment & Plan (10/05/2024 5:48 PM EST): -Continue working on smoking cessation -Smoking less, according to patient -Lung cancer screening program once he has > 20 pack years Assessment & Plan (08/17/2023 10:59 AM EST): -Continue working on smoking cessation -Smoking less, according to patient -Lung cancer screening program once he has > 20 pack years Assessment & Plan (03/18/2023 10:27 AM EDT): -Continue working on smoking cessation -Smoking less, according to patient Assessment & Plan (12/17/2022 2:21 PM EDT): -Continue working on smoking cessation -Smoking less, according to patient Assessment & Plan (09/09/2022 5:29 PM EST): -Continue working on smoking cessation Diabetes mellitus 07/02/2017 Overview (07/02/2023): Pancreatic exocrine insufficiency Assessment & Plan (10/12/2024 12:24 PM EST): - Previously treated as type 2, recently developed DKA - Pancreatic exocrine insufficiency (Dx after he had acute pancreatitis, requiring ICU stay) - A1C 9.4% on 10/05/24, improved from 11.9% on 03/11/23 - Continue Tresiba 26 units q24h - Continue Novolog to 16-20 units with each meal - Continue metformin ER 1000 mg bid Treatment Hx - Previously wide fluctuation in BG with sergio phenomenon. Occasional hypoglycemia, and he is aware of his hypoglycemic symptoms. - previously on SGLT-2 inhibitor which was discontinued when he developed DKA - Continue working on lifestyle modifications -Last eye exam: 07/31/23, no diabetic retinopathy -Last foot exam: 05/16/22 -Last microalbumin 07/30/23 UACR 36, mild microalbuminuria for last few years -Last lipid profile: 07/30/23 TC 171; TG 233; LDL 79; HDL 46 -Last dental exam: referred again Assessment & Plan (08/17/2023 11:02 AM EST): - Previously treated as type 2, recently developed DKA - Pancreatic exocrine insufficiency (Dx after he had acute pancreatitis, requiring ICU stay) - A1C 9.4% improved from 11.9% on 03/11/23 - Continue Tresiba 40 units q24h - Continue Novolog to 20 units with each meal - Continue metformin ER 1000 mg bid Treatment Hx - Previously wide fluctuation in BG with sergio phenomenon. Occasional hypoglycemia, and he is aware of his hypoglycemic symptoms. - previously on SGLT-2 inhibitor which was discontinued when he developed DKA - Continue working on lifestyle modifications -Last eye exam: 07/31/23, no diabetic retinopathy -Last foot exam: 05/16/22 -Last microalbumin 07/30/23 UACR 36, mild microalbuminuria for last few years -Last lipid profile: 07/30/23 TC 171; TG 233; LDL 79; HDL 46 -Last dental exam: Going to get appt today -Follow up in 3 mo or sooner Assessment & Plan (06/23/2023 8:33 PM EDT): Pt w uncontrolled DM 2 Bringhs home Cbgs 300s , before breakfast , CBGs in 200 to 300s before dinner- ,denies low CBGs -CBGS here 183 today and hb1AC capillary 13.2% hb1AC 03/11/23, 11.9%,at hospital 06/2023 hb1AC 13.8% -Advised pt to pickling machine operator continue blood glucose monitoring -per pharmacist message already approved by insurance -increase tresiba to 36 u HS from 32 u HS -continue rapid insulin sliding scale( 100-139 10 u, 140-179 12 u,180-219 14 u, 220-259 16 u,260 to 299 18 u , 300 to 339 20 u ,340 to 379 22 u. > 380 24 u and advise to make sure to check sugars before 3 meals -already jardiance removed from medbox in setting of DKA -will continue to hold and not able to start GLP1 w idiopathic pancreatitis hx -referred today to packaging machine supplies distributor -pt w poor DM controlled and chronic pancreatitis as likely causing worsening DM-may need to consider CT abd if not done recently as hospitalization-request today [place] to try to get last images done at hospital -labs ordered by PCP in 03/11/2023 -not done --advised to have them done and to f w PCP in 4 weeks -advised to improve hydration -referred today To 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 Occasional hypoglycemia, and he is aware of his hypoglycemic symptoms. - Continue working on lifestyle modifications - will ask our pharmacist to troubleshoot -Last eye exam: 01/31/21, no diabetic retinopathy -Last foot exam: 05/16/22 -Last microalbumin 10/09/17 UACR 53, microalbuminuria -Last lipid profile: 08/23/21 TC 162; TG 107; HDL 41; LDL 101; -Last dental exam: ? -Follow up in 3 mo or sooner Assessment & Plan (12/31/2022 10:01 AM EDT): - A1C 9.7 % on 12/17/22, 9.4% on 09/09/22, worsened from 7.8% on 05/16/22 - Continue Tresiba 60 units q24h - Continue Novolog to 20 units with each meal - Continue Jardiance 25mg - Continue metformin ER 1000 mg bid Treatment Hx - Previously wide fluctuation in BG with sergio phenomenon. Occasional hypoglycemia, and he is aware of his hypoglycemic symptoms. - Continue working on lifestyle modifications - will ask our pharmacist to troubleshoot -Last eye exam: 01/31/21, no diabetic retinopathy -Last foot exam: 05/16/22 -Last microalbumin 10/09/17 UACR 53, microalbuminuria -Last lipid profile: 08/23/21 TC 162; TG 107; HDL 41; LDL 101; -Last dental exam: ? Assessment & Plan (09/13/2022 12:44 PM EST): - A1C 9.4 % on 09/09/22, worsened from 7.8% on 05/16/22 - Continue Tresiba 60 units q24h - Continue Novolog to 20 units with each meal - Continue Jardiance 25mg - Continue metformin ER 1000 mg bid Treatment Hx - Previously wide fluctuation in BG with sergio phenomenon. Occasional hypoglycemia, and he is aware of his hypoglycemic symptoms. - Our pharmacist, Karl, was able to help pt put on CGM - Continue working on lifestyle modifications -Last eye exam: 01/31/21, no diabetic retinopathy -Last foot exam: 05/16/22 -Last microalbumin 2/8/18 UACR 53, microalbuminuria -Last lipid profile: 08/23/21 TC 162; TG 107; HDL 41; LDL 101; -Last dental exam: ? Metabolic dysfunction-associ ated steatotic liver disease (MASLD) 03/06/2016 Assessment & Plan (10/12/2024 12:21 PM EST): Followed by [facility], last appt in Jul 2022 05/21/[address] showing steatosis and cirrhosis. Avoid hepatotoxic drugs and behaviors. - Last liver test: Jul 2023 - Last US / elastography: Will order - FIB4 index: will order lab - continue working on lifestyle modifications - continue surveillance study Assessment & Plan (12/17/2022 3:55 PM EDT): Followed by [facility], last appt in Jul 2022 05/21/[address] showing steatosis and cirrhosis. Avoid hepatotoxic drugs and behaviors. Assessment & Plan (09/13/2022 12:47 PM EST): Followed by [facility], last appt in Jul 2022 05/21/[address] showing steatosis and cirrhosis. Avoid hepatotoxic drugs and behaviors. Dyslipidemia 07/04/2015 Assessment & Plan (10/05/2024 5:50 PM EST): Last lipid profile: 07/30/23 TC 171; TG 233; LDL 79; HDL 46 Current medication: atorvastatin 20 mg qhs; Euclid 3 1000 mg bid; According to 2013 ACC/AHA guideline, 10-year ASCVD risk is 22 % and high- intensity statin therapy is recommended. Continue atorvastatin at current dose due to Hx transaminitis. - Ordered Lipid Panel with Reflex to Direct LDL 10/05/24 Assessment & Plan (08/17/2023 11:01 AM EST): Last lipid profile: 07/30/23 TC 171; TG 233; LDL 79; HDL 46 Current medication: atorvastatin 20 mg qhs; Euclid 3 1000 mg bid; According to 2013 ACC/AHA guideline, 10-year ASCVD risk is 22 % and high- intensity statin therapy is recommended. Continue atorvastatin at current dose due to Hx transaminitis. Assessment & Plan (03/11/2023 4:24 PM EDT): Last lipid profile: 08/23/21 TC 162; TG 107; HDL 41; LDL 101; Current medication: atorvastatin 20 mg qhs; Euclid 3 1000 mg bid; According to 2013 ACC/AHA guideline, 10-year ASCVD risk is 22 % and high- intensity statin therapy is recommended. Continue atorvastatin at current dose due to Hx transaminitis. Assessment & Plan (09/13/2022 12:45 PM EST): Last lipid profile: 08/23/21 TC 162; TG 107; HDL 41; LDL 101; Current medication: atorvastatin 20 mg qhs; Euclid 3 1000 mg bid; According to 2013 ACC/AHA guideline, 10-year ASCVD risk is 22 % and high- intensity statin therapy is recommended. Continue atorvastatin at current dose due to Hx transaminitis. Hypertension 07/04/2015 Assessment & Plan (10/12/2024 12:18 PM EST): - Goal BP < 140/90 per JNC-8, < 130/80 per ACC/AHA - BP at goal today - Continue working on life style modifications - Continue losartan 12.5 mg; consider placing parameter to prevent symptomatic hypotension - Check BP at home Assessment & Plan (08/17/2023 10:52 AM EST): - Goal BP < 140/90 per JNC-8, < 130/80 per ACC/AHA - BP at goal today - Continue working on life style modifications - Continue losartan 25 mg daily; consider decreasing to 12.5 mg or put parameter if pt develops symptomatic hypotension - Check BP at home - Follow up in 3-6 mo or sooner prn Assessment & Plan (03/11/2023 4:24 PM EDT): - Goal BP < 140/90 per JNC-8, < 130/80 per ACC/AHA - BP at goal today - Continue working on life style modifications - Continue losartan 25 mg daily - Check BP at home - Follow up in 3-6 mo or sooner prn Assessment & Plan (12/17/2022 2:19 PM EDT): - Goal BP < 140/90 per JNC-8, < 130/80 per ACC/AHA - BP at goal today - Continue working on life style modifications - Continue losartan 25 mg daily - Check BP at home - Follow up in 3-6 mo or sooner prn Assessment & Plan (09/13/2022 12:37 PM EST): - Goal BP < 140/90 per JNC-8, < 130/80 per ACC/AHA - BP at goal today - Continue working on life style modifications - Continue losartan 25 mg daily - Check BP at home - Follow up in 3-6 mo or sooner prn Anemia of chronic disease 07/04/2015 Assessment & Plan (10/05/2024 5:52 PM EST): - Ordered CBC auto differential - Ordered Vitamin B12 (Cobalamin) and Folate Panel, Serum Obsessive-compulsive disorder 07/04/2015 Assessment & Plan (10/12/2024 12:30 PM EST): - behavioral health service provider: [facility] Chronic abdominal pain 04/04/2015 Low back pain 04/04/2015 Allergic rhinitis 06/10/2013 Gastroesophageal reflux disease 08/13/2012 Assessment & Plan (10/12/2024 12:19 PM EST): - continue omeprazole Chronic pancreatitis 03/25/2012 Assessment & Plan (10/12/2024 12:22 PM EST): GI specialists: [facility] [place], last seen in Jul 2022 Continue pancreatic enzyme. EUS done by Dr. Garcia on 05/04/15. Dx: chronic pancreatitis. Last seen by Dr. Church at [facility] in Oct 2015. 10/10/15 ERCP done. Normal EGD. Successful biliary sphincterotomy, showing dilated bile duct. Unsuccessful pancreatic cannulation due to anatomy and possibly obstruction. ?pancreas divisum. 11/02/15 MRI showed at least mosderate hepatomegaly, prominent hepatic steatosis, mild splenomegaly, markedly atrophic pancreas with relatively beaded and mildly prominent pancreatic duct, related to chronic pancreatitis. NO definite focal pancreatic lesion is identified. Stable intrahepatic and extrahepatic biliary prominence. s/p cholecystectomy. 1.2 cm right lower pole renal cyst. Bilateraly tiny renal cysts. s/p EGD by Dr. Vargas on 01/02/17. Assessment & Plan (09/13/2022 12:51 PM EST): GI specialists: [facility] [place], last seen in Jul 2022 Continue pancreatic enzyme. EUS done by Dr. Garcia on 05/04/15. Dx: chronic pancreatitis. Last seen by Dr. Church at [facility] in Oct 2015. 10/10/15 ERCP done. Normal EGD. Successful biliary sphincterotomy, showing dilated bile duct. Unsuccessful pancreatic cannulation due to anatomy and possibly obstruction. ?pancreas divisum. 11/02/15 MRI showed at least mosderate hepatomegaly, prominent hepatic steatosis, mild splenomegaly, markedly atrophic pancreas with relatively beaded and mildly prominent pancreatic duct, related to chronic pancreatitis. NO definite focal pancreatic lesion is identified. Stable intrahepatic and extrahepatic biliary prominence. s/p cholecystectomy. 1.2 cm right lower pole renal cyst. Bilateraly tiny renal cysts. s/p EGD by Dr. Vargas on 01/02/17. Vitamin B12 deficiency anemia 03/25/2012 Assessment & Plan (10/05/2024 5:53 PM EST): - Ordered CBC auto differential Anxiety and depression 02/27/2009 Assessment & Plan (10/12/2024 12:32 PM EST): [facility] provider: Misha Awan PHQ9 score 13; GAD7 score 14 on 10/05/24 Continue clonazepam, escitalopram, and trazodone as prescribed Continue counseling with [facility] [facility] Assessment & Plan (03/11/2023 4:24 PM EDT): [facility] provider: Misha Awan Continue clonazepam, escitalopram, and trazodone as prescribed Continue counseling with [facility] [facility] Assessment & Plan (12/31/2022 10:01 AM EDT): [facility] provider: Misha Awan Continue clonazepam, escitalopram, and trazodone as prescribed Continue counseling with [facility] [facility] Assessment & Plan (09/13/2022 12:49 PM EST): [facility] provider: Misha Awan Continue clonazepam, escitalopram, and trazodone as prescribed Hypertriglyceridemia 02/28/2008 Assessment & Plan (10/05/2024 5:48 PM EST): Last lipid profile: 07/30/23 TG 233 Current medication: atorvastatin 20 mg qhs; Euclid 3 1000 mg bid; According to 2013 ACC/AHA guideline, 10-year ASCVD risk is 22 % and high- intensity statin therapy is recommended. Continue atorvastatin at current dose due to Hx transaminitis. Assessment & Plan (08/17/2023 11:00 AM EST): Last lipid profile: 07/30/23 TG 233 Current medication: atorvastatin 20 mg qhs; Euclid 3 1000 mg bid; According to 2013 ACC/AHA guideline, 10-year ASCVD risk is 22 % and high- intensity statin therapy is recommended. Continue atorvastatin at current dose due to Hx transaminitis. Assessment & Plan (03/11/2023 4:24 PM EDT): Last lipid profile: 08/23/21 TC 162; TG 107; HDL 41; LDL 101; Current medication: atorvastatin 20 mg qhs; Euclid 3 1000 mg bid; According to 2013 ACC/AHA guideline, 10-year ASCVD risk is 22 % and high- intensity statin therapy is recommended. Continue atorvastatin at current dose due to Hx transaminitis. Assessment & Plan (09/13/2022 12:46 PM EST): Last lipid profile: 08/23/21 TC 162; TG 107; HDL 41; LDL 101; Current medication: atorvastatin 20 mg qhs; Euclid 3 1000 mg bid; According to 2013 ACC/AHA guideline, 10-year ASCVD risk is 22 % and high- intensity statin therapy is recommended. Continue atorvastatin at current dose due to Hx transaminitis. Resolved Problems Problem Noted Date Diagnosed Date Resolved Date Obesity 02/27/2009 09/09/2022 Encounters Date Type Department Care Team Description 11/07/2024 Refill [facility] [address] [place] [address] Hannah Quijano, ANGELI Type 2 diabetes mellitus with diabetic polyneuropathy, with long-term current use of insulin ([facility]) 11/05/[address] [address] Mae Hall MD [facility] (Boost, glucose control very vanilla 8oz (24/cs)) 11/02/[address] [address] Mae Hall MD may recall 10/22/2024 Travel 10/19/[address] [address] Mae Hall MD Dyslipidemia; Vitamin deficiency 10/13/[address] [address] Jacki Tellez, EMMETT Paperwork/Forms 10/11/2024 Telephone [address] [phone] Jacki Tellez, RN NTTS 10/07/[address] [phone] Mae Hall MD Med Refill 10/05/2024 2:30 PM EST Office Visit [facility] [address] Mae Hall MD Hypertension, unspecified type (Primary Dx); Hypertriglyceridemia; Tobacco use; Dyslipidemia; Other specified diabetes mellitus with hyperglycemia, with long-term current use of insulin ([facility]); Anemia of chronic disease; Anemia due to vitamin B12 deficiency, unspecified B12 deficiency type; Encounter for immunization; Poor dentition; Dietary counseling; Exercise counseling; Overweight; Tubular adenoma of colon; Gastroesophageal reflux disease, unspecified whether esophagitis present; Metabolic dysfunction-associated steatotic liver disease (MASLD); Idiopathic chronic pancreatitis ([facility]/HCC); Type 2 diabetes mellitus with hyperglycemia ([facility]); Type 2 diabetes mellitus with diabetic polyneuropathy, with long-term current use of insulin ([facility]); Type 2 diabetes mellitus with hyperglycemia, with long-term current use of insulin ([facility]); Obsessive-compulsive disorder, unspecified type; Anxiety and depression 10/05/2024 Travel 10/01/2024 Telephone [facility] [address] [place] [phone] Ashley Escobar MA chart prep 09/29/2024 Telephone [facility] [address] [place] [phone] Mae Hall MD [facility] (Boost, glucose control very vanilla 8oz (24/cs)) 09/26/2024 Refill [facility] [address] [place] [phone] Keira Rodriguez MD 09/22/2024 Patient Outreach [address] [phone] Mae Hall MD Care Coordination (CHW outreach for SDOH PT-1 and food needs-LVM ) 09/21/2024 Patient Outreach [address] [phone] Mae Hall MD Pre-visit Planning (SDOH Screening positive and Tobacco screening negative) 08/26/2024 Refill [facility] [address] [place] [address] [phone] Mae Hall MD Type 2 diabetes mellitus with diabetic polyneuropathy, with long-term current use of insulin ([facility]) 08/20/2024 Refill [facility] [address] [place] [address] [phone] Mae Hall MD Dyslipidemia 08/13/[address] [phone] Jacki Tellez, EMMETT Paperwork/Forms from Last 3 Months Immunizations Name Administration Dates Next Due Hep A, Adult 01/17/2014,01/18/2013 Hep B, adult 01/17/2014,08/05/2013,01/18/2013 Influenza injectable quadriv alent IIV4 with preservative 06/03/2016,05/26/2015 Influenza injectable quadriv alent preservative free 01/16/2024(Deferred: Patient Refused - Reports negative experience- inneffective),07/02/2017 Influenza, IIV3, injectable 05/31/2014,0 04/29/2011,04/26/2010,05/10,10/03/2008 Influenza, Split (incl. kathy fied surface antigen) 06/10/2013,06/16/2012 Moderna Covid-19 Vaccine 12+ 01/16/2024( Deferred: Patient decision - Not interested in further vaccination from COVID-19),12/01/2020,11/03/2020 Pfizer Covid-19 Vaccine 12+ 10/05/2024 Pneumococcal Conjugate PCV 20 08/04/2023 Pneumococcal Polysaccharide PPSV23 05/22,08/16/2014,01/03/2010,11/22 TD (adult), 2 Lf tetanus tox oid, preservative free, adsorbed 10/03/2008 Tdap 07/30/2023,03/25/2012,10/08/2011 Zoster, Recombinant 07/30/2023,04/18/2023 Family History Medical History Relation Name Comments Depression Brother 1 Depression Brother 2 suicide Heart attack Brother 3 Coronary artery disease Father Diabetes Father Heart attack Maternal Grandfather Breast cancer Mother Diabetes Mother Glaucoma Mother complete heart block Mother Relation Name Status Comments Brother 1 Brother 2 Brother 3 Alive Father Maternal Grandfather Mother Social History Tobacco Use Types Packs/Day Years Used Date Smoking Tobacco: Some Days Cigarettes Smokeless Tobacco: Never Tobacco Cessation:Ready to Q uit: Not Asked; Counseling Given: Not Answered Alcohol Use Standard Drinks/Week Comments Never 0 [...] Orientation Straight 07/01/2022 10 :19 AM EDT Last Filed Vital Signs Vital Sign Reading Time Taken Comments Blood Pressure 138/72 10/22/2024 3:46 PM EST Pulse 78 10/22/2024 3:46 PM EST Temperature 36.1 ??C (96.9 ??F) 10/05/2024 3:01 PM ES T Respiratory Rate 20 10/05/2024 3:01 PM EST Oxygen Saturation 100% 10/05/2024 3:01 PM EST Inhaled Oxygen Concentration - - Weight 83.4 kg (183 lb 12.8 oz) 10/05/2024 3:01 PM EST Height 171.6 cm (5' 7.56 ) 10/05/2024 3:01 PM ES T Body Mass Index 28.31 10/05/2024 3:01 PM EST Plan of Treatment Upcoming Encounters Date Type Department Care Team (Late st Contact Info) Description 11/15/2024 1:00 PM EDT Medication Management [facility] [address] [place] [address] Connor Bergeron, PharmD [address] [place] [address] 01/31/2025 1:30 PM EDT Office Visit [facility] [address] [place] [address] Maria Alejandra Guerrero, OD [address] [place] [address] Health Maintenance Due Date Last Done Comments CT Colonography 1969 FIT DNA/Cologuard 1969 FIT 1969 FOBT 1969 Sigmoidoscopy 1969 Diabetes: Foot Exam 1979 Dental Oral Exam 12/24/2017 06/24/2017, 03/2017, 11/22/2015, Additional history exists Dental Prophylaxis 06/27/2018 12/25/2017, 1 , 12/20/2016, Additional history exists Dental X-Ray: Bitewings 09/23/2019 09/22/19 19, 06/02/2017, 11/05/2016, Additional history exists Influenza Vaccine (#1) 2024 7, 06/03/2016, 05/26/2015, Additional history exists Diabetes: Urine Protein Screening 07/30/2024 07/30/2023, 08/23/2021 Lipid Panel 07/30/2024 07/30/2023, 08/23/2021 Diabetes: Hemoglobin A1C 01/02/2025 025, 01/14/2024, 08/04/2023, Additional history exists Depression Monitoring (PHQ-9) 04/04/2025 10/05/2024, 10/05/2024 Colonoscopy 07/01/2025 07/01/2022 Colorectal Cancer Screening 07/01/2025 Eye Exam 07/16/2025 07/16/2023, 07/02, 07/16/2023, Additional history exists SDOH Screening 09/21/2025 09/21/2024 Alcohol/Substance Use Screening 10/05/2025 10/05/2024 Depression Screening 10/05/2025 10/05/2024, 10/05/19 Tobacco Screening 10/05/2025 10/05/2024 Dental X-Ray: Full Mouth 08/06/2026 023, 11/05/2016, 11/05/2016 DTaP/Tdap/Td Vaccines (4 - Td or Tdap) 07/30/2033 07/30/2023, 03/25/2012, 10/08/2011, Additional history exists RSV Patients and Patients Aged 60 years or older (1 - 1-dose 75+ series) 01/24/2044 Hepatitis A Vaccines Completed 01/17/2014, 01/19/20 Hepatitis B Vaccines Completed 01/17/2014, 08/05/2013, 01/18/2013 HIV Screening Completed 07/30/2023, 08/23/2021 Hepatitis C Screening Completed 07/30/2023, 021 Zoster Vaccines Completed 07/30/2023, 04/18/2023 Pneumococcal Vaccine: 50+ Years Completed 08/04/2023, 05/22/2015, 08/16/2014, Additional history exists COVID-19 Vaccine Completed 10/05/2024, 10/2020, 11/03/2020 HIB Vaccines Aged Out No longer eligi ble based on patient's age to complete this topic HPV Vaccines Aged Out No longer eligi ble based on patient's age to complete this topic IPV Vaccines Aged Out No longer eligi ble based on patient's age to complete this topic Meningococcal Vaccine Aged Out No fernando omar eligible based on patient's age to complete this topic RSV under 20 months Aged Out No longe r eligible based on patient's age to complete this topic Rotavirus Vaccines Aged Out No longer eligible based on patient's age to complete this topic Goals Goal Patient Goal Type Associated Problems Recent Progress Patient-Stated? Author Blood Pressure < 140/90 Blood Pressure 138/72(2024 3:46 PM EST) No Connor Bergeron PharmD Hemoglobin A1c < 7 Result Component 9.4( 3:03 PM EST) No Connor Bergeron PharmD Procedures Procedure Name Priority Date/Time Associated Diagnosis Comments US ABDOMEN COMPLETE WITH ELASTOGRAPHY Routine 11/11/2024 10:38 AM EDT Metabolic dysfunction-associa mook steatotic liver disease (MASLD) POCT GLYCOSYLATED HEMOGLOBIN (HGB A1C) Routine 10/05/2024 3:03 PM EST Other specified diabetes mellitus with hyperglycemia, with long-term current use of insulin ([facility]) POCT GLUCOSE Routine 10/05/2024 3:02 PM EST Other specified diabetes mellitus with hyperglycemia, with long-term current use of insulin (CMS/HCC) PANORAMIC RADIOGRAPHIC IMAGE Routine 08/05/2023 11:30 AM EST Periodontal disease Severe dental caries HEPATITIS C ANTIBODY Routine 07/30/2023 10:11 AM EST Routine screening for STI (sexually transmitted infection) HIV 1/2 ANTIGEN/ANTIBODY, FOURTH GENERATION W/RFL Routine 07/30/2023 10:11 AM EST Routine screening for STI (sexually transmitted infection) LIPID PANEL WITH REFLEX TO DIRECT LDL Routine 07/30/2023 10:11 AM EST Type 2 diabetes mellitus with hyperglycemia, with long-term current use of insulin (CMS/HCC) ALBUMIN, RANDOM URINE W/CREATININE Routine 07/30/2023 10:06 AM EST Type 2 diabetes mellitus with hyperglycemia, with long-term current use of insulin (CMS/HCC) HM COLONOSCOPY Routine 07/01/2022 BITEWING - SINGLE RADIOGRAPHIC IMAGE Routine 09/22/2018 12:00 AM EST PROPHYLAXIS - ADULT Routine 12/25/2017 1 2:00 AM EDT PERIODIC ORAL EVALUATION - ESTABLISHED PATIENT Routine 06/24/2017 12:00 AM EDT from Last 3 Months or Most Recently Relevant to Health Maintenance Results * US Abdomen Comp w elastography (11/11/2024 10:38 AM EDT) Anatomical Region Laterality Modality Abdomen Ultrasound 11/11/2024 10:3 8 AM EDT Narrative 11/11/2024 11:47 AM EDT ? [facility] ?[address] ?[place] [address] ? Ultrasound Report ? Signed ? Patient: Celis,David ?MR#: [id number] ?? 6 ? : 1970 ?Acct:[id number] ? Age/Sex: 54 / M ?ADM Date: 03/13/25 ? Loc: HO.US ? Attending Dr: Mae Hall MD ? Ordering Physician: Mae Hall MD ?? Date of Service: 11/11/24 ?? Procedure(s): US abdomen comp w elastography ?? Accession Number(s): [id number] ? cc: Mae Hall MD ? EXAMINATION: ??US ABDOMEN COMPLETE WITH LIVER ELASTOGRAPHY ? HISTORY: MASLD ? TECHNIQUE: Real-time grayscale ultrasound imaging of the abdomen was ?? performed and images were reviewed. ? COMPARISON: Comparison is made with the prior examination dated ?? 06/03/2018. ? FINDINGS: ?? Liver: ??The right lobe of the liver measures 13.5 cm in size. The left ?? lobe of the liver measures 9.3 cm in size. The liver demonstrates ?? increased echotexture, consistent with steatosis. ??No focal mass or ?? intrahepatic biliary ductal dilatation is identified. ??There is normal ?? hepatopedal flow in the portal vein. ? Ultrasound elastography of the liver was performed with 10 separate ?? measurements of the liver parenchyma with the patient in the supine ?? position. ??Measurements were obtained approximately 2 cm below ?? Mary's capsule and perpendicular to the capsule. ??Images are of ?? satisfactory quality. ? The median shear wave velocity is 1.53 m/s. ?? The interquartile range/median (IQR/median) is 0.06. ? Gallbladder and biliary tree: The gallbladder is surgically absent. ? The common bile duct is normal in caliber measuring 8 mm. ? Kidneys: ??The right kidney measures 11.1 cm in length and demonstrates ?? a lower pole cyst measuring 1.0 x 1.5 x 1.3 cm. The left kidney ?? measures 11.3 cm in length. ??The kidneys are otherwise unremarkable, ?? without evidence of solid masses, hydronephrosis, or calculi. ? Pancreas: The pancreatic head, neck, and body are unremarkable. The ?? pancreatic tail is obscured by bowel gas. ? Spleen: The spleen is normal in size and contour, measuring 11.6 cm in ?? length. ? Abdominal aorta and inferior vena cava: The visualized portions of the ?? abdominal aorta and inferior vena cava are normal in caliber. ? There is no free fluid in the abdomen. ? US/US abdomen comp w elastography ?? IMPRESSION: ? Hepatic steatosis. ? The median shear wave velocity in the liver is 1.53 m/s, corresponding ?? to a median liver stiffness of 7.39 kPa. ??The IQR/median value is 0.06. ?? This is indicative of a quality data set. ?? Findings are indicative of a low elastography value which rules out ?? advanced chronic liver disease in asymptomatic patients. ? REFERENCE: ?? Society of Radiologists in Ultrasound Liver Stiffness Thresholds (2019): ? LIVER STIFFNESS THRESHOLDS: ?? *Shear wave velocity less than 1.3 m/s (Liver Stiffness equal or less ?? than 5 kPa): ??High probability of being normal. ?? *Shear wave velocity less than 1.7 m/s (Liver Stiffness less than 9 ?? kPa): ??In the absence of other known clinical signs, rules out ?? compensated advanced chronic liver disease. ?? *Shear wave velocity between 1.7-2.1 m/s (Liver Stiffness 9-13 kPa): ? Suggestive of compensated advanced chronic liver disease but need ?? further test for confirmation. ?? *Shear wave velocity between 2.1-2.4 m/s (Liver Stiffness 13-17 kPa): ? Rules in compensated advanced chronic liver disease. ?? *Shear wave velocity ??greater than 2.4 m/s (Liver Stiffness over 17 ?? kPa): ??Suggestive of clinically significant portal hypertension. ? QUALITY OF DATA SET: ?? *IQR/Median value equal or less than 0.15 implies a quality data set. ?? *IQR/Median value over 0.15 implies a poor quality data set. ? SIGNIFICANT CHANGE FROM PRIOR EXAM: ?? Significant change if liver stiffness measurement is 10% or greater ?? from prior exam. ? OTHER CONSIDERATIONS: ?? The stage of liver fibrosis may be overestimated in the setting of ?? acute hepatitis, liver inflammation, elevated liver function tests, ?? hepatic vascular congestion, obstructive cholestasis, non-fasting ?? state, and infiltrative diseases such as amyloidosis and lymphoma. ??In ?? some patients with NAFLD, the liver stiffness thresholds for ?? compensated advanced chronic liver disease may be lower. ??In causes ?? other than viral hepatitis and NAFLD, liver stiffness thresholds are ?? not well established. ? Electronically signed by: ??James Tineo MD ??11/11/2024 11:44 AM EDT ?? RP ? Dictated By: ?James Tineo MD ? Signed By: ?<Electronically signed by James Tineo MD in OV> ?11/11/24 1144 ? DD/ 1038 ? TD/TT: 11/11/24 1056 ? Welcome Wagon Host/Hostess: ? Procedure Note Donotuseinterpreter, Image - 11/11/2024 [place] [id number] Ultrasound Report Signed Patient: Jose Alfredo Celis RMR#: [id number] 6 : 1970Acct:[id number] Age/Sex: 54 / MADM Date: 11/11/24 Loc: HO.US Attending Dr: Mae Hall MD Ordering Physician: Mae Hall MD Date of Service: 11/11/24 Procedure(s): US abdomen comp w elastography Accession Number(s): [id number] cc: Mae Hall MD EXAMINATION: US ABDOMEN COMPLETE WITH LIVER ELASTOGRAPHY HISTORY: MASLD TECHNIQUE: Real-time grayscale ultrasound imaging of the abdomen was performed and images were reviewed. COMPARISON: Comparison is made with the prior examination dated 06/03/2018. FINDINGS: Liver: The right lobe of the liver measures 13.5 cm in size. The left lobe of the liver measures 9.3 cm in size. The liver demonstrates increased echotexture, consistent with steatosis. No focal mass or intrahepatic biliary ductal dilatation is identified. There is normal hepatopedal flow in the portal vein. Ultrasound elastography of the liver was performed with 10 separate measurements of the liver parenchyma with the patient in the supine position. Measurements were obtained approximately 2 cm below Mary's capsule and perpendicular to the capsule. Images are of satisfactory quality. The median shear wave velocity is 1.53 m/s. The interquartile range/median (IQR/median) is 0.06. Gallbladder and biliary tree: The gallbladder is surgically absent. The common bile duct is normal in caliber measuring 8 mm. Kidneys: The right kidney measures 11.1 cm in length and demonstrates a lower pole cyst measuring 1.0 x 1.5 x 1.3 cm. The left kidney measures 11.3 cm in length. The kidneys are otherwise unremarkable, without evidence of solid masses, hydronephrosis, or calculi. Pancreas: The pancreatic head, neck, and body are unremarkable. The pancreatic tail is obscured by bowel gas. Spleen: The spleen is normal in size and contour, measuring 11.6 cm in length. Abdominal aorta and inferior vena cava: The visualized portions of the abdominal aorta and inferior vena cava are normal in caliber. There is no free fluid in the abdomen. US/US abdomen comp w elastography IMPRESSION: Hepatic steatosis. The median shear wave velocity in the liver is 1.53 m/s, corresponding to a median liver stiffness of 7.39 kPa. The IQR/median value is 0.06. This is indicative of a quality data set. Findings are indicative of a low elastography value which rules out advanced chronic liver disease in asymptomatic patients. REFERENCE: Society of Radiologists in Ultrasound Liver Stiffness Thresholds (2020): LIVER STIFFNESS THRESHOLDS: *Shear wave velocity less than 1.3 m/s (Liver Stiffness equal or less than 5 kPa): High probability of being normal. *Shear wave velocity less than 1.7 m/s (Liver Stiffness less than 9 kPa): In the absence of other known clinical signs, rules out compensated advanced chronic liver disease. *Shear wave velocity between 1.7-2.1 m/s (Liver Stiffness 9-13 kPa): Suggestive of compensated advanced chronic liver disease but need further test for confirmation. *Shear wave velocity between 2.1-2.4 m/s (Liver Stiffness 13-17 kPa): Rules in compensated advanced chronic liver disease. *Shear wave velocity greater than 2.4 m/s (Liver Stiffness over 17 kPa): Suggestive of clinically significant portal hypertension. QUALITY OF DATA SET: *IQR/Median value equal or less than 0.15 implies a quality data set. *IQR/Median value over 0.15 implies a poor quality data set. SIGNIFICANT CHANGE FROM PRIOR EXAM: Significant change if liver stiffness measurement is 10% or greater from prior exam. OTHER CONSIDERATIONS: The stage of liver fibrosis may be overestimated in the setting of acute hepatitis, liver inflammation, elevated liver function tests, hepatic vascular congestion, obstructive cholestasis, non-fasting state, and infiltrative diseases such as amyloidosis and lymphoma. In some patients with NAFLD, the liver stiffness thresholds for compensated advanced chronic liver disease may be lower. In causes other than viral hepatitis and NAFLD, liver stiffness thresholds are not well established. Electronically signed by: James Tineo MD 11/11/2024 11:44 AM EDT Dictated By: James Tineo MD Signed By: <Electronically signed by James Tineo MD in OV> 11/11/24 1144 DD/ 1038 TD/TT: 11/11/24 1056 Welcome Wagon Host/Hostess: Mae Hall MD [facility] US PROCEDURES Edited Result - Final * (ABNORMAL) POCT glycosylated hemoglobin (Hgb A1c) (10/05/2024 3:03 PM EST) Pathologist [facility] Hemoglobin A1C 9.4(A) 4.0 - 6.0 % QC Media Lot # [id number] Lot# Expiration Date Blood Capillary blood specimen / Unknown 10/05/2024 3:03 PM EST Mae Hall MD POINT OF CARE TEST ENTER/EDIT OR DERABLES Final Result * (ABNORMAL) POCT glucose manually resulted (10/05/2024 3:02 PM EST) Pathologist [facility] Glucose Blood, POC 385(A) 60 - 200 mg/dL QC Media Lot # [id number] Lot# Expiration Date 816 Blood Capillary blood specimen / Unknown 10/05/2024 3:02 PM EST Mae Hall MD POINT OF CARE TEST ENTER/EDIT OR DERABLES Final Result * Hepatitis C Ab (07/30/2023 10:11 AM EST) Hepatitis C Antibody Nonreactive Nonreactive [facility] Comment:Antibodies to HCV no t detected; does not exclude early acuteHCV infection. Blood 07/30/2023 10:1 1 AM EST 07/30/2023 11:19 AM EST us Mae Hall MD LAB BLOOD ORDERABLES Final Resul t Performing Organization Address [facility] de Phone Number [facility] [address] [place] [phone] * (ABNORMAL) Lipid Panel with Reflex to Direct LDL (07/30/2023 10:11 AM EST) Triglycerides 233(H) <150 mg/dL [facility] Comment:Desirable Triglyceri de: less than 150 mg/dLBorderline High Triglyceride 150-199 mg/dLHigh Triglyceride: 200-499 mg/dLVery High Triglyceride: greater than or equal to 5OO mg/dL Cholesterol 171 <200 mg/dL [facility] Comment:Desirable Cholestero l: less than 200 mg/dLBorderline High Cholesterol: 200-239 mg/dLHigh Cholesterol: greater than 239 mg/dL LDL Cholesterol Calculated 79 <100 mg/dL [facility] Comment:Desirable LDL: less than 100 mg/dLNear Optimal/Above Optimal LDL: 110- 129 mg/dLBorderline High LDL: 130-159 mg/dLHigh LDL: 160-189 mg/dLVery High LDL: greater than or equal to 190 mg/dL HDL Cholesterol 46 >40 mg/dL [facility] Comment:Desirable HDL: great er than 40 mg/dL Note: This HDL assay may give artificially low results in patients with liver disease. Blood 07/30/2023 10:1 1 AM EST 07/30/2023 11:19 AM EST us Mae Hall MD LAB BLOOD ORDERABLES Final Resul t Performing Organization Address [facility] Co de Phone Number [facility] [address] [place] [phone] * HIV-1/2 Antigen and Antibodies, Fourth Generation, with Reflexes (07/30/2023 10:11 AM EST) HIV AB/AG Nonreactive Nonreactive [facility] Comment:HIV-1 p24 Ag and/or HIV-1/HIV-2 Ab not detected.A test result that is nonreactive does not exclude thepossibility of exposure to or infection with HIV-1 and/orHIV-2. Nonreactive results in this assay for individualswith prior exposure to HIV-1 and/or HIV-2 may be due toantigen and antibody levels that are below the limit ofdetection of this assay.The [employer] HIV Ag/Ab Combo assay result andsupplemental assay results should be interpreted inconjunction with the patient's clinical presentation,history and other laboratory results. If the results areinconsistent with clinical evidence, additional testing issuggested to confirm the result. Blood Venous blood specimen / Unknown 07/30/2023 10:11 AM EST 07/30/2023 11:19 AM EST us Mae Hall MD LAB BLOOD ORDERABLES Final Resul t Performing Organization Address City/[facility] Co de Phone Number [facility] [address] [place] [phone] * (ABNORMAL) Albumin, Random Urine W/Creatinine (07/30/2023 10:06 AM EST) Creatinine, Urine 188.87 mg/dL [facility] Microalbumin Urine 68.0 mg/L [facility] Microalbum Creatinine Ratio Ur 36.0(H) <30 ug/mg cr [facility] Comment:Albumin/Creatinine R atio Reference Ranges: Normal: < 30 ug/mg creatinine Microalbuminuria: 30 - 300 ug/mg creatinineClinical Albuminuria: > 300 ug/mg creatinine Urine 07/30/2023 10:0 6 AM EST 07/30/2023 11:18 AM EST us Mae Hall MD LAB URINE ORDERABLES Final Resul t Performing Organization Address City/[facility]/ZIP Co de Phone Number [facility] [address] [place] [phone] * (ABNORMAL) Colonoscopy (07/01/2022) Colonoscopy Abnormal(A ) Normal Mae Hall MD HEALTH MAINTENANCE Edited Result - Final from Last 3 Months or Most Recently Relevant to Health Maintenance Insurance [employer] PPO [facility] AD[facility] Care Teams Book Salesman Relationship Specialty Start Date End Date Mae Hall MD [address] [place] [address] PCP - General Family Medicine 09/01/18 Connor Bergeron, PharmD [address] [place] [phone] Pharmacist Internal Medicine 07/04/23
== END 2024-11-11 10:27 | disposition home or self-care (01) ==
LOC: HO.US 10:26
PROVIDERS: PCP Family Medicine; Visit Provider Family Medicine
DX: K76.0 Fatty (change of) liver, not elsewhere classified (principal)
CPT/HCPCS: 76700; 76981

== ENCOUNTER → 2024-11-11 10:27 | Outpatient (BNV) | payer MEDICARE, MEDICAID, SELFPAY | PROVIDERS: PCP Family Medicine; Visit Provider Radiology Diagnostic Radiology | DX: K76.0 Fatty (change of) liver, not elsewhere classified (principal) | CPT/HCPCS: 76700 ==

== ENCOUNTER 2024-11-30 10:22 | Outpatient (REF) | payer MEDICARE, MEDICAID, SELFPAY ==
[2024-11-30 11:27] LABS: MANUAL DIFF FLAG NO
[2024-11-30 11:33] LABS: Basophils Percent Auto 0.4 % (0-2); Eosinophils Absolute Auto 0.2 X10*3/uL (0.0-0.4); Eosinophils Percent Auto 2.4 % (0-4); Hematocrit 41.2 % (42.0-52.0); Hemoglobin 13.7 g/dl (14.0-18.0); Imm Gran Abs Auto 0.03 X10*3/uL (0.00-0.03); Imm Gran Pct Auto 0.4 % (0.0-0.4); Lymphocytes Absolute Auto 2.5 X10*3/uL (1.2-4.9); Lymphocytes Percent Auto 34.9 % (20-40); Mean Corpuscular HGB Conc 33.3 g/dl (31.0-36.0); Mean Corpuscular Hemoglobin 29.6 pg (27.0-33.0); Mean Platelet Volume 10.3 fL (9.4-12.4); Monocytes Absolute Auto 0.6 X10*3/uL (0.1-1.2); Monocytes Percent Auto 8.4 % (2-11); Neutrophils Absolute Auto 3.9 x10*3/uL (2.0-8.3); Neutrophils Percent Auto 53.5 % (45-73); Platelet Count 182 X10*3/uL (160-400); Red Blood Count 4.63 X10*6/uL (4.60-5.80); Red Cell Distribution Width 13.3 % (11.0-16.0); White Blood Count 7.2 X10*3/uL (4.8-10.8)
[2024-11-30 12:00] LABS: Creatinine Urine 129.79 mg/dL; Microalbum/Creatinine Ratio Ur 52.3 ug/mg cr (<30)
[2024-11-30 12:12] LABS: Alanine Aminotransferase 22 U/L (0-40); Albumin Level 4.1 g/dL (3.5-5.0); Alkaline Phosphatase 76 U/L (39-117); Anion Gap 9 (12-20); Aspartate Amino Transferase 17 U/L (5-37); Bilirubin Total 0.3 mg/dL (0.0-1.0); Blood Urea Nitrogen 22 mg/dL (9-16); Calcium 9.4 mg/dL (8.4-10.2); Carbon Dioxide 26 mmol/L (22-29); Chloride 108 mmol/L (96-108); Cholesterol 131 mg/dL (<200); Estimated Glomerular Filt Rate > 60; Glucose Random 280 mg/dL (60-115); HDL Cholesterol 38 mg/dL (>40); LDL Cholesterol Calculated 63 mg/dL (<100); Potassium 4.8 mmol/L (3.3-5.1); Sodium 138 mmol/L (135-145); TSH reflex Free T4 3.08 uIU/mL (0.32-4.0); Total Protein 7.2 g/dL (6.5-8.0); Triglycerides 154 mg/dL (<150)
[2024-11-30 12:15] LABS: Folate 7.9 ng/mL (> or = 4.0); Vitamin B12 323 pg/mL (200-900)
--- OUTSIDE RECORDS SUMMARY | 2024-11-30 12:16 | XMS_ITS | Continuity of Care Document ---
Author Organization [facility] Address [address] [place] [id number]- Care Team Providers Care Tack Puller Name Role Phone Rafael MCLEAN, Mae Primary Care Physician [phone] [id number] Date[facility]s): 07/31/24 - 11/28/24 [facility] [address] [place] [id number] Attending Physician: Juanita Alegria MD Admitting Physician: Juanita Alegria MD Encounter Type: Pre-OutPatient One Time Allergies, Adverse Reactions, Alerts No Known Allergies [...] 07/15/23 Status: Ordered Repeat number: 1 [facility] [place] [facility] [place] [facility], TEST BLOOD SUGAR THREE TIMES [...] Refills, Soft Stop, 08/01/24 6:39:00 PM EST, [facility]/pharmacy #[id number], Dx: E11.9, 170, cm, 07/30/24 10:00:00 [...] 3 Refills, Maintenance, 10/19/24 9:11:00 AM EST, [facility], 170, cm, 07/30/24 10:00:00 EST, Height, 63.3, kg, :52:00 EDT, Dry Weight Start Date: 10/19/24 Status: Ordered Quantity: 360.0 Unit: tablet Repeat number: 1 NovoLOG FlexPen 100 units/mL injectable solution See Instructions, subcutaneous injection 3 times a day before meals per sliding scale. max daily dose 72 units E11.9, # 30 mL, 11 Refills, Maintenance, 10/10/24 11:16:00 AM EST, [facility]/pharmacy #[id number], Partial fill upon patient request if the [...] 07/15/23 Status: Ordered Repeat number: 1 Pen [place], 31 G x 5 mm BD Ultra [...] 11 Refills, Maintenance, 09/22/24 3:39:00 PM EST, [facility], 170, cm, 07/30/24 10:00:00 [...] ( severe disability ) on 05/05/15; initial [place]:8 on 05/05/15 3SOAPP-R: 35 on 05/05/15 4Left shoulder surgery 1990s 5x 2 Social History Social History Type Response Smoking Status Former smoker, quit more than 30 days ago entered on: 07/15/23 Sex Sex Representation Male (finding) Patient Care team information Care Team Personnel Name: Jena Caceres RN Position: [facility] RN Member Role: Primary Care Nurse Name: Adriane Garnica RN Position: [facility] RN Member Role: Primary Care Nurse Name: Subha Meier RN Position: [facility] RN Member Role: Primary Care Nurse Name: Pita Gama CNM Position: [facility] Distribution Systems Superintendent Member Role: Primary Care Nurse Address: [address] [place] [address]- Telecom: Name: Mae Hall MD Position: [facility] Outreach Member Role: PCP Address: [address] [place] [address]- Telecom: Name: Alessandro Jacobo RN Position: [facility] RN Member Role: Primary Care Nurse Care Team Related Persons Name: CEASARRED Name: DILAN STRATTON Insurance Providers Guarantor name: VAUGHN CARDENAS Health Plan Information #: 2 Payer: [employer] MEDICARE ADV HMO Member Number: [id number] Policy Number: NA Group Number: NA Health Plan Information #: 4 Payer: [employer] MEDICARE ADV PPO Member Number: NA Policy Number: [place] Group Number: AL[place]SON Health Plan Information #: 3 Payer: MEDICARE PART B OUTPT Member Number: [id number] Policy Number: ALISSON Group Number: ALISSON Health Plan Information #: 1 Payer: NA Member Number: [id number] Policy Number: ALISSON Group Number: NA
--- OUTSIDE RECORDS SUMMARY | 2024-11-30 12:16 | XMS_ITS | Encounter Summary ---
Author Organization [employer] Address [address] [place] [address] Care Team Providers Care Warrant Clerk Name Role Phone Mae Hall MD Primary Care Provider [phone] Connor Bergeron PharmD Unavailable [phone] Reason for Visit * Reason Onset Date Comments Med Refill 10/07/2024 Encounter Details Date Type Department Care Team (Late st Contact Info) Description 10/07/2024 Telephone [facility] MEDICINE [address] [place] [address] Mae Hall MD [address] [place], [place] [id number] Med Refill Social History Tobacco Use Types [...] prescribed by PCP. * Telephone Encounter - Tomy Santana - 10/07/2024 3:21 PM EST TC from pt requesting medication refill. Medications needing refill : insulin aspart (NovoLOG FLEXPEN) 100 UNIT/ML pen To be sent to: [facility] *pt states out of the medication documented in this encounter Plan of Treatment Upcoming Encounters Date Type Department Care Team (Late st Contact Info) Description 12/03/2024 1:00 PM EDT Medication Management [facility] [address] [place] [address] Connor Bergeron, PharmD [address] [place] [address] 12/09/2024 10:00 AM EDT Office Visit [facility] CHC ADULT DENTAL [address] [place] [address] Rolando Kahn DMD [address] [place] [address] 01/31/2025 1:30 PM EDT Office Visit [facility] OPTOMETRY [address] [place] [address] Maria Alejandra Guerrero, OD [address] [place] [address] documented as of this encounter Goals Goal Patient Goal Type Associated Problems Recent Progress Patient-Stated? Author Blood Pressure < 140/90 Blood Pressure 144/70(2024 1:14 PM EDT) No Connor Bergeron PharmD Hemoglobin A1c < 7 Result Component 9.4( 3:03 PM EST) No Connor Bergeron PharmD documented as of this encounter Visit Diagnoses Diagnosis Type 2 diabetes mellitus with hyperglycemia, with long-term current use of insulin ([facility]) documented in this encounter Additional Health Concerns Assessment Noted Time PHQ-9 Depression Total Score: 13 10/05/ 025 3:49 PM EST documented as of this encounter Care Teams Warrant Clerk Relationship Specialty Start Date End Date Mae Hall MD [address] [place] [address] PCP - General Family Medicine 09/01/18 Connor Bergeron, Michael [address] [place] [address] Pharmacist Internal Medicine 07/04/23 documented as of this encounter
--- OUTSIDE RECORDS SUMMARY | 2024-11-30 12:16 | XMS_ITS | Clinical Summary ---
Author Organization [facility] [facility] [employer] Address [address] [place] [address] Care Team Providers Care Automobile Or Truck Rental Dispatcher Name Role Phone Mae Hall MD Primary Care Provider [phone] Connor Bergeron PharmD Unavailable [phone] Allergies No known active allergies Medications clonazePAM (KlonoPIN) 1 MG tablet Take 1 tablet three times daily as needed Active escitalopram (Lexapro) 20 MG tablet Take 1 tablet by mouth in the morning Active traZODone (Desyrel) 150 MG tablet Take 1 tablet by mouth at bedtime as needed 023 Active insulin aspart (NovoLOG FLEXPEN) 100 UNIT/ML penIndications: Type 2 diabetes mellitus with hyperglycemia, with long-term current use of insulin ([facility]) Administer insulin per sliding scale, 8-22 units with breakfast, lunch and dinner. Avoid administering insulin within 2 hours from the last dose. 15 mL 2 023 Active Additional Information Patient taking differently: Administer insulin per sliding scale, 11-25 units with breakfast, lunch and dinner. Avoid administering insulin within 2 hours from the last dose., Reason: Other (Instructions from Securities Supervisor 07/15/2023), Reported on 08/05/2023 glucagon (Baqsimi One Pack) 3 MG/DOSE nasal powder 3 mg actuation In one nostril as needed;?may repeat in 15 minutes alternate nostrils Active insulin degludec (Tresiba FlexTouch) 100 UNIT/ML injection Inject 30 Units under the skin. Active metFORMIN XR (Glucophage-XR) 500 MG 24 [...] THE EVENING 180 capsule 3 024 Active omega-3 (Fish Oil) 1000 MG capsuleIndicati ons:Dyslipidemi a TAKE 2 CAPSULES BY MOUTH TWICE DAILY AT NOON AND BEDTIME 120 capsule 11 024 Active Creon [id number] units capsule TAKE 2 CAPSULES BY MOUTH THREE TIMES DAILY IN THE MORNING, AT NOON, AND IN THE EVENING AND TAKE 1 CAPSULE WITH SNACK 200 capsule 2 025 Active Alcohol Swabs (Alcohol Prep) 70 % padsIndications :Type 2 diabetes mellitus with diabetic polyneuropathy, with long-term current use of insulin (CMS/HCC) TEST BLOOD SUGAR 3 TIMES DAILY and NEEDED 100 each 1 025 Active atorvastatin (Lipitor) 20 MG tabletIndicatio [...] current use of insulin (CMS/HCC) 1 Device every 15 days. Use daily to monitor blood glucose. Change every 15 days as directed. 2 each 5 025 Active Continuous Glucose Traffic Reporter (FreeStyle Doug 3 [place]) deviceIndicatio ns:Type 2 diabetes mellitus with hyperglycemia, with long-term current use of insulin (CMS/HCC) 1 Device Once per day. Use as directed to monitor blood glucose 1 each 025 Active Lancet Devices (Lancing Device) miscIndications :Type 2 diabetes mellitus with hyperglycemia, with long-term current use of insulin (CMS/HCC) 1 Device Once per day. 1 each 025 Active BD Pen Needle Ailin U/F 32G X 4 MM miscIndications :Type 2 diabetes mellitus with diabetic polyneuropathy, with long-term current use of insulin (CMS/[facility]) USE DIRECTED TO TEST BLOOD SUGAR FIVE TIMES DAILY 100 each 11 025 Active Blood Glucose Monitoring Suppl (OneTouch Verio) w/Device kitIndications: Type 2 diabetes mellitus with hyperglycemia ([facility]) Use to test blood sugar three times daily as needed for hypoglycemia and sensor failure 1 kit 025 Active glucose blood (OneTouch Verio) test stripIndication s:Type 2 diabetes mellitus with hyperglycemia ([facility]) Use to test blood sugar three times daily as needed for hypoglycemia and sensor failure 100 each 11 025 2025 Active OneTouch Delica Lancets 33G miscIndications :Type 2 diabetes mellitus with hyperglycemia ([facility]) Use to test blood sugar three times daily as needed for hypoglycemia and sensor failure 100 each 11 025 Active losartan (Cozaar) 25 MG tablet TAKE 1/2 TABLET BY MOUTH EVERY MORNING 45 tablet 3 Active cyanocobalamin (Vitamin B-12) 1000 MCG tablet TAKE 1 TABLET BY MOUTH EVERYDAY AT NOON 90 tablet 3 025 Active cyanocobalamin (Vitamin B-12) 1000 MCG tablet TAKE 1 TABLET BY MOUTH EVERYDAY AT NOON 90 tablet 3 024 2024 Discontinued losartan (Cozaar) 25 MG tablet TAKE 1/2 TABLET BY MOUTH EVERY MORNING 45 tablet 3 024 2024 Discontinued Blood Glucose Monitoring Suppl (FreeStyle [place] Lite) w/Device kitIndications: Type 2 diabetes mellitus with hyperglycemia ([facility]) Use to test blood sugar bid dx dm 1 kit 024 2024 Discontinued BD Pen Needle Ailin U/F 32G X 4 MM miscIndications :Type 2 diabetes mellitus with diabetic polyneuropathy, with long-term current use of insulin ([facility]) USE DIRECTED FIVE TIMES DAILY 100 each 1 024 2024 Discontinued Blood Glucose Monitoring Suppl (FreeStyle [place] Lite) w/Device kit TEST BLOOD SUGAR THREE TIMES DAILY BEFORE MEALS AND ONCE AT NIGHT NEEDED FOR SYMPTOMS OF LOW BLOOD SUGAR 1 kit 3 025 2024 Discontinued TRUEplus Lancets 33G miscIndications :Type 2 diabetes mellitus with hyperglycemia ([facility]) Check blood sugar 3 times daily and as needed when feeling sick 100 each 11 025 2024 Discontinued(R eorder (will not trigger notification to Pharmacy)) glucose blood (FreeStyle Precision Vickey Test) test stripIndication s:Type 2 diabetes mellitus with hyperglycemia, with long-term current use of insulin ([facility]) Use to test blood sugar 3 times daily as needed for hypoglycemia or sensor failure 100 each 025 2024 Discontinued TRUEplus Lancets 33G miscIndications :Type 2 diabetes mellitus with hyperglycemia ([facility]) Check blood sugar 3 times daily as needed for hypoglycemia or sensor failure 100 each 11 025 2024 Discontinued Active Problems [...] hospital 06/2023 hb1AC 13.8% -Advised pt to supervisor picking crew continue blood glucose monitoring -per pharmacist message [...] w idiopathic pancreatitis hx -referred today to evp global product leadership -pt w poor DM controlled and chronic pancreatitis as likely causing worsening DM-may need to consider CT abd if not done recently as hospitalization-request today MA to try to get last images done at hospital -labs ordered by PCP in 03/11/2023 -not done --advised to have them done and to f w PCP in 4 weeks -advised to improve hydration -referred today To supervisor benzene refining and certified pediatric nurse practitioner -alarms signs and symptoms discussed Assessment & [...] Plan (10/12/2024 12:21 PM EST): Followed by [facility], last appt in Jul 2022 05/21/[address] showing steatosis and cirrhosis. Avoid hepatotoxic drugs and behaviors. - Last liver test: Jul 2023 - Last US / elastography: Will order - FIB4 index: will order lab - continue working on lifestyle modifications - continue surveillance study Assessment & Plan (12/17/2022 3:55 PM EDT): Followed by [facility], last appt in Jul 2022 05/21/[address] showing steatosis and cirrhosis. Avoid hepatotoxic drugs and behaviors. Assessment & Plan (09/13/2022 12:47 PM EST): Followed by [facility], last appt in Jul 2022 05/21/[address] showing steatosis and cirrhosis. Avoid hepatotoxic drugs and behaviors. Dyslipidemia 07/04/2015 Assessment & Plan (10/05/2024 5:50 PM EST): Last lipid profile: 07/30/23 TC 171; TG 233; LDL 79; HDL 46 Current medication: atorvastatin 20 mg qhs; [place] 3 1000 mg bid; According to 2013 [...] 46 Current medication: atorvastatin 20 mg qhs; [facility] 3 1000 mg bid; According to 2013 ACC/AHA guideline, 10-year ASCVD risk is 22 % and high- intensity statin therapy is recommended. Continue atorvastatin at current dose due to Hx transaminitis. Assessment & Plan (03/11/2023 4:24 PM EDT): Last lipid profile: 08/23/21 TC 162; TG 107; HDL 41; LDL 101; Current medication: atorvastatin 20 mg qhs; [facility] 3 1000 mg bid; According to 2013 ACC/AHA guideline, 10-year ASCVD risk is 22 % and high- intensity statin therapy is recommended. Continue atorvastatin at current dose due to Hx transaminitis. Assessment & Plan (09/13/2022 12:45 PM EST): Last lipid profile: 08/23/21 TC 162; TG 107; HDL 41; LDL 101; Current medication: atorvastatin 20 mg qhs; [facility] 3 1000 mg bid; According to 2013 [...] PM EST): - behavioral health service provider: [facility] Chronic abdominal pain 04/04/2015 Low back pain 04/04/2015 Allergic rhinitis 06/10/2013 Gastroesophageal reflux disease 08/13/2012 Assessment & Plan (10/12/2024 12:19 PM EST): - continue omeprazole Chronic pancreatitis 03/25/2012 Assessment & Plan (10/12/2024 12:22 PM EST): GI specialists: [facility] in [place], last seen in Jul 2022 Continue pancreatic enzyme. EUS done by Dr. Garcia on 05/04/15. Dx: chronic pancreatitis. Last seen by Dr. Church at [facility] in Oct 2015. 10/10/15 ERCP done. [...] Plan (09/13/2022 12:51 PM EST): GI specialists: [facility] in [place], last seen in Jul 2022 Continue pancreatic enzyme. EUS done by Dr. Garcia on 05/04/15. Dx: chronic pancreatitis. Last seen by Dr. Church at [facility] in Oct 2015. 10/10/15 ERCP done. [...] Assessment & Plan (10/12/2024 12:32 PM EST): [facility] provider: [facility] PHQ9 score 13; GAD7 score 14 on 10/05/24 Continue clonazepam, escitalopram, and trazodone as prescribed Continue counseling with [facility] Assessment & Plan (03/11/2023 4:24 PM EDT): [facility] provider: [facility] Continue clonazepam, escitalopram, and trazodone as prescribed Continue counseling with [facility] Assessment & Plan (12/31/2022 10:01 AM EDT): [facility] provider: [facility] Continue clonazepam, escitalopram, and trazodone as prescribed Continue counseling with [facility] Assessment & Plan (09/13/2022 12:49 PM EST): [facility] provider: [facility] Continue clonazepam, escitalopram, and trazodone as prescribed Hypertriglyceridemia 02/28/2008 Assessment & Plan (10/05/2024 5:48 PM EST): Last lipid profile: 07/30/23 TG 233 Current medication: atorvastatin 20 mg qhs; [facility] 3 1000 mg bid; According to 2013 ACC/AHA guideline, 10-year ASCVD risk is 22 % and high- intensity statin therapy is recommended. Continue atorvastatin at current dose due to Hx transaminitis. Assessment & Plan (08/17/2023 11:00 AM EST): Last lipid profile: 07/30/23 TG 233 Current medication: atorvastatin 20 mg qhs; [facility] 3 1000 mg bid; According to 2013 ACC/AHA guideline, 10-year ASCVD risk is 22 % and high- intensity statin therapy is recommended. Continue atorvastatin at current dose due to Hx transaminitis. Assessment & Plan (03/11/2023 4:24 PM EDT): Last lipid profile: 08/23/21 TC 162; TG 107; HDL 41; LDL 101; Current medication: atorvastatin 20 mg qhs; [facility] 3 1000 mg bid; According to 2013 ACC/AHA guideline, 10-year ASCVD risk is 22 % and high- intensity statin therapy is recommended. Continue atorvastatin at current dose due to Hx transaminitis. Assessment & Plan (09/13/2022 12:46 PM EST): Last lipid profile: 08/23/21 TC 162; TG 107; HDL 41; LDL 101; Current medication: atorvastatin 20 mg qhs; [facility] 3 1000 mg bid; According to 2013 ACC/AHA guideline, 10-year ASCVD risk is 22 % and high- intensity statin therapy is recommended. Continue atorvastatin at current dose due to Hx transaminitis. Resolved Problems Problem Noted Date Diagnosed Date Resolved Date Obesity 02/27/2009 09/09/2022 Encounters Date Type Department Care Team Description 11/17/2024 Refill [facility] [address] [place] [address] Mae Hall MD 11/15/2024 Travel 11/07/2024 Refill [facility] [address] [place] [address] Hannah Quijano, ANGELI Type 2 diabetes mellitus with diabetic polyneuropathy, with long-term current use of insulin (CMS/HCC) 11/05/[address] [address] Mae Hall MD [employer] (Boost, glucose control very vanilla 8oz (24/cs)) 11/02/[address] [address] Mae Hall MD may recall 10/22/2024 Travel 10/19/[address] [address] Mae Hall MD Dyslipidemia; Vitamin deficiency 10/13/[address] [address] Jacki Tellez, EMMETT Paperwork/Forms 10/11/[address] [address] aJcki Tellez, RN NTTS 10/07/[address] [address] Mae Hall MD Med Refill 10/05/2024 2:30 PM EST Office Visit [address] [address] Mae Hall MD Hypertension, unspecified type (Primary Dx); Hypertriglyceridemia; Tobacco use; Dyslipidemia; Other specified diabetes mellitus with hyperglycemia, with long-term current use of insulin ([facility]); Anemia of chronic disease; Anemia due to vitamin B12 deficiency, unspecified B12 deficiency type; Encounter for immunization; Poor dentition; Dietary counseling; Exercise counseling; Overweight; Tubular adenoma of colon; Gastroesophageal reflux disease, unspecified whether esophagitis present; Metabolic dysfunction-associated steatotic liver disease (MASLD); Idiopathic chronic pancreatitis (CMS/HCC); Type 2 diabetes mellitus with hyperglycemia (CMS/HCC); Type 2 diabetes mellitus with diabetic polyneuropathy, with long-term current use of insulin ([facility]); Type 2 diabetes mellitus with hyperglycemia, with long-term current use of insulin ([facility]); Obsessive-compulsive disorder, unspecified type; Anxiety and depression 10/05/2024 Travel 10/01/[address] [phone] sAhley Escobar [place] chart prep 09/29/[address] [phone] Mae Hall MD [employer] (Boost, glucose control very vanilla 8oz (24/)) 09/26/[address] [phone] Keira Rodriguez MD 09/22/2024 Patient Outreach [address] [phone] Mae Hall MD Care Coordination (CHW outreach for SDOH PT-1 and food needs-LVM ) 09/21/2024 Patient Outreach [address] [phone] Mae Hall MD Pre-visit Planning (SDOH Screening positive and Tobacco screening negative) from Last 3 Months Immunizations Name Administration [...] Sign Reading Time Taken Comments Blood Pressure 144/70 11/15/2024 1:14 PM EDT Pulse 61 11/15/2024 1:14 PM EDT Temperature 36.1 ??C (96.9 ??F) 10/05/2024 3:01 [...] Description 12/03/2024 1:00 PM EDT Medication Management [facility] [address] [place] [address] Connor Bergeron, PharmD [address] [place] [address] 12/09/2024 10:00 AM EDT Office Visit [facility]ULT DENTAL [address] [place] [address] Rolando Kahn, DMD [address] [place] [address] 01/31/2025 1:30 PM EDT Office Visit [facility] OPTOMETRY [address] [place] [address] CesarMaria Alejandra resendiz, OD [address] [place] [address] Health Maintenance Due Date Last Done Comments [...] history exists Diabetes: Urine Protein Screening 07/30/2024 11/30/2024, 07/30/2023, 08/23/2021 Lipid Panel 07/30/2024 11/30/2024, 07/03, 08/23/2021 Diabetes: Hemoglobin A1C 01/02/2025 025, 01/14/2024, [...] Pressure 144/70(2024 1:14 PM EDT) No Connor Bergeron, Michael Hemoglobin A1c < 7 Result Component 9.4( 3:03 PM EST) No Connor Bergeron PharmD Procedures Procedure Name Priority Date/Time Associated Diagnosis Comments TSH W/REFLEX TO FT4 Routine 11/30/2024 1 0:24 AM EDT Hypertension, unspecified type Other specified diabetes mellitus with hyperglycemia, with long-term current use of insulin ([facility]) COMPREHENSIVE METABOLIC PANEL Routine 11/30/2024 10:24 AM EDT Hypertension, unspecified type ALBUMIN, RANDOM URINE W/CREATININE Routine 11/30/2024 10:24 AM EDT Hypertension, unspecified type LIPID PANEL WITH REFLEX TO DIRECT LDL Routine 11/30/2024 10:24 AM EDT Dyslipidemia Other specified diabetes mellitus with hyperglycemia, with long-term current use of insulin (CMS/[facility]) VITAMIN B12/FOLATE, SERUM PANEL Routine 11/30/2024 10:24 AM EDT Anemia of chronic disease CBC WITH AUTO DIFFERENTIAL Routine 11/30/2024 10:24 AM EDT Anemia of chronic disease Anemia due to vitamin B12 deficiency, unspecified B12 deficiency type US ABDOMEN COMPLETE WITH ELASTOGRAPHY Routine 11/11/2024 10:38 AM EDT Metabolic dysfunction-associa mook steatotic liver disease (MASLD) POCT GLYCOSYLATED HEMOGLOBIN (HGB A1C) Routine 10/05/2024 3:03 PM EST Other specified diabetes mellitus with hyperglycemia, with long-term current use of insulin (CMS/HCC) POCT GLUCOSE Routine 10/05/2024 3:02 PM EST [...] Routine screening for STI (sexually transmitted infection) HM COLONOSCOPY Routine 07/01/2022 BITEWING - SINGLE RADIOGRAPHIC IMAGE Routine 09/22/2018 12:00 AM EST PROPHYLAXIS - ADULT Routine 12/25/2017 1 2:00 AM EDT PERIODIC ORAL EVALUATION - ESTABLISHED PATIENT Routine 06/24/2017 12:00 AM EDT from Last 3 Months or Most Recently Relevant to Health Maintenance Results * Vitamin B12 (Cobalamin) and Folate Panel, Serum (11/30/2024 10:24 AM EDT) Vitamin B12 323 200 - 900 pg/mL [facility] Comment:NORMAL 200-900 PG/ML INDETERMINATE 160-199 PG/ML DEFICIENT < 160 PG/ML Folate 7.9 > or = 4.0 ng/mL [facility] Comment:Reference Values:> o r = 4.0 ng/mL< 4.0 ng/mL suggests folate deficiency Methotrexate, aminopterin and folinic acid(leucovorin) are chemotherapeutic agents whose molecularstructures are similar to folate; therefore, the Architectfolate assay cannot be used for patients using these drugs. Blood 11/30/2024 10:2 4 AM EDT 11/30/2024 11:16 AM EDT Mae Hall MD LAB BLOOD ORDERABLES Final Resul t Performing Organization Address [facility] de Phone Number [facility] [address] [place] [phone] * (ABNORMAL) Albumin, Random Urine W/Creatinine (11/30/2024 10:24 AM EDT) Creatinine, Urine 129.79 mg/dL [facility] Microalbumin Urine 68.0 mg/L [facility] Microalbum Creatinine Ratio Ur 52.3(H) <30 ug/mg cr [facility] Comment:Albumin/Creatinine R atio Reference Ranges: Normal: < 30 ug/mg creatinine Microalbuminuria: 30 - 300 ug/mg creatinineClinical Albuminuria: > 300 ug/mg creatinine Urine 11/30/2024 10:2 4 AM EDT 11/30/2024 11:13 AM EDT Mae Hall MD LAB URINE ORDERABLES Final Resul t Performing Organization Address [facility] Co de Phone Number [facility] [address] [place] [phone] * (ABNORMAL) CBC auto differential (11/30/2024 10:24 AM EDT) White Blood Count 7.2 4.8 - 10.8 X10*3/uL [facility] Red Blood Count 4.63 4.60 - 5.80 X10*6/uL [facility] Hemoglobin 13.7(L) 14.0 - 18.0 g/dl [facility] Hematocrit 41.2(L) 42.0 - 52.0 % [facility] Mean Corpuscular Volume 89.0 80.0 - 98.0 fL [facility] Mean Corpuscular Hemoglobin 29.6 27.0 - 33.0 pg [facility] Mean Corpuscular HGB Conc 33.3 31.0 - 36.0 g/dl [facility] Red Cell Distribution Width 13.3 11.0 - 16.0 % [facility] Platelet Count 182 160 - 400 X10*3/uL [facility] Mean Platelet Volume 10.3 9.4 - 12.4 fL [facility] Neutrophils Percent Auto 53.5 45 - 73 % [facility] Imm Gran Pct Auto 0.4 0.0 - 0.4 % [facility] Lymphocytes Percent Auto 34.9 20 - 40 % [facility] Monocytes Percent Auto 8.4 2 - 11 % [facility] Eosinophils Percent Auto 2.4 0 - 4 % [facility] Basophils Percent Auto 0.4 0 - 2 % [facility] NRBC Pct Auto 0.0 0.0 - 0.2 /100WBC [facility] Neutrophils Absolute Auto 3.9 2.0 - 8.3 x10*3/uL [facility] Imm Gran Abs Auto 0.03 0.00 - 0.03 X10*3/uL [facility] Lymphocytes Absolute Auto 2.5 1.2 - 4.9 X10*3/uL [facility] Monocytes Absolute Auto 0.6 0.1 - 1.2 X10*3/uL [facility] Eosinophils Absolute Auto 0.2 0.0 - 0.4 X10*3/uL [facility] Basophils Absolute Auto 0.0 0.0 - 0.2 X10*3/uL [facility] NRBC Abs Auto 0.000 0.0 - 0.012 X10*3/uL [facility] Blood Venous blood specimen / Unknown 11/30/2024 10:24 AM EDT 11/30/2024 11:21 AM EDT us Mae Hall MD LAB BLOOD ORDERABLES Final Resul t [facility] [address] [facility] [place] [phone] * US Abdomen Comp w elastography (11/11/2024 10:38 AM EDT) Anatomical Region Laterality Modality Abdomen Ultrasound 11/11/2024 10:3 8 AM EDT Narrative 11/11/2024 11:47 AM EDT ? [facility] ?[address] ?[place] [address] ? Ultrasound Report ? Signed ? Patient: Jose Alfredo Celis ?MR#: [id number] ?? 6 ? : 1970 ?Acct:[id number] ? Age/Sex: 54 / M ?ADM Date: 11/11/24 ? Loc: HO.US ? Attending Dr: Mae Hall MD ? Ordering Physician: Mae Hall MD ?? Date of Service: 11/11/24 ?? Procedure(s): US abdomen comp w elastography ?? Accession Number(s): [id number] ? cc: Mae Hall MD ? EXAMINATION: [...] well established. ? Electronically signed by: ??James Tinoe MD ??11/11/2024 11:44 AM EDT ? Dictated By: ?James Tineo MD ? Signed By: ?<Electronically signed by James Tineo MD in OV> ?11/11/24 1144 ? DD/ 1038 ? TD/TT: 11/11/24 1056 ? Business Banking Officer: ? Procedure Note Donpeaceter, Image - 11/11/[address] [address] Ultrasound Report Signed Patient: Jose Alfredo Celis R#: [id number] 6 : 1970Acct:[id number] Age/Sex: 54 / MADM Date: 11/11/24 Loc: HO.US Attending Dr: Mae Hall MD Ordering Physician: Mae Hall MD Date of Service: 11/11/24 Procedure(s): US abdomen comp w elastography Accession Number(s): [id number] cc: Mae Hall MD EXAMINATION: US ABDOMEN [...] 11/11/24 1144 DD/ 1038 TD/TT: 11/11/24 1056 Business Banking Officer: us Mae Hall MD [facility] US PROCEDURES Edited Result - Final * (ABNORMAL) POCT glycosylated hemoglobin (Hgb A1c) (10/05/2024 3:03 PM EST) Hemoglobin A1C 9.4(A) 4.0 - 6.0 % QC Media Lot # [id number] Lot# Expiration Date Blood Capillary blood specimen / Unknown 10/05/2024 3:03 PM EST us Mae Hall MD POINT OF CARE TEST ENTER/EDIT OR DERABLES Final Result * (ABNORMAL) POCT glucose manually resulted (10/05/2024 3:02 PM EST) [facility] Glucose Blood, POC 385(A) 60 - 200 mg/dL QC Media Lot # [id number] Lot# Expiration Date Blood Capillary blood specimen / Unknown 10/05/2024 3:02 PM EST Mae Hall MD POINT OF CARE TEST ENTER/EDIT OR DERABLES Final Result * Hepatitis C Ab (07/30/2023 10:11 AM EST) [facility] Hepatitis C Antibody Nonreactive Nonreactive [facility] Comment:Antibodies to HCV no t detected; does not exclude early acuteHCV infection. Blood 07/30/2023 10:1 1 AM EST 07/30/2023 11:19 AM EST us Mae Hall MD LAB BLOOD ORDERABLES Final Resul t [facility] [address] [place] [phone] * HIV-1/2 Antigen and Antibodies, Fourth Generation, with Reflexes (07/30/2023 10:11 AM EST) [facility] HIV AB/AG Nonreactive Nonreactive [facility] Comment:HIV-1 p24 Ag and/or HIV-1/HIV-2 Ab not detected.A test result that is nonreactive does not exclude thepossibility of exposure to or infection with HIV-1 and/orHIV-2. Nonreactive results in this assay for individualswith prior exposure to HIV-1 and/or HIV-2 may be due toantigen and antibody levels that are below the limit ofdetection of this assay.The [employer] HIV Ag/Ab Combo assay result andsupplemental assay results should be interpreted inconjunction with the patient's clinical presentation,history and other laboratory results. If the results areinconsistent with clinical evidence, additional testing issuggested to confirm the result. Blood Venous blood specimen / Unknown 07/30/2023 10:11 AM EST 07/30/2023 11:19 AM EST Mae Hall MD LAB BLOOD ORDERABLES Final Resul t [facility] [address] [place] [address] [phone] * (ABNORMAL) Colonoscopy (07/01/2022) [facility] Signature Colonoscopy Abnormal(A ) Normal Mae Hall MD HEALTH MAINTENANCE Edited Result - Final from Last 3 Months or Most Recently Relevant to Health Maintenance Insurance [employer] PPO [place] STAND ADULT Care Teams Automobile Or Truck Rental Dispatcher Relationship Specialty Start Date End Date Mae Hall MD [address] [place] [id number] PCP - General Family Medicine 09/01/18 Connor Bergeron, KizzyD [address] [place] [phone] Pharmacist Internal Medicine 07/04/23
--- OUTSIDE RECORDS SUMMARY | 2024-11-30 12:16 | XMS_ITS | Encounter Summary ---
Author Organization [employer] Address [address] [facility] [address] [place] [address] Care Team Providers Care Adon Name Role Phone Mae Hall MD Primary Care Provider [phone] Connor Bergeron PharmD Unavailable [phone] Encounter Details Date Type Department Care Team (Late st Contact Info) Description 06/13/2023 Orders Only [facility] [address], [place] [phone] Mae Hall MD [address] [place] [address] Type 2 diabetes mellitus with hyperglycemia, with long-term current use of insulin ([facility]) Social History Tobacco Use Types Packs/Day [...] Description 12/03/2024 1:00 PM EDT Medication Management [facility] [address] [place] [address] Connor Bergeron, Michael [address] [place] [address] 12/09/2024 10:00 AM EDT Office Visit [facility] [address] [place] [address] Rolando Kahn, DMD [address] [place] [address] 01/31/2025 1:30 PM EDT Office Visit [facility] [address] [place] [address] Cesar, Maria Alejandra, OD [address] [place] [address] documented as of this encounter Visit Diagnoses Diagnosis Type 2 diabetes mellitus with hyperglycemia, with long-term current use of insulin ([facility]) documented in this encounter Additional Health Concerns Assessment Noted Time PHQ-9 Depression Total Score: 11 023 4:03 PM EST documented as of this encounter Care Teams Adon Relationship Specialty Start Date End Date Mae Hall MD [address] [place] [phone] PCP - General Family Medicine 09/01/18 Connor Bergeron, PharmD [address] [place] [address] Pharmacist Internal Medicine 07/04/23 documented as of this encounter
--- OUTSIDE RECORDS SUMMARY | 2024-11-30 12:16 | XMS_ITS | Continuity of Care Document ---
Author Organization [facility] Address [address] [place] [id number]- Care Team Providers Care Lumber Estimator Name Role Phone Rafael MCLEAN, Mae Primary Care Physician Encounter [facility] Date(s): 10/26/24 - 11/25/24 [facility] [address] [place] [phone]- Encounter Type: Triage Allergies, Adverse Reactions, Alerts [...] 07/15/23 Status: Ordered Repeat number: 1 FreeStyle [place] Lite kit FreeStyle [place] Lite kit, TEST BLOOD SUGAR THREE TIMES [...] Refills, Soft Stop, 08/01/24 6:39:00 PM EST, [facility]/pharmacy #[id number], Dx: E11.9, 170, cm, 07/30/24 10:00:00 [...] 3 Refills, Maintenance, 10/19/24 9:11:00 AM EST, [facility], 170, cm, 07/30/24 10:00:00 EST, Height, 63.3, kg, :52:00 EDT, Dry Weight Start Date: 10/19/24 Status: Ordered Quantity: 360.0 Unit: tablet Repeat number: 1 NovoLOG FlexPen 100 units/mL injectable solution See Instructions, subcutaneous injection 3 times a day before meals per sliding scale. max daily dose 72 units E11.9, # 30 mL, 11 Refills, Maintenance, 10/10/24 11:16:00 AM EST, [facility]/pharmacy #[id number], Partial fill upon patient request if [...] 07/15/23 Status: Ordered Repeat number: 1 Pen [place], 31 G x 5 mm BD Ultra [...] 11 Refills, Maintenance, 09/22/24 3:39:00 PM EST, [facility], 170, cm, 07/30/24 10:00:00 [...] ( severe disability ) on 05/05/15; initial Sweeny:8 on 05/05/15 3SOAPP-R: 35 on 05/05/15 4Left shoulder surgery 1990s 5x 2 Social History Social History Type Response Smoking Status Former smoker, quit more than 30 days ago entered on: 07/15/23 Sex Sex Representation Male (finding) Patient Care team information Care Team Personnel Name: Jena Caceres RN Position: [facility] RN Member Role: Primary Care Nurse Name: Adriane Garnica RN Position: [facility] RN Member Role: Primary Care Nurse Name: Subha Meier RN Position: [facility] RN Member Role: Primary Care Nurse Name: Pita Gama CNM Position: [facility] Welding Pantograph Machine Operator Member Role: Primary Care Nurse Address: [address] [place] [id number] Telecom: Name: Mae Hall MD Position: [facility] Outreach Member Role: PCP Address: [address] [place], [place] [address] Telecom: Name: Alessandro Jacobo RN Position: [facility] RN Member Role: Primary Care Nurse Care Team Related Persons Name: RED MCDONOUGH Name: DILAN STRATTON Insurance Providers Guarantor name: VAUGHN CARDENAS Health Plan Information #: 1 Payer: NA Member Number: NA Policy Number: NA Group Number: NA Health Plan Information #: 2 Payer: [employer] MEDICARE ADV HMO Member Number: NA Policy Number: NA Group Number: NA Health Plan Information #: 3 Payer: MEDICARE PART B OUTPT Member Number: NA Policy Number: NA Group Number: NA Health Plan Information #: 4 Payer: [employer] MEDICARE ADV PPO Member Number: NA Policy Number: NA Group Number: NA
[2024-11-30 12:42] LABS: Reflex LDLD? No
== END 2024-11-30 10:23 | disposition home or self-care (01) ==
LOC: HO.HHCL 10:22
PROVIDERS: Visit Provider Family Medicine
DX: D51.9 Vitamin B12 deficiency anemia, unspecified (principal); E78.5 Hyperlipidemia, unspecified; E13.65 Other specified diabetes mellitus with hyperglycemia; Z79.4 Long term (current) use of insulin; I10 Essential (primary) hypertension; D63.8 Anemia in other chronic diseases classified elsewhere
CPT/HCPCS: 36415; 80053; 80061; 82043; 82570; 82607; 82746; 84443; 85025

== ENCOUNTER 2025-01-25 19:20 | Emergency (ER) | payer MEDICARE, SELFPAY ==
--- NOTE | ~2025-01-25 | CT_ITS ---
CLINICAL HISTORY: fall with head strike CT Head WO Contrast COMPARISON: None FINDINGS: No acute intracranial hemorrhage. No evidence of acute infarction. Mild diffuse cortical volume loss. Mild nonspecific white matter hypodensities, most commonly associated with chronic microangiopathic changes. No mass-effect or midline shift. No hydrocephalus. Visualized orbits are normal. Small fluid in the ethmoid air cells. Clear mastoid air cells. No acute fracture. Unremarkable soft tissues. IMPRESSION: No acute intracranial findings. Nonemergent/incidental findings in the report. This document has been electronically signed by: Srinivas Landa MD on 01/25/2025 21:31:34
--- NOTE | ~2025-01-25 | XR_ITS ---
CLINICAL HISTORY: fall Right ankle, 3 views COMPARISON: None FINDINGS: No acute fracture. No dislocation. Mild degenerative changes. Unremarkable soft tissues. IMPRESSION: No acute findings. This document has been electronically signed by: Srinivas Landa MD on 01/25/2025 21:19:17
--- NOTE | ~2025-01-25 | XR_ITS ---
CLINICAL HISTORY: fall Lumbar Spine, 3 views COMPARISON: None FINDINGS: Age-indeterminate moderate L2 compression fracture. Acute appearing superior/anterior L4 vertebral body fracture. Grade 1 L1-L2 anterolisthesis. Degenerative changes in the spine. Unremarkable soft tissues. Surgical clips in the right upper abdominal quadrant. IMPRESSION: Acute appearing superior/anterior L4 vertebral body fracture. Age-indeterminate moderate L2 compression fracture. This document has been electronically signed by: Srinivas Landa MD on 01/25/2025 21:19:38
--- NOTE | ~2025-01-25 | CT_ITS ---
CLINICAL HISTORY: fall, tender, Fx lumbar on XR CT Thoracic Spine WO Contrast COMPARISON: None FINDINGS: No acute fracture or malalignment. Degenerative changes in the spine. Unremarkable soft tissues. IMPRESSION: No acute findings. This document has been electronically signed by: Srinivas Landa MD on 01/26/2025 00:07:41
--- NOTE | ~2025-01-25 | CT_ITS ---
CLINICAL HISTORY: fall with head strike CT Cervical Spine WO Contrast COMPARISON: None FINDINGS: No acute fracture or malalignment. Degenerative changes in the spine. Soft tissues are normal. Right thyroid nodule measuring less than 1.5 cm. No imaging follow-up indicated per ACR guidelines. Lung apices are clear. IMPRESSION: No acute findings. Nonemergent/incidental findings above. This document has been electronically signed by: Srinivas Landa MD on 01/25/2025 21:34:34
--- NOTE | ~2025-01-25 | XR_ITS ---
CLINICAL HISTORY: fall Left hand, 3 views COMPARISON: None FINDINGS: No acute fracture. No dislocation. Chronic appearing ulnar styloid process fracture with corticated margins. Mild degenerative changes. Unremarkable soft tissues. IMPRESSION: No acute findings. Nonemergent/incidental findings above. This document has been electronically signed by: Srinivas Landa MD on 01/25/2025 21:16:08
--- NOTE | ~2025-01-25 | XR_ITS ---
CLINICAL HISTORY: fall Left ankle, 3 views COMPARISON: None FINDINGS: No acute fracture. No dislocation. Mild degenerative changes. Mild soft tissue swelling, most pronounced medially. IMPRESSION: No acute fracture. Soft tissue swelling. This document has been electronically signed by: Srinivas Landa MD on 01/25/2025 21:16:55
--- NOTE | ~2025-01-25 | CT_ITS ---
CLINICAL HISTORY: fall, tender, Fx lumbar on XR CT Lumbar Spine WO Contrast COMPARISON: CR - XR LUMBAR SPINE 2-3V - 01/25/25 20:20 EDT FINDINGS: Comminuted superior/anterior L2 vertebral body fracture. Displaced superior/anterior L4 vertebral body fracture. Lower left L1 facet fracture (series 16, image 35). Chronic appearing left L2 transverse process fracture or ununited ossification center with corticated margins. Mild grade 1 L1-L2 anterolisthesis. Degenerative changes in the spine. Unremarkable soft tissues. Status post cholecystectomy. Pancreatic calcifications consistent with chronic pancreatitis. No evidence of acute pancreatitis. Thickening of the benjamin of the rectum (for example series 12, image 509). IMPRESSION: Acute L2 and L4 vertebral body fractures. Lower left L1 facet fracture. Grade 1 L1-L2 anterolisthesis. Rectal wall thickening, which could be due to proctitis or neoplasm. Follow-up recommended. Nonemergent/incidental findings above. This document has been electronically signed by: Srinivas Landa MD on 01/26/2025 00:03:22
--- NOTE | ~2025-01-25 | XR_ITS ---
CLINICAL HISTORY: fall Left foot, 3 views COMPARISON: None FINDINGS: Possible tarsal navicular fracture. No dislocation. Mild degenerative changes. Unremarkable soft tissues. IMPRESSION: Possible tarsal navicular fracture versus projectional artifact. Please correlate with pain in this area. This document has been electronically signed by: Srinivas Landa MD on 01/25/2025 21:22:10
--- NOTE | ~2025-01-25 | XR_ITS ---
CLINICAL HISTORY: fall Right foot, 3 views COMPARISON: None FINDINGS: No acute fracture. No dislocation. Unremarkable soft tissues. IMPRESSION: No acute findings. This document has been electronically signed by: Srinivas Landa MD on 01/25/2025 21:22:58
[2025-01-25 19:32] VITALS: BP 147/72; BP 170/86; PULSE 59; PULSE 63; RESP 18; TEMP 36.8; O2SAT 97; O2SAT 98; BMI 29.2
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
--- NOTE | 2025-01-25 19:36 | ECG_ITS ---
Test Reason : FALL Blood Pressure : */* mmHG Vent. Rate : 60 BPM Atrial Rate : 60 BPM P-R Int : 142 ms QRS Dur : 78 ms QT Int : 436 ms P-R-T Axes : 45 38 66 degrees QTcB Int : 436 ms Normal sinus rhythm Normal ECG When compared with ECG of 19-Oct-2023 03:02, No significant change was found Referred By: Joshua Garcia Electronically Signed By: DARLENE MARTEL MD
[2025-01-25 19:49] LABS: Glucose, Whole Blood 518 mg/dL (60-115)
[2025-01-25 20:00] LABS: MANUAL DIFF FLAG NO
[2025-01-25 20:01] LABS: Basophils Percent Auto 0.4 % (0-2); Eosinophils Absolute Auto 0.1 X10*3/uL (0.0-0.4); Eosinophils Percent Auto 2.5 % (0-4); Hemoglobin 12.1 g/dl (14.0-18.0); Imm Gran Abs Auto 0.01 X10*3/uL (0.00-0.03); Imm Gran Pct Auto 0.2 % (0.0-0.4); Lymphocytes Absolute Auto 1.2 X10*3/uL (1.2-4.9); Mean Corpuscular HGB Conc 33.6 g/dl (31.0-36.0); Mean Corpuscular Hemoglobin 29.2 pg (27.0-33.0); Mean Platelet Volume 9.8 fL (9.4-12.4); Monocytes Absolute Auto 0.4 X10*3/uL (0.1-1.2); Neutrophils Absolute Auto 3.8 x10*3/uL (2.0-8.3); Neutrophils Percent Auto 67.9 % (45-73); Platelet Count 161 X10*3/uL (160-400); Red Blood Count 4.14 X10*6/uL (4.60-5.80); Red Cell Distribution Width 13.7 % (11.0-16.0); White Blood Count 5.6 X10*3/uL (4.8-10.8)
[2025-01-25 20:09] LABS: INTERNATIONAL NORM RATIO 0.9 (0.9-1.1); Prothrombin Time 10.3 SEC (10.9-12.4)
[2025-01-25 20:20] LABS: Alanine Aminotransferase 26 U/L (0-40); Albumin Level 4.2 g/dL (3.5-5.0); Alkaline Phosphatase 87 U/L (39-117); Anion Gap 13 (12-20); Aspartate Amino Transferase 23 U/L (5-37); Bilirubin Total 0.2 mg/dL (0.0-1.0); Blood Urea Nitrogen 21 mg/dL (9-16); Carbon Dioxide 22 mmol/L (22-29); Chloride 104 mmol/L (96-108); Creatinine Clr Calc Pharmacy 70.2; Estimated Glomerular Filt Rate > 60; Glucose Random 527 mg/dL (60-115); Potassium 4.6 mmol/L (3.3-5.1); Sodium 134 mmol/L (135-145); Total Protein 7.2 g/dL (6.5-8.0)
[2025-01-25 20:26] LABS: Troponin-I High Sensitivity < 2.7 ng/L (<3.5-35.0)
[2025-01-25 21:17] LABS: Appearance Urine Clear; Color Urine Yellow; Glucose Urine UA >=1000 mg/dL (Negative); Leukocyte Esterase Urine Negative (Negative); Nitrite Urine Negative (Negative); PH 5.5 (5.0-9.0); Specific Gravity - Urine >= 1.030 (1.005-1.025); UMIC TRIGGER UACC YES; Urine Blood Negative (Negative); Urine Ketones Negative (Negative); Urine Protein Negative (Neg-Trace)
[2025-01-25 21:19] LABS: Bacteria Urine None Seen (None Seen); Hyaline Casts Urine 0-2 /LPF (0-2); RBC Urine 0-2 /HPF (0-2); Squamous Epithelial Cell Urine 0-2 /HPF (0-2); WBC Urine 0-5 /HPF (0-5)
[2025-01-25] MEDS: 0.9 % Sodium Chloride 1,000 ML 999 ML IV (22:23)
[2025-01-25] MEDS: Morphine Sulfate 4 MG/ML CARTRIDGE IVPUSH (22:24)
[2025-01-25] MEDS: Insulin Regular, Human 100 UNIT/ML 10 ML VIAL 10 UNIT IVPUSH (22:24)
[2025-01-25 22:37] VITALS: BP 154/85; PULSE 57; RESP 16; TEMP 36.9; O2SAT 98
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
[2025-01-25 23:37] LABS: Glucose, Whole Blood 158 mg/dL (60-115)
[2025-01-26 00:35] VITALS: BP 119/74; PULSE 73; RESP 16; TEMP 36.6; O2SAT 97
[2025-01-26 00:37] LABS: Glucose, Whole Blood 227 mg/dL (60-115)
[2025-01-26] MEDS: Morphine Sulfate 4 MG/ML CARTRIDGE IVPUSH (01:04)
--- NOTE | 2025-01-26 01:23 | PC.NURSE ---
[facility] spoke to EMMETT Akhtar.
[2025-01-26 01:32] VITALS: BP 141/61; PULSE 57; RESP 14; TEMP 36.8; O2SAT 97
[2025-01-26 01:33] VITALS: BP 141/61; PULSE 57; RESP 14; TEMP 36.8; O2SAT 98
== END 2025-01-26 02:06 ==
PROVIDERS: Emergency Medicine; Emergency Provider Emergency Medicine Emergency Medical Services
DX: S30.0XXA Contusion of lower back and pelvis, initial encounter (principal); E11.65 Type 2 diabetes mellitus with hyperglycemia; M79.605 Pain in left leg; M79.604 Pain in right leg; M25.572 Pain in left ankle and joints of left foot; M25.571 Pain in right ankle and joints of right foot; R51.9 Headache, unspecified; M54.6 Pain in thoracic spine; M54.2 Cervicalgia; R11.0 Nausea; F17.210 Nicotine dependence, cigarettes, uncomplicated; X58.XXXA Exposure to other specified factors, initial encounter; Y93.9 Activity, unspecified; Y92.9 Unspecified place or not applicable; Y99.8 Other external cause status; Z79.899 Other long term (current) drug therapy; Z79.4 Long term (current) use of insulin
CPT/HCPCS: 36415; 70450; 72100; 72125; 72128; 72131; 73130; 73610; 73630; 80053; 81001; 82947; 84484; 85025; 85610; 93005; 96361; 96374; 96375; 96376; 99284; 99285; J2270

== ENCOUNTER → 2025-01-25 19:36 | Outpatient (BNV) | payer MEDICARE, SELFPAY | PROVIDERS: Emergency Provider Emergency Medicine Emergency Medical Services; Visit Provider Internal Medicine Cardiovascular Disease | DX: R73.9 Hyperglycemia, unspecified (principal); W19.XXXA Unspecified fall, initial encounter | CPT/HCPCS: 93010 ==

== ENCOUNTER → 2025-01-25 19:56 | Outpatient (BNV) | payer MEDICARE, MEDICAID, SELFPAY | PROVIDERS: Emergency Provider Emergency Medicine Emergency Medical Services; Visit Provider Radiology Diagnostic Radiology | DX: M51.369 Other intervertebral disc degeneration, lumbar region without mention of lumbar back pain or lower extremity pain (principal); E04.1 Nontoxic single thyroid nodule | CPT/HCPCS: 72128; 72131 ==

== ENCOUNTER 2025-02-15 14:47 | Inpatient (IN) | payer MEDICARE, SELFPAY ==
[2025-02-15] VITALS (9 sets, daily range): BP systolic 105–182; BP diastolic 55–98; PULSE 47–62; RESP 13–20; TEMP 36.4–36.8; O2SAT 94–98; BMI 27.2
--- NOTE | 2025-02-15 14:57 | ECG_ITS ---
Test Reason : WEAKNESS Blood Pressure : */* mmHG Vent. Rate : 60 BPM Atrial Rate : 60 BPM P-R Int : 134 ms QRS Dur : 74 ms QT Int : 422 ms P-R-T Axes : 85 37 62 degrees QTcB Int : 422 ms Normal sinus rhythm Normal ECG When compared with ECG of 25-Jan-2025 19:35, No significant change was found Referred By: Kylie Arreola Electronically Signed By: Oscar Ramos
[2025-02-15 15:02] LABS: Glucose, Whole Blood > 600 mg/dL (60-115)
[2025-02-15 15:15] LABS: MANUAL DIFF FLAG NO
[2025-02-15 15:16] LABS: Basophils Percent Auto 0.1 % (0-2); Eosinophils Percent Auto 0.1 % (0-4); Hematocrit 39.5 % (42.0-52.0); Hemoglobin 13.4 g/dl (14.0-18.0); Imm Gran Abs Auto 0.02 X10*3/uL (0.00-0.03); Imm Gran Pct Auto 0.3 % (0.0-0.4); Lymphocytes Percent Auto 12.3 % (20-40); Mean Corpuscular HGB Conc 33.9 g/dl (31.0-36.0); Mean Corpuscular Hemoglobin 28.9 pg (27.0-33.0); Mean Corpuscular Volume 85.3 fL (80.0-98.0); Mean Platelet Volume 9.6 fL (9.4-12.4); Monocytes Absolute Auto 0.5 X10*3/uL (0.1-1.2); Monocytes Percent Auto 5.8 % (2-11); Neutrophils Absolute Auto 6.5 x10*3/uL (2.0-8.3); Neutrophils Percent Auto 81.4 % (45-73); Platelet Count 193 X10*3/uL (160-400); Red Blood Count 4.63 X10*6/uL (4.60-5.80); Red Cell Distribution Width 13.2 % (11.0-16.0); White Blood Count 7.9 X10*3/uL (4.8-10.8)
[2025-02-15 15:20] LABS: VBG Base Excess 1.9 mmol/L; VBG HCO3 27 mmol/L (22-26); VBG pCO2 43 mmHg; VBG pO2 46 mmHg
[2025-02-15 15:20] LABS: Venous Blood Gas Refer to POC result
[2025-02-15 15:37] LABS: Troponin-I High Sensitivity 3.3 ng/L (<3.5-35.0)
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
[2025-02-15 15:46] LABS: Alanine Aminotransferase 21 U/L (0-40); Albumin Level 4.9 g/dL (3.5-5.0); Alkaline Phosphatase 118 U/L (39-117); Anion Gap 21 (12-20); Aspartate Amino Transferase 16 U/L (5-37); Bilirubin Total 0.7 mg/dL (0.0-1.0); Blood Urea Nitrogen 49 mg/dL (9-16); Calcium 10.1 mg/dL (8.4-10.2); Carbon Dioxide 26 mmol/L (22-29); Chloride 77 mmol/L (96-108); Creatinine Clr Calc Pharmacy 42.1; Estimated Glomerular Filt Rate 38; Glucose Random 1148 mg/dL (60-115); Lipase < 4 U/L (8-78); Magnesium 2.1 mg/dL (1.6-2.6); Potassium 5.4 mmol/L (3.3-5.1); Sodium 119 mmol/L (135-145); Total Protein 8.5 g/dL (6.5-8.0)
[2025-02-15] MEDS: 0.9 % Sodium Chloride 1,000 ML 999 ML IV ×2 (15:48→17:26)
--- NOTE | 2025-02-15 15:49 | ED.GENADULT ---
HPI - General Adult General Chief complaint: General Medical Stated complaint: HIGH BS,NAUSEA,WEAK PER EMS Time Seen by Provider: 02/15/25 15:22 History of Present Illness HPI narrative: Patient is a 55-year-old male presents today with having generalized malaise weakness. Patient have not been following his diet. He has been eating a lot at [employer] made by his daughter. Receive 24 units of insulin at 13:30 and another 18 units at 14:30 because his sugar read as high high. Patient came in for further evaluation denies any fever chills no chest pain positive increase in urination positive generalized malaise positive weakness patient is from home. No coughing or congestion or upper respiratory symptoms no diaphoresis. Related Data Home Medications ?Medication ?Instructions ?Recorded ?Confirmed omeprazole 20 mg capsule,delayed 20 mg PO BID@0630,1630 07/10/20 02/20/25 release aspirin 81 mg tablet,delayed 81 mg PO DAILY@1200 02/14/22 02/20/25 release atorvastatin 20 mg tablet 20 mg PO BEDTIME 02/14/22 02/20/25 blood sugar diagnostic (FreeStyle #10 ea 02/14/22 Lite Strips) cholecalciferol (vitamin D3) 25 25 mcg PO DAILY 02/14/22 02/20/25 mcg (1,000 unit) capsule (Vitamin D3) clonazepam 1 mg tablet 1 mg PO TID PRN Anxiety 02/14/22 02/20/25 cyanocobalamin (vitamin B-12) 1,000 mcg PO DAILY 02/14/22 02/20/25 1,000 mcg tablet ergocalciferol (vitamin D2) 1,250 1,250 mcg PO TU 02/14/22 02/20/25 mcg (50,000 unit) capsule lancets 33 gauge (TRUEplus Lancets) #100 ea 02/14/22 losartan 25 mg tablet 12.5 mg PO DAILY 02/14/22 02/20/25 pen needle, diabetic 32 gauge x #50 ea 02/14/22 (Pentips Pen Needle) trazodone 150 mg tablet 150 mg PO BEDTIME PRN Insomnia 02/14/22 02/20/25 omega-3 300 mg-dha 120 mg-epa 180 2 cap PO BID@1200,2100 05/21/23 02/20/25 mg-fish oil 1,000 mg capsule gabapentin 300 mg capsule 300 mg PO TID 02/15/25 02/20/25 ibuprofen 800 mg tablet 800 mg PO TID 02/15/25 02/20/25 gqnqdg-dekekwvs-tfrcwse 2 cap PO TID 02/15/25 02/20/25 24,000-76,000-120,000 unit capsule,delayed rel (Creon) metformin 500 mg tablet,extended 1,000 mg PO BID 02/15/25 02/20/25 release 24 hr oxycodone 10 mg tablet 10 mg PO Q4H PRN Pain 02/15/25 02/20/25 Previous Rx's ?Medication ?Instructions ?Recorded insulin aspart U-100 100 unit/mL 1 sliding scale dose subcut 10/10/24 (3 mL) subcutaneous pen (Novolog USEASDIRECTD #15 mL FlexPen U-100 Insulin aspart) insulin degludec 100 unit/mL (3 35 unit (0.35 mL) subcut BEDTIME 02/17/25 mL) subcutaneous pen (Tresiba #15 mL FlexTouch U-100 insulin) Allergies Allergy/AdvReac Type Severity Reaction Status Date / Time No Known Allergies (No Known Allergy Verified 02/19/25 18:34 Allergies*) Review of Systems Review of Systems: Positive generalized malaise Yes all other systems are reviewed and are negative PMFSH Past Medical History Attestation statement: The following information was validated with the patient. Medical History Anemia Elevated cholesterol Diabetes GERD (gastroesophageal reflux disease) Chronic back pain Depression Anxiety disorder Surgical History H/O colonoscopy History of lithotripsy Hx of shoulder surgery Hx of cholecystectomy History of esophagogastroduodenoscopy (EGD) Family History Family History Mother Diabetes Heart problem Father Diabetes Brother No problems noted. Maternal Grandfather Heart problem Social History Social History Household Members: Family Household Members Other:: mom and nephew. Housing: House Do you presently have visiting nurse or other home services: No Alcohol intake: former Comment: Stand by oob to BR Patient Tobacco Use Status: Never used Tobacco Tobacco use type: Cigarette Cigarettes Per Day: 3 e-Cigarette/Vaping Use: Former Use Second Hand Smoke Exposure: No Substance Use Type: Marijuana Advance Directives Date on File: 02/15/25 service: No Physical Exam ED Vital Signs: Vital Signs - 24 hr 02/15/25 15:26 02/15/25 15:55 Temperature 98.3 F Pulse Rate 62 60 Respiratory Rate 18 18 Blood Pressure 133/70 137/82 Pulse Oximetry 97 97 Oxygen Delivery Method Room Air Room Air BMI result Body Mass Index 27.2 Appearance: Alert. Oriented X3. No acute distress. Eyes: Pupils equal, round and reactive to light. ENT: Pharynx normal. Neck: Normal inspection. Neck supple. No lymph nodes noted. No crepitus CVS: Normal heart rate and rhythm. Pulses normal. Normal S1 and S2 Respiratory: No respiratory distress. Breath sounds normal. No Wheezing. No rales Abdomen: Soft and nontender. No rigidity. No distention. good BS x4 Skin: Skin warm and dry. Normal skin color. Normal skin turgor. Extremities: No lower extremity edema. Neurovascular intact to all extremities. No Lacerations. No Rash Neuro: Oriented X 3. No motor deficit. No sensory deficit. Moving all extermities. No slurred speech Medications Administered Discontinued Medications Generic Name Dose Route Start Last Admin Trade Name Freq PRN Reason Stop Dose Admin Lipase/Protease/Amylase 2 cap 02/17/25 09:00 02/17/25 08:16 Lipase/Prot/Amylase 24/76/120k 1 Cap Capsule. PO 2 cap TID HUGH Administration Aspirin 81 mg 02/16/25 12:00 02/17/25 13:05 Aspirin Enteric Coated 81 Mg Tablet. PO 81 mg DAILY@1200 HUGH Administration Atorvastatin Calcium 20 mg 02/16/25 08:45 02/16/25 20:50 Atorvastatin Calcium 20 Mg Tablet PO 20 mg BEDTIME HUGH Administration Famotidine 20 mg 02/15/25 21:00 02/17/25 08:15 Famotidine/Pf 20 Mg/2 Ml Vial IVPUSH 20 mg BID HUGH Administration Gabapentin 300 mg 02/17/25 09:00 02/17/25 08:17 Gabapentin 300 Mg Capsule PO 300 mg TID HUGH Administration Heparin Sodium (Porcine) 5,000 unit 02/15/25 17:00 02/17/25 08:16 Heparin Sodium,Porcine 5,000 Unit/Ml Vial SUBCUT 5,000 unit Q8H HUGH Administration Hydromorphone HCl 0.5 mg 02/15/25 16:46 02/16/25 19:30 Hydromorphone Hcl 1 Mg/Ml Syringe IVPUSH 0.5 mg Q6H PRN Administration Pain, Moderate(Pain Scale 4-6) Protocol Sodium Chloride 1,000 mls @ 999 mls/hr 02/15/25 15:45 02/15/25 17:25 Ns IV 02/15/25 16:45 Infused .Q1H1M HUGH Infusion Sodium Chloride 1,000 mls @ 999 mls/hr 02/15/25 15:45 02/15/25 18:59 Ns IV 02/15/25 16:45 Infused .Q1H1M HUGH Infusion Insulin Human Regular 100 unit in 100 mls @ 6 mls/hr 02/15/25 16:00 02/16/25 09:36 Myxredlin IVCONT Infused .[id number] HUGH Titration Protocol 6 UNIT/HR Lactated Ringer's 2,361 mls @ 2,361 mls/hr 02/15/25 17:00 02/15/25 18:58 Lr 30 ml/kg infuse over 1 hr (2361 ml) 02/15/25 17:59 Not Given IV .Q1H ONE Lactated Ringer's 1,000 mls @ 999 mls/hr 02/15/25 19:00 02/15/25 20:03 Lr IV 02/15/25 20:00 Infused .Q1H1M HUGH Infusion Lactated Ringer's 1,000 mls @ 150 mls/hr 02/15/25 20:00 02/16/25 15:40 Lr IVCONT Infused .Q6H40M HUGH Infusion Lactated Ringer's 1,955.8 mls @ 1,955.8 mls/hr 02/16/25 10:56 02/16/25 13:17 Lr IV 02/16/25 11:55 Infused .Q1H ONE Infusion Insulin Glargine 30 unit 02/16/25 09:00 02/17/25 08:16 Insulin Glargine,Hum.Rec.Anlog 100 Unit/Ml 10 Ml Vial SUBCUT 30 unit DAILY HUGH Administration Insulin Human Lispro 0 unit 02/16/25 11:30 02/17/25 08:14 Insulin Lispro 100 Unit/Ml 3 Ml Vial SUBCUT 02/17/25 09:31 4 unit [facility] Administration Protocol Insulin Human Lispro 10 unit 02/16/25 09:33 02/16/25 09:40 Insulin Lispro 100 Unit/Ml 3 Ml Vial SUBCUT 02/16/25 09:34 10 unit ONCE ONE Administration Insulin Human Lispro 5 unit 02/17/25 07:30 02/17/25 13:05 Insulin Lispro 100 Unit/Ml 3 Ml Vial SUBCUT 5 unit [facility] Administration Insulin Human Lispro 0 unit 02/17/25 16:30 02/17/25 13:06 Insulin Lispro 100 Unit/Ml 3 Ml Vial SUBCUT 4 unit [facility] Administration Protocol Insulin Human Regular 10 unit 02/15/25 15:44 02/15/25 15:53 Insulin Regular, Human 100 Unit/Ml 10 Ml Vial IVPUSH 02/15/25 15:45 10 unit ONCE ONE Administration Insulin Human Regular 5 unit 02/15/25 23:07 02/15/25 23:25 Insulin Regular, Human 100 Unit/Ml 10 Ml Vial IVPUSH 02/15/25 23:08 5 unit ONCE ONE Administration Insulin Human Regular 10 unit 02/16/25 02:56 02/16/25 07:01 Insulin Regular, Human 100 Unit/Ml 10 Ml Vial IVPUSH 02/16/25 02:57 Not Given ONCE ONE Insulin Human Regular 10 unit 02/16/25 06:30 02/16/25 03:12 Insulin Regular, Human 100 Unit/Ml 10 Ml Vial IVPUSH 02/16/25 06:31 10 unit ONCE ONE Administration Ketorolac Tromethamine 15 mg 02/15/25 23:00 02/15/25 23:25 Ketorolac Tromethamine 30 Mg/Ml Vial IVPUSH 02/15/25 23:01 15 mg ONCE ONE Administration Metformin HCl 1,000 mg 02/17/25 09:00 02/17/25 08:17 Metformin Hcl Er 500 Mg Tab.Er.24h PO 1,000 mg BID [facility] Administration Omeprazole 20 mg 02/16/25 08:45 02/17/25 06:31 Omeprazole 20 Mg Capsule.Dr PO 20 mg BID@3459,1630 HUGH Administration Oxycodone HCl 10 mg 02/16/25 10:57 02/17/25 10:33 Oxycodone Hcl Immed Release 5 Mg Tablet PO 10 mg Q4H PRN Administration Pain, Moderate(Pain Scale 4-6) Trazodone HCl 150 mg 02/16/25 08:38 02/16/25 21:00 Trazodone Hcl 50 Mg Tablet PO 150 mg BEDTIME PRN Administration Insomnia Medical Decision Making Medical Decision Making [facility] Narrative: My interpretation of his EKG showed a sinus pattern heart rate is 60 MT QRS QTC normal there is no acute ST segment elevation noted. Given IV fluids here in the emergency department. Patient is labs showed a pseudo hyponatremia 119. Likely results from patient's glucose that is over 1148. Patient has a slight anion gap at a normal pH. Had elevated BUN and creatinine consistent with prerenal insufficiency likely secondary to hyperglycemia. IV fluid was ordered. Insulin drip ordered. Insulin bolus ordered. Patient's symptoms likely results from noncompliance as he was eating lots of [employer] made by his daughter. My interpretation of patient's EKG showed a sinus pattern heart rate is 60 MT QRS QTC normal there is no acute ST segment elevation. Will start patient on an insulin drip. Will monitor carefully. Repeat electrolyte in about 1-2 hours. Recheck sugar hourly. Patient will require admission. Will attempt to contact the crown ironer. Lab Data 02/16/25 05:43 02/16/25 05:43 Labs: Lab Results 02/15/25 02/15/25 02/15/25 Range/Units 14:56 15:06 15:16 WBC 7.9 (4.8-10.8) X10*3/uL RBC 4.63 (4.60-5.80) X10*6/uL Hgb 13.4 L (14.0-18.0) g/dl Hct 39.5 L (42.0-52.0) % MCV 85.3 (80.0-98.0) fL MCH 28.9 (27.0-33.0) pg MCHC 33.9 (31.0-36.0) g/dl RDW 13.2 (11.0-16.0) % Plt Count 193 (160-400) X10*3/uL MPV 9.6 (9.4-12.4) fL Immature Gran % (Auto) 0.3 (0.0-0.4) % Neut % (Auto) 81.4 H (45-73) % Lymph % (Auto) 12.3 L (20-40) % Tripp % (Auto) 5.8 (2-11) % Eos % (Auto) 0.1 (0-4) % Baso % (Auto) 0.1 (0-2) % Lymph # (Auto) 1.0 L (1.2-4.9) X10*3/uL Tripp # (Auto) 0.5 (0.1-1.2) X10*3/uL Eos # (Auto) 0.0 (0.0-0.4) X10*3/uL Baso # (Auto) 0.0 (0.0-0.2) X10*3/uL Abs Immat Gran (auto) 0.02 (0.00-0.03) X10*3/uL Absolute Neuts (auto) 6.5 (2.0-8.3) x10*3/uL Absolute Nucleated RBC 0.000 (0.0-0.012) X10*3/uL Nucleated RBC % (auto) 0.0 (0.0-0.2) /100WBC PT 11.0 (10.9-12.4) SEC INR 1.0 (0.9-1.1) VBG pH 7.40 (7.32-7.43) VBG pCO2 43 mmHg VBG pO2 46 mmHg VBG HCO3 27 H (22-26) mmol/L VBG O2 Saturation 63.0 % VBG Base Excess 1.9 mmol/L Sodium 119 L* (135-145) mmol/L Potassium 5.4 H (3.3-5.1) mmol/L Chloride 77 L D (96-108) mmol/L Carbon Dioxide 26 (22-29) mmol/L Anion Gap 21 H (12-20) BUN 49 H (9-16) mg/dL Creatinine 1.83 H (0.5-1.4) mg/dL Estim Creat Clear Calc 42.1 Estimated GFR 38 POC Glucose > 600 H* (60-115) mg/dL Random Glucose 1148 H* (60-115) mg/dL Calcium 10.1 D (8.4-10.2) mg/dL Magnesium 2.1 (1.6-2.6) mg/dL Total Bilirubin 0.7 (0.0-1.0) mg/dL AST 16 (5-37) U/L ALT 21 (0-40) U/L Alkaline Phosphatase 118 H (39-117) U/L Troponin I High Sens 3.3 (<3.5-35.0) ng/L Total Protein 8.5 H (6.5-8.0) g/dL Albumin 4.9 (3.5-5.0) g/dL Lipase < 4 L (8-78) U/L Beta-Hydroxybutyrate 0.50 H (0.02-0.27) mmol/L Urine Color Urine Appearance Urine pH (5.0-9.0) Ur Specific [place] (1.005-1.025) Urine Protein (Neg-Trace) mg/dL Urine Glucose (UA) (Negative) mg/dL Urine Ketones (Negative) mg/dL Urine Blood (Negative) Urine Nitrite (Negative) Ur Leukocyte Esterase (Negative) Urine RBC (0-2) /HPF Urine WBC (0-5) /HPF Ur Squamous Epith Cells (0-2) /HPF Urine Bacteria (None Seen) Hyaline Casts (0-2) /LPF Influenza Type A (PCR) (Negative) Influenza Type B (PCR) (Negative) RSV RNA Qual (PCR) (Negative) SARS-CoV-2 RNA (RT-PCR) (Negative) 02/15/25 02/15/25 02/15/25 Range/Units 15:44 16:30 16:35 WBC (4.8-10.8) X10*3/uL RBC (4.60-5.80) X10*6/uL Hgb (14.0-18.0) g/dl Hct (42.0-52.0) % MCV (80.0-98.0) fL MCH (27.0-33.0) pg MCHC (31.0-36.0) g/dl RDW (11.0-16.0) % Plt Count (160-400) X10*3/uL MPV (9.4-12.4) fL Immature Gran % (Auto) (0.0-0.4) % Neut % (Auto) (45-73) % Lymph % (Auto) (20-40) % Tripp % (Auto) (2-11) % Eos % (Auto) (0-4) % Baso % (Auto) (0-2) % Lymph # (Auto) (1.2-4.9) X10*3/uL Tripp # (Auto) (0.1-1.2) X10*3/uL Eos # (Auto) (0.0-0.4) X10*3/uL Baso # (Auto) (0.0-0.2) X10*3/uL Abs Immat Gran (auto) (0.00-0.03) X10*3/uL Absolute Neuts (auto) (2.0-8.3) x10*3/uL Absolute Nucleated RBC (0.0-0.012) X10*3/uL Nucleated RBC % (auto) (0.0-0.2) /100WBC PT (10.9-12.4) SEC INR (0.9-1.1) VBG pH (7.32-7.43) VBG pCO2 mmHg VBG pO2 mmHg VBG HCO3 (22-26) mmol/L VBG O2 Saturation % VBG Base Excess mmol/L Sodium (135-145) mmol/L Potassium (3.3-5.1) mmol/L Chloride (96-108) mmol/L Carbon Dioxide (22-29) mmol/L Anion Gap (12-20) BUN (9-16) mg/dL Creatinine (0.5-1.4) mg/dL Estim Creat Clear Calc Estimated GFR POC Glucose > 600 H* (60-115) mg/dL Random Glucose (60-115) mg/dL Calcium (8.4-10.2) mg/dL Magnesium (1.6-2.6) mg/dL Total Bilirubin (0.0-1.0) mg/dL AST (5-37) U/L ALT (0-40) U/L Alkaline Phosphatase (39-117) U/L Troponin I High Sens (<3.5-35.0) ng/L Total Protein (6.5-8.0) g/dL Albumin (3.5-5.0) g/dL Lipase (8-78) U/L Beta-Hydroxybutyrate (0.02-0.27) mmol/L Urine Color Yellow Urine Appearance Clear Urine pH 5.0 (5.0-9.0) Ur Specific [place] 1.025 (1.005-1.025) Urine Protein Negative (Neg-Trace) mg/dL Urine Glucose (UA) >=1000 H (Negative) mg/dL Urine Ketones Trace (Negative) mg/dL Urine Blood Negative (Negative) Urine Nitrite Negative (Negative) Ur Leukocyte Esterase Negative (Negative) Urine RBC 0-2 (0-2) /HPF Urine WBC 0-5 (0-5) /HPF Ur Squamous Epith Cells 0-2 (0-2) /HPF Urine Bacteria None Seen (None Seen) Hyaline Casts 0-2 (0-2) /LPF Influenza Type A (PCR) NEGATIVE (Negative) Influenza Type B (PCR) NEGATIVE (Negative) RSV RNA Qual (PCR) NEGATIVE (Negative) SARS-CoV-2 RNA (RT-PCR) NEGATIVE (Negative) Critical Care Time Critical Care Time Critical Care Time: Yes Total Critical Care Time: 90 Attestation: I have personally provided 90 minutes of critical care time exclusive of time spent on separately billable procedures. ?Time includes review of lab data, radiology results, discussion with consultants, and monitoring for potential decompensation. ?Interventions were performed as documented above Discharge Plan Discharge Clinical Impression: Hyperglycemia Patient Disposition: Admitted As Inpatient Discharge Date/Time: 02/15/25 19:31
[2025-02-15] MEDS: Insulin Regular, Human 100 UNIT/ML 10 ML VIAL 10 UNIT IVPUSH (15:53)
[2025-02-15 15:56] LABS: Appearance Urine Clear; Color Urine Yellow; Glucose Urine UA >=1000 mg/dL (Negative); Leukocyte Esterase Urine Negative (Negative); Nitrite Urine Negative (Negative); Specific Gravity - Urine 1.025 (1.005-1.025); UMIC TRIGGER UACC YES; Urine Blood Negative (Negative); Urine Ketones Trace mg/dL (Negative); Urine Protein Negative (Neg-Trace)
[2025-02-15] MEDS: Insulin Regular/NS 100 UNIT/100 ML PLAST..BAG 6 UNIT IVCONT (16:02)
[2025-02-15 16:13] LABS: Bacteria Urine None Seen (None Seen); Hyaline Casts Urine 0-2 /LPF (0-2); RBC Urine 0-2 /HPF (0-2); Squamous Epithelial Cell Urine 0-2 /HPF (0-2); WBC Urine 0-5 /HPF (0-5)
[2025-02-15 16:39] LABS: Glucose, Whole Blood > 600 mg/dL (60-115)
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
[2025-02-15 17:13] LABS: Influenza A PCR NEGATIVE (Negative); Influenza B PCR NEGATIVE (Negative); Resp Syncy Virus RNA Qual PCR NEGATIVE (Negative); SARS COV2 PCR INHOUSE NEGATIVE (Negative)
[2025-02-15 18:06] LABS: Glucose, Whole Blood > 600 mg/dL (60-115)
--- NOTE | 2025-02-15 18:08 | PC.NURSE ---
Report given to Alannah CHRISTINE in the ICU.
--- NOTE | 2025-02-15 18:10 | PHA.MEDREC ---
Addendum entered by Ross Cespedes, [facility] 02/15/25 18:21: med rec reviewed Original Note: Pharmacy Consult ? Medication Reconciliation Pharmacy has completed the medication reconciliation. Spoke to patient to confirm med list. Patient states he is no longer taking Empagliflozin 25 mg, Escitalopram 20 mg and zofran 4 mg. Patient confirmed Oxycodone 10 mg Q4H PRN, Novolog FlexPen is per sliding scale TID, Tresiba FlexTouch 30 units at bedtime, Vitamin D3 50,000 units every Friday, last dose was today. Patient had all his morning medications to day.
[2025-02-15] MEDS: HYDROmorphone HCl 1 MG/ML SYRINGE 0.5 MG IVPUSH (18:11)
[2025-02-15] MEDS: Heparin Sodium,Porcine 5,000 UNIT/ML VIAL 5000 UNIT SUBCUT (18:14)
[2025-02-15 18:31] LABS: Anion Gap 19 (12-20); Blood Urea Nitrogen 50 mg/dL (9-16); Calcium 9.2 mg/dL (8.4-10.2); Carbon Dioxide 24 mmol/L (22-29); Chloride 85 mmol/L (96-108); Creatinine Clr Calc Pharmacy 47.3; Estimated Glomerular Filt Rate 44; Glucose Random 711 mg/dL (60-115); Magnesium 1.8 mg/dL (1.6-2.6); Phosphorus 4.1 mg/dL (2.7-4.5); Potassium 4.6 mmol/L (3.3-5.1); Sodium 123 mmol/L (135-145)
--- OUTSIDE RECORDS SUMMARY | 2025-02-15 18:32 | XMS_ITS | Clinical Summary ---
Author Organization Unknown Care Team Providers Care Gardening Manager Name Role Phone ANGEL MCLEAN, RANDELL Unavailable Unavailable ELIDIA RN, VISHAL Unavailable Unavailab arslan GUERRERO PT, LUL Unavailable Unavailable MCKENNA PERSON INVESTIGATOR, CHI Unavailable Unavailable READING OT, ALLA Unavailable Unavailable Payers Payer Name Policy Type Policy Number Effective Date Expira tion Date [facility] [id number] Problems Condition Name Condition Details Condition Category Status Onset Date Resolution Date Last Treatment Date Treating Clinician Comments FRACTURE OF ONE RIB, RIGHT SIDE, SUBS FOR FX W ROUTN HEAL Active 02-10 00:00: 00 Allergies, Adverse Reactions, Alerts Allergy Name Allergy Type Status Severity Reaction(s) Onset Date Inactive Date Treating Clinician Comments NO KNOWN ALLERGIES Propensity to adverse reactions Active 02-11 10:16: 16 Vital Signs Vital Name Observation Time Observation Value Commen ts Temperature 2025-02-11 10:35:00.000 98.6 [degF] BMI (%) 2025-02-11 10:23:40.000 29 kg/m2 Height 2025-02-11 10:23:35.000 67 [in_us] Pulse 2025-02-11 10:35:00.000 66 /min O2 Saturation (%) 2025-02-11 10:35:00.000 97 % Respirations 2025-02-11 10:35:00.000 18 /min Weight (lbs) 2025-02-11 10:23:40.000 190 [lb_av] Systolic Blood Pressure 2025-02-11 10:35:00.000 116 mm [Hg] Diastolic Blood Pressure 2025-02-11 10:35:00.000 82 mm [Hg] Plan of Treatment Planned Activity Planned Date Details Comments Future Scheduled Test PHYSICAL T HERAPIST TO EVALUATE FOR STRENGTH AND MOBILITY. [code = PHYSICAL THERAPIST TO EVALUATE FOR STRENGTH AND MOBILITY. ] Future Scheduled Test OCCUPATION AL THERAPIST TO EVALUATE FOR PROVISION OF ADLS. [code = OCCUPATIONAL THERAPIST TO EVALUATE FOR PROVISION OF ADLS. ] Future Scheduled Test FALL REDUC TION MANAGEMENT; RN TO ASSESS AND OBSERVE, LABORER ORCHARD/HEAD GOLF COACH TO OBSERVE FALL RISK FACTORS AND EDUCATE PATIENT/CAREGIVER ON STRATEGIES TO MINIMIZE THE RISK OF FALLING. [code = FALL REDUCTION MANAGEMENT; RN TO ASSESS AND OBSERVE, LABORER ORCHARD/HEAD GOLF COACH TO OBSERVE FALL RISK FACTORS AND EDUCATE PATIENT/CAREGIVER ON STRATEGIES TO MINIMIZE THE RISK OF FALLING.] Future Scheduled Test GENITOURIN PHYLLIS MANAGEMENT; RN TO ASSESS AND TEACH, LABORER ORCHARD/HEAD GOLF COACH TO OBSERVE AND TEACH RELATED TO ALTERED GENITOURINARY STATUS TO MINIMIZE COMPLICATIONS AND REDUCE HOSPITALIZATION. [code = GENITOURINARY MANAGEMENT; RN TO ASSESS AND TEACH, LABORER ORCHARD/HEAD GOLF COACH TO OBSERVE AND TEACH RELATED TO ALTERED GENITOURINARY STATUS TO MINIMIZE COMPLICATIONS AND REDUCE HOSPITALIZATION. ] Future Scheduled Test DIABETES M ANAGEMENT; RN TO ASSESS AND TEACH, HEAD GOLF COACH/LABORER ORCHARD TO OBSERVE AND TEACH INSTRUCTIONS OF DIABETIC CARE TO INCLUDE: DIABETIC DIET, SKIN CARE, SIGNS AND SYMPTOMS OF HYPO/HYPERGLYCEMIA, PROPER ADMINISTRATION OF DIABETIC MEDICATION. RN/HEAD GOLF COACH/LABORER ORCHARD TO INSTRUCT ON DIABETIC FOOT CARE AND MONITOR FOR SKIN LESIONS ON LOWER EXTREMITIES. BLOOD GLUCOSE TESTING 3 TIMES DAILY AND PRN FOR HYPERGLYCEMIA/HYPOGLYCEMIA. RN TO ASSESS AND TEACH, HEAD GOLF COACH/LABORER ORCHARD TO OBSERVE AND TEACH PATIENT/CAREGIVER ABILITY TO PERFORM AND RECORD BLOOD GLUCOSE TESTING ORDERED AND TO REPORT ABNORMAL FINDINGS TO PHYSICIAN. RN/HEAD GOLF COACH/LABORER ORCHARD MAY PERFORM BLOOD GLUCOSE TEST NEEDED. RN/HEAD GOLF COACH/LABORER ORCHARD TO REPORT TO PHYSICIAN BLOOD GLUCOSE READINGS GREATER THAN 489 OR LESS THAN 70. RN/HEAD GOLF COACH/LABORER ORCHARD TO INSTRUCT PATIENT ON IMPORTANCE OF HGBA1C MONITORING, KIDNEY FUNCTION TEST, EYE AND FOOT EXAMS. [code = DIABETES MANAGEMENT; RN TO ASSESS AND TEACH, HEAD GOLF COACH/LABORER ORCHARD TO OBSERVE AND TEACH INSTRUCTIONS OF DIABETIC CARE TO INCLUDE: DIABETIC DIET, SKIN CARE, SIGNS AND SYMPTOMS OF HYPO/HYPERGLYCEMIA, PROPER ADMINISTRATION OF DIABETIC MEDICATION. RN/HEAD GOLF COACH/LABORER ORCHARD TO INSTRUCT ON DIABETIC FOOT CARE AND MONITOR FOR SKIN LESIONS ON LOWER EXTREMITIES. BLOOD GLUCOSE TESTING 3 TIMES DAILY AND PRN FOR HYPERGLYCEMIA/HYPOGLYCEMIA. RN TO ASSESS AND TEACH, HEAD GOLF COACH/LABORER ORCHARD TO OBSERVE AND TEACH PATIENT/CAREGIVER ABILITY TO PERFORM AND RECORD BLOOD GLUCOSE TESTING ORDERED AND TO REPORT ABNORMAL FINDINGS TO PHYSICIAN. RN/HEAD GOLF COACH/LABORER ORCHARD MAY PERFORM BLOOD GLUCOSE TEST NEEDED. RN/HEAD GOLF COACH/LABORER ORCHARD TO REPORT TO PHYSICIAN BLOOD GLUCOSE READINGS GREATER THAN 489 OR LESS THAN 70. RN/HEAD GOLF COACH/LABORER ORCHARD TO INSTRUCT PATIENT ON IMPORTANCE OF HGBA1C MONITORING, KIDNEY FUNCTION TEST, EYE AND FOOT EXAMS.] Future Scheduled Test RN TO OBSE RVE, ASSESS, EVALUATE, AND DEVELOP AN INDIVIDUALIZED PLAN OF CARE. AGENCY MAY ACCEPT ORDERS FROM CONSULTING PHYSICIANS. RN TO OBSERVE AND ASSESS, LABORER ORCHARD/HEAD GOLF COACH TO OBSERVE FOR RISK FOR FALLS AND INSTRUCT IN FALL PREVENTION, HOME SAFETY, MEDICATION MANAGEMENT, INFECTION PREVENTION, AND NUTRITION MANAGEMENT. RN/LABORER ORCHARD/HEAD GOLF COACH NURSE MAY PERFORM O2 SATURATION LEVEL ON ADMISSION AND PRN FOR RN TO ASSESS/LABORER ORCHARD TO OBSERVE PATIENT, WITH NOTIFICATION TO THE PHYSICIAN IF SATURATION IS 90% IN THE ABSENCE OF MORE SPECIFIC PARAMETERS FROM THE PHYSICIAN. AGENCY MAY PERFORM A RESUMPTION OF CARE VISIT FOLLOWING ANY HOSPITAL ADMISSION. RN/LABORER ORCHARD/HEAD GOLF COACH TO MONITOR CO-MORBID CONDITIONS LISTED ON THE PLAN OF CARE AND ANY NEW CONDITIONS THAT PRESENT THEMSELVES DURING THIS EPISODE TO IDENTIFY CHANGES AND INTERVENE TO MINIMIZE COMPLICATIONS. [code = RN TO OBSERVE, ASSESS, EVALUATE, AND DEVELOP AN INDIVIDUALIZED PLAN OF CARE. AGENCY MAY ACCEPT ORDERS FROM CONSULTING PHYSICIANS. RN TO OBSERVE AND ASSESS, LABORER ORCHARD/HEAD GOLF COACH TO OBSERVE FOR RISK FOR FALLS AND INSTRUCT IN FALL PREVENTION, HOME SAFETY, MEDICATION MANAGEMENT, INFECTION PREVENTION, AND NUTRITION MANAGEMENT. RN/LABORER ORCHARD/HEAD GOLF COACH NURSE MAY PERFORM O2 SATURATION LEVEL ON ADMISSION AND PRN FOR RN TO ASSESS/LABORER ORCHARD TO OBSERVE PATIENT, WITH NOTIFICATION TO THE PHYSICIAN IF SATURATION IS 90% IN THE ABSENCE OF MORE SPECIFIC PARAMETERS FROM THE PHYSICIAN. AGENCY MAY PERFORM A RESUMPTION OF CARE VISIT FOLLOWING ANY HOSPITAL ADMISSION. RN/LABORER ORCHARD/HEAD GOLF COACH TO MONITOR CO-MORBID CONDITIONS LISTED ON THE PLAN OF CARE AND ANY NEW CONDITIONS THAT PRESENT THEMSELVES DURING THIS EPISODE TO IDENTIFY CHANGES AND INTERVENE TO MINIMIZE COMPLICATIONS.] Future Scheduled Test PAIN MANAG EMENT; RN TO ASSESS AND TEACH, HEAD GOLF COACH/LABORER ORCHARD TO OBSERVE AND TEACH AND PROVIDE EDUCATION ON PAIN MANAGEMENT TECHNIQUES. [code = PAIN MANAGEMENT; RN TO ASSESS AND TEACH, HEAD GOLF COACH/LABORER ORCHARD TO OBSERVE AND TEACH AND PROVIDE EDUCATION ON PAIN MANAGEMENT TECHNIQUES.] Future Scheduled Test DIABETES M ONITORING RN/HEAD GOLF COACH/LABORER ORCHARD TO MONITOR BLOOD SUGAR LOG FOR BLOOD SUGAR READINGS THAT ARE BEING CHECKED BY PATIENT, CAREGIVER 3 TIMES A DAY. PATIENT THERAPEUTIC BLOOD SUGAR PARAMETERS ARE 70 - 489. REPORT BLOOD SUGARS OUT OF RANGE TO PHYSICIAN. NURSE MAY PERFORM FINGER STICK BLOOD GLUCOSE NEEDED FOR SIGNS AND SYMPTOMS OF HYPO AND HYPERGLYCEMIA. RN/HEAD GOLF COACH/LABORER ORCHARD TO MONITOR ADHERENCE OF PATIENT/CAREGIVER PERFORMING DIABETIC FOOT CARE AND MAY PERFORM DIABETIC FOOT CARE PRN. RN/HEAD GOLF COACH/LABORER ORCHARD TO MONITOR FOR ADHERENCE TO DIABETIC SELF-CARE AND MANAGEMENT INCLUDING MEDICATIONS. [code = DIABETES MONITORING RN/HEAD GOLF COACH/LABORER ORCHARD TO MONITOR BLOOD SUGAR LOG FOR BLOOD SUGAR READINGS THAT ARE BEING CHECKED BY PATIENT, CAREGIVER 3 TIMES A DAY. PATIENT THERAPEUTIC BLOOD SUGAR PARAMETERS ARE 70 - 489. REPORT BLOOD SUGARS OUT OF RANGE TO PHYSICIAN. NURSE MAY PERFORM FINGER STICK BLOOD GLUCOSE NEEDED FOR SIGNS AND SYMPTOMS OF HYPO AND HYPERGLYCEMIA. RN/HEAD GOLF COACH/LABORER ORCHARD TO MONITOR ADHERENCE OF PATIENT/CAREGIVER PERFORMING DIABETIC FOOT CARE AND MAY PERFORM DIABETIC FOOT CARE PRN. RN/HEAD GOLF COACH/LABORER ORCHARD TO MONITOR FOR ADHERENCE TO DIABETIC SELF-CARE AND MANAGEMENT INCLUDING MEDICATIONS.] Future Scheduled Test MEDICATION MANAGEMENT; RN/LABORER ORCHARD/HEAD GOLF COACH TO REVIEW MEDICATIONS FOR INTERACTIONS, EFFECTIVENESS OF DRUG THERAPY, AND SIGNS/SYMPTOMS OF ADVERSE REACTIONS. MAY INSTRUCT AND REINFORCE MEDICATION TEACHING RELATED TO THE USE OF MEDICATIONS, DOSAGE, FREQUENCY, PURPOSE, SIDE EFFECTS, AND TO REPORT COMPLICATIONS. [code = MEDICATION MANAGEMENT; RN/LABORER ORCHARD/HEAD GOLF COACH TO REVIEW MEDICATIONS FOR INTERACTIONS, EFFECTIVENESS OF DRUG THERAPY, AND SIGNS/SYMPTOMS OF ADVERSE REACTIONS. MAY INSTRUCT AND REINFORCE MEDICATION TEACHING RELATED TO THE USE OF MEDICATIONS, DOSAGE, FREQUENCY, PURPOSE, SIDE EFFECTS, AND TO REPORT COMPLICATIONS.] Goal Patient Goal - GO UP AND [facility] Goal Provider Goal - Goal Provider Goal - Goal Provider Goal - PATIENT/CAREGIVER WILL VERBALIZE/DEMONSTRATE UNDERSTANDING OF FALL RISK FACTORS AND IMPLEMENT STRATEGIES TO MINIMIZE FALL RISK. PATIENT/CAREGIVER WILL VERBALIZE/DEMONSTRATE AN ABILITY TO ADHERE TO FALL REDUCTION SELF-MANAGEMENT AND LIFE-STYLE CHANGES BY EOE. Goal Provider Goal - PATIENT / CAREGIVER WILL VERBALIZE/DEMONSTRATE UNDERSTANDING OF MEASURES TO MANAGE ALTERED GENITOURINARY STATUS BY END OF EPISODE. Goal Provider Goal - PATIENT / CAREGIVER WILL VERBALIZE / DEMONSTRATE AN ABILITY TO ADHERE TO SELF-MANAGEMENT OF DIABETES MANAGEMENT BY EOE. Goal Provider Goal - A PLAN OF CARE WILL BE ESTABLISHED THAT MEETS THE PATIENTS NEEDS. PATIENT WILL DEMONSTRATE OXYGEN SATURATION WITHIN NORMAL LIMITS OR PATIENTS OPTIMAL LEVEL ESTABLISHED BY THE PHYSICIAN THROUGHOUT CARE. CHANGES TO CO-MORBID CONDITIONS AND ANY NEW CONDITIONS WILL BE IDENTIFIED AND REPORTED TO THE PHYSICIAN. Goal Provider Goal - PATIENT / CAREGIVER WILL VERBALIZE / DEMONSTRATE UNDERSTANDING OF PAIN CONTROL MEASURES BY EOE. Goal Provider Goal - BLOOD SUGARS WILL REMAIN WITHIN ESTABLISHED RANGES AND DIABETES CONTROLLED THROUGHOUT EPISODE. Goal Provider Goal - PATIENT/CAREGIVER TO VERBALIZE, AND CONSISTENTLY DEMONSTRATE EFFECTIVE, SAFE MANAGEMENT OF MEDICATION INCLUDING KNOWLEDGE OF EFFECTIVENESS, POTENTIAL SIDE EFFECTS AND DRUG REACTIONS AND WHEN TO CONTACT THE APPROPRIATE CARE PROVIDER. PATIENT/CAREGIVER WILL BE ABLE TO VERBALIZE UNDERSTANDING OF MEDICATION REGIMEN AND ACCURATELY TAKE MEDICATIONS PRESCRIBED WITHOUT ADVERSE EFFECTS BY EOE. Encounters Start Date/Time End Date/Time Encounter Type Admission Type Attending [facility] Care Department Encounter ID Discharge Date Discharge Status Discharge Condition Discharge Reason Percent Goals Met 2025-02-11 00:00:00 2025-04-11 00:00:00 Outpatient NEW ADMISSION VISHAL [facility] [id number] 80.00
[2025-02-15 18:33] LABS: Beta-Hydroxybutyrate 0.04 mmol/L (0.02-0.27)
[2025-02-15 19:02] LABS: Glucose, Whole Blood 509 mg/dL (60-115)
[2025-02-15] MEDS: Lactated Ringers 1,000 ML 999 ML IV (19:02)
--- NOTE | 2025-02-15 19:31 | PC.NURSE ---
The patient arrived at the ICU? approximately? at 1840? from the ED for management of? DKA. Alert & Oriented, Critical random glucose 711. Dr. Rodriguez notified and Ordered to pause insulin gtt, 1L Lactated Ringer?s to be given? and Recheck POC within 1 hour.
[2025-02-15 20:01] LABS: Glucose, Whole Blood 420 mg/dL (60-115)
[2025-02-15] MEDS: Famotidine/PF 20 MG/2 ML VIAL IVPUSH (20:21)
[2025-02-15] MEDS: Lactated Ringers 1,000 ML 150 ML IVCONT (20:21)
[2025-02-15 20:41] LABS: Amphetamine Screen Urine Not Detected (Not Detect); Barbiturates, Urine Not Detected (Not Detect); Benzodiazepines Screen Urine Not Detected (Not Detect); Buprenorphine Scr Not Detected (Not Detect); Cannabinoid Screen Urine POSITIVE (Not Detect); Cocaine Screen Urine POSITIVE (Not Detect); Fentanyl, urine Not Detected (Not Detect); Methadone Screen, Urine Not Detected (Not Detect); Opiate Screen Urine Not Detected (Not Detect); Oxycodone Screen Urine Positive (Not Detect); Phencyclidine Screen Urine Not Detected (Not Detect)
[2025-02-15 20:56] LABS: Anion Gap 15 (12-20); Blood Urea Nitrogen 45 mg/dL (9-16); Carbon Dioxide 24 mmol/L (22-29); Chloride 91 mmol/L (96-108); Creatinine Clr Calc Pharmacy 60.2; Estimated Glomerular Filt Rate 58; Glucose Random 410 mg/dL (60-115); Potassium 4.4 mmol/L (3.3-5.1); Sodium 126 mmol/L (135-145)
[2025-02-15 21:04] LABS: Glucose, Whole Blood 365 mg/dL (60-115)
[2025-02-15 22:08] LABS: Glucose, Whole Blood 367 mg/dL (60-115)
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
[2025-02-15 22:17] LABS: Anion Gap 15 (12-20); Blood Urea Nitrogen 45 mg/dL (9-16); Calcium 8.9 mg/dL (8.4-10.2); Carbon Dioxide 26 mmol/L (22-29); Chloride 90 mmol/L (96-108); Creatinine Clr Calc Pharmacy 58.8; Estimated Glomerular Filt Rate 57; Magnesium 1.7 mg/dL (1.6-2.6); Phosphorus 3.7 mg/dL (2.7-4.5); Potassium 4.4 mmol/L (3.3-5.1); Sodium 127 mmol/L (135-145)
[2025-02-15 22:24] LABS: Glucose Random 406 mg/dL (60-115)
[2025-02-15 23:05] LABS: Glucose, Whole Blood 350 mg/dL (60-115)
[2025-02-15] MEDS: Ketorolac Tromethamine 30 MG/ML VIAL 15 MG IVPUSH (23:25)
[2025-02-15] MEDS: Insulin Regular, Human 100 UNIT/ML 10 ML VIAL IVPUSH (23:25)
[2025-02-16] VITALS (21 sets, daily range): BP systolic 100–171; BP diastolic 47–86; PULSE 43–52; RESP 11–18; TEMP 35.6–36.7; O2SAT 93–99; BMI 30.7
[2025-02-16 00:15] LABS: Glucose, Whole Blood 372 mg/dL (60-115)
[2025-02-16] MEDS: HYDROmorphone HCl 1 MG/ML SYRINGE 0.5 MG IVPUSH ×3 (00:24→19:30)
[2025-02-16] MEDS: Heparin Sodium,Porcine 5,000 UNIT/ML VIAL 5000 UNIT SUBCUT ×3 (00:59→16:15)
[2025-02-16] MEDS: Lactated Ringers 1,000 ML 150 ML IVCONT ×2 (01:00→07:53)
[2025-02-16 01:02] LABS: Glucose, Whole Blood 365 mg/dL (60-115)
[2025-02-16 01:27] LABS: Alanine Aminotransferase 9 U/L (0-40); Albumin Level 3.6 g/dL (3.5-5.0); Alkaline Phosphatase 85 U/L (39-117); Anion Gap 13 (12-20); Aspartate Amino Transferase 13 U/L (5-37); Bilirubin Total 0.3 mg/dL (0.0-1.0); Blood Urea Nitrogen 41 mg/dL (9-16); Calcium 8.6 mg/dL (8.4-10.2); Carbon Dioxide 25 mmol/L (22-29); Chloride 93 mmol/L (96-108); Creatinine Clr Calc Pharmacy 63.7; Estimated Glomerular Filt Rate > 60; Glucose Random 377 mg/dL (60-115); Magnesium 1.7 mg/dL (1.6-2.6); Phosphorus 3.5 mg/dL (2.7-4.5); Sodium 127 mmol/L (135-145); Total Protein 6.3 g/dL (6.5-8.0)
[2025-02-16 02:00] LABS: Glucose, Whole Blood 374 mg/dL (60-115)
[2025-02-16] MEDS: Insulin Regular, Human 100 UNIT/ML 10 ML VIAL 10 UNIT IVPUSH (03:12)
[2025-02-16 05:29] LABS: Glucose, Whole Blood 353 mg/dL (60-115)
[2025-02-16 05:29] LABS: Glucose, Whole Blood 336 mg/dL (60-115)
[2025-02-16 05:29] LABS: Glucose, Whole Blood 395 mg/dL (60-115)
[2025-02-16 05:47] LABS: VBG Base Excess 5.4 mmol/L; VBG HCO3 28 mmol/L (22-26); VBG pCO2 37 mmHg; VBG pH 7.49 (7.32-7.43); VBG pO2 48 mmHg
[2025-02-16 06:05] LABS: Glucose, Whole Blood 356 mg/dL (60-115)
[2025-02-16 06:06] LABS: Estimated Average Glucose 243 mg/dL; Hemoglobin A1C 275.1585 umol/L; Hemoglobin A1c % 10.1 % (<6.0); Total Hemoglobin (HGBA1C) 3161.3524 umol/L
[2025-02-16 06:22] LABS: MANUAL DIFF FLAG NO
[2025-02-16 06:25] LABS: Venous Blood Gas Refer to POC result
[2025-02-16 06:37] LABS: Basophils Percent Auto 0.4 % (0-2); Eosinophils Absolute Auto 0.2 X10*3/uL (0.0-0.4); Eosinophils Percent Auto 3.3 % (0-4); Imm Gran Abs Auto 0.01 X10*3/uL (0.00-0.03); Imm Gran Pct Auto 0.2 % (0.0-0.4); Lymphocytes Absolute Auto 2.3 X10*3/uL (1.2-4.9); Lymphocytes Percent Auto 42.2 % (20-40); Mean Corpuscular HGB Conc 34.4 g/dl (31.0-36.0); Mean Corpuscular Hemoglobin 28.8 pg (27.0-33.0); Mean Corpuscular Volume 83.8 fL (80.0-98.0); Mean Platelet Volume 10.2 fL (9.4-12.4); Monocytes Absolute Auto 0.5 X10*3/uL (0.1-1.2); Monocytes Percent Auto 9.5 % (2-11); Neutrophils Absolute Auto 2.4 x10*3/uL (2.0-8.3); Neutrophils Percent Auto 44.4 % (45-73); Platelet Count 160 X10*3/uL (160-400); Red Blood Count 3.82 X10*6/uL (4.60-5.80); Red Cell Distribution Width 12.7 % (11.0-16.0); White Blood Count 5.5 X10*3/uL (4.8-10.8)
[2025-02-16 07:11] LABS: Glucose, Whole Blood 367 mg/dL (60-115)
[2025-02-16 07:16] LABS: Alanine Aminotransferase 8 U/L (0-40); Albumin Level 3.4 g/dL (3.5-5.0); Alkaline Phosphatase 80 U/L (39-117); Anion Gap 12 (12-20); Aspartate Amino Transferase 13 U/L (5-37); Bilirubin Total 0.3 mg/dL (0.0-1.0); Blood Urea Nitrogen 37 mg/dL (9-16); Calcium 8.6 mg/dL (8.4-10.2); Carbon Dioxide 26 mmol/L (22-29); Chloride 95 mmol/L (96-108); Creatinine Clr Calc Pharmacy 76.3; Estimated Glomerular Filt Rate > 60; Glucose Random 352 mg/dL (60-115); Magnesium 1.7 mg/dL (1.6-2.6); Potassium 3.8 mmol/L (3.3-5.1); Sodium 129 mmol/L (135-145)
--- NOTE | 2025-02-16 07:22 | PC.NURSE ---
Addendum entered by Jerrell Rosales RN 02/16/25 15:17: per ok to administer aspiring despite heparin being administered this AM Addendum entered by Jerrell Rosales RN 02/16/25 14:07: pt HR dropped to 38, md informed. Addendum entered by Jerrell Rosales RN 02/16/25 10:11: MD informed of every hourly POC this shift. Addendum entered by Jerrell Rosales RN 02/16/25 09:31: md informed of pt's HR SR 40s while at rest in bed Addendum entered by Jerrell Rosales RN 02/16/25 08:14: informed of poc for 0800 Original Note: md informed pt has not been on insulin drip and of POCs overnight and this AM. per continue to hold insulin drip
[2025-02-16] MEDS: Famotidine/PF 20 MG/2 ML VIAL IVPUSH ×2 (07:30→20:50)
[2025-02-16 08:16] LABS: Glucose, Whole Blood 445 mg/dL (60-115)
--- NOTE | 2025-02-16 08:41 | P.PNCC_ITS ---
Subjective Subjective Date of Service: 02/16/25 Interval History: No new events overnight Blood sugars appropriately coming down Sleeping this morning Critical Care Time (minutes): 35 Physical Exam 2 Vital Signs: Vital Signs: Last Vital Signs Temp 97.1 F 02/16/25 08:00 Pulse 47 L 02/16/25 08:00 Resp 13 02/16/25 08:00 BP 121/64 02/16/25 08:00 Pulse Ox 96 02/16/25 08:00 O2 Del Method Room Air 02/16/25 08:00 BMI result Body Mass Index 30.7 General: Middle-aged male not in any acute distress Nutritional Appearance: well nourished and overweight Eyes: appearance normal, both eyes and all related structures; Alignment and Position: alignment normal and position normal Neck: No lymphadenopathy, no thyromegaly Resp: bilateral air entry equal, occasional added sounds present Cardio: Regular rate, regular rhythm; Heart sounds: S1 normal heart sound present and S2 normal heart sound present GI: soft, nontender, no guarding, no hepatosplenomegaly : bladder normal to inspection, bladder normal to palpation, no renal angle tenderness Skin: no rashes or lesions noted and elasticity normal Neuro: oriented to person, oriented to place, oriented to time and moves all extremities Objective Data Labs 02/16/25 05:43 02/16/25 05:43 Labs: Laboratory Results - last 24 hr 02/15/25 02/15/25 02/15/25 14:56 15:06 15:16 WBC 7.9 RBC 4.63 Hgb 13.4 L Hct 39.5 L MCV 85.3 MCH 28.9 MCHC 33.9 RDW 13.2 Plt Count 193 MPV 9.6 Immature Gran % (Auto) 0.3 Neut % (Auto) 81.4 H Lymph % (Auto) 12.3 L [place] % (Auto) 5.8 Eos % (Auto) 0.1 Baso % (Auto) 0.1 Lymph # (Auto) 1.0 L [place] # (Auto) 0.5 Eos # (Auto) 0.0 Baso # (Auto) 0.0 Abs Immat Gran (auto) 0.02 Absolute Neuts (auto) 6.5 Absolute Nucleated RBC 0.000 Nucleated RBC % (auto) 0.0 PT 11.0 INR 1.0 VBG pH 7.40 VBG pCO2 43 VBG pO2 46 VBG HCO3 27 H VBG O2 Saturation 63.0 VBG Base Excess 1.9 Sodium 119 L* Potassium 5.4 H Chloride 77 L D Carbon Dioxide 26 Anion Gap 21 H BUN 49 H Creatinine 1.83 H Estim Creat Clear Calc 42.1 Estimated GFR 38 POC Glucose > 600 H* Random Glucose 1148 H* Estimat Average Glucose Hemoglobin A1c % Calcium 10.1 D Phosphorus Magnesium 2.1 Total Bilirubin 0.7 AST 16 ALT 21 Alkaline Phosphatase 118 H Troponin I High Sens 3.3 Total Protein 8.5 H Albumin 4.9 Lipase < 4 L Beta-Hydroxybutyrate 0.50 H Urine Color Urine Appearance Urine pH Ur Specific [place] Urine Protein Urine Glucose (UA) Urine Ketones Urine Blood Urine Nitrite Ur Leukocyte Esterase Urine RBC Urine WBC Ur Squamous Epith Cells Urine Bacteria Hyaline Casts Urine Opiates Screen Ur Buprenorphine Scrn Ur Oxycodone Screen Urine Methadone Screen Urine Fentanyl Screen Ur Barbiturates Screen Ur Phencyclidine Scrn Ur Amphetamines Screen U Benzodiazepines Scrn Urine Cocaine Screen U Marijuana (THC) Screen Influenza Type A (PCR) Influenza Type B (PCR) RSV RNA Qual (PCR) SARS-CoV-2 RNA (RT-PCR) 02/15/25 02/15/25 02/15/25 15:44 16:30 16:35 WBC RBC Hgb Hct MCV MCH MCHC RDW Plt Count MPV Immature Gran % (Auto) Neut % (Auto) Lymph % (Auto) [place] % (Auto) Eos % (Auto) Baso % (Auto) Lymph # (Auto) [place] # (Auto) Eos # (Auto) Baso # (Auto) Abs Immat Gran (auto) Absolute Neuts (auto) Absolute Nucleated RBC Nucleated RBC % (auto) PT INR VBG pH VBG pCO2 VBG pO2 VBG HCO3 VBG O2 Saturation VBG Base Excess Sodium Potassium Chloride Carbon Dioxide Anion Gap BUN Creatinine Estim Creat Clear Calc Estimated GFR POC Glucose > 600 H* Random Glucose Estimat Average Glucose Hemoglobin A1c % Calcium Phosphorus Magnesium Total Bilirubin AST ALT Alkaline Phosphatase Troponin I High Sens Total Protein Albumin Lipase Beta-Hydroxybutyrate Urine Color Yellow Urine Appearance Clear Urine pH 5.0 Ur Specific [place] 1.025 Urine Protein Negative Urine Glucose (UA) >=1000 H Urine Ketones Trace Urine Blood Negative Urine Nitrite Negative Ur Leukocyte Esterase Negative Urine RBC 0-2 Urine WBC 0-5 Ur Squamous Epith Cells 0-2 Urine Bacteria None Seen Hyaline Casts 0-2 Urine Opiates Screen Ur Buprenorphine Scrn Ur Oxycodone Screen Urine Methadone Screen Urine Fentanyl Screen Ur Barbiturates Screen Ur Phencyclidine Scrn Ur Amphetamines Screen U Benzodiazepines Scrn Urine Cocaine Screen U Marijuana (THC) Screen Influenza Type A (PCR) NEGATIVE Influenza Type B (PCR) NEGATIVE RSV RNA Qual (PCR) NEGATIVE SARS-CoV-2 RNA (RT-PCR) NEGATIVE 02/15/25 02/15/25 02/15/25 17:39 17:39 18:01 WBC RBC Hgb Hct MCV MCH MCHC RDW Plt Count MPV Immature Gran % (Auto) Neut % (Auto) Lymph % (Auto) [place] % (Auto) Eos % (Auto) Baso % (Auto) Lymph # (Auto) [place] # (Auto) Eos # (Auto) Baso # (Auto) Abs Immat Gran (auto) Absolute Neuts (auto) Absolute Nucleated RBC Nucleated RBC % (auto) PT INR VBG pH VBG pCO2 VBG pO2 VBG HCO3 VBG O2 Saturation VBG Base Excess Sodium 123 L Potassium 4.6 Chloride 85 L Carbon Dioxide 24 Anion Gap 19 BUN 50 H Creatinine 1.63 H Estim Creat Clear Calc 47.3 Estimated GFR 44 POC Glucose > 600 H* Random Glucose 711 H* Estimat Average Glucose 243 Hemoglobin A1c % 10.1 H Calcium 9.2 D Phosphorus Cancelled 4.1 Magnesium 1.8 Total Bilirubin AST ALT Alkaline Phosphatase Troponin I High Sens Total Protein Albumin Lipase Beta-Hydroxybutyrate 0.04 Urine Color Urine Appearance Urine pH Ur Specific [place] Urine Protein Urine Glucose (UA) Urine Ketones Urine Blood Urine Nitrite Ur Leukocyte Esterase Urine RBC Urine WBC Ur Squamous Epith Cells Urine Bacteria Hyaline Casts Urine Opiates Screen Ur Buprenorphine Scrn Ur Oxycodone Screen Urine Methadone Screen Urine Fentanyl Screen Ur Barbiturates Screen Ur Phencyclidine Scrn Ur Amphetamines Screen U Benzodiazepines Scrn Urine Cocaine Screen U Marijuana (THC) Screen Influenza Type A (PCR) Influenza Type B (PCR) RSV RNA Qual (PCR) SARS-CoV-2 RNA (RT-PCR) 02/15/25 02/15/25 02/15/25 18:58 19:57 20:10 WBC RBC Hgb Hct MCV MCH MCHC RDW Plt Count MPV Immature Gran % (Auto) Neut % (Auto) Lymph % (Auto) [place] % (Auto) Eos % (Auto) Baso % (Auto) Lymph # (Auto) [place] # (Auto) Eos # (Auto) Baso # (Auto) Abs Immat Gran (auto) Absolute Neuts (auto) Absolute Nucleated RBC Nucleated RBC % (auto) PT INR VBG pH VBG pCO2 VBG pO2 VBG HCO3 VBG O2 Saturation VBG Base Excess Sodium Potassium Chloride Carbon Dioxide Anion Gap BUN Creatinine Estim Creat Clear Calc Estimated GFR POC Glucose 509 H* 420 H* Random Glucose Estimat Average Glucose Hemoglobin A1c % Calcium Phosphorus Magnesium Total Bilirubin AST ALT Alkaline Phosphatase Troponin I High Sens Total Protein Albumin Lipase Beta-Hydroxybutyrate Urine Color Urine Appearance Urine pH Ur Specific [place] Urine Protein Urine Glucose (UA) Urine Ketones Urine Blood Urine Nitrite Ur Leukocyte Esterase Urine RBC Urine WBC Ur Squamous Epith Cells Urine Bacteria Hyaline Casts Urine Opiates Screen Not Detected Ur Buprenorphine Scrn Not Detected Ur Oxycodone Screen Positive H Urine Methadone Screen Not Detected Urine Fentanyl Screen Not Detected Ur Barbiturates Screen Not Detected Ur Phencyclidine Scrn Not Detected Ur Amphetamines Screen Not Detected U Benzodiazepines Scrn Not Detected Urine Cocaine Screen POSITIVE H U Marijuana (THC) Screen POSITIVE H Influenza Type A (PCR) Influenza Type B (PCR) RSV RNA Qual (PCR) SARS-CoV-2 RNA (RT-PCR) 02/15/25 02/15/25 02/15/25 20:35 20:35 20:35 WBC RBC Hgb Hct MCV MCH MCHC RDW Plt Count MPV Immature Gran % (Auto) Neut % (Auto) Lymph % (Auto) [place] % (Auto) Eos % (Auto) Baso % (Auto) Lymph # (Auto) [place] # (Auto) Eos # (Auto) Baso # (Auto) Abs Immat Gran (auto) Absolute Neuts (auto) Absolute Nucleated RBC Nucleated RBC % (auto) PT INR VBG pH VBG pCO2 VBG pO2 VBG HCO3 VBG O2 Saturation VBG Base Excess Sodium 126 L 127 L Potassium 4.4 4.4 Chloride 91 L Carbon Dioxide Anion Gap BUN Creatinine Estim Creat Clear Calc Estimated GFR POC Glucose Random Glucose Estimat Average Glucose Hemoglobin A1c % Calcium Phosphorus Magnesium Total Bilirubin AST ALT Alkaline Phosphatase Troponin I High Sens Total Protein Albumin Lipase Beta-Hydroxybutyrate Urine Color Urine Appearance Urine pH Ur Specific [place] Urine Protein Urine Glucose (UA) Urine Ketones Urine Blood Urine Nitrite Ur Leukocyte Esterase Urine RBC Urine WBC Ur Squamous Epith Cells Urine Bacteria Hyaline Casts Urine Opiates Screen Ur Buprenorphine Scrn Ur Oxycodone Screen Urine Methadone Screen Urine Fentanyl Screen Ur Barbiturates Screen Ur Phencyclidine Scrn Ur Amphetamines Screen U Benzodiazepines Scrn Urine Cocaine Screen U Marijuana (THC) Screen Influenza Type A (PCR) Influenza Type B (PCR) RSV RNA Qual (PCR) SARS-CoV-2 RNA (RT-PCR) 02/15/25 02/15/25 02/15/25 20:35 20:35 20:35 WBC RBC Hgb Hct MCV MCH MCHC RDW Plt Count MPV Immature Gran % (Auto) Neut % (Auto) Lymph % (Auto) [place] % (Auto) Eos % (Auto) Baso % (Auto) Lymph # (Auto) [place] # (Auto) Eos # (Auto) Baso # (Auto) Abs Immat Gran (auto) Absolute Neuts (auto) Absolute Nucleated RBC Nucleated RBC % (auto) PT INR VBG pH VBG pCO2 VBG pO2 VBG HCO3 VBG O2 Saturation VBG Base Excess Sodium Potassium Chloride 90 L Carbon Dioxide 24 26 Anion Gap 15 15 BUN 45 H Creatinine Estim Creat Clear Calc Estimated GFR POC Glucose Random Glucose Estimat Average Glucose Hemoglobin A1c % Calcium Phosphorus Magnesium Total Bilirubin AST ALT Alkaline Phosphatase Troponin I High Sens Total Protein Albumin Lipase Beta-Hydroxybutyrate Urine Color Urine Appearance Urine pH Ur Specific [place] Urine Protein Urine Glucose (UA) Urine Ketones Urine Blood Urine Nitrite Ur Leukocyte Esterase Urine RBC Urine WBC Ur Squamous Epith Cells Urine Bacteria Hyaline Casts Urine Opiates Screen Ur Buprenorphine Scrn Ur Oxycodone Screen Urine Methadone Screen Urine Fentanyl Screen Ur Barbiturates Screen Ur Phencyclidine Scrn Ur Amphetamines Screen U Benzodiazepines Scrn Urine Cocaine Screen U Marijuana (THC) Screen Influenza Type A (PCR) Influenza Type B (PCR) RSV RNA Qual (PCR) SARS-CoV-2 RNA (RT-PCR) 02/15/25 02/15/25 02/15/25 20:35 20:35 20:35 WBC RBC Hgb Hct MCV MCH MCHC RDW Plt Count MPV Immature Gran % (Auto) Neut % (Auto) Lymph % (Auto) [place] % (Auto) Eos % (Auto) Baso % (Auto) Lymph # (Auto) [place] # (Auto) Eos # (Auto) Baso # (Auto) Abs Immat Gran (auto) Absolute Neuts (auto) Absolute Nucleated RBC Nucleated RBC % (auto) PT INR VBG pH VBG pCO2 VBG pO2 VBG HCO3 VBG O2 Saturation VBG Base Excess Sodium Potassium Chloride Carbon Dioxide Anion Gap BUN 45 H Creatinine 1.28 1.31 Estim Creat Clear Calc 60.2 58.8 Estimated GFR 58 POC Glucose Random Glucose Estimat Average Glucose Hemoglobin A1c % Calcium Phosphorus Magnesium Total Bilirubin AST ALT Alkaline Phosphatase Troponin I High Sens Total Protein Albumin Lipase Beta-Hydroxybutyrate Urine Color Urine Appearance Urine pH Ur Specific [place] Urine Protein Urine Glucose (UA) Urine Ketones Urine Blood Urine Nitrite Ur Leukocyte Esterase Urine RBC Urine WBC Ur Squamous Epith Cells Urine Bacteria Hyaline Casts Urine Opiates Screen Ur Buprenorphine Scrn Ur Oxycodone Screen Urine Methadone Screen Urine Fentanyl Screen Ur Barbiturates Screen Ur Phencyclidine Scrn Ur Amphetamines Screen U Benzodiazepines Scrn Urine Cocaine Screen U Marijuana (THC) Screen Influenza Type A (PCR) Influenza Type B (PCR) RSV RNA Qual (PCR) SARS-CoV-2 RNA (RT-PCR) 02/15/25 02/15/25 02/15/25 20:35 20:35 20:35 WBC RBC Hgb Hct MCV MCH MCHC RDW Plt Count MPV Immature Gran % (Auto) Neut % (Auto) Lymph % (Auto) [place] % (Auto) Eos % (Auto) Baso % (Auto) Lymph # (Auto) [place] # (Auto) Eos # (Auto) Baso # (Auto) Abs Immat Gran (auto) Absolute Neuts (auto) Absolute Nucleated RBC Nucleated RBC % (auto) PT INR VBG pH VBG pCO2 VBG pO2 VBG HCO3 VBG O2 Saturation VBG Base Excess Sodium Potassium Chloride Carbon Dioxide Anion Gap BUN Creatinine Estim Creat Clear Calc Estimated GFR 57 POC Glucose Random Glucose 410 H* 406 H* Estimat Average Glucose Hemoglobin A1c % Calcium 9.0 8.9 Phosphorus 3.7 Magnesium 1.7 Total Bilirubin AST ALT Alkaline Phosphatase Troponin I High Sens Total Protein Albumin Lipase Beta-Hydroxybutyrate Urine Color Urine Appearance Urine pH Ur Specific [place] Urine Protein Urine Glucose (UA) Urine Ketones Urine Blood Urine Nitrite Ur Leukocyte Esterase Urine RBC Urine WBC Ur Squamous Epith Cells Urine Bacteria Hyaline Casts Urine Opiates Screen Ur Buprenorphine Scrn Ur Oxycodone Screen Urine Methadone Screen Urine Fentanyl Screen Ur Barbiturates Screen Ur Phencyclidine Scrn Ur Amphetamines Screen U Benzodiazepines Scrn Urine Cocaine Screen U Marijuana (THC) Screen Influenza Type A (PCR) Influenza Type B (PCR) RSV RNA Qual (PCR) SARS-CoV-2 RNA (RT-PCR) 02/15/25 02/15/25 02/15/25 21:01 22:06 23:02 WBC RBC Hgb Hct MCV MCH MCHC RDW Plt Count MPV Immature Gran % (Auto) Neut % (Auto) Lymph % (Auto) [place] % (Auto) Eos % (Auto) Baso % (Auto) Lymph # (Auto) [place] # (Auto) Eos # (Auto) Baso # (Auto) Abs Immat Gran (auto) Absolute Neuts (auto) Absolute Nucleated RBC Nucleated RBC % (auto) PT INR VBG pH VBG pCO2 VBG pO2 VBG HCO3 VBG O2 Saturation VBG Base Excess Sodium Potassium Chloride Carbon Dioxide Anion Gap BUN Creatinine Estim Creat Clear Calc Estimated GFR POC Glucose 365 H* 367 H* 350 H* Random Glucose Estimat Average Glucose Hemoglobin A1c % Calcium Phosphorus Magnesium Total Bilirubin AST ALT Alkaline Phosphatase Troponin I High Sens Total Protein Albumin Lipase Beta-Hydroxybutyrate Urine Color Urine Appearance Urine pH Ur Specific [place] Urine Protein Urine Glucose (UA) Urine Ketones Urine Blood Urine Nitrite Ur Leukocyte Esterase Urine RBC Urine WBC Ur Squamous Epith Cells Urine Bacteria Hyaline Casts Urine Opiates Screen Ur Buprenorphine Scrn Ur Oxycodone Screen Urine Methadone Screen Urine Fentanyl Screen Ur Barbiturates Screen Ur Phencyclidine Scrn Ur Amphetamines Screen U Benzodiazepines Scrn Urine Cocaine Screen U Marijuana (THC) Screen Influenza Type A (PCR) Influenza Type B (PCR) RSV RNA Qual (PCR) SARS-CoV-2 RNA (RT-PCR) 02/16/25 02/16/25 02/16/25 00:08 00:58 01:01 WBC RBC Hgb Hct MCV MCH MCHC RDW Plt Count MPV Immature Gran % (Auto) Neut % (Auto) Lymph % (Auto) [place] % (Auto) Eos % (Auto) Baso % (Auto) Lymph # (Auto) [place] # (Auto) Eos # (Auto) Baso # (Auto) Abs Immat Gran (auto) Absolute Neuts (auto) Absolute Nucleated RBC Nucleated RBC % (auto) PT INR VBG pH VBG pCO2 VBG pO2 VBG HCO3 VBG O2 Saturation VBG Base Excess Sodium 127 L Potassium 4.0 Chloride 93 L Carbon Dioxide 25 Anion Gap 13 BUN 41 H Creatinine 1.21 Estim Creat Clear Calc 63.7 Estimated GFR > 60 POC Glucose 372 H* 365 H* Random Glucose 377 H* Estimat Average Glucose Hemoglobin A1c % Calcium 8.6 Phosphorus 3.5 Magnesium 1.7 Total Bilirubin 0.3 AST 13 ALT 9 Alkaline Phosphatase 85 Troponin I High Sens Total Protein 6.3 L Albumin 3.6 Lipase Beta-Hydroxybutyrate Urine Color Urine Appearance Urine pH Ur Specific [place] Urine Protein Urine Glucose (UA) Urine Ketones Urine Blood Urine Nitrite Ur Leukocyte Esterase Urine RBC Urine WBC Ur Squamous Epith Cells Urine Bacteria Hyaline Casts Urine Opiates Screen Ur Buprenorphine Scrn Ur Oxycodone Screen Urine Methadone Screen Urine Fentanyl Screen Ur Barbiturates Screen Ur Phencyclidine Scrn Ur Amphetamines Screen U Benzodiazepines Scrn Urine Cocaine Screen U Marijuana (THC) Screen Influenza Type A (PCR) Influenza Type B (PCR) RSV RNA Qual (PCR) SARS-CoV-2 RNA (RT-PCR) 02/16/25 02/16/25 02/16/25 01:56 02:54 04:02 WBC RBC Hgb Hct MCV MCH MCHC RDW Plt Count MPV Immature Gran % (Auto) Neut % (Auto) Lymph % (Auto) [place] % (Auto) Eos % (Auto) Baso % (Auto) Lymph # (Auto) [place] # (Auto) Eos # (Auto) Baso # (Auto) Abs Immat Gran (auto) Absolute Neuts (auto) Absolute Nucleated RBC Nucleated RBC % (auto) PT INR VBG pH VBG pCO2 VBG pO2 VBG HCO3 VBG O2 Saturation VBG Base Excess Sodium Potassium Chloride Carbon Dioxide Anion Gap BUN Creatinine Estim Creat Clear Calc Estimated GFR POC Glucose 374 H* 395 H* 353 H* Random Glucose Estimat Average Glucose Hemoglobin A1c % Calcium Phosphorus Magnesium Total Bilirubin AST ALT Alkaline Phosphatase Troponin I High Sens Total Protein Albumin Lipase Beta-Hydroxybutyrate Urine Color Urine Appearance Urine pH Ur Specific [place] Urine Protein Urine Glucose (UA) Urine Ketones Urine Blood Urine Nitrite Ur Leukocyte Esterase Urine RBC Urine WBC Ur Squamous Epith Cells Urine Bacteria Hyaline Casts Urine Opiates Screen Ur Buprenorphine Scrn Ur Oxycodone Screen Urine Methadone Screen Urine Fentanyl Screen Ur Barbiturates Screen Ur Phencyclidine Scrn Ur Amphetamines Screen U Benzodiazepines Scrn Urine Cocaine Screen U Marijuana (THC) Screen Influenza Type A (PCR) Influenza Type B (PCR) RSV RNA Qual (PCR) SARS-CoV-2 RNA (RT-PCR) 02/16/25 02/16/25 02/16/25 05:01 05:43 06:02 WBC 5.5 RBC 3.82 L Hgb 11.0 L Hct 32.0 L MCV 83.8 MCH 28.8 MCHC 34.4 RDW 12.7 Plt Count 160 MPV 10.2 Immature Gran % (Auto) 0.2 Neut % (Auto) 44.4 L Lymph % (Auto) 42.2 H [place] % (Auto) 9.5 Eos % (Auto) 3.3 Baso % (Auto) 0.4 Lymph # (Auto) 2.3 [place] # (Auto) 0.5 Eos # (Auto) 0.2 Baso # (Auto) 0.0 Abs Immat Gran (auto) 0.01 Absolute Neuts (auto) 2.4 Absolute Nucleated RBC 0.000 Nucleated RBC % (auto) 0.0 PT INR VBG pH 7.49 H VBG pCO2 37 VBG pO2 48 VBG HCO3 28 H VBG O2 Saturation 70.0 VBG Base Excess 5.4 Sodium 129 L Potassium 3.8 Chloride 95 L Carbon Dioxide 26 Anion Gap 12 BUN 37 H Creatinine 1.15 Estim Creat Clear Calc 76.3 Estimated GFR > 60 POC Glucose 336 H 356 H* Random Glucose 352 H* Estimat Average Glucose Hemoglobin A1c % Calcium 8.6 Phosphorus Magnesium 1.7 Total Bilirubin 0.3 AST 13 ALT 8 Alkaline Phosphatase 80 Troponin I High Sens Total Protein 6.0 L Albumin 3.4 L Lipase Beta-Hydroxybutyrate Urine Color Urine Appearance Urine pH Ur Specific [place] Urine Protein Urine Glucose (UA) Urine Ketones Urine Blood Urine Nitrite Ur Leukocyte Esterase Urine RBC Urine WBC Ur Squamous Epith Cells Urine Bacteria Hyaline Casts Urine Opiates Screen Ur Buprenorphine Scrn Ur Oxycodone Screen Urine Methadone Screen Urine Fentanyl Screen Ur Barbiturates Screen Ur Phencyclidine Scrn Ur Amphetamines Screen U Benzodiazepines Scrn Urine Cocaine Screen U Marijuana (THC) Screen Influenza Type A (PCR) Influenza Type B (PCR) RSV RNA Qual (PCR) SARS-CoV-2 RNA (RT-PCR) 02/16/25 02/16/25 07:07 08:12 WBC RBC Hgb Hct MCV MCH MCHC RDW Plt Count MPV Immature Gran % (Auto) Neut % (Auto) Lymph % (Auto) [place] % (Auto) Eos % (Auto) Baso % (Auto) Lymph # (Auto) [place] # (Auto) Eos # (Auto) Baso # (Auto) Abs Immat Gran (auto) Absolute Neuts (auto) Absolute Nucleated RBC Nucleated RBC % (auto) PT INR VBG pH VBG pCO2 VBG pO2 VBG HCO3 VBG O2 Saturation VBG Base Excess Sodium Potassium Chloride Carbon Dioxide Anion Gap BUN Creatinine Estim Creat Clear Calc Estimated GFR POC Glucose 367 H* 445 H* Random Glucose Estimat Average Glucose Hemoglobin A1c % Calcium Phosphorus Magnesium Total Bilirubin AST ALT Alkaline Phosphatase Troponin I High Sens Total Protein Albumin Lipase Beta-Hydroxybutyrate Urine Color Urine Appearance Urine pH Ur Specific [place] Urine Protein Urine Glucose (UA) Urine Ketones Urine Blood Urine Nitrite Ur Leukocyte Esterase Urine RBC Urine WBC Ur Squamous Epith Cells Urine Bacteria Hyaline Casts Urine Opiates Screen Ur Buprenorphine Scrn Ur Oxycodone Screen Urine Methadone Screen Urine Fentanyl Screen Ur Barbiturates Screen Ur Phencyclidine Scrn Ur Amphetamines Screen U Benzodiazepines Scrn Urine Cocaine Screen U Marijuana (THC) Screen Influenza Type A (PCR) Influenza Type B (PCR) RSV RNA Qual (PCR) SARS-CoV-2 RNA (RT-PCR) Progress Note: A&P Assessment and plan (1) Hyperglycemia: Status: Acute (2) DKA (diabetic ketoacidosis): Status: Acute (3) GERD (gastroesophageal reflux disease): Status: Acute Plan Hyperglycemic hyperosmolar syndrome: Secondary to excessive sugar intake in form of desserts and orange sodas Continue LR at 0150 cc/hour We will give him 30 units of Lantus and sliding scale insulin as needed Presented with very high blood sugars about 1100, we will slowly bring down his blood sugars to prevent rapid drop in osmolality leading to cerebral edema will start him on diet Acute kidney injury: Resolved, secondary to volume depletion from [facility]HS Creatinine back to baseline around 1.12; we will restart losartan tomorrow We will closely monitor I's and O's Avoid nephrotoxic medications Hyponatremia: Sodium 129, corrected sodium 133.8 will continue to monitor Prophylaxis: Heparin, famotidine Quality Stroke Does the patient have a stroke diagnosis?: No VTE Prior VTE?: No VTE Risk Level:: Medical - low VTE Device Contraindication: N/A - Device Ordered VTE Drug Contraindication: N/A - Med Ordered
[2025-02-16] MEDS: Omeprazole 20 MG CAPSULE.DR PO ×2 (08:48→16:15)
[2025-02-16] MEDS: Atorvastatin Calcium 20 MG TABLET PO ×2 (08:48→20:50)
[2025-02-16] MEDS: Insulin Glargine,Hum.rec.anlog 100 UNIT/ML 10 ML VIAL 30 UNIT SUBCUT (08:48)
[2025-02-16 09:11] LABS: Glucose, Whole Blood 468 mg/dL (60-115)
[2025-02-16] MEDS: Insulin Lispro 100 UNIT/ML 3 ML VIAL 10 UNIT SUBCUT (09:40)
--- NOTE | 2025-02-16 09:40 | ECG_ITS ---
Test Reason : Change Blood Pressure : */* mmHG Vent. Rate : 45 BPM Atrial Rate : 45 BPM P-R Int : 144 ms QRS Dur : 88 ms QT Int : 526 ms P-R-T Axes : 50 41 60 degrees QTcB Int : 454 ms Sinus bradycardia Otherwise normal ECG When compared with ECG of 15-Feb-2025 15:27, No significant change was found Referred By: Adonis Rodriguez Electronically Signed By: Oscar Ramos
[2025-02-16 10:08] LABS: Glucose, Whole Blood 486 mg/dL (60-115)
[2025-02-16] MEDS: LACTATED RINGERS 1955.8 ML IV (11:17)
[2025-02-16 11:19] LABS: Glucose, Whole Blood 360 mg/dL (60-115)
[2025-02-16] MEDS: Insulin Lispro 100 UNIT/ML 3 ML VIAL SUBCUT ×2 (11:19→20:50)
[2025-02-16] MEDS: Aspirin Enteric Coated 81 MG TABLET.DR PO (11:19)
[2025-02-16] MEDS: oxyCODONE HCl Immed Release 5 MG TABLET 10 MG PO ×3 (11:20→20:50)
[2025-02-16 11:57] LABS: Glucose, Whole Blood 319 mg/dL (60-115)
[2025-02-16 14:05] LABS: Glucose, Whole Blood 190 mg/dL (60-115)
[2025-02-16 15:19] LABS: Glucose, Whole Blood 141 mg/dL (60-115)
[2025-02-16 20:37] LABS: Glucose, Whole Blood 414 mg/dL (60-115)
[2025-02-16] MEDS: traZODone HCL 50 MG TABLET 150 MG PO (21:00)
[2025-02-16 22:49] LABS: Glucose, Whole Blood 333 mg/dL (60-115)
[2025-02-17] MEDS: Heparin Sodium,Porcine 5,000 UNIT/ML VIAL 5000 UNIT SUBCUT ×2 (01:45→08:16)
[2025-02-17] MEDS: oxyCODONE HCl Immed Release 5 MG TABLET 10 MG PO ×3 (01:46→10:33)
[2025-02-17 03:37] VITALS: BP 156/82; PULSE 49; RESP 16; TEMP 36.5; O2SAT 98
[2025-02-17] MEDS: Omeprazole 20 MG CAPSULE.DR PO (06:31)
[2025-02-17 07:11] LABS: Glucose, Whole Blood 248 mg/dL (60-115)
[2025-02-17 07:43] VITALS: BP 166/75; PULSE 53; RESP 18; TEMP 36.6; O2SAT 96
[2025-02-17] MEDS: Insulin Lispro 100 UNIT/ML 3 ML VIAL SUBCUT ×4 (08:14→13:06)
[2025-02-17] MEDS: Famotidine/PF 20 MG/2 ML VIAL IVPUSH (08:15)
[2025-02-17] MEDS: Insulin Glargine,Hum.rec.anlog 100 UNIT/ML 10 ML VIAL 30 UNIT SUBCUT (08:16)
[2025-02-17] MEDS: Lipase/Prot/Amylase 24/76/120K 1 CAP CAPSULE.DR 2 CAP PO (08:16)
[2025-02-17] MEDS: metFORMIN HCl ER 500 MG TAB.ER.24H 1000 MG PO (08:17)
[2025-02-17] MEDS: Gabapentin 300 MG CAPSULE PO (08:17)
--- NOTE | 2025-02-17 08:49 | MHC.CM.PN ---
Addendum entered by Quita Schwartz 02/17/25 09:20: Per CM [employer] Worker/Wanda, Patient is active with [facility]. Original Note: CM met with Patient at bedside and addressed IMM with him, providing Patient with the original and a copy has been placed on the chart. Patient lives in a house with his Mother and adult Nephew and he uses a walker to assist with mobility. PT is recommending home with new VNA VS STR(Patient was recently @ [facility] and does not want to go to a SNF; he wants to go home with VNA). CM has initiated and will follow for dc planning. PCP is Dr. Mae Hall and HCP is Daughter/Ijeoma. Girlfriend will transport to home.
[2025-02-17 10:59] LABS: Glucose, Whole Blood 236 mg/dL (60-115)
[2025-02-17 11:21] VITALS: BP 156/89; PULSE 52; RESP 20; TEMP 36.9; O2SAT 97
[2025-02-17] MEDS: Aspirin Enteric Coated 81 MG TABLET.DR PO (13:05)
[2025-02-17 14:06] VITALS: BP 156/89; PULSE 52; O2SAT 97
--- NOTE | 2025-02-17 14:48 | MHC.CM.PN ---
Per MD, Patient will be medically cleared for dc to home today, with services. [facility].
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
[2025-02-17 15:23] VITALS: BP 164/87; PULSE 65; RESP 18; TEMP 37.3; O2SAT 98
== END 2025-02-17 15:50 | disposition home health service (06) | DRG 639 ==
LOC: HO.ED 16:20 → HO.EDOVER 17:12 → HO.ICU 17:47 → HO.IMC 02-16 14:17
PROVIDERS: Physician Assistant Medical; Admitting Provider Internal Medicine Critical Care Medicine; Emergency Provider Emergency Medicine Emergency Medical Services; PCP Family Medicine; Visit Provider Internal Medicine
DX: E11.10 Type 2 diabetes mellitus with ketoacidosis without coma (principal); E11.40 Type 2 diabetes mellitus with diabetic neuropathy, unspecified; E78.5 Hyperlipidemia, unspecified; Z91.119 Patient's noncompliance with dietary regimen due to unspecified reason; Z20.822 Contact with and (suspected) exposure to COVID-19; Z79.4 Long term (current) use of insulin; Z79.82 Long term (current) use of aspirin; Z79.84 Long term (current) use of oral hypoglycemic drugs; Z79.899 Other long term (current) drug therapy
CPT/HCPCS: 0241U; 36415; 80048; 80053; 80307; 81001; 82010; 82803; 82947; 83036; 83690; 83735; 84100; 84484; 85025; 85610; 93005; 97116; 97162; 99285; J1171; J1308; J1644; J1885; J7120

== ENCOUNTER → 2025-02-15 14:57 | Outpatient (BNV) | payer MEDICARE, SELFPAY | PROVIDERS: Admitting Provider Internal Medicine Critical Care Medicine; Emergency Provider Emergency Medicine Emergency Medical Services; Visit Provider Internal Medicine Cardiovascular Disease | DX: R53.1 Weakness (principal) | CPT/HCPCS: 93010 ==

== ENCOUNTER → 2025-02-15 16:13 | Outpatient (BNV) | payer MEDICARE, SELFPAY | PROVIDERS: Emergency Provider Emergency Medicine Emergency Medical Services; Visit Provider Internal Medicine Critical Care Medicine | DX: E11.10 Type 2 diabetes mellitus with ketoacidosis without coma (principal); K21.9 Gastro-esophageal reflux disease without esophagitis | CPT/HCPCS: 99291 ==

== ENCOUNTER 2025-02-15 16:47 | Outpatient (BNV) | payer MEDICARE, SELFPAY | END 2025-02-16 09:40 | PROVIDERS: Admitting Provider Internal Medicine Critical Care Medicine; Emergency Provider Emergency Medicine Emergency Medical Services; PCP Family Medicine; Visit Provider Internal Medicine Cardiovascular Disease | DX: R00.1 Bradycardia, unspecified (principal) | CPT/HCPCS: 93010 ==

== ENCOUNTER → 2025-02-15 16:47 | Outpatient (BNV) | payer MEDICARE, SELFPAY | PROVIDERS: Admitting Provider Internal Medicine Critical Care Medicine; Emergency Provider Emergency Medicine Emergency Medical Services; PCP Family Medicine; Visit Provider Internal Medicine | DX: E11.65 Type 2 diabetes mellitus with hyperglycemia (principal); E11.10 Type 2 diabetes mellitus with ketoacidosis without coma; K21.9 Gastro-esophageal reflux disease without esophagitis | CPT/HCPCS: 99239 ==

== ENCOUNTER 2025-02-19 18:23 | Inpatient (IN) | payer MEDICARE, SELFPAY ==
--- NOTE | ~2025-02-19 | CT_ITS ---
CLINICAL HISTORY: n v CT abdomen and pelvis with contrast Comparison: CT/SR - CT LUMBAR SPINE WO IV CON - 01/25/25 22:02 EDT US/AL/SR - US ABDOMEN COMP W ELASTOGRAPHY - 11/11/24 10:35 EDT Findings: The lung bases are clear. Extensive pancreatic calcifications present. Pancreas is atrophied. Findings are suggestive of chronic pancreatitis. Liver is normal in size. Gallbladder is absent. There is diffuse intra and extrahepatic biliary dilatation. Common bile duct measures 13 mm in diameter. Spleen, adrenal glands and kidneys are normal. There is a 1 cm cyst in the lower pole of the right kidney. There is a 4 cm duodenal hernia near the ampulla. There is a focally dilated loop of small bowel in the mid left abdomen with internal fecalization. Small bowel loops both before and after this loop are decompressed. Large bowel loops are normal caliber with moderate fecal loading. Pelvic contents unremarkable. Normal appendix. No ascites. Similar appearance of flexion distraction injury at L1-2 with similar splaying of the posterior elements and fracture of the left L1 facet. Similar anterior superior corner fracture of the L4 vertebral body. IMPRESSION: 1. Dilated loop of small bowel in the mid left abdomen with internal fecalization. No definite evidence of closed loop obstruction. Findings could represent focal ileus or early small bowel obstruction. 2. Intra and extrahepatic biliary dilatation in the setting of previous cholecystectomy. Biliary dilatation is slightly greater than expected for reservoir effect. No definite filling defects seen within the common duct. 3. Calcification and atrophy of the pancreas, likely residua of chronic pancreatitis. 4. Unchanged appearance of flexion distraction injury at L1-2 and anterior superior L4 vertebral body corner fracture. This document has been electronically signed by: David Thompson MD on 02/19/2025 21:43:51
[2025-02-19 18:30] VITALS: BP 135/99; BP 140/84; PULSE 77; PULSE 84; RESP 18; TEMP 36.3; O2SAT 97; O2SAT 98; BMI 28.2
[2025-02-19 18:35] LABS: Glucose, Whole Blood 94 mg/dL (60-115)
[2025-02-19 18:36] VITALS: BP 135/89; PULSE 99; RESP 20; O2SAT 99
--- NOTE | 2025-02-19 18:41 | ECG_ITS ---
Test Reason : ABDOMINAL PAIN Blood Pressure : */* mmHG Vent. Rate : 102 BPM Atrial Rate : 102 BPM P-R Int : 88 ms QRS Dur : 74 ms QT Int : 364 ms P-R-T Axes : * 49 34 degrees QTcB Int : 474 ms Sinus tachycardia with short NC with frequent Premature ventricular complexes Otherwise normal ECG When compared with ECG of 16-Feb-2025 09:40, Premature ventricular complexes are now Present NC interval has decreased Vent. rate has increased by [address] now depressed in Inferior leads Referred By: Sandie Aguilar Electronically Signed By: Oscar Ramos
--- NOTE | 2025-02-19 18:47 | ED.GENADULT ---
HPI - General Adult General Chief complaint: General Medical Stated complaint: Vomiting x6hrs Time Seen by Provider: 02/19/25 18:26 History of Present Illness HPI narrative: Patient is a 55-year-old male with a history of diabetes. History of DKA last week. With a sugar over a 1000. Patient presented today with having nausea vomiting noted have high sugar at home was reading high high this morning. He subsequently took 24 units of insulin followed by another 20 units followed by another 10 units a total of 54 units of insulin throughout the day. Still have nausea vomiting. Came to the ER for help. Patient was noted by EMS to have a sugar in the 90s. He denies eating any extra [place] denies drinking any soda no fever no chills no chest pain or diaphoresis. Does have extreme nausea vomiting for the last 6 hours. Related Data Home Medications ?Medication ?Instructions ?Recorded ?Confirmed omeprazole 20 mg capsule,delayed 20 mg PO BID@0630,1630 07/10/20 02/15/25 release aspirin 81 mg tablet,delayed 81 mg PO DAILY@1200 02/14/22 02/15/25 release atorvastatin 20 mg tablet 20 mg PO BEDTIME 02/14/22 02/15/25 blood sugar diagnostic (FreeStyle #10 ea 02/14/22 Lite Strips) cholecalciferol (vitamin D3) 25 25 mcg PO DAILY 02/14/22 02/15/25 mcg (1,000 unit) capsule (Vitamin D3) clonazepam 1 mg tablet 1 mg PO TID PRN Anxiety 02/14/22 02/15/25 cyanocobalamin (vitamin B-12) 1,000 mcg PO DAILY 02/14/22 02/15/25 1,000 mcg tablet ergocalciferol (vitamin D2) 1,250 1,250 mcg PO TU 02/14/22 02/15/25 mcg (50,000 unit) capsule lancets 33 gauge (TRUEplus Lancets) #100 ea 02/14/22 losartan 25 mg tablet 12.5 mg PO DAILY 02/14/22 02/15/25 pen needle, diabetic 32 gauge x #50 02/14/22/ (Pentips Pen Needle) trazodone 150 mg tablet 150 mg PO BEDTIME PRN Insomnia 02/14/22 02/15/25 omega-3 300 mg-dha 120 mg-epa 180 2 cap PO BID@1200,2100 05/21/23 02/15/25 mg-fish oil 1,000 mg capsule gabapentin 300 mg capsule 300 mg PO TID 02/15/25 02/15/25 ibuprofen 800 mg tablet 800 mg PO TID 02/15/25 02/15/25 gqldtz-kcdleeox-kigetrc 2 cap PO TID 02/15/25 02/15/25 24,000-76,000-120,000 unit capsule,delayed rel (Creon) metformin 500 mg tablet,extended 1,000 mg PO BID 02/15/25 02/15/25 release 24 hr oxycodone 10 mg tablet 10 mg PO Q4H PRN Pain 02/15/25 02/15/25 Previous Rx's ?Medication ?Instructions ?Recorded insulin aspart U-100 100 unit/mL 1 sliding scale dose subcut 10/10/24 (3 mL) subcutaneous pen (Novolog USEASDIRECTD #15 mL FlexPen U-100 Insulin aspart) insulin degludec 100 unit/mL (3 35 unit (0.35 mL) subcut BEDTIME 02/17/25 mL) subcutaneous pen (Tresiba #15 mL FlexTouch U-100 insulin) Allergies Allergy/AdvReac Type Severity Reaction Status Date / Time No Known Allergies (No Known Allergy Verified 02/19/25 18:34 Allergies*) Review of Systems Review of Systems: Positive nausea vomiting Yes all other systems are reviewed and are negative PMFSH Past Medical History Attestation statement: The following information was validated with the patient. Medical History Anemia Elevated cholesterol Diabetes GERD (gastroesophageal reflux disease) Chronic back pain Depression Anxiety disorder Surgical History H/O colonoscopy History of lithotripsy Hx of shoulder surgery Hx of cholecystectomy History of esophagogastroduodenoscopy (EGD) Family History Family History Mother Diabetes Heart problem Father Diabetes Brother No problems noted. Maternal Grandfather Heart problem Social History Social History Household Members: Family Housing: House Do you presently have visiting nurse or other home services: Yes Alcohol intake: former Patient Tobacco Use Status: Current someday Tobacco user Tobacco use type: Cigarette Cigarettes Per Day: 3 Smoked in Last 30 Days: Yes Second Hand Smoke Exposure: No Substance Use Type: Marijuana Advance Directives: Yes Advance Directives on File: Yes Advance Directives Date on File: 02/15/25 service: No Physical Exam ED Vital Signs: Vital Signs - 24 hr 02/19/25 18:30 02/19/25 18:36 02/19/25 19:21 Temperature 97.3 F 98.3 F Pulse Rate 77 99 97 Respiratory Rate 18 20 20 Blood Pressure 135/99 H 135/89 141/105 H Pulse Oximetry 98 99 99 Oxygen Delivery Method Room Air Room Air Room Air BMI result Body Mass Index 28.2 Appearance: Alert. Oriented X3. No acute distress. Eyes: Pupils equal, round and reactive to light. ENT: Pharynx normal. Neck: Normal inspection. Neck supple. No lymph nodes noted. No crepitus CVS: Normal heart rate and rhythm. Pulses normal. Normal S1 and S2 Respiratory: No respiratory distress. Breath sounds normal. No Wheezing. No rales Abdomen: Soft and nontender. No rigidity. No distention. good BS x4 Skin: Skin warm and dry. Normal skin color. Normal skin turgor. Extremities: No lower extremity edema. Neurovascular intact to all extremities. No Lacerations. No Rash Neuro: Oriented X 3. No motor deficit. No sensory deficit. Moving all extermities. No slurred speech Medications Administered Generic Name Dose Route Start Last Admin Trade Name Freq PRN Reason Stop Dose Admin Dextrose/Sodium Chloride 1,000 mls @ 100 mls/hr 02/19/25 18:45 02/19/25 19:15 D5ns IVCONT 100 mls/hr .Q10H HUGH Administration Discontinued Medications Generic Name Dose Route Start Last Admin Trade Name Freq PRN Reason Stop Dose Admin Hydromorphone HCl 0.5 mg 02/19/25 19:52 02/19/25 20:24 Hydromorphone Hcl 0.5 Mg/0.5 Ml Syringe IVPUSH 02/19/25 19:53 0.5 mg ONCE ONE Administration Protocol Sodium Chloride 1,000 mls @ 999 mls/hr 02/19/25 18:45 02/19/25 20:16 Ns IV 02/19/25 19:45 Infused .Q1H1M HUGH Infusion Iohexol 100 ml 02/19/25 20:35 02/19/25 20:41 Iohexol 350 Mg/Ml 100 Ml Infus..Btl IV 02/19/25 20:36 85 ml ONCE ONE Administration Ondansetron HCl 4 mg 02/19/25 18:41 02/19/25 20:23 Ondansetron Hcl 4 Mg/2 Ml Vial IVPUSH 02/19/25 18:42 4 mg ONCE ONE Administration Medical Decision Making Medical Decision Making [facility] Narrative: Patient took a total of 54 units of insulin throughout the day. It was NovoLog the last being given approximately 17:00. Cut some nausea earlier. Was noted to have a sugar in the 90s range in the emergency department. Patient had some nausea. A CT scan was done. My interpretation patient's CT was grossly negative. Patient's sugar dropped into the 50s despite having been on D5 normal saline at 100 cc an hour. Patient given additional juice. Will feed patient. Will monitor patient's sugar carefully. Will admit patient overnight. Patient's labs showed no evidence of diabetic ketoacidosis. Patient is VBG showed no acidosis white count is normal hemoglobin is 14.7 did have an anion gap of 22 but patient had a normal beta hydroxy butyrate and a bicarb of 22 unlikely to have diabetic ketoacidosis. Lipase is normal there is no evidence for pancreatitis. Patient to be admitted for further evaluation hospitalist team was consulted Differential Diagnosis Differential Diagnoses: The differential diagnosis associated with the presentation includes Hypoglycemia, DKA, obstruction, pancreatitis, ACS Admission/Observation Consideration of admission/observation: Escalation of care including admission/observation considered Consult Healthcare Provider Management of the patient was discussed with: Hospitalist Lab Data [facility] Lab Attestation statement: I reviewed the patient's lab results. 02/19/25 18:47 02/19/25 18:47 Labs: Lab Results 02/19/25 02/19/25 02/19/25 Range/Units 18:31 18:47 18:53 WBC 9.3 (4.8-10.8) X10*3/uL RBC 5.19 D (4.60-5.80) X10*6/uL Hgb 14.7 D (14.0-18.0) g/dl Hct 41.1 L D (42.0-52.0) % MCV 79.2 L (80.0-98.0) fL MCH 28.3 (27.0-33.0) pg MCHC 35.8 (31.0-36.0) g/dl RDW 12.7 (11.0-16.0) % Plt Count 236 D (160-400) X10*3/uL MPV 9.5 (9.4-12.4) fL Immature Gran % (Auto) 0.8 H (0.0-0.4) % Neut % (Auto) 60.9 (45-73) % Lymph % (Auto) 30.2 (20-40) % Payette % (Auto) 6.4 (2-11) % Eos % (Auto) 1.5 (0-4) % Baso % (Auto) 0.2 (0-2) % Lymph # (Auto) 2.8 (1.2-4.9) X10*3/uL [place]ette # (Auto) 0.6 (0.1-1.2) X10*3/uL Eos # (Auto) 0.1 (0.0-0.4) X10*3/uL Baso # (Auto) 0.0 (0.0-0.2) X10*3/uL Abs Immat Gran (auto) 0.07 H (0.00-0.03) X10*3/uL Absolute Neuts (auto) 5.6 (2.0-8.3) x10*3/uL Absolute Nucleated RBC 0.000 (0.0-0.012) X10*3/uL Nucleated RBC % (auto) 0.0 (0.0-0.2) /100WBC VBG pH 7.52 H (7.32-7.43) VBG pCO2 29 mmHg VBG pO2 55 mmHg VBG HCO3 24 (22-26) mmol/L VBG O2 Saturation 85.0 % VBG Base Excess 2.7 mmol/L Sodium 137 (135-145) mmol/L Potassium 3.6 (3.3-5.1) mmol/L Chloride 97 (96-108) mmol/L Carbon Dioxide 22 (22-29) mmol/L Anion Gap 22 H (12-20) BUN 32 H (9-16) mg/dL Creatinine 1.33 (0.5-1.4) mg/dL Estim Creat Clear Calc 63.4 Estimated GFR 56 POC Glucose 94 (60-115) mg/dL Random Glucose 79 (60-115) mg/dL Calcium 11.2 H D (8.4-10.2) mg/dL Total Bilirubin 0.4 (0.0-1.0) mg/dL Direct Bilirubin 0.2 (0.0-0.5) mg/dL AST 39 H (5-37) U/L ALT 44 H (0-40) U/L Alkaline Phosphatase 125 H (39-117) U/L Troponin I High Sens 2.9 (<3.5-35.0) ng/L Total Protein 9.2 H (6.5-8.0) g/dL Albumin 5.2 H (3.5-5.0) g/dL Lipase < 4 L (8-78) U/L Beta-Hydroxybutyrate 0.09 (0.02-0.27) mmol/L 02/19/25 02/19/25 Range/Units 19:31 20:41 WBC (4.8-10.8) X10*3/uL RBC (4.60-5.80) X10*6/uL Hgb (14.0-18.0) g/dl Hct (42.0-52.0) % MCV (80.0-98.0) fL MCH (27.0-33.0) pg MCHC (31.0-36.0) g/dl RDW (11.0-16.0) % Plt Count (160-400) X10*3/uL MPV (9.4-12.4) fL Immature Gran % (Auto) (0.0-0.4) % Neut % (Auto) (45-73) % Lymph % (Auto) (20-40) % Payette % (Auto) (2-11) % Eos % (Auto) (0-4) % Baso % (Auto) (0-2) % Lymph # (Auto) (1.2-4.9) X10*3/uL Payette # (Auto) (0.1-1.2) X10*3/uL Eos # (Auto) (0.0-0.4) X10*3/uL Baso # (Auto) (0.0-0.2) X10*3/uL Abs Immat Gran (auto) (0.00-0.03) X10*3/uL Absolute Neuts (auto) (2.0-8.3) x10*3/uL Absolute Nucleated RBC (0.0-0.012) X10*3/uL Nucleated RBC % (auto) (0.0-0.2) /100WBC VBG pH (7.32-7.43) VBG pCO2 mmHg VBG pO2 mmHg VBG HCO3 (22-26) mmol/L VBG O2 Saturation % VBG Base Excess mmol/L Sodium (135-145) mmol/L Potassium (3.3-5.1) mmol/L Chloride (96-108) mmol/L Carbon Dioxide (22-29) mmol/L Anion Gap (12-20) BUN (9-16) mg/dL Creatinine (0.5-1.4) mg/dL Estim Creat Clear Calc Estimated GFR POC Glucose 74 54 L* (60-115) mg/dL Random Glucose (60-115) mg/dL Calcium (8.4-10.2) mg/dL Total Bilirubin (0.0-1.0) mg/dL Direct Bilirubin (0.0-0.5) mg/dL AST (5-37) U/L ALT (0-40) U/L Alkaline Phosphatase (39-117) U/L Troponin I High Sens (<3.5-35.0) ng/L Total Protein (6.5-8.0) g/dL Albumin (3.5-5.0) g/dL Lipase (8-78) U/L Beta-Hydroxybutyrate (0.02-0.27) mmol/L Independent Interpretation I performed an independent interpretation of an: EKG (My interpretation patient's EKG showed a sinus rhythm heart rate is 100 VT QRS QTC normal) and CT Scan (My interpretation patient's CT scan abdomen was grossly negative) External Record Review External record reviewed: Inpatient record Patient was in DKA last week ICU record reviewed Chronic Conditions Patient?s care impacted by: Diabetes and Hypertension Social Determinants Patient?s care significantly limited by Social Determinants of Health including: Problems related to primary support group Discharge Plan Discharge Clinical Impression: Hypoglycemia Patient Disposition: Admitted As Inpatient Print Language: Qatari
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
[2025-02-19 18:53] LABS: MANUAL DIFF FLAG NO
[2025-02-19 18:54] LABS: Basophils Percent Auto 0.2 % (0-2); Eosinophils Absolute Auto 0.1 X10*3/uL (0.0-0.4); Eosinophils Percent Auto 1.5 % (0-4); Hematocrit 41.1 % (42.0-52.0); Hemoglobin 14.7 g/dl (14.0-18.0); Imm Gran Abs Auto 0.07 X10*3/uL (0.00-0.03); Imm Gran Pct Auto 0.8 % (0.0-0.4); Lymphocytes Absolute Auto 2.8 X10*3/uL (1.2-4.9); Lymphocytes Percent Auto 30.2 % (20-40); Mean Corpuscular HGB Conc 35.8 g/dl (31.0-36.0); Mean Corpuscular Hemoglobin 28.3 pg (27.0-33.0); Mean Corpuscular Volume 79.2 fL (80.0-98.0); Mean Platelet Volume 9.5 fL (9.4-12.4); Monocytes Absolute Auto 0.6 X10*3/uL (0.1-1.2); Monocytes Percent Auto 6.4 % (2-11); Neutrophils Absolute Auto 5.6 x10*3/uL (2.0-8.3); Neutrophils Percent Auto 60.9 % (45-73); Platelet Count 236 X10*3/uL (160-400); Red Blood Count 5.19 X10*6/uL (4.60-5.80); Red Cell Distribution Width 12.7 % (11.0-16.0); White Blood Count 9.3 X10*3/uL (4.8-10.8)
[2025-02-19 18:58] LABS: VBG Base Excess 2.7 mmol/L; VBG HCO3 24 mmol/L (22-26); VBG pCO2 29 mmHg; VBG pH 7.52 (7.32-7.43); VBG pO2 55 mmHg
[2025-02-19 19:06] LABS: Venous Blood Gas Refer to POC result
[2025-02-19 19:08] LABS: Alanine Aminotransferase 44 U/L (0-40); Albumin Level 5.2 g/dL (3.5-5.0); Alkaline Phosphatase 125 U/L (39-117); Anion Gap 22 (12-20); Aspartate Amino Transferase 39 U/L (5-37); Beta-Hydroxybutyrate 0.09 mmol/L (0.02-0.27); Bilirubin Direct 0.2 mg/dL (0.0-0.5); Bilirubin Total 0.4 mg/dL (0.0-1.0); Blood Urea Nitrogen 32 mg/dL (9-16); Calcium 11.2 mg/dL (8.4-10.2); Carbon Dioxide 22 mmol/L (22-29); Chloride 97 mmol/L (96-108); Creatinine Clr Calc Pharmacy 63.4; Estimated Glomerular Filt Rate 56; Glucose Random 79 mg/dL (60-115); Potassium 3.6 mmol/L (3.3-5.1); Sodium 137 mmol/L (135-145); Total Protein 9.2 g/dL (6.5-8.0)
[2025-02-19 19:14] LABS: Troponin-I High Sensitivity 2.9 ng/L (<3.5-35.0)
[2025-02-19] MEDS: 0.9 % Sodium Chloride 1,000 ML 999 ML IV (19:15)
[2025-02-19] MEDS: Dextrose 5 % and 0.9 % NaCl 1,000 ML 100 ML IVCONT (19:15)
[2025-02-19 19:21] VITALS: BP 141/105; PULSE 97; RESP 20; TEMP 36.8; O2SAT 99
--- NOTE | 2025-02-19 19:29 | PC.NURSE ---
assumed care of pt at 1900 pt changed to hospital gown placed on crdiac monitor. fluids started per oct. pt states is not nauseous at this time and states doesnt want the zofran but requesting pain medication for 10/10 abd pain. Aguilar made aware. call figueroa within reach. checking 1hr poc at this time.
[2025-02-19 19:31] LABS: Lipase < 4 U/L (8-78)
[2025-02-19 19:35] LABS: Glucose, Whole Blood 74 mg/dL (60-115)
[2025-02-19] MEDS: ondansetron HCL 4 MG/2 ML VIAL IVPUSH (20:23)
[2025-02-19] MEDS: HYDROmorphone HCl 0.5 MG/0.5 ML SYRINGE IVPUSH (20:24)
[2025-02-19] MEDS: iohexoL 350 MG/ML 100 ML INFUS..BTL IV (20:41)
[2025-02-19 20:44] LABS: Glucose, Whole Blood 54 mg/dL (60-115)
[2025-02-19 21:07] LABS: Glucose, Whole Blood 73 mg/dL (60-115)
--- NOTE | 2025-02-19 21:11 | PC.NURSE ---
poc was 54. MD Aguilar aware. orange juice given. up to 73. pt is eating dinner.
[2025-02-19 21:14] VITALS: BP 128/77; PULSE 76; RESP 20; O2SAT 95
[2025-02-19 21:20] LABS: Appearance Urine Clear; Color Urine Yellow; Glucose Urine UA 100 mg/dL (Negative); Leukocyte Esterase Urine Negative (Negative); Nitrite Urine Negative (Negative); PH 6.5 (5.0-9.0); Specific Gravity - Urine 1.025 (1.005-1.025); UMIC TRIGGER UACC YES; Urine Blood Negative (Negative); Urine Ketones Negative (Negative); Urine Protein 30 (1+) mg/dL (Neg-Trace)
[2025-02-19 21:23] LABS: Bacteria Urine None Seen (None Seen); Hyaline Casts Urine 0-2 /LPF (0-2); RBC Urine 0-2 /HPF (0-2); Squamous Epithelial Cell Urine 0-2 /HPF (0-2); WBC Urine 0-5 /HPF (0-5)
[2025-02-19] MEDS: Dextrose 10 % 1,000 ML 75 ML IVCONT (21:46)
[2025-02-19 21:49] LABS: Glucose, Whole Blood 152 mg/dL (60-115)
--- NOTE | 2025-02-19 21:55 | PM.IMHP ---
History of Present Illness Date of Service: 02/19/25 Attending physician on admission: Desmond Chaudhry Chief Complaint: Low blood glucose Jose Alfredo Celis is a 55 years old man with past medical history significant for type 2 diabetes mellitus on Tresiba and aspart insulin, recent hospitalization due to DKA, GERD and anxiety/depression was brought to the emergency department via EMS after he was found to have low blood glucose. Patient stated that this morning his blood sugar was very high (undetectable) so he decided to use 24 units of insulin aspart. Because his blood sugar continued to be elevated he took 2 more doses of insulin: 20 units then 10 units more. He also complained of abdominal pain infusions of nonbloody vomiting. He did not report diarrhea, fever or chills. He did not alcohol abuse, illicit drug use or tobacco smoking. In the ED, he was found to have normal vital signs. Blood workup did not show leukocytosis. Hemoglobin is 14.7 and platelets 236. Venous blood gas showed a pH of 7.52. Electrolytes are normal except for slight hypercalcemia of 11.2. BUN is 32 and creatinine 1.33 LFTs are elevated except bilirubin. Lipase less than 4. Beta hydroxybutyrate is normal. Urinalysis remarkable for proteinuria and glucosuria. Abdominal pelvis CT scan without IV contrast showed dilated loop of small bowel in the mid left abdomen with internal fecalization with evidence of obstruction; focal ileus or early small bowel obstruction. There is biliary dilatation slightly greater than expected for restart bright affect, no definitive filling defects seen within the common duct, calcification of the pancreas consistent with chronic pancreatitis. ECG showed sinus tachycardia, shortness to NV with frequent premature ventricular compresses without evidence of acute ischemia. ED tx: NS 1 L bolus, Zofran 4 mg IV, Dilaudid IV 0.5 mg IV, IVFs: D5. Review of Systems Review of Systems: All 12 systems were reviewed and normal except as noted in HPI. [facility] Medical History Anemia Elevated cholesterol Diabetes GERD (gastroesophageal reflux disease) Chronic back pain Depression Anxiety disorder Family History Mother Diabetes Heart problem Father Diabetes Brother No problems noted. Maternal Grandfather Heart problem Surgical History H/O colonoscopy History of lithotripsy Hx of shoulder surgery Hx of cholecystectomy History of esophagogastroduodenoscopy (EGD) Social History Household Members: Family Housing: House Do you presently have visiting nurse or other home services: Yes Alcohol intake: former Patient Tobacco Use Status: Current someday Tobacco user Tobacco use type: Cigarette Cigarettes Per Day: 3 Smoked in Last 30 Days: Yes Second Hand Smoke Exposure: No Substance Use Type: Marijuana Advance Directives: Yes Advance Directives on File: Yes Advance Directives Date on File: 02/15/25 service: No Meds Allergies Allergy/AdvReac Type Severity Reaction Status Date / Time No Known Allergies (No Known Allergy Verified 02/19/25 18:34 Allergies*) Active Medications: Current Medications Acetaminophen (Acetaminophen 325 Mg Tablet) 975 mg PO Q6H PRN PRN Reason: Pain, Mild 1-3,fever,headache Clonazepam (Clonazepam 1 Mg Tablet) 2 mg PO ONCE ONE Stop: 02/19/25 21:55 Enoxaparin Sodium (Enoxaparin Sodium 40 Mg/0.4 Ml Syringe) 40 mg SUBCUT Q24H HUGH Dextrose (D10) 1,000 mls @ 50 mls/hr IVCONT .Q20H HUGH Last Infusion: 02/19/25 21:50 Dose: 50 mls/hr Sodium Chloride (0.9 % Sodium Chloride Flush 3 Ml Syringe) 3 ml IVFLUSH QSHIFT [facility] Home Medications ?Medication ?Instructions ?Recorded ?Confirmed ?Last Taken ?Type omeprazole 20 mg capsule,delayed 20 mg PO BID@0630,1630 07/10/20 02/15/25 02/15/25 History release aspirin 81 mg tablet,delayed 81 mg PO DAILY@1200 02/14/22 02/15/25 02/15/25 History release atorvastatin 20 mg tablet 20 mg PO BEDTIME 02/14/22 02/15/25 Unknown History blood sugar diagnostic (FreeStyle #10 ea 02/14/22 Unknown History Lite Strips) cholecalciferol (vitamin D3) 25 25 mcg PO DAILY 02/14/22 02/15/25 02/15/25 History mcg (1,000 unit) capsule (Vitamin D3) clonazepam 1 mg tablet 1 mg PO TID PRN Anxiety 02/14/22 02/15/25 Unknown History cyanocobalamin (vitamin B-12) 1,000 mcg PO DAILY 02/14/22 02/15/25 02/15/25 History 1,000 mcg tablet ergocalciferol (vitamin D2) 1,250 1,250 mcg PO TU 02/14/22 02/15/25 02/15/25 History mcg (50,000 unit) capsule lancets 33 gauge (TRUEplus Lancets) #100 ea 02/14/22 Unknown History losartan 25 mg tablet 12.5 mg PO DAILY 02/14/22 02/15/25 02/15/25 History pen needle, diabetic 32 gauge x #50 ea 02/14/22 Unknown History (Pentips Pen Needle) trazodone 150 mg tablet 150 mg PO BEDTIME PRN Insomnia 02/14/22 02/15/25 Unknown History omega-3 300 mg-dha 120 mg-epa 180 2 cap PO BID@1200,2100 05/21/23 02/15/25 02/15/25 History mg-fish oil 1,000 mg capsule gabapentin 300 mg capsule 300 mg PO TID 02/15/25 02/15/25 02/15/25 History ibuprofen 800 mg tablet 800 mg PO TID 02/15/25 02/15/25 02/15/25 History wtfbtf-dclfixgu-[id number] 2 cap PO TID 02/15/25 02/15/25 02/15/25 History 24,000-76,000-120,000 unit capsule,delayed rel (Creon) metformin 500 mg tablet,extended 1,000 mg PO BID 02/15/25 02/15/25 02/15/25 History release 24 hr oxycodone 10 mg tablet 10 mg PO Q4H PRN Pain 02/15/25 02/15/25 Unknown History Physical Exam Vital Signs and Narrative: Vital Signs: Last Vital Signs Temp 98.3 F 02/19/25 19:21 Pulse 76 02/19/25 21:14 Resp 20 02/19/25 21:14 BP 128/77 02/19/25 21:14 Pulse Ox 95 02/19/25 21:14 O2 Del Method Room Air 02/19/25 21:14 BMI result Body Mass Index 28.2 Constitutional - Awake and Alert, No apparent distress. Pleasant. Cooperative. HEENT - PER, EOMI. Dry oral mucosa. Heart - RRR, No no murmurs Lungs - Normal lung expansion, Normal respiratory effort, No respiratory distress, CTA bilaterally Abdomen - NT / ND; +BS; No rebound or guarding Extremities - no calf tenderness bilaterally, no swelling Musculoskeletal - Normal inspection, normal ROM Skin - Warm/Dry Neurological - Alert & oriented x3. No facial droop. No focal weakness grossly noted. Psychological - Appropriate affect Results Labs 02/19/25 18:47 02/19/25 18:47 Labs: Laboratory Results - last 24 hr 02/19/25 02/19/25 02/19/25 18:31 18:47 18:53 MCV 79.2 L MCH 28.3 MCHC 35.8 RDW 12.7 Plt Count 236 D MPV 9.5 Immature Gran % (Auto) 0.8 H Neut % (Auto) 60.9 Lymph % (Auto) 30.2 [place] % (Auto) 6.4 Eos % (Auto) 1.5 Baso % (Auto) 0.2 Lymph # (Auto) 2.8 [place] # (Auto) 0.6 Eos # (Auto) 0.1 Baso # (Auto) 0.0 Abs Immat Gran (auto) 0.07 H Absolute Neuts (auto) 5.6 Absolute Nucleated RBC 0.000 Nucleated RBC % (auto) 0.0 VBG pH 7.52 H VBG pCO2 29 VBG pO2 55 VBG HCO3 24 VBG O2 Saturation 85.0 VBG Base Excess 2.7 Anion Gap 22 H Estim Creat Clear Calc 63.4 Estimated GFR 56 POC Glucose 94 Random Glucose 79 Calcium 11.2 H D Total Bilirubin 0.4 Direct Bilirubin 0.2 AST 39 H ALT 44 H Alkaline Phosphatase 125 H Troponin I High Sens 2.9 Total Protein 9.2 H Albumin 5.2 H Lipase < 4 L Beta-Hydroxybutyrate 0.09 Urine Color Urine Appearance Urine pH Ur Specific [place] Urine Protein Urine Glucose (UA) Urine Ketones Urine Blood Urine Nitrite Ur Leukocyte Esterase Urine RBC Urine WBC Ur Squamous Epith Cells Urine Bacteria Hyaline Casts 02/19/25 02/19/25 02/19/25 19:31 20:41 21:04 MCV MCH MCHC RDW Plt Count MPV Immature Gran % (Auto) Neut % (Auto) Lymph % (Auto) [place] % (Auto) Eos % (Auto) Baso % (Auto) Lymph # (Auto) [place] # (Auto) Eos # (Auto) Baso # (Auto) Abs Immat Gran (auto) Absolute Neuts (auto) Absolute Nucleated RBC Nucleated RBC % (auto) VBG pH VBG pCO2 VBG pO2 VBG HCO3 VBG O2 Saturation VBG Base Excess Anion Gap Estim Creat Clear Calc Estimated GFR POC Glucose 74 54 L* 73 Random Glucose Calcium Total Bilirubin Direct Bilirubin AST ALT Alkaline Phosphatase Troponin I High Sens Total Protein Albumin Lipase Beta-Hydroxybutyrate Urine Color Urine Appearance Urine pH Ur Specific [place] Urine Protein Urine Glucose (UA) Urine Ketones Urine Blood Urine Nitrite Ur Leukocyte Esterase Urine RBC Urine WBC Ur Squamous Epith Cells Urine Bacteria Hyaline Casts 02/19/25 02/19/25 21:14 21:46 MCV MCH MCHC RDW Plt Count MPV Immature Gran % (Auto) Neut % (Auto) Lymph % (Auto) [place] % (Auto) Eos % (Auto) Baso % (Auto) Lymph # (Auto) [place] # (Auto) Eos # (Auto) Baso # (Auto) Abs Immat Gran (auto) Absolute Neuts (auto) Absolute Nucleated RBC Nucleated RBC % (auto) VBG pH VBG pCO2 VBG pO2 VBG HCO3 VBG O2 Saturation VBG Base Excess Anion Gap Estim Creat Clear Calc Estimated GFR POC Glucose 152 H Random Glucose Calcium Total Bilirubin Direct Bilirubin AST ALT Alkaline Phosphatase Troponin I High Sens Total Protein Albumin Lipase Beta-Hydroxybutyrate Urine Color Yellow Urine Appearance Clear Urine pH 6.5 Ur Specific [place] 1.025 Urine Protein 30 (1+) H Urine Glucose (UA) 100 H Urine Ketones Negative Urine Blood Negative Urine Nitrite Negative Ur Leukocyte Esterase Negative Urine RBC 0-2 Urine WBC 0-5 Ur Squamous Epith Cells 0-2 Urine Bacteria None Seen Hyaline Casts 0-2 Assessment and Plan (1) Hypoglycemia due to insulin: Status: Acute (2) Abdominal pain: Qualifiers: Abdominal location: generalized Qualified Code(s): R10.84 - Generalized abdominal pain Status: Acute Plan Jose Alfredo Celis is a 55 y/o man admitted with: Hypoglycemia after multiple injections of insulin aspart (total 54 units), last dose of Tresiba 35 units was last night. Admit to hospitalist service. Hold Tresiba, aspirin insulin and metformin. Start treatment with D10. Blood glucose checks every 2 hours for now. Abdominal pain and vomiting, resolved. Elevated transaminases and alk-phos, normal bilirubin and lipase. Abdominal CT scan showed ileus versus early SBO. ?Biliary dilation s/p cholecystectomy. Possible secondary to chronic pancreatitis. Advance diet as tolerated. Continue antiemetic therapy with Zofran. Repeat LFTs in the morning. Continue pancreatic enzymes. Hyperlipidemia. Statin on hold due to elevated transaminases. GERD. Continue omeprazole. Insomnia. Continue clonazepam or trazodone. Mood disorder. Continue home on mood stabilizers. *Med rec pending Code status: Full DVT prophylaxis: Lovenox Patient will need hospitalization for at least 2 midnights for hypoglycemic treatment close monitoring of blood glucose and D10 infusion; patient also will need close monitoring of gastrointestinal symptoms and LFTs. Quality Stroke Does the patient have a stroke diagnosis?: No VTE Prior VTE?: No VTE Risk Level:: Medical - moderate - high VTE Device Contraindication: Treatment Not Indicated VTE Drug Contraindication: N/A - Med Ordered
[2025-02-19 22:00] VITALS: BP 159/87; PULSE 77; RESP 18; O2SAT 95
[2025-02-19] MEDS: clonazePAM 1 MG TABLET 2 MG PO (22:53)
--- NOTE | 2025-02-19 23:22 | PC.NURSE ---
pt requesting q4hour 10mg oxycodone as states thats his prescription at home. unable to see this prescription through pharmacy hx. MD Lazaro aware.
[2025-02-19] MEDS: oxyCODONE HCl Immed Release 5 MG TABLET 10 MG PO (23:38)
[2025-02-20] VITALS (9 sets, daily range): BP systolic 112–180; BP diastolic 60–98; PULSE 53–80; RESP 12–20; TEMP 35.8–37.3; O2SAT 96–100; BMI 27.3
--- NOTE | 2025-02-20 00:10 | PC.NURSE ---
poc 258. notified. paused ivf.
[2025-02-20 00:13] LABS: Glucose, Whole Blood 258 mg/dL (60-115)
[2025-02-20 02:11] LABS: Glucose, Whole Blood 230 mg/dL (60-115)
[2025-02-20 04:06] LABS: Glucose, Whole Blood 230 mg/dL (60-115)
--- NOTE | 2025-02-20 05:04 | PC.NURSE ---
d10 infusion remains paused. bgl stable. pt denies any discomfort/needs at this time. pt is able to reposition self in bed and appropriately uses call figueroa to ask for assistance. call figueroa within reach.
[2025-02-20 06:21] LABS: Alanine Aminotransferase 31 U/L (0-40); Albumin Level 4.1 g/dL (3.5-5.0); Alkaline Phosphatase 93 U/L (39-117); Anion Gap 16 (12-20); Aspartate Amino Transferase 32 U/L (5-37); Bilirubin Total 0.3 mg/dL (0.0-1.0); Blood Urea Nitrogen 30 mg/dL (9-16); Calcium 9.1 mg/dL (8.4-10.2); Carbon Dioxide 25 mmol/L (22-29); Chloride 99 mmol/L (96-108); Creatinine Clr Calc Pharmacy 73.3; Estimated Glomerular Filt Rate > 60; Glucose Random 222 mg/dL (60-115); Potassium 3.7 mmol/L (3.3-5.1); Sodium 136 mmol/L (135-145); Total Protein 7.2 g/dL (6.5-8.0)
[2025-02-20 06:51] LABS: Glucose, Whole Blood 197 mg/dL (60-115)
--- NOTE | 2025-02-20 07:20 | PHA.MEDREC ---
Pharmacy Consult ? Medication Reconciliation Pharmacy has completed the medication reconciliation. Utilized discharge packet from 02/17/2025.
[2025-02-20] MEDS: HYDROmorphone HCl 0.5 MG/0.5 ML SYRINGE IVPUSH ×2 (07:30→15:55)
[2025-02-20] MEDS: Enoxaparin Sodium 40 MG/0.4 ML SYRINGE SUBCUT (07:30)
[2025-02-20 07:53] LABS: Glucose, Whole Blood 203 mg/dL (60-115)
[2025-02-20 09:44] LABS: Glucose, Whole Blood 215 mg/dL (60-115)
[2025-02-20] MEDS: Lipase/Prot/Amylase 24/76/120K 1 CAP CAPSULE.DR 2 CAP PO ×2 (10:22→15:54)
[2025-02-20] MEDS: Aspirin Enteric Coated 81 MG TABLET.DR PO (10:22)
[2025-02-20] MEDS: Ibuprofen 800 MG TABLET PO ×3 (10:23→20:16)
[2025-02-20] MEDS: Losartan Potassium 25 MG TABLET 12.5 MG PO (10:23)
[2025-02-20] MEDS: oxyCODONE HCl Immed Release 5 MG TABLET 10 MG PO ×2 (10:23→20:16)
[2025-02-20] MEDS: Cyanocobalamin (Vitamin B-12) 1,000 MCG TABLET 1000 MCG PO (10:23)
[2025-02-20] MEDS: Gabapentin 300 MG CAPSULE PO ×3 (10:23→20:16)
[2025-02-20] MEDS: Insulin Lispro 100 UNIT/ML 3 ML VIAL SUBCUT ×3 (10:24→22:07)
[2025-02-20] MEDS: 0.9 % Sodium Chloride Flush 3 ML SYRINGE IVFLUSH ×2 (10:24→20:21)
[2025-02-20] MEDS: Cholecalciferol (Vitamin D3) 25 MCG TABLET PO (10:24)
--- NOTE | 2025-02-20 11:25 | P.PNIM_ITS ---
Subjective Subjective Date of Service: 03/06/25 Interval History: f/u on hypyglycemia d/t self admin of excess insulin hypoglycemia resolved. Physical Exam 2 Vital Signs: Vital Signs: Last Vital Signs Temp 97.0 F 02/20/25 11:20 Pulse 55 02/20/25 11:20 Resp 20 02/20/25 11:20 BP 131/75 02/20/25 11:20 Pulse Ox 98 02/20/25 11:20 O2 Del Method Room Air 02/20/25 11:20 BMI result Body Mass Index 27.3 General: AO X 3, no acute distress Resp: CTA bilateral CVS: S1,S2,RRR GI: +BS, NT, no distention Skin: No rash Neuro: motor grossly intact Psych: appropriate affect Objective Data Active Medications Acetaminophen (Acetaminophen 325 Mg Tablet) 975 mg PO Q6H PRN PRN Reason: Pain, Mild 1-3,fever,headache Lipase/Protease/Amylase (Lipase/Prot/Amylase 24/76/120k 1 Cap Capsule.) 2 cap PO TIDWM [facility] Last Admin: 02/20/25 10:22 Dose: 2 cap Documented By: HERMANN Aspirin (Aspirin Enteric Coated 81 Mg Tablet.) 81 mg PO DAILY@1200 [facility] Last Admin: 02/20/25 10:22 Dose: 81 mg Documented By: HERMANN Atorvastatin Calcium (Atorvastatin Calcium 20 Mg Tablet) 20 mg PO BEDTIME HUGH Clonazepam (Clonazepam 1 Mg Tablet) 1 mg PO TID PRN PRN Reason: Anxiety Cyanocobalamin (Cyanocobalamin (Vitamin B-12) 1,000 Mcg Tablet) 1,000 mcg PO DAILY [facility] Last Admin: 02/20/25 10:23 Dose: 1,000 mcg Documented By: HERMANN Dextrose (Dextrose 50 % 25 Gm/50 Ml Syringe) 25 gm IVPUSH Q15M PRN; Protocol PRN Reason: per Hypoglycemia Standing Ord. Enoxaparin Sodium (Enoxaparin Sodium 40 Mg/0.4 Ml Syringe) 40 mg SUBCUT Q24H [facility] Last Admin: 02/20/25 07:30 Dose: 40 mg Documented By: BORIS Ergocalciferol (Ergocalciferol (Vitamin D2) 1,250 Mcg Capsule) 1,250 mcg PO Tu@0900 [facility] Gabapentin (Gabapentin 300 Mg Capsule) 300 mg PO TID [facility] Last Admin: 02/20/25 10:23 Dose: 300 mg Documented By: HERMANN Glucose (Glucose Gel 15 Gm Gel..Gram.) 15 gm PO Q15M PRN; Protocol PRN Reason: per Hypoglycemia Standing Ord. Hydromorphone HCl (Hydromorphone Hcl 0.5 Mg/0.5 Ml Syringe) 0.5 mg IVPUSH Q6H PRN; Protocol PRN Reason: Pain, Severe (Pain Scale 7-10) Last Admin: 02/20/25 07:30 Dose: 0.5 mg Documented By: BORIS Dextrose (D10) 1,000 mls @ 50 mls/hr IVCONT .Q20H [facility] Last Infusion: 02/20/25 00:10 Dose: 0 mls/hr Documented By: SIRISHA Ibuprofen (Ibuprofen 800 Mg Tablet) 800 mg PO TID [facility] Last Admin: 02/20/25 10:23 Dose: 800 mg Documented By: HERMANN Insulin Glargine (Insulin Glargine,Hum.Rec.Anlog 100 Unit/Ml 10 Ml Vial) 24 unit SUBCUT BEDTIME [facility] Insulin Human Lispro (Insulin Lispro 100 Unit/Ml 3 Ml Vial) 0 unit SUBCUT QIDACHS [facility]; Protocol Last Admin: 02/20/25 10:24 Dose: 2 unit Documented By: HERMANN Comments: snack provided. Losartan Potassium (Losartan Potassium 25 Mg Tablet) 12.5 mg PO DAILY [facility]; Protocol Last Admin: 02/20/25 10:23 Dose: 12.5 mg Documented By: HERMANN Metformin HCl (Metformin Hcl Er 500 Mg Tab.Er.24h) 1,000 mg PO BIDWM [facility] Omeprazole (Omeprazole 20 Mg Capsule.Dr) 20 mg PO BID@0630,1630 [facility] Ondansetron HCl (Ondansetron Hcl 4 Mg/2 Ml Vial) 4 mg IVPUSH Q6H PRN PRN Reason: Nausea and Vomiting Oxycodone HCl (Oxycodone Hcl Immed Release 5 Mg Tablet) 10 mg PO Q6H PRN PRN Reason: Breakthrough Pain Last Admin: 02/20/25 10:23 Dose: 10 mg Documented By: HO.SZOTPAT Sodium Chloride (0.9 % Sodium Chloride Flush 3 Ml Syringe) 3 ml IVFLUSH QSHIFT [facility] Last Admin: 02/20/25 10:24 Dose: 3 ml Documented By: HERMANN Trazodone HCl (Trazodone Hcl 50 Mg Tablet) 150 mg PO BEDTIME PRN PRN Reason: Insomnia Vitamin D (Cholecalciferol (Vitamin D3) 25 Mcg Tablet) 25 mcg PO DAILY [facility] Last Admin: 02/20/25 10:24 Dose: 25 mcg Documented By: HERMANN Labs 02/21/25 08:41 02/21/25 08:41 Labs: Laboratory Results - last 24 hr 02/19/25 02/19/25 02/19/25 18:31 18:47 18:53 MCV 79.2 L MCH 28.3 MCHC 35.8 RDW 12.7 Plt Count 236 D MPV 9.5 Immature Gran % (Auto) 0.8 H Neut % (Auto) 60.9 Lymph % (Auto) 30.2 [place] % (Auto) 6.4 Eos % (Auto) 1.5 Baso % (Auto) 0.2 Lymph # (Auto) 2.8 [place] # (Auto) 0.6 Eos # (Auto) 0.1 Baso # (Auto) 0.0 Abs Immat Gran (auto) 0.07 H Absolute Neuts (auto) 5.6 Absolute Nucleated RBC 0.000 Nucleated RBC % (auto) 0.0 VBG pH 7.52 H VBG pCO2 29 VBG pO2 55 VBG HCO3 24 VBG O2 Saturation 85.0 VBG Base Excess 2.7 Anion Gap 22 H Estim Creat Clear Calc 63.4 Estimated GFR 56 POC Glucose 94 Random Glucose 79 Calcium 11.2 H D Total Bilirubin 0.4 Direct Bilirubin 0.2 AST 39 H ALT 44 H Alkaline Phosphatase 125 H Troponin I High Sens 2.9 Total Protein 9.2 H Albumin 5.2 H Lipase < 4 L Beta-Hydroxybutyrate 0.09 Urine Color Urine Appearance Urine pH Ur Specific [place] Urine Protein Urine Glucose (UA) Urine Ketones Urine Blood Urine Nitrite Ur Leukocyte Esterase Urine RBC Urine WBC Ur Squamous Epith Cells Urine Bacteria Hyaline Casts 02/19/25 02/19/25 02/19/25 19:31 20:41 21:04 MCV MCH MCHC RDW Plt Count MPV Immature Gran % (Auto) Neut % (Auto) Lymph % (Auto) [place] % (Auto) Eos % (Auto) Baso % (Auto) Lymph # (Auto) [place] # (Auto) Eos # (Auto) Baso # (Auto) Abs Immat Gran (auto) Absolute Neuts (auto) Absolute Nucleated RBC Nucleated RBC % (auto) VBG pH VBG pCO2 VBG pO2 VBG HCO3 VBG O2 Saturation VBG Base Excess Anion Gap Estim Creat Clear Calc Estimated GFR POC Glucose 74 54 L* 73 Random Glucose Calcium Total Bilirubin Direct Bilirubin AST ALT Alkaline Phosphatase Troponin I High Sens Total Protein Albumin Lipase Beta-Hydroxybutyrate Urine Color Urine Appearance Urine pH Ur Specific [place] Urine Protein Urine Glucose (UA) Urine Ketones Urine Blood Urine Nitrite Ur Leukocyte Esterase Urine RBC Urine WBC Ur Squamous Epith Cells Urine Bacteria Hyaline Casts 02/19/25 02/19/25 02/20/25 21:14 21:46 00:06 MCV MCH MCHC RDW Plt Count MPV Immature Gran % (Auto) Neut % (Auto) Lymph % (Auto) [place] % (Auto) Eos % (Auto) Baso % (Auto) Lymph # (Auto) [place] # (Auto) Eos # (Auto) Baso # (Auto) Abs Immat Gran (auto) Absolute Neuts (auto) Absolute Nucleated RBC Nucleated RBC % (auto) VBG pH VBG pCO2 VBG pO2 VBG HCO3 VBG O2 Saturation VBG Base Excess Anion Gap Estim Creat Clear Calc Estimated GFR POC Glucose 152 H 258 H Random Glucose Calcium Total Bilirubin Direct Bilirubin AST ALT Alkaline Phosphatase Troponin I High Sens Total Protein Albumin Lipase Beta-Hydroxybutyrate Urine Color Yellow Urine Appearance Clear Urine pH 6.5 Ur Specific [place] 1.025 Urine Protein 30 (1+) H Urine Glucose (UA) 100 H Urine Ketones Negative Urine Blood Negative Urine Nitrite Negative Ur Leukocyte Esterase Negative Urine RBC 0-2 Urine WBC 0-5 Ur Squamous Epith Cells 0-2 Urine Bacteria None Seen Hyaline Casts 0-2 02/20/25 02/20/25 02/20/25 02:08 04:01 05:48 MCV MCH MCHC RDW Plt Count MPV Immature Gran % (Auto) Neut % (Auto) Lymph % (Auto) [place] % (Auto) Eos % (Auto) Baso % (Auto) Lymph # (Auto) [place] # (Auto) Eos # (Auto) Baso # (Auto) Abs Immat Gran (auto) Absolute Neuts (auto) Absolute Nucleated RBC Nucleated RBC % (auto) VBG pH VBG pCO2 VBG pO2 VBG HCO3 VBG O2 Saturation VBG Base Excess Anion Gap 16 Estim Creat Clear Calc 73.3 Estimated GFR > 60 POC Glucose 230 H 230 H Random Glucose 222 H Calcium 9.1 D Total Bilirubin 0.3 Direct Bilirubin AST 32 ALT 31 Alkaline Phosphatase 93 Troponin I High Sens Total Protein 7.2 Albumin 4.1 Lipase Beta-Hydroxybutyrate Urine Color Urine Appearance Urine pH Ur Specific [place] Urine Protein Urine Glucose (UA) Urine Ketones Urine Blood Urine Nitrite Ur Leukocyte Esterase Urine RBC Urine WBC Ur Squamous Epith Cells Urine Bacteria Hyaline Casts 02/20/25 02/20/25 02/20/25 06:48 07:50 09:39 MCV MCH MCHC RDW Plt Count MPV Immature Gran % (Auto) Neut % (Auto) Lymph % (Auto) [place] % (Auto) Eos % (Auto) Baso % (Auto) Lymph # (Auto) [place] # (Auto) Eos # (Auto) Baso # (Auto) Abs Immat Gran (auto) Absolute Neuts (auto) Absolute Nucleated RBC Nucleated RBC % (auto) VBG pH VBG pCO2 VBG pO2 VBG HCO3 VBG O2 Saturation VBG Base Excess Anion Gap Estim Creat Clear Calc Estimated GFR POC Glucose 197 H 203 H 215 H Random Glucose Calcium Total Bilirubin Direct Bilirubin AST ALT Alkaline Phosphatase Troponin I High Sens Total Protein Albumin Lipase Beta-Hydroxybutyrate Urine Color Urine Appearance Urine pH Ur Specific [place] Urine Protein Urine Glucose (UA) Urine Ketones Urine Blood Urine Nitrite Ur Leukocyte Esterase Urine RBC Urine WBC Ur Squamous Epith Cells Urine Bacteria Hyaline Casts Assessment and Plan (1) Hypoglycemia due to insulin: Status: Acute Plan 55 y/o man with insulin dependent diabetes recently dc from the hospital after treatment for hypeglycemia without DKA and comes back due to hypoglycemia for taking excess insulin d/t hyperglycemia Hypoglycemia after multiple injections of insulin aspart (total 54 units), Hypoglycemia resolved restart insulin sliding scale continue Lantus at adjutant general glucose, he will probably benefit from outaptient endo aníbal Abdominal pain and vomiting, resolved. Elevated transaminases and alk-phos, normal bilirubin and lipase. Abdominal CT scan showed ileus versus early SBO. ?Biliary dilation s/p cholecystectomy. Possible secondary to chronic pancreatitis. Advance diet as tolerated. Continue antiemetic therapy with Zofran. Repeat LFTs in the morning. Continue pancreatic enzymes. Hyperlipidemia. Statin on hold due to elevated transaminases. GERD. Continue omeprazole. Insomnia. Continue clonazepam or trazodone. Mood disorder. Continue home on mood stabilizers. Code status: Full DVT prophylaxis: Lovenox Quality Stroke Does the patient have a stroke diagnosis?: No VTE Prior VTE?: No VTE Risk Level:: Medical - moderate - high VTE Device Contraindication: Treatment Not Indicated VTE Drug Contraindication: N/A - Med Ordered
[2025-02-20 11:29] LABS: Glucose, Whole Blood 205 mg/dL (60-115)
--- NOTE | 2025-02-20 13:55 | MHC.CM.PN ---
IMM 02/20/25, Pt lives with his mother and nephew. He had just started with VNA services prior to coming to [facility] he does not know which agency. For DME, he has diabetic supplies, a cane and a walker. HCP is his dtr: Ijeoma Hicks, , copy requested. He can arrange transport home at [place], DCP: home, resume VNA services. CM to follow for DC needs.
[2025-02-20 14:25] LABS: Glucose, Whole Blood 297 mg/dL (60-115)
[2025-02-20] MEDS: metFORMIN HCl ER 500 MG TAB.ER.24H 1000 MG PO (15:54)
[2025-02-20] MEDS: Omeprazole 20 MG CAPSULE.DR PO (15:54)
[2025-02-20 15:55] LABS: Glucose, Whole Blood 337 mg/dL (60-115)
[2025-02-20 19:34] LABS: Glucose, Whole Blood 134 mg/dL (60-115)
[2025-02-20] MEDS: Atorvastatin Calcium 20 MG TABLET PO (20:16)
[2025-02-20] MEDS: amLODIPine Besylate 2.5 MG TABLET PO (20:16)
[2025-02-20] MEDS: clonazePAM 1 MG TABLET PO (20:17)
[2025-02-20] MEDS: Insulin Glargine,Hum.rec.anlog 100 UNIT/ML 10 ML VIAL 24 UNIT SUBCUT (20:17)
[2025-02-20 21:22] LABS: Glucose, Whole Blood 187 mg/dL (60-115)
[2025-02-20] MEDS: traZODone HCL 50 MG TABLET 150 MG PO (22:07)
[2025-02-20 23:39] LABS: Glucose, Whole Blood 150 mg/dL (60-115)
[2025-02-21 01:46] LABS: Glucose, Whole Blood 176 mg/dL (60-115)
[2025-02-21] MEDS: oxyCODONE HCl Immed Release 5 MG TABLET 10 MG PO ×3 (03:56→17:36)
[2025-02-21 03:58] VITALS: BP 113/71; PULSE 63; RESP 16; TEMP 36.1; O2SAT 97
[2025-02-21 05:31] LABS: Glucose, Whole Blood 263 mg/dL (60-115)
[2025-02-21 06:56] LABS: Glucose, Whole Blood 234 mg/dL (60-115)
[2025-02-21 07:06] VITALS: BP 108/61; PULSE 64; RESP 18; TEMP 36.1; O2SAT 96
[2025-02-21] MEDS: metFORMIN HCl ER 500 MG TAB.ER.24H 1000 MG PO ×2 (07:25→16:37)
[2025-02-21] MEDS: Omeprazole 20 MG CAPSULE.DR PO ×2 (07:26→16:38)
[2025-02-21] MEDS: 0.9 % Sodium Chloride Flush 3 ML SYRINGE IVFLUSH ×3 (07:26→20:36)
[2025-02-21] MEDS: Lipase/Prot/Amylase 24/76/120K 1 CAP CAPSULE.DR 2 CAP PO ×3 (07:26→16:37)
[2025-02-21] MEDS: Insulin Lispro 100 UNIT/ML 3 ML VIAL SUBCUT ×4 (07:27→20:35)
[2025-02-21] MEDS: Ibuprofen 800 MG TABLET PO (07:44)
[2025-02-21] MEDS: Cholecalciferol (Vitamin D3) 25 MCG TABLET PO (07:46)
[2025-02-21] MEDS: Gabapentin 300 MG CAPSULE PO ×3 (07:46→20:34)
[2025-02-21] MEDS: Cyanocobalamin (Vitamin B-12) 1,000 MCG TABLET 1000 MCG PO (07:46)
[2025-02-21] MEDS: Enoxaparin Sodium 40 MG/0.4 ML SYRINGE SUBCUT (07:46)
[2025-02-21] MEDS: Losartan Potassium 25 MG TABLET 12.5 MG PO (07:51)
[2025-02-21 09:20] LABS: Hematocrit 39.2 % (42.0-52.0); Hemoglobin 13.3 g/dl (14.0-18.0); Mean Corpuscular HGB Conc 33.9 g/dl (31.0-36.0); Mean Corpuscular Hemoglobin 28.9 pg (27.0-33.0); Mean Platelet Volume 9.9 fL (9.4-12.4); Platelet Count 192 X10*3/uL (160-400); Red Blood Count 4.61 X10*6/uL (4.60-5.80); Red Cell Distribution Width 13.2 % (11.0-16.0); White Blood Count 6.7 X10*3/uL (4.8-10.8)
[2025-02-21 09:40] LABS: Anion Gap 16 (12-20); Blood Urea Nitrogen 32 mg/dL (9-16); Calcium 8.6 mg/dL (8.4-10.2); Carbon Dioxide 22 mmol/L (22-29); Chloride 103 mmol/L (96-108); Estimated Glomerular Filt Rate 52; Glucose Random 242 mg/dL (60-115); Potassium 3.8 mmol/L (3.3-5.1); Sodium 137 mmol/L (135-145)
[2025-02-21 10:56] LABS: Glucose, Whole Blood 199 mg/dL (60-115)
[2025-02-21 11:06] VITALS: BP 105/61; PULSE 71; RESP 18; TEMP 36.4; O2SAT 96
[2025-02-21] MEDS: Aspirin Enteric Coated 81 MG TABLET.DR PO (11:28)
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
[2025-02-21] MEDS: Lidocaine 4 % Patch ADH..PATCH 1 PATCH TRANSDERMA (12:30)
[2025-02-21] MEDS: Ketorolac Tromethamine 30 MG/ML VIAL IVPUSH ×3 (12:31→23:52)
[2025-02-21 15:48] VITALS: BP 97/62; PULSE 69; RESP 16; TEMP 36.2; O2SAT 98
[2025-02-21 16:17] LABS: Glucose, Whole Blood 362 mg/dL (60-115)
[2025-02-21 19:33] LABS: Glucose, Whole Blood 214 mg/dL (60-115)
[2025-02-21 19:51] VITALS: BP 129/69; PULSE 88; RESP 16; TEMP 36.6; O2SAT 93
[2025-02-21] MEDS: clonazePAM 1 MG TABLET PO (20:34)
[2025-02-21] MEDS: Atorvastatin Calcium 20 MG TABLET PO (20:34)
[2025-02-21] MEDS: Insulin Glargine,Hum.rec.anlog 100 UNIT/ML 10 ML VIAL 24 UNIT SUBCUT (20:35)
[2025-02-21] MEDS: ondansetron HCL 4 MG/2 ML VIAL IVPUSH (20:35)
[2025-02-21 23:50] VITALS: BP 115/78; PULSE 62; RESP 16; TEMP 36.2; O2SAT 98
[2025-02-21] MEDS: traZODone HCL 50 MG TABLET 150 MG PO (23:53)
[2025-02-22 00:20] LABS: Glucose, Whole Blood 132 mg/dL (60-115)
[2025-02-22 02:29] LABS: Glucose, Whole Blood 138 mg/dL (60-115)
[2025-02-22 03:31] VITALS: BP 122/78; PULSE 72; RESP 16; TEMP 36.2; O2SAT 96
[2025-02-22 04:23] LABS: Glucose, Whole Blood 188 mg/dL (60-115)
[2025-02-22 06:11] LABS: Glucose, Whole Blood 296 mg/dL (60-115)
[2025-02-22 06:55] LABS: Glucose, Whole Blood 286 mg/dL (60-115)
[2025-02-22 07:08] VITALS: BP 100/60; PULSE 64; RESP 18; TEMP 36.1; O2SAT 98
[2025-02-22] MEDS: Acetaminophen 325 MG TABLET 975 MG PO (08:11)
[2025-02-22] MEDS: Lidocaine 4 % Patch ADH..PATCH 1 PATCH TRANSDERMA (08:12)
[2025-02-22] MEDS: metFORMIN HCl ER 500 MG TAB.ER.24H 1000 MG PO (08:12)
[2025-02-22] MEDS: Losartan Potassium 25 MG TABLET 12.5 MG PO (08:12)
[2025-02-22] MEDS: Cholecalciferol (Vitamin D3) 25 MCG TABLET PO (08:13)
[2025-02-22] MEDS: Enoxaparin Sodium 40 MG/0.4 ML SYRINGE SUBCUT (08:14)
[2025-02-22] MEDS: Cyanocobalamin (Vitamin B-12) 1,000 MCG TABLET 1000 MCG PO (08:14)
[2025-02-22] MEDS: Ergocalciferol (Vitamin D2) 1,250 MCG CAPSULE 1250 MCG PO (08:14)
[2025-02-22] MEDS: Gabapentin 300 MG CAPSULE PO (08:14)
[2025-02-22] MEDS: Lipase/Prot/Amylase 24/76/120K 1 CAP CAPSULE.DR 2 CAP PO (08:14)
[2025-02-22] MEDS: Insulin Lispro 100 UNIT/ML 3 ML VIAL SUBCUT (08:14)
[2025-02-22] MEDS: 0.9 % Sodium Chloride Flush 3 ML SYRINGE IVFLUSH (08:15)
[2025-02-22] MEDS: clonazePAM 1 MG TABLET PO (08:16)
[2025-02-22] MEDS: oxyCODONE HCl Immed Release 5 MG TABLET 10 MG PO (08:23)
--- NOTE | 2025-02-22 08:27 | MHC.CM.PN ---
PER PREVIOUS ADMISSION PT ACTIVE W/[facility], REF PLACED.
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
--- NOTE | 2025-02-22 10:50 | MHC.CM.PN ---
PT MEDICALLY CLEARED FOR DC HOME W/[facility] OF [facility] FOR SN/OT/PT, PT'S MOM WILL TRANSPORT.
[2025-02-22 10:54] LABS: Glucose, Whole Blood 266 mg/dL (60-115)
== END 2025-02-22 11:18 | disposition home health service (06) | DRG 638 ==
LOC: HO.ED 20:57 → HO.EDOVER 21:14 → HO.IMC 02-20 08:03
PROVIDERS: Internal Medicine; Admitting Provider Internal Medicine; Emergency Provider Emergency Medicine Emergency Medical Services; PCP Family Medicine; Visit Provider Nurse Practitioner Acute Care
DX: E11.649 Type 2 diabetes mellitus with hypoglycemia without coma (principal); K86.1 Other chronic pancreatitis; T38.3X5A Adverse effect of insulin and oral hypoglycemic [antidiabetic] drugs, initial encounter; E78.5 Hyperlipidemia, unspecified; K21.9 Gastro-esophageal reflux disease without esophagitis; F39 Unspecified mood [affective] disorder; G47.00 Insomnia, unspecified; Z79.4 Long term (current) use of insulin; Z79.84 Long term (current) use of oral hypoglycemic drugs; Z79.82 Long term (current) use of aspirin; Z79.899 Other long term (current) drug therapy
CPT/HCPCS: 36415; 74177; 80048; 80053; 80076; 81001; 82010; 82803; 82947; 83690; 84484; 85025; 85027; 93005; 99285; J1171; J1650; J1885; J2405; Q9967

== ENCOUNTER → 2025-02-19 18:41 | Outpatient (BNV) | payer MEDICARE, SELFPAY | PROVIDERS: Admitting Provider Internal Medicine; Emergency Provider Emergency Medicine Emergency Medical Services; PCP Family Medicine; Visit Provider Internal Medicine Cardiovascular Disease | DX: I49.3 Ventricular premature depolarization (principal); R00.0 Tachycardia, unspecified | CPT/HCPCS: 93010 ==

== ENCOUNTER → 2025-02-19 18:42 | Outpatient (BNV) | payer MEDICARE, SELFPAY | PROVIDERS: Admitting Provider Internal Medicine; Emergency Provider Emergency Medicine Emergency Medical Services; PCP Family Medicine; Visit Provider Radiology Diagnostic Radiology | DX: K86.1 Other chronic pancreatitis (principal) | CPT/HCPCS: 74177 ==

== ENCOUNTER → 2025-02-19 21:09 | Outpatient (BNV) | payer MEDICARE, SELFPAY | PROVIDERS: Admitting Provider Internal Medicine; Emergency Provider Emergency Medicine Emergency Medical Services; PCP Family Medicine; Visit Provider Internal Medicine | DX: E16.0 Drug-induced hypoglycemia without coma (principal); T38.3X5A Adverse effect of insulin and oral hypoglycemic [antidiabetic] drugs, initial encounter; E11.65 Type 2 diabetes mellitus with hyperglycemia | CPT/HCPCS: 99223; 99232; 99239 ==

== ENCOUNTER 2025-05-27 10:40 | Outpatient (REF) | payer MEDICARE, SELFPAY ==
--- NOTE | ~2025-05-27 | MM_ITS ---
EXAMINATION: DXA BONE DENSITY AXIAL HISTORY: OSTEOPOROSIS TECHNIQUE: [employer] Dual energy absorptiometry (DEXA) of the lumbar spine, total left hip, and femoral neck was performed. COMPARISON: There are no prior studies for comparison. FINDINGS: The bone mineral density of the lumbar spine is 1.397 g/cm2, corresponding to a T-score of 1.5, and a Z-score of 1.6. This is indicative of normal bone mineral density. The bone mineral density of the left total hip is 1.074 g/cm2, corresponding to a T-score of -0.2, and a Z-score of 0.1. This is indicative of normal bone mineral density. The bone mineral density of the left femoral neck is 1.072 g/cm2, corresponding to a T-score of 0.0, and a Z-score of 0.7. This is indicative of normal bone mineral density. FRACTURE RISK: The FRAX index suggests a risk of major osteoporotic fracture of 2.2%, and of hip fracture 0.1%. MM/XR DEXA axial skeleton IMPRESSION: Based on bone mineral density, and according to World Health Organization (WHO) criteria, the diagnosis is consistent with normal bone mineral density. Statistically, 68% of repeat scans fall within 1 SD (+/- 0.010 g/cm2 for AP spine L1-L4) and 1 SD (+/- 0.012 g/cm2 for femur total) FRAX is a trademark of the [employer]'s [employer] Metabolic Bone Disease, a World Health Organization (WHO) Collaborating Center. Electronically signed by: James Tineo MD 05/27/2025 11:15 AM EDT
--- OUTSIDE RECORDS SUMMARY | 2025-05-27 12:10 | XMS_ITS | Encounter Summary ---
Author Organization [facility] Address [address] [facility] [address] [place] [address] Care Team Providers Care Public Safety Dispatcher Name Role Phone Mae Hall MD Primary Care Provider [phone] Connor Bergeron PharmD Unavailable [phone] Reason for Visit * Reason Onset Date Comments Referral 04/26/2025 Encounter Details Date Type Department Care Team (Late st Contact Info) Description 04/26/2025 Telephone [facility] [address] [place] [address] Mae Hall MD [address] [place] [address] Referral Social History Tobacco Use Types Packs/Day Years Used Date Smoking Tobacco: Some Days Cigarettes Smokeless Tobacco: Never Alcohol Use Standard Drinks/Week Comments Never 0 (1 standard drink = 0.6 oz pur e alcohol) Depression Answer Date Recorded Patient Health Questionnaire-9 Score 4 03/10/2025 Patient Health Questionnaire-9 Score 4 03/10/2025 Last PHQ-9: Questionnaire Data Not on file 0 03/10/2025 Housing Stability Answer Date Recorded What is [...] got money to buy more: Never True 02/24/2025 Within the past 12 months,th e food [...] Answer Date Recorded Patient Health Questionnaire-2 Score 2 03/10/2025 Internet Access Answer Date Recorded Internet Access [...] encounter Miscellaneous Notes * Telephone Encounter - Cintia Estes RN - 04/26/2025 3:20 PM EDT Return call placed to Radha at [facility] who called in with concerns for the pt due to chronic ongoing bradycardia. Radha states that the pt tends to have a pulse between 53-77 every time they see him. There are no corresponding symptoms with the low pulse rate other than some elevated blood pressure readings. Pt is diagnosed with hypertension and Radha was advised at the pt [place], the pt HR was 69. Radha was looking for a referral to cardiology be placed. Radha advised that this information will be forwarded to PCP for review and advisement. * Telephone Encounter - Leia Becerril - 04/26/2025 12:12 PM EDT Tc from Radha Aviles With [facility] requesting an referral for Cardiology Contact Radha at [phone] documented in this encounter Plan of Treatment Upcoming Encounters Date Type Department Care Team (Late st Contact Info) Description 06/02/2025 11:30 AM EDT Telemedicine [facility] [address] [place] [address] Connor Bergeron PharmD [address] [place] [address] 06/06/2025 10:30 AM EDT Telemedicine [facility] [address] [place] [address] Heather Bello RN [address] [place], [place] 06/08/2025 1:00 PM EDT Office Visit [facility] [address] [place] [address] Rolando Kahn, DMD [address] [place], [place] 06/20/2025 1:00 PM EDT Office Visit [facility] [address] [place] [phone] Mae Hall MD [address] [place] [phone] documented as of this encounter Goals Goal Patient Goal Type Associated Problems Recent Progress Patient-Stated? Author Blood Pressure < 140/90 Blood Pressure 144/82(2024 11:46 AM EDT) No Connor Bergeron PharmD Hemoglobin A1c < 7 Result Component 10.7(03/10/20 9:43 AM EDT) No Connor Bergeron PharmD documented as of this encounter Visit Diagnoses Not on filedocumented in this encounter Additional Health Concerns Assessment Noted Time PHQ-9 Depression Total Score: 4 03/10/20 9:39 AM EDT documented as of this encounter Care Teams Public Safety Dispatcher Relationship Specialty Start Date End Date Mae Hall MD [address] [place] [phone] PCP - General Family Medicine 09/01/18 oCnnor Bergeron PharmD [address] [place] [phone] Pharmacist Internal Medicine 07/04/23 [facility] 02/11/25 documented as of this encounter
--- OUTSIDE RECORDS SUMMARY | 2025-05-27 12:10 | XMS_ITS | Encounter Summary ---
Author Organization [facility] Address [address] [facility] [address] [place] [address] Care Team Providers Care Press Operator Name Role Phone Mae Hall MD Primary Care Provider [phone] Connor Bergeron PharmD Unavailable [phone] Encounter Details Date Type Department Care Team ([facility] Contact Info) Description 05/27/2025 Orders Only [facility] External Provider, [facility] Social History Tobacco Use Types Packs/Day Years [...] Info) Description 06/02/2025 11:30 AM EDT Telemedicine [facility] [address] [place] [phone] Connor Bergeron, Michael [address] [place] [phone] 06/06/2025 10:30 AM EDT Telemedicine [facility] [address] [place] [address] Heather Bello, RN [address] [place] [address] 06/08/2025 1:00 PM EDT Office Visit [facility] [address] [place] [address] Rolando Kahn, BREANNE [address] [place] [address] 06/20/2025 1:00 PM EDT Office Visit [facility] [address] [place] [phone] Mae Hall MD [address] [place] [address] documented as of this encounter Goals Goal Patient Goal Type Associated Problems Recent Progress Patient-Stated? Author Blood Pressure < 140/90 Blood Pressure 144/82(2024 11:46 AM EDT) No Connor Bergeron, PharmD Hemoglobin A1c < 7 Result Component 10.7(03/10/20 9:43 AM EDT) No Connor Bergeron PharmD documented as of this encounter Procedures Procedure Name Priority Date/Time Associated Diagnosis Comments BD DEXA AXIAL Routine 05/27/2025 10:45 AM EDT documented in this encounter Results * BD DEXA Axial (05/27/2025 10:45 AM EDT) Anatomical Region Laterality Modality Body Radiographic Delfina ging 05/27/2025 10:4 5 AM EDT Narrative 05/27/2025 11:18 AM EDT [address] [place] [address] Mammography Report Signed Patient: Jose Alfredo Celis MR#: [id number] 6 : 1970 Acct:[id number] Age/Sex: 55 / M ADM Date: 05/27/25 Loc: ADAM Attending Dr: Erlin Rodgers MD Ordering Physician: Erlin Rodgers MD Results: Date of Service: 05/27/25 Follow Up: Procedure(s): XR DEXA axial skeleton Accession Number(s): [id number] cc: Erlin Rodgers MD; Mae Hall MD Reason For Exam: OSTEOPOROSIS EXAMINATION: DXA BONE DENSITY AXIAL HISTORY: OSTEOPOROSIS TECHNIQUE: [employer] Dual energy absorptiometry (DEXA) of the lumbar spine, total left hip, and femoral neck was performed. COMPARISON: There are no prior studies for comparison. FINDINGS: The bone mineral density of the lumbar spine is 1.397 g/cm2, corresponding to a T-score of 1.5, and a Z-score of 1.6. This is indicative of normal bone mineral density. The bone mineral density of the left total hip is 1.074 g/cm2, corresponding to a T-score of -0.2, and a Z-score of 0.1. This is indicative of normal bone mineral density. The bone mineral density of the left femoral neck is 1.072 g/cm2, corresponding to a T-score of 0.0, and a Z-score of 0.7. This is indicative of normal bone mineral density. FRACTURE RISK: The FRAX index suggests a risk of major osteoporotic fracture of 2.2%, and of hip fracture 0.1%. MM/XR DEXA axial skeleton IMPRESSION: Based on bone mineral density, and according to World Health Organization (WHO) criteria, the diagnosis is consistent with normal bone mineral density. Statistically, 68% of repeat scans fall within 1 SD (+/- 0.010 g/cm2 for AP spine L1-L4) and 1 SD (+/- 0.012 g/cm2 for femur total) FRAX is a trademark of the [employer] [place] for Metabolic Bone Disease, a World Health Organization (WHO) Collaborating Center. Electronically signed by: James Tineo MD 05/27/2025 11:15 AM EDT RP Dictated By: James Tineo MD Signed By: <Electronically signed by James Tineo MD in OV> 05/27/25 1115 DD/ 1045 TD/TT: 05/27/25 1109 Game Producer: Procedure Note Donotuseinterpreter, Image - 05/27/2025 [facility] [address] [place], [place] [address] Mammography Report Signed Patient: Jose Alfredo Celis R#: [id number] 6 : 1970Acct:[id number] Age/Sex: 55 / MADM Date: 05/27/25 Loc: MAMMO Attending Dr: Erlin Rodgers MD Ordering Physician: Erlin Rodgersesults: Date of Service: 05/27/25Follow Up: Procedure(s): XR DEXA axial skeleton Accession Number(s): [id number] cc: Erlin Rodgers MD; Mae Hall MD Reason For Exam: OSTEOPOROSIS EXAMINATION: DXA BONE DENSITY AXIAL HISTORY: OSTEOPOROSIS TECHNIQUE: [employer] Dual energy absorptiometry (DEXA) of the lumbar spine, total left hip, and femoral neck was performed. COMPARISON: There are no prior studies for comparison. FINDINGS: The bone mineral density of the lumbar spine is 1.397 g/cm2, corresponding to a T-score of 1.5, and a Z-score of 1.6. This is indicative of normal bone mineral density. The bone mineral density of the left total hip is 1.074 g/cm2, corresponding to a T-score of -0.2, and a Z-score of 0.1. This is indicative of normal bone mineral density. The bone mineral density of the left femoral neck is 1.072 g/cm2, corresponding to a T-score of 0.0, and a Z-score of 0.7. This is indicative of normal bone mineral density. FRACTURE RISK: The FRAX index suggests a risk of major osteoporotic fracture of 2.2%, and of hip fracture 0.1%. MM/XR DEXA axial skeleton IMPRESSION: Based on bone mineral density, and according to World Health Organization (WHO) criteria, the diagnosis is consistent with normal bone mineral density. Statistically, 68% of repeat scans fall within 1 SD (+/- 0.010 g/cm2 for AP spine L1-L4) and 1 SD (+/- 0.012 g/cm2 for femur total) FRAX is a trademark of the [employer] [place] for Metabolic Bone Disease, a World Health Organization (WHO) Collaborating Center. Electronically signed by: James Tineo MD 05/27/2025 11:15 AM EDT Dictated By: James Tineo MD Signed By: <Electronically signed by James Tineo MD in OV> 05/27/25 1115 DD/ 1045 TD/TT: 05/27/25 1109 Game Producer: [facility] External Provider IMG DXA PROCEDURES Final Result documented in this encounter Visit Diagnoses Not on filedocumented in this encounter Additional Health Concerns Assessment Noted Time PHQ-9 Depression Total Score: 4 03/10/20 9:39 AM EDT documented as of this encounter Care Teams Press Operator Relationship Specialty Start Date End Date Mae Hall MD [address] [place] [address] PCP - General Family Medicine 09/01/18 Connor Bergeron, Michael [address] [place] [address] Pharmacist Internal Medicine 07/04/23 [facility] 02/11/25 documented as of this encounter
--- OUTSIDE RECORDS SUMMARY | 2025-05-27 12:10 | XMS_ITS | Encounter Summary ---
Author Organization [employer] Address [address] [facility] 7t [place] [address] Care Team Providers Care Bar Roller Name Role Phone Mae Hall MD Primary Care Provider [phone] Connor Bergeron PharmD Unavailable [phone] Reason for Visit * Reason Onset Date Comments Med Refill 04/12/2025 Encounter Details Date Type Department Care Team (Late st Contact Info) Description 04/12/2025 Telephone [facility] MEDICINE [address] [place] [address] Mae Hall MD [address] [place] [address] Med Refill Social History Tobacco Use Types [...] is your housing situation today? I have audraned rios 09/21/[address] you [...] encounter Miscellaneous Notes * Telephone Encounter - Ariel Braswell - 04/12/2025 4:11 PM EDT TC from pt requesting medication refill. Medications needing refill : oxyCODONE (Roxicodone) 10 MG immediate release tablet To be sent to: [facility] documented in this encounter Plan of Treatment Upcoming Encounters Date Type Department Care Team ([facility] st Contact Info) Description 06/02/2025 11:30 AM EDT Telemedicine [facility] MEDICINE [address] [place] [address] Connor Bergeron, PharmD [address] [place] [address] 06/06/2025 10:30 AM EDT Telemedicine [facility] MED & PEDS [address] [place] [address] Heather Bello, RN [address] [place] [address] 06/08/2025 1:00 PM EDT Office Visit [facility] ADULT DENTAL [address] [place] [address] Rolando Kahn DMD [address] [place] [address] 06/20/2025 1:00 PM EDT Office Visit [facility] MEDICINE [address] [place] [address] Mae Hall MD [address] [place] [address] documented as of this encounter Goals Goal [...] documented as of this encounter Care Teams Bar Roller Relationship Specialty Start Date End Date Mae Hall MD [address] [place] [address] PCP - General Family Medicine 09/01/18 Connor Bergeron, KizzyD [address] [place] [address] Pharmacist Internal Medicine 07/04/23 [facility] 02/11/25 documented as of this encounter
--- OUTSIDE RECORDS SUMMARY | 2025-05-27 12:11 | XMS_ITS | Encounter Summary ---
Author Organization [employer] Address [address] [facility] 7t [place] [address] Care Team Providers Care Parks Worker Name Role Phone Mae Hall MD Primary Care Provider Connor Bergeron PharmD Unavailable [phone] Encounter Details Date Type Department Care Team ([facility] st Contact Info) Description 06/13/2023 Orders Only [facility] MEDICINE [address] [place], [place] [phone] Mae Hall MD [address] [place], [place] [phone] Type 2 diabetes mellitus with hyperglycemia, with long-term current use of insulin ([facility]) Social History Tobacco Use [...] Info) Description 06/02/2025 11:30 AM EDT Telemedicine [facility] MEDICINE [address] [place] [address] Connor Bergeron, PharmD [address] [place] [address] 06/06/2025 10:30 AM EDT Telemedicine [facility] MED & PEDS [address] [place] [address] Heather Bello, EMMETT [address] [place] [address] 06/08/2025 1:00 PM EDT Office Visit [facility] ADULT DENTAL [address] [place] [address] Rolando Kahn, BREANNE 505 [place] [address] 06/20/2025 1:00 PM EDT Office Visit [facility] MEDICINE [address] [place] [address] Mae Hall MD [address] [place] [address] documented as of this encounter Visit Diagnoses Diagnosis Type 2 diabetes mellitus with hyperglycemia, with long-term current use of insulin ([facility]) documented in this encounter Additional Health Concerns Assessment Noted Time PHQ-9 Depression Total Score: 11 023 4:03 PM EST documented as of this encounter Care Teams Parks Worker Relationship Specialty Start Date End Date Mae Hall MD [address] [place] [address] PCP - General Family Medicine 09/01/18 Connor Bergeron, KizzyD [address] [place] [address] Pharmacist Internal Medicine 07/04/23 [facility] 02/11/25 documented as of this encounter
--- OUTSIDE RECORDS SUMMARY | 2025-05-27 12:11 | XMS_ITS | Encounter Summary ---
Author Organization [facility] Address [address] [place] [address] Care Team Providers Care Nail Making Machine Setter Name Role Phone Mae Hall MD Primary Care Provider [phone] Encounter Details Date Type Department Care Team (Late st Contact Info) Description 02/11/2025 Lab Requisition [facility] - Main Lab [address] [facility] [place] [phone] Zuleika Cheema MD [address] [address] Type 2 diabetes mellitus without complications (CMS/HCC V24, CMS/HCC V28); Anemia, unspecified; Other disorders of electrolyte and fluid balance, not elsewhere classified Social History Tobacco Use Types Packs/Day Years Used Date Smoking Tobacco: Never Assessed Sex and Gender Information Value Date Recorded Sex Assigned at Male 12/14/2024 9:19 AM EDT Legal Sex Male 8:07 PM EST Gender Identity Male 12/14/2024 9:19 AM EDT Sexual Orientation Straight 12/14/2024 9: 19 AM EDT documented as of this encounter Plan of Treatment Not on file documented as of this encounter Visit Diagnoses Diagnosis Type 2 diabetes mellitus without complications (CMS/HCC V24, CMS/HCC V28) Anemia, unspecified Other disorders of electrolyte and fluid balance, not elsewhere classified documented in this encounter Care Teams Nail Making Machine Setter Relationship Specialty Start Date End Date Mae Hall MD [address] [place] [phone] PCP - General 07/03/23 documented as of this encounter
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
--- OUTSIDE RECORDS SUMMARY | 2025-05-27 12:11 | XMS_ITS | Encounter Summary ---
Author Organization [employer] Address [address] [facility] 7t [place] [address] Care Team Providers Care Mainframe Applications Developer Name Role Phone Mae Hall MD Primary Care Provider [phone] Connor Bergeron PharmD Unavailable [phone] Reason for Visit * Reason Onset Date Comments Hospital Follow-up 02/24/2025 Encounter Details Date Type Department Care Team ([facility] st Contact Info) Description 02/24/2025 Telephone [facility] MEDICINE [address] [place] [address] Mae Hall MD [address] [place], [place] [phone] Hospital Follow-up Social History Tobacco Use Types Packs/Day Years [...] encounter Miscellaneous Notes * Telephone Encounter - Lauro Joy - 02/24/2025 12:23 PM EDT Tc from pt requesting a HDF appt. Hospital: [facility] Date of admission: 02/19/25 Discharge date: 02/22/25 Diagnosed: Diabetic ketoacidosis documented in this encounter Plan of Treatment Upcoming Encounters Date Type Department Care Team (Late st Contact Info) Description 06/02/2025 11:30 AM EDT Telemedicine [facility] MEDICINE [address] [place] [address] Connor Bergeron, PharmD [address] [place] [address] 06/06/2025 10:30 AM EDT Telemedicine [facility] MED & PEDS [address] [place] [address] Heather Bello, RN [address] [place] [address] 06/08/2025 1:00 PM EDT Office Visit [facility] ADULT DENTAL [address] [place] [address] Rolando Kahn, DMD [address] [place] [address] 06/20/2025 1:00 PM EDT Office Visit [facility] MEDICINE [address] [place] [address] Mae Hall MD [address] [place] [address] documented as of this encounter Goals Goal [...] documented as of this encounter Care Teams Mainframe Applications Developer Relationship Specialty Start Date End Date Mae Hall MD [address] [place] [address] PCP - General Family Medicine 09/01/18 Connor Bergeron, Michael [address] [place] [address] Pharmacist Internal Medicine 07/04/23 [facility] 02/11/25 documented as of this encounter
--- OUTSIDE RECORDS SUMMARY | 2025-05-27 12:11 | XMS_ITS | Encounter Summary ---
Author Organization [facility] Address [address] [place] [address] Care Team Providers Care Cleaning Staff Supervisor Name Role Phone Mae Hall MD Primary Care Provider [phone] Encounter Details Date Type Department Care Team (Late st Contact Info) Description 01/09/2025 Lab Requisition [facility] - Main Lab [address] [facility] [place] [phone] Zuleika Cheema MD [address] [phone] Type 2 diabetes mellitus without complications (CMS/HCC [...] on file documented as of this encounter Procedures Procedure Name Priority Date/Time Associated Diagnosis Comments COMPLETE BLOOD COUNT Routine 01/10/2025 8:35 AM EDT Type 2 diabetes mellitus without complications (CMS/HCC V24, CMS/HCC V28) Anemia, unspecified Other disorders of electrolyte and fluid balance, not elsewhere classified COMPREHENSIVE METABOLIC PANEL Routine 01/10/2025 8:35 AM EDT Type 2 diabetes mellitus without complications (CMS/HCC V24, CMS/HCC V28) Anemia, unspecified Other disorders of electrolyte and fluid balance, not elsewhere classified documented in this encounter Results * (ABNORMAL) Comprehensive metabolic panel (01/10/2025 8:35 AM EDT) Sodium 138 133 - 145 mmol/L LAB CHEMISTRY METHOD 01/10/2025 1:25 PM [facility] Potassium 3.7 3.5 - 5.5 mmol/L LAB CHEMISTRY METHOD 01/10/2025 1:25 PM [facility] Chloride 104 96 - 110 mmol/L LAB CHEMISTRY METHOD 01/10/2025 1:25 PM [facility] CO2 27 21 - 32 mmol/L LAB CHEMISTRY METHOD 01/10/2025 1:25 PM [facility] Anion Gap 7 3 - 11 LAB CHEMISTRY METHOD 01/10/2025 1:25 PM [facility] Glucose 162(H) 70 - 100 mg/dL LAB CHEMISTRY METHOD 01/10/2025 1:25 PM [facility] BUN 13 5 - 25 mg/dL LAB CHEMISTRY METHOD 01/10/2025 1:25 PM [facility] Creatinine 0.91 0.70 - 1.30 mg/dL LAB CHEMISTRY METHOD 01/10/2025 1:25 PM [facility] eGFR 100 >=60 mL/min/1. 73m2 LAB CHEMISTRY METHOD 01/10/2025 1:25 PM [facility] Comment:Calculation based on the Chronic Kidney Disease Epidemiology Collaboration (CKD-EPI) equation refit without adjustment for race. BUN/Creatinine Ratio 14.3 LAB CHEMISTRY METHOD 01/10/2025 1:25 PM [facility] Calcium 8.5 8.5 - 10.5 mg/dL LAB CHEMISTRY METHOD 01/10/2025 1:25 PM [facility] AST (SGOT) 14 10 - 42 unit/L LAB CHEMISTRY METHOD 01/10/2025 1:25 PM EDT [facility] ALT (SGPT) 25 10 - 60 unit/L LAB CHEMISTRY METHOD 01/10/2025 1:25 PM EDT [facility] Alkaline Phosphatase 97 42 - 121 unit/L LAB CHEMISTRY METHOD 01/10/2025 1:25 PM EDT [facility] Total Protein 6.6 6.0 - 8.0 g/dL LAB CHEMISTRY METHOD 01/10/2025 1:25 PM EDT [facility] Albumin 3.3 3.2 - 5.0 g/dL LAB CHEMISTRY METHOD 01/10/2025 1:25 PM EDT [facility] Total Bilirubin 0.3 0.0 - 1.4 mg/dL LAB CHEMISTRY METHOD 01/10/2025 1:25 PM EDT [facility] Blood Venous blood specimen / Unknown Venipuncture / Unknown 01/10/2025 8:35 AM EDT 01/10/2025 12:02 PM EDT us Zuleika Cheema MD LAB BLOOD ORDERABLES Fin al Result [facility] [address] [place] [address], * (ABNORMAL) Complete blood count (01/10/2025 8:35 AM EDT) WBC 6.2 4.8 - 10.8 K/mcL LAB HEMETOLOGY METHOD 01/10/2025 2:36 PM EDT [facility] RBC 3.70(L) 4.50 - 5.50 M/mcL LAB HEMETOLOGY METHOD 01/10/2025 2:36 PM EDT [facility] Hemoglobin 11.0(L) 13.5 - 17.5 g/dL LAB HEMETOLOGY METHOD 01/10/2025 2:36 PM EDT [facility] Hematocrit 34.6(L) 42.0 - 54.0 % LAB HEMETOLOGY METHOD 01/10/2025 2:36 PM EDT [facility] MCV 92.8 79.0 - 98.0 FL LAB HEMETOLOGY METHOD 01/10/2025 2:36 PM EDT [facility] MCH 29.5 27.0 - 32.0 pcg LAB HEMETOLOGY METHOD 01/10/2025 2:36 PM EDT [facility] MCHC 31.8(L) 32.0 - 37.0 g/dL LAB HEMETOLOGY METHOD 01/10/2025 2:36 PM EDT [facility] RDW 13.9 11.0 - 15.0 % LAB HEMETOLOGY METHOD 01/10/2025 2:36 PM EDT [facility] Platelets 188 130 - 400 K/mcL LAB HEMETOLOGY METHOD 01/10/2025 2:36 PM EDT [facility] MPV 10.1 7.0 - 11.0 FL LAB HEMETOLOGY METHOD 01/10/2025 2:36 PM EDT [facility] NRBC 0.0 <1.0 % LAB HEMETOLOGY METHOD 01/10/2025 2:36 PM EDT [facility] NRBC Absolute 0.00 <0.10 K/mcL LAB HEMETOLOGY METHOD 01/10/2025 2:36 PM EDT [facility] Blood Venous blood specimen / Unknown Venipuncture / Unknown 01/10/2025 8:35 AM EDT 01/10/2025 12:02 PM EDT us Zuleika Cheema MD LAB BLOOD ORDERABLES Fin al Result [facility] [address] [place] [address], documented in this encounter Visit Diagnoses Diagnosis Type 2 diabetes mellitus without complications (CMS/[facility] V24, CMS/[facility] V28) Anemia, unspecified Other disorders of electrolyte and fluid balance, not elsewhere classified documented in this encounter Care Teams Cleaning Staff Supervisor Relationship Specialty Start Date End Date Mae Hall MD [address] [place] [phone] PCP - General 07/03/23 documented as of this encounter
--- OUTSIDE RECORDS SUMMARY | 2025-05-27 12:11 | XMS_ITS | Encounter Summary ---
Author Organization [employer] Address 75 [facility] 7t [place] [address] Care Team Providers Care Phlebotomy Lab Assistant Name Role Phone Mae Hall MD Primary Care Provider [phone] Connor Bergeron PharmD Unavailable [phone] Reason for Visit * Reason Onset Date Comments FYI 05/25/2025 Encounter Details Date Type Department Care Team (Late st Contact Info) Description 05/25/2025 Telephone [facility] MEDICINE [address] [place] [address] Mae Hall MD [address] [place] [address] FYI Social History Tobacco Use Types Packs/Day Years [...] Telephone Encounter - Cintia Estes RN - 05/25/2025 4:29 PM EDT Return call placed to the pt in regards to reported overuse of the prescribed naloxone (Narcan) 4 mg/0.1 mL nasal spray per the pt occupational therapist. The pt did confirm that he has been using this daily as the thought it was a nasal spray that helped with allergies. The pt denied any symptoms including CP, SOB, dizziness, confusion or PATTERSON and was easily understood on the phone. The pt was offered an appointment with the Green Team nurses to go over use and indications for naloxone but the pt refused. The pt was also advised that he should schedule or speak with DARRYL Romero nurse who could help provide education on controlled substances and opoid reversal drugs. The pt refused but RN advised that this information will be forwarded to PCP for FYI and possible advisement. * Telephone Encounter - Ariel Braswell - 05/25/2025 8:56 AM EDT Truman ashraf Ketty an Occupational Therapist reporting two things. They are going to discharge pt from OTdue to his pain being really high and not being able to accomplish anything. Also, pt took naloxone (Narcan) 4 mg/0.1 mL nasal spray Everyday for 7 days without know what it was used for. Pt denied any triage. OT is requesting a follow up for pt to see if they're is anything wrong, and to explain the medication usage. Any questions contact OT at [phone] if OT does not answer LVM documented in this encounter Plan of Treatment Upcoming Encounters Date Type Department Care Team (Late st Contact Info) Description 06/02/2025 11:30 AM EDT Telemedicine [facility] MEDICINE [address] [place] [address] Connor Bergeron PharmD [address] [place] [address] 06/06/2025 10:30 AM EDT Telemedicine [facility] MED & PEDS [address] [place] [address] Heather Bello RN 505 [place] [address] 06/08/2025 1:00 PM EDT Office Visit [facility] ADULT DENTAL [address] [place] [address] Rolando Kahn, BREANNE [address] [place] [address] 06/20/2025 1:00 PM EDT Office Visit [facility] MEDICINE [address] [place] [address] Mae Hall MD [address] [place] [address] documented as of this encounter Goals Goal Patient Goal Type Associated Problems Recent Progress Patient-Stated? Author Blood Pressure < 140/90 Blood Pressure 144/82(2024 11:46 AM EDT) No Connor Bergeron, PharmThais Hemoglobin A1c < 7 Result Component 10.7(03/10/20 9:43 AM EDT) No Connor Bergeron PharmD documented as of this encounter Visit Diagnoses Not on filedocumented in this encounter Additional Health Concerns Assessment Noted Time PHQ-9 Depression Total Score: 4 03/10/20 25 9:39 AM EDT documented as of this encounter Care Teams Phlebotomy Lab Assistant Relationship Specialty Start Date End Date Mae Hall MD [address] [place] [address] PCP - General Family Medicine 09/01/18 Connor Bergeron, Michael [address] [place] [address] Pharmacist Internal Medicine 07/04/23 [facility] 02/11/25 documented as of this encounter
--- OUTSIDE RECORDS SUMMARY | 2025-05-27 12:11 | XMS_ITS | Encounter Summary ---
Author Organization [facility] Address [address] [place] [address] Care Team Providers Care Computer Aided Design Technician Name Role Phone Mae Hall MD Primary Care Provider [phone] Encounter Details Date Type Department Care Team (Late st Contact Info) Description 02/04/2025 Lab Requisition [facility] - Main Lab [address] [facility] [place] [phone] Zuleika Cheema MD [address] [id number] Type 2 diabetes mellitus without complications (CMS/HCC [...] Associated Diagnosis Comments COMPLETE BLOOD COUNT Routine 02/07/2025 6:58 AM EDT Type 2 diabetes mellitus without complications (CMS/HCC V24, CMS/HCC V28) Anemia, unspecified Other disorders of electrolyte and fluid balance, not elsewhere classified COMPREHENSIVE METABOLIC PANEL Routine 02/07/2025 6:58 AM EDT Type 2 diabetes mellitus without complications (CMS/HCC V24, CMS/HCC V28) Anemia, unspecified Other disorders of electrolyte and fluid balance, not elsewhere classified documented in this encounter Results * (ABNORMAL) Comprehensive metabolic panel (02/07/2025 6:58 AM EDT) Sodium 138 133 - 145 mmol/L LAB CHEMISTRY METHOD 02/07/2025 12:53 PM [facility] Potassium 4.1 3.5 - 5.5 mmol/L LAB CHEMISTRY METHOD 02/07/2025 12:53 PM [facility] Chloride 104 96 - 110 mmol/L LAB CHEMISTRY METHOD 02/07/2025 12:53 PM [facility] CO2 23 21 - 32 mmol/L LAB CHEMISTRY METHOD 02/07/2025 12:53 PM [facility] Anion Gap 11 3 - 11 LAB CHEMISTRY METHOD 02/07/2025 12:53 PM [facility] Glucose 339(H) 70 - 100 mg/dL LAB CHEMISTRY METHOD 02/07/2025 12:53 PM [facility] BUN 17 5 - 25 mg/dL LAB CHEMISTRY METHOD 02/07/2025 12:53 PM [facility] Creatinine 0.95 0.70 - 1.30 mg/dL LAB CHEMISTRY METHOD 02/07/2025 12:53 PM [facility] eGFR 94 >=60 mL/min/1. 73m2 LAB CHEMISTRY METHOD 02/07/2025 12:53 PM [facility] Comment:Calculation based on the Chronic Kidney Disease Epidemiology Collaboration (CKD-EPI) equation refit without adjustment for race. BUN/Creatinine Ratio 17.9 LAB CHEMISTRY METHOD 02/07/2025 12:53 PM [facility] Calcium 8.6 8.5 - 10.5 mg/dL LAB CHEMISTRY METHOD 02/07/2025 12:53 PM [facility] AST (SGOT) 9(L) 10 - 42 unit/L LAB CHEMISTRY METHOD 02/07/2025 12:[address] [facility] ALT (SGPT) 22 10 - 60 unit/L LAB CHEMISTRY METHOD 02/07/2025 12:[address] [facility] Alkaline Phosphatase 94 42 - 121 unit/L LAB CHEMISTRY METHOD 02/07/2025 12:[address] [facility] Total Protein 6.5 6.0 - 8.0 g/dL LAB CHEMISTRY METHOD 02/07/2025 12:[address] [facility] Albumin 3.3 3.2 - 5.0 g/dL LAB CHEMISTRY METHOD 02/07/2025 12:[address] [facility] Total Bilirubin 0.2 0.0 - 1.4 mg/dL LAB CHEMISTRY METHOD 02/07/2025 12:[address] [facility] Blood Venous blood specimen / Unknown Venipuncture / Unknown 02/07/2025 6:58 AM EDT 02/07/2025 10:59 AM EDT us Zuleika Cheema MD LAB BLOOD ORDERABLES Fin al Result [facility] [address] [place] [address], * (ABNORMAL) Complete blood count (02/07/2025 6:58 AM EDT) WBC 6.0 4.8 - 10.8 K/mcL LAB HEMETOLOGY METHOD 02/07/2025 2:[address] [facility] RBC 4.00(L) 4.50 - 5.50 M/mcL LAB HEMETOLOGY METHOD 02/07/2025 2:[address] [facility] Hemoglobin 11.2(L) 13.5 - 17.5 g/dL LAB HEMETOLOGY METHOD 02/07/2025 2:[address] [facility] Hematocrit 35.6(L) 42.0 - 54.0 % LAB HEMETOLOGY METHOD 02/07/2025 2:[address] [facility] MCV 90.1 79.0 - 98.0 FL LAB HEMETOLOGY METHOD 02/07/2025 2:[address] [facility] MCH 28.4 27.0 - 32.0 pcg LAB HEMETOLOGY METHOD 02/07/2025 2:[address] [facility] MCHC 31.5(L) 32.0 - 37.0 g/dL LAB HEMETOLOGY METHOD 02/07/2025 2:[address] [facility] RDW 13.2 11.0 - 15.0 % LAB HEMETOLOGY METHOD 02/07/2025 2:[address] [facility] Platelets 174 130 - 400 K/mcL LAB HEMETOLOGY METHOD 02/07/2025 2:[address] [facility] MPV 10.0 7.0 - 11.0 FL LAB HEMETOLOGY METHOD 02/07/2025 2:[address] [facility] NRBC 0.0 <1.0 % LAB HEMETOLOGY METHOD 02/07/2025 2:[address] [facility] NRBC Absolute 0.00 <0.10 K/mcL LAB HEMETOLOGY METHOD 02/07/2025 2:[address] [facility] Blood Venous blood specimen / Unknown Venipuncture / Unknown 02/07/2025 6:58 AM EDT 02/07/2025 10:59 AM EDT us Zuleika Cheeam MD LAB BLOOD ORDERABLES Fin al Result [facility] [address] [place] [address], documented in this encounter Visit Diagnoses Diagnosis Type 2 diabetes mellitus without complications (CMS/[facility] V24, CMS/[facility] V28) Anemia, unspecified Other disorders of electrolyte and fluid balance, not elsewhere classified documented in this encounter Care Teams Computer Aided Design Technician Relationship Specialty Start Date End Date Mae Hall MD [address] [place] [phone] PCP - General 07/03/23 documented as of this encounter
--- OUTSIDE RECORDS SUMMARY | 2025-05-27 12:11 | XMS_ITS | Encounter Summary ---
Author Organization [employer] Address [address] [facility] [address] [place] [address] Care Team Providers Care Buffing Wheel Operator Name Role Phone Mae Hall MD Primary Care Provider [phone] Connor Bergeron PharmD Unavailable [phone] Reason for Visit * Reason Onset Date Comments Appointment Request 01/25/2025 Encounter Details Date Type Department Care Team ([facility] st Contact Info) Description 01/25/[address] [facility] MEDICINE [address] [place] [address] Mae Hall MD [address] [place] [address] Appointment Request Social History Tobacco Use Types Packs/Day Years [...] encounter Miscellaneous Notes * Telephone Encounter - Adri Pulido - 01/25/2025 2:17 PM EDT Tc from pt requesting DM appointment with Connor. Contact pt at [phone] documented in this encounter Plan of Treatment Upcoming Encounters Date Type Department Care Team ([facility] st Contact Info) Description 06/02/2025 11:30 AM EDT Telemedicine [facility] MEDICINE [address] [place] [address] Connor Bergeron, PharmD [address] [place] [address] 06/06/2025 10:30 AM EDT Telemedicine [facility] MED & PEDS [address] [place] [address] Heather Bello, EMMETT [address] [place] [address] 06/08/2025 1:00 PM EDT Office Visit [facility] ADULT DENTAL [address] [place] [address] Rolando Kahn DMD [address] [place] [address] 06/20/2025 1:00 PM EDT Office Visit [facility] MEDICINE [address] [place] [address] Mae Hall MD [address] [place] [address] documented as of this encounter Goals Goal [...] documented as of this encounter Care Teams Buffing Wheel Operator Relationship Specialty Start Date End Date Mae Hall MD [address] [place] [phone] PCP - General Family Medicine 09/01/18 Connor Bergeron, Michael [address] [place] [phone] Pharmacist Internal Medicine 07/04/23 [facility] 02/11/25 documented as of this encounter
--- OUTSIDE RECORDS SUMMARY | 2025-05-27 12:11 | XMS_ITS | Clinical Summary ---
Author Organization [facility] Address [address] [place] [address] Phone Care Team Providers Care Strawhat Blocking Operator Name Role Phone Mae Hall MD Primary Care Provider [phone] Immunizations Name Administration Dates Next Due Moderna SARS-CoV-2 COVID-19, mRNA, LNP-S, preservative free 12/01/2020,11/03/2020 Social History Tobacco Use Types Packs/Day Years Used Date Smoking Tobacco: Never Assessed Sex and Gender Information Value Date Recorded Sex Assigned at Male 12/14/2024 9:19 AM EDT Legal Sex Male 8:07 PM EST Gender Identity Male 12/14/2024 9:19 AM EDT Sexual Orientation Straight 12/14/2024 9: 19 AM EDT Last Filed Vital Signs Vital Sign Reading Time Taken Comments Blood Pressure 117/74 12/14/2024 9:25 AM EDT Pulse 65 12/14/2024 9:25 AM EDT Temperature 36.8 C (98.2 F) 12/14/2024 9:25 AM EDT Respiratory Rate 18 12/14/2024 9:25 AM EDT Oxygen Saturation 97% 12/14/2024 9:25 AM EDT Inhaled Oxygen Concentration - - Weight 81.8 kg (180 lb 5.4 oz) 12/14/2024 9:25 A M EDT Height 170 cm (5' 6.93 ) 12/14/2024 9:25 AM EDT Body Mass Index 28.3 12/14/2024 9:25 AM EDT Plan of Treatment Health Maintenance Due Date Last Done Comments Diabetes: Annual Foot Exam 1979 Diabetes: Annual Retina Eye Exam 1979 Cholesterol Screening (Lipid Panel) 09/25/2023 Colorectal Cancer Screening: Colonoscopy 09/25/2023 Hepatitis C Screening 09/25/2023 Medicare Annual Wellness Visit 09/25/2023 Social Influencers of Health Screening 09/25/2023 Depression Screening 09/01/2024 Diabetes: Annual Urine Albumin-Creatinine Ratio (uACR) 12/20/2024 Influenza Vaccine (#1) 2025 7, 06/03/2016, 05/26/2015, Additional history exists Diabetes: Blood Sugar Control Test (HGBA1C) 06/21/2025 12/20/2024, 10/05/2024 Diabetes: Annual GFR (Glomerular Filtration Rate) 02/07/2026 02/07/2025, 01/31/2025, 01/25/2025, Additional history exists Hypertension/CHF/CAD Annual BMP Blood Test 02/07/2026 02/07/2025, 01/31/2025, 01/25/2025, Additional history exists DTaP,Tdap,and Td Vaccines (5 - Td or Tdap) 07/30/2033 07/30/2023, 03/25/2012, 10/08/2011, Additional history exists RSV Immunization Adult Patients (1 - 1-dose 75+ series) 01/24/2044 Hepatitis A Vaccines Completed 01/17/2014, 01/19/20 13 Hepatitis B Vaccines Completed 01/17/2014, 08/05/2013, 01/18/2013 HIV Screening Completed 07/30/2023 Zoster Vaccines Completed 07/30/2023, 04/18/2023 Pneumococcal Vaccine: [...] on patient's age to complete this topic MMR Vaccines Aged Out No longer eligi ble based on patient's age to complete this topic Meningococcal ACWY Vaccine Aged Out N o longer eligible based on patient's age to complete this topic Meningococcal B Vaccine Aged Out No l onger eligible based on patient's age to complete this topic RSV Immunization Patients Under 20 months Aged Out No longer eligible based on patient's age to complete this topic Varicella Vaccines Aged Out No longer eligible based on patient's age to complete this topic Procedures Procedure Name Priority Date/Time Associated Diagnosis Comments COMPREHENSIVE METABOLIC PANEL Routine 02/07/2025 6:58 AM EDT Type 2 diabetes mellitus without complications ([facility] V24, [facility] V28) Anemia, unspecified Other disorders of electrolyte and fluid balance, not elsewhere classified HEMOGLOBIN A1C Routine 12/20/2024 8:42 AM EDT Type 2 diabetes mellitus without complications ([facility] V24, [facility] V28) Hyperlipidemia, unspecified from Last 3 Months or Most Recently Relevant to Health Maintenance Results * (ABNORMAL) Comprehensive metabolic panel (02/07/2025 [...] unit/L LAB CHEMISTRY METHOD 02/07/2025 12:53 PM [facility] ALT (SGPT) 22 10 - 60 unit/L LAB CHEMISTRY METHOD 02/07/2025 12:53 PM [facility] Alkaline Phosphatase 94 42 - 121 unit/L LAB CHEMISTRY METHOD 02/07/2025 12:53 PM [facility] Total Protein 6.5 6.0 - 8.0 g/dL LAB CHEMISTRY METHOD 02/07/2025 12:53 PM [facility] Albumin 3.3 3.2 - 5.0 g/dL LAB CHEMISTRY METHOD 02/07/2025 12:53 PM [facility] Total Bilirubin 0.2 0.0 - 1.4 mg/dL LAB CHEMISTRY METHOD 02/07/2025 12:53 PM [facility] Blood Venous blood specimen / Unknown Venipuncture / Unknown 02/07/2025 6:58 AM EDT 02/07/2025 10:59 AM EDT us Zuleika Cheema MD LAB BLOOD ORDERABLES Fin al Result [facility] [address] [place] [address], * (ABNORMAL) Hemoglobin A1c (12/20/2024 8:42 AM EDT) Hemoglobin A1C 8.1(H) <6.5 % LAB CHEMISTRY METHOD 12/20/2024 2:03 PM EDT [facility] Mean Bld Glu Estim. 186 mg/dL LAB CHEMISTRY METHOD 12/20/2024 2:03 PM EDT [facility] Blood Venous blood specimen / Unknown Venipuncture / Unknown 12/20/2024 8:42 AM EDT 12/20/2024 11:53 AM EDT us Zuleika Cheema MD LAB BLOOD ORDERABLES Fin al Result [facility] [address] [place] [address], from Last 3 Months or Most Recently Relevant to Health Maintenance Insurance [place]ICA[place] - [place] [employer] MED[employer] [employer]AGE Care Teams Strawhat Blocking Operator Relationship Specialty Start Date End Date Mae Hall MD [address] [place] [phone] PCP - General 07/03/23
--- OUTSIDE RECORDS SUMMARY | 2025-05-27 12:11 | XMS_ITS | Encounter Summary ---
Author Organization [facility] Address [address] [place] [address] Care Team Providers Care Chronometer Assembler And Adjuster Name Role Phone Mae Hall MD Primary Care Provider [phone] Encounter Details Date Type Department Care Team (Late st Contact Info) Description 01/30/[address] [facility] - Main Lab [address] [facility] [place] [phone] Zuleika Cheema MD [address] [id number] Type 2 diabetes mellitus without complications (CMS/HCC [...] Associated Diagnosis Comments COMPLETE BLOOD COUNT Routine 01/31/2025 6:09 AM EDT Type 2 diabetes mellitus without complications (CMS/HCC V24, CMS/HCC V28) Anemia, unspecified Other disorders of electrolyte and fluid balance, not elsewhere classified COMPREHENSIVE METABOLIC PANEL Routine 01/31/2025 6:09 AM EDT Type 2 diabetes mellitus without complications (CMS/HCC V24, CMS/HCC V28) Anemia, unspecified Other disorders of electrolyte and fluid balance, not elsewhere classified documented in this encounter Results * (ABNORMAL) Comprehensive metabolic panel (01/31/2025 6:09 AM EDT) Sodium 132(L) 133 - 145 mmol/L LAB CHEMISTRY METHOD 01/31/2025 12:26 PM [facility] Potassium 4.8 3.5 - 5.5 mmol/L LAB CHEMISTRY METHOD 01/31/2025 12:26 PM [facility] Chloride 100 96 - 110 mmol/L LAB CHEMISTRY METHOD 01/31/2025 12:26 PM [facility] CO2 24 21 - 32 mmol/L LAB CHEMISTRY METHOD 01/31/2025 12:26 PM [facility] Anion Gap 8 3 - 11 LAB CHEMISTRY METHOD 01/31/2025 12:26 PM [facility] Glucose 607(HH) 70 - 100 mg/dL LAB CHEMISTRY METHOD 01/31/2025 12:26 PM [facility] BUN 18 5 - 25 mg/dL LAB CHEMISTRY METHOD 01/31/2025 12:26 PM [facility] Creatinine 1.25 0.70 - 1.30 mg/dL LAB CHEMISTRY METHOD 01/31/2025 12:26 PM [facility] eGFR 68 >=60 mL/min/1. 73m2 LAB CHEMISTRY METHOD 01/31/2025 12:26 PM [facility] Comment:Calculation based on the Chronic Kidney Disease Epidemiology Collaboration (CKD-EPI) equation refit without adjustment for race. BUN/Creatinine Ratio 14.4 LAB CHEMISTRY METHOD 01/31/2025 12:26 PM [facility] Calcium 8.8 8.5 - 10.5 mg/dL LAB CHEMISTRY METHOD 01/31/2025 12:26 PM [facility] AST (SGOT) 9(L) 10 - 42 unit/L LAB CHEMISTRY METHOD 01/31/2025 12:26 PM EDT [facility] ALT (SGPT) 25 10 - 60 unit/L LAB CHEMISTRY METHOD 01/31/2025 12:26 PM [facility] Alkaline Phosphatase 97 42 - 121 unit/L LAB CHEMISTRY METHOD 01/31/2025 12:26 PM T [facility] Total Protein 6.9 6.0 - 8.0 g/dL LAB CHEMISTRY METHOD 01/31/2025 12:26 PM [facility] Albumin 3.5 3.2 - 5.0 g/dL LAB CHEMISTRY METHOD 01/31/2025 12:26 PM [facility] Total Bilirubin 0.2 0.0 - 1.4 mg/dL LAB CHEMISTRY METHOD 01/31/2025 12:26 PM [facility] Blood Venous blood specimen / Unknown Venipuncture / Unknown 01/31/2025 6:09 AM EDT 01/31/2025 10:29 AM EDT us Zuleika Cheema MD LAB BLOOD ORDERABLES Fin al Result [facility] [address] [place] [address], * (ABNORMAL) Complete blood count (01/31/2025 6:09 AM EDT) WBC 7.4 4.8 - 10.8 K/[facility] LAB HEMETOLOGY METHOD 01/31/2025 11:16 AM EDT [facility] RBC 4.00(L) 4.50 - 5.50 M/[facility] LAB HEMETOLOGY METHOD 01/31/2025 11:16 AM EDT [facility] Hemoglobin 11.4(L) 13.5 - 17.5 g/dL LAB HEMETOLOGY METHOD 01/31/2025 11:16 AM EDT [facility] Hematocrit 36.0(L) 42.0 - 54.0 % LAB HEMETOLOGY METHOD 01/31/2025 11:16 AM EDT [facility] MCV 90.5 79.0 - 98.0 FL LAB HEMETOLOGY METHOD 01/31/2025 11:16 AM EDT [facility] MCH 28.6 27.0 - 32.0 pcg LAB HEMETOLOGY METHOD 01/31/2025 11:16 AM EDT [facility] MCHC 31.7(L) 32.0 - 37.0 g/dL LAB HEMETOLOGY METHOD 01/31/2025 11:16 AM T [facility] RDW 13.6 11.0 - 15.0 % LAB HEMETOLOGY METHOD 01/31/2025 11:16 AM T [facility] Platelets 158 130 - 400 K/mcL LAB HEMETOLOGY METHOD 01/31/2025 11:16 AM EDT [facility] MPV 10.2 7.0 - 11.0 FL LAB HEMETOLOGY METHOD [facility]25 [facility] NRBC 0.0 <1.0 % LAB HEMETOLOGY METHOD 01/31/2025 11:16 AM T [facility] NRBC Absolute 0.00 <0.10 K/mcL LAB HEMETOLOGY METHOD 01/31/2025 11:16 AM T [facility] Blood Venous blood specimen / Unknown Venipuncture / Unknown 01/31/2025 6:09 AM EDT 01/31/2025 10:20 AM EDT us Zuleika Cheema MD LAB BLOOD ORDERABLES Fin al Result [facility] [address] [place], [place] [address] [[email or web address]] [phone] documented in this encounter Visit Diagnoses Diagnosis Type 2 diabetes mellitus without complications (CMS/[facility] V24, [facility] V28) Anemia, unspecified Other disorders of electrolyte and fluid balance, not elsewhere classified documented in this encounter Care Teams Chronometer Assembler And Adjuster Relationship Specialty Start Date End Date Mae Hall MD [address] [place] [phone] PCP - General 07/03/23 documented as of this encounter
--- OUTSIDE RECORDS SUMMARY | 2025-05-27 12:11 | XMS_ITS | Encounter Summary ---
Author Organization [facility] Address [address] [place] [address] Care Team Providers Care Zinc Plating Machine Operator Name Role Phone Mae Hall MD Primary Care Provider [phone] Encounter Details Date Type Department Care Team (Late st Contact Info) Description 12/29/2024 Lab Requisition [facility] - Main Lab [address] [place] [phone] Zuleika Cheema MD [address] [id number] Anemia, unspecified; Other disorders of electrolyte and fluid balance, not elsewhere classified; Other abnormal glucose; Abnormal results of thyroid function studies; Essential (primary) hypertension; Type 2 diabetes mellitus without complications (CMS/HCC V24, CMS/[facility] V28) Social History Tobacco Use Types Packs/Day Years [...] Associated Diagnosis Comments COMPLETE BLOOD COUNT Routine 12/29/2024 6:07 AM EDT Anemia, unspecified Other disorders of electrolyte and fluid balance, not elsewhere classified Other abnormal glucose Abnormal results of thyroid function studies Essential (primary) hypertension Type 2 diabetes mellitus without complications (CMS/HCC V24, CMS/[facility] V28) THYROID STIMULATING HORMONE Routine 12/29/2024 6:07 AM EDT Anemia, unspecified Other disorders of electrolyte and fluid balance, not elsewhere classified Other abnormal glucose Abnormal results of thyroid function studies Essential (primary) hypertension Type 2 diabetes mellitus without complications ([facility] V24, [facility] V28) COMPREHENSIVE METABOLIC PANEL Routine 12/29/2024 6:07 AM EDT Anemia, unspecified Other disorders of electrolyte and fluid balance, not elsewhere classified Other abnormal glucose Abnormal results of thyroid function studies Essential (primary) hypertension Type 2 diabetes mellitus without complications ([facility] V24, CMS/[facility] V28) documented in this encounter Results * Thyroid stimulating hormone (12/29/2024 6:07 AM EDT) Pathologist [facility] TSH 2.81 0.40 - 4.00 mcIU/mL LAB CHEMISTRY METHOD 12/29/2024 7:47 PM EDT [facility] Blood Venous blood specimen / Unknown Venipuncture / Unknown 12/29/2024 6:07 AM EDT 12/29/2024 11:33 AM EDT Zuleika Cheema MD LAB BLOOD ORDERABLES Fin al Result [facility] [address] [place] [address], * (ABNORMAL) Comprehensive metabolic panel (12/29/2024 6:07 AM EDT) [facility] Sodium 141 133 - 145 mmol/L LAB CHEMISTRY METHOD 12/29/2024 7:08 PM EDT [facility] Potassium 4.1 3.5 - 5.5 mmol/L LAB CHEMISTRY METHOD 12/29/2024 7:08 PM EDT [facility] Chloride 107 96 - 110 mmol/L LAB CHEMISTRY METHOD 12/29/2024 7:08 PM EDT [facility] CO2 24 21 - 32 mmol/L LAB CHEMISTRY METHOD 12/29/2024 7:08 PM [facility] Anion Gap 10 3 - 11 LAB CHEMISTRY METHOD 12/29/2024 7:08 PM [facility] Glucose 365(H) 70 - 100 mg/dL LAB CHEMISTRY METHOD 12/29/2024 7:08 PM [facility] BUN 15 5 - 25 mg/dL LAB CHEMISTRY METHOD 12/29/2024 7:08 PM [facility] Creatinine 0.98 0.70 - 1.30 mg/dL LAB CHEMISTRY METHOD 12/29/2024 7:08 PM [facility] eGFR 91 >=60 mL/min/1. 73m2 LAB CHEMISTRY METHOD 12/29/2024 7:08 PM [facility] Comment:Calculation based on the Chronic Kidney Disease Epidemiology Collaboration (CKD-EPI) equation refit without adjustment for race. BUN/Creatinine Ratio 15.3 LAB CHEMISTRY METHOD 12/29/2024 7:08 PM [facility] Calcium 8.3(L) 8.5 - 10.5 mg/dL LAB CHEMISTRY METHOD 12/29/2024 7:08 PM [facility] AST (SGOT) 9(L) 10 - 42 unit/L LAB CHEMISTRY METHOD 12/29/2024 7:08 PM [facility] ALT (SGPT) 20 10 - 60 unit/L LAB CHEMISTRY METHOD 12/29/2024 7:08 PM [facility] Alkaline Phosphatase 106 42 - 121 unit/L LAB CHEMISTRY METHOD 12/29/2024 7:08 PM [facility] Total Protein 6.3 6.0 - 8.0 g/dL LAB CHEMISTRY METHOD 12/29/2024 7:08 PM [facility] Albumin 2.9(L) 3.2 - 5.0 g/dL LAB CHEMISTRY METHOD 12/29/2024 7:08 PM [facility] Total Bilirubin 0.1 0.0 - 1.4 mg/dL LAB CHEMISTRY METHOD 12/29/2024 7:08 PM EDT [facility] Blood Venous blood specimen / Unknown Venipuncture / Unknown 12/29/2024 6:07 AM EDT 12/29/2024 11:33 AM EDT us Zuleika Cheema MD LAB BLOOD ORDERABLES Fin al Result [facility] [address] [place] [address], * (ABNORMAL) Complete blood count (12/29/2024 6:07 AM EDT) WBC 5.5 4.8 - 10.8 K/mcL LAB HEMETOLOGY METHOD 12/29/2024 12:21 PM [facility] RBC 3.40(L) 4.50 - 5.50 M/mcL LAB HEMETOLOGY METHOD 12/29/2024 12:21 PM [facility] Hemoglobin 9.9(L) 13.5 - 17.5 g/dL LAB HEMETOLOGY METHOD 12/29/2024 12:21 PM [facility] Hematocrit 31.7(L) 42.0 - 54.0 % LAB HEMETOLOGY METHOD 12/29/2024 12:21 PM [facility] MCV 93.8 79.0 - 98.0 FL LAB HEMETOLOGY METHOD 12/29/2024 12:21 PM [facility] MCH 29.3 27.0 - 32.0 pcg LAB HEMETOLOGY METHOD 12/29/2024 12:21 PM [facility] MCHC 31.2(L) 32.0 - 37.0 g/dL LAB HEMETOLOGY METHOD 12/29/2024 12:21 PM EDT [facility] RDW 14.1 11.0 - 15.0 % LAB HEMETOLOGY METHOD 12/29/2024 12:21 PM EDT [facility] Platelets 204 130 - 400 K/mcL LAB HEMETOLOGY METHOD 12/29/2024 12:21 PM EDT [facility] MPV 10.4 7.0 - 11.0 FL LAB HEMETOLOGY METHOD 12/29/2024 12:21 PM EDT [facility] NRBC 0.0 <1.0 % LAB HEMETOLOGY METHOD 12/29/2024 12:21 PM EDT [facility] NRBC Absolute 0.00 <0.10 K/mcL LAB HEMETOLOGY METHOD 12/29/2024 12:21 PM EDT [facility] Blood Venous blood specimen / Unknown Venipuncture / Unknown 12/29/2024 6:07 AM EDT 12/29/2024 11:33 AM EDT us Zuleika Cheema MD LAB BLOOD ORDERABLES Fin al Result [facility] [address] [place] [address], documented in this encounter Visit Diagnoses Diagnosis Anemia, unspecified Other disorders of electrolyte and fluid balance, not elsewhere classified Other abnormal glucose Abnormal results of thyroid function studies Nonspecific abnormal results of thyroid function study Essential (primary) hypertension Unspecified essential hypertension Type 2 diabetes mellitus without complications (CMS/HCC V24, CMS/HCC V28) documented in this encounter Care Teams [employer] Plating Machine Operator Relationship Specialty Start Date End Date Mae Hall MD [address] [place] [phone] PCP - General 07/03/23 documented as of this encounter
--- OUTSIDE RECORDS SUMMARY | 2025-05-27 12:11 | XMS_ITS | Clinical Summary ---
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 06/02/2025 11:30 AM EDT Telemedicine [facility] MEDICINE [address] [place] [address] Connor Bergeron, PharmD [address] [place] [address] 06/06/2025 10:30 AM EDT Telemedicine [facility] MED & PEDS [address] [place] [address] Heather Bello, EMMETT [address] [place] [address] 06/08/2025 1:00 PM EDT Office Visit [facility] ADULT DENTAL [address] [place] [address] Rolando Kahn DMD [address] [place] [address] 06/20/2025 1:00 PM EDT Office Visit [facility] MEDICINE [address] [place] [address] Mae Hall MD [address] [place] [address] Health Maintenance Due Date Last Done Comments CT Colonography 1970 FIT DNA/Cologuard 1970 FIT 1970 FOBT 1970 Sigmoidoscopy 1970 Dental Oral Exam 12/24/2017 06/24/2017, 03/2017, 11/22/2015, Additional history exists Dental Prophylaxis 06/27/2018 12/25/2017, 1 , 12/20/2016, Additional history exists Dental X-Ray: Bitewings 09/23/2019 09/22/19 19, 06/02/2017, 11/05/2016, Additional history exists Eye Exam 07/16/2024 07/16/2023, 07/02, 07/16/2023, Additional history exists Influenza Vaccine (#1) 2025 7, 06/03/2016, 05/26/2015, Additional history exists Diabetes: Hemoglobin A1C 06/10/2025 025, 12/20/2024, 10/05/2024, Additional history exists Colonoscopy 07/01/2025 07/01/2022 Colorectal Cancer Screening 07/01/2025 Alcohol/Substance Use Screening 10/05/2025 10/05/2024 Diabetes: Urine Protein Screening 11/30/2025 11/30/2024, 07/30/2023, 08/23/2021 Lipid Panel 11/30/2025 11/30/2024, 07/03, 08/23/2021 Disability Screening 02/15/2026 02/15/2025 Tobacco Screening 02/15/2026 02/15/2025 SDOH Screening 02/24/2026 02/24/2025 Depression Screening 03/10/2026 03/10/2025, 03/10/20 Diabetes: Foot Exam 03/10/2026 03/10/2025, 03/10/2025, 03/10/2025, Additional history exists Dental X-Ray: Full Mouth 08/06/2026 023, 11/05/2016, [...] 144/82(2024 11:46 AM EDT) No Connor Bergeron, Michael Hemoglobin A1c < 7 Result Component 10.7(03/10/20 9:43 AM EDT) No Connor Bergeron PharmD Procedures Procedure Name Priority Date/Time Associated Diagnosis Comments BD DEXA AXIAL Routine 05/27/2025 10:45 AM EDT AMB REFERRAL TO ORTHOPAEDIC SURGERY Routine 04/19/2025 Closed fracture of lumbar vertebra, unspecified fracture morphology, unspecified lumbar vertebral level, initial encounter ([facility]) POCT GLYCOSYLATED HEMOGLOBIN (HGB A1C) Routine 03/10/2025 9:43 AM EDT Type 2 diabetes mellitus with hyperglycemia, with long-term current use of insulin ([facility]) POCT GLUCOSE Routine 03/10/2025 9:40 AM EDT Type 2 diabetes mellitus with hyperglycemia, with long-term current use of insulin ([facility]) ALBUMIN, RANDOM URINE W/CREATININE Routine 11/30/2024 10:24 AM EDT Hypertension, unspecified type LIPID PANEL WITH REFLEX TO DIRECT LDL Routine 11/30/2024 10:24 AM EDT Dyslipidemia Other specified diabetes mellitus with hyperglycemia, with long-term current use of insulin ([facility]) PANORAMIC RADIOGRAPHIC IMAGE Routine 08/05/2023 11:30 AM [...] Recently Relevant to Health Maintenance Results * BD DEXA Axial (05/27/2025 10:45 AM EDT) Anatomical Region Laterality Modality Body Radiographic Delfina ging 05/27/2025 10:4 5 AM EDT Narrative 05/27/2025 11:18 AM EDT [address] [place], [place] [address] Mammography Report Signed Patient: Jose Alfredo Celis MR#: [id number] 6 : 1970 Acct:[id number] Age/Sex: 55 / M ADM Date: 05/27/25 Loc: ADAM Attending Dr: Erlin Rodgers MD Ordering Physician: Erlin Rodgers MD Results: Date of Service: 05/27/25 Follow Up: Procedure(s): XR DEXA axial skeleton Accession Number(s): [id number] cc: Erlin Rodgers MD; Mae Hall MD Reason For Exam: OSTEOPOROSIS EXAMINATION: DXA BONE DENSITY AXIAL HISTORY: OSTEOPOROSIS TECHNIQUE: Embanet Dual energy absorptiometry (DEXA) of the lumbar [...] of the [employer] [place] for Metabolic Bone Disease, a World Health Organization (WHO) Collaborating Center. Electronically signed by: James Tineo MD 05/27/2025 11:15 AM EDT RP Dictated By: James Tineo MD Signed By: <Electronically signed by James Tineo MD in OV> 05/27/25 1115 DD/ 1045 TD/TT: 05/27/25 1109 Lock Corner Machine Operator: Procedure Note Donotuseinterpreter, Image - 05/27/2025 [facility]'[address] [place] [address] Mammography Report Signed Patient: Jose Alfredo Celis RMR#: [id number] 6 : 1970Acct:[id number] Age/Sex: 55 / MADM Date: 05/27/25 Loc: ADAM Attending Dr: Erlin Rodgers MD Ordering Physician: Erlin Rodgersesults: Date of Service: 05/27/25Follow Up: Procedure(s): XR DEXA axial skeleton Accession Number(s): [id number] cc: Erlin Rodgers MD; Mae Hall MD Reason For Exam: OSTEOPOROSIS EXAMINATION: DXA BONE DENSITY AXIAL HISTORY: OSTEOPOROSIS TECHNIQUE: Embanet Dual energy absorptiometry (DEXA) of the lumbar [...] is a trademark of the [employer] [place] for Metabolic Bone Disease, a World Health Organization (WHO) Collaborating Center. Electronically signed by: James Tineo MD 05/27/2025 11:15 AM EDT RP Dictated By: James Tineo MD Signed By: <Electronically signed by James Tineo MD in OV> 05/27/25 1115 DD/ 1045 TD/TT: 05/27/25 1109 Lock [address] Machine Operator: [facility] External Provider IMG DXA PROCEDURES Final Result * Referral to Orthopaedic Surgery (04/19/2025) us Mae Hall MD OUTPATIENT REFERRAL ORDERABLES F inal Result * (ABNORMAL) POCT glycosylated hemoglobin (Hgb A1c) (03/10/2025 9:43 AM EDT) Hemoglobin A1C 10.7(A) 4.0 - 5.7 % QC Media Lot # [id number] Lot# Expiration Date Blood Capillary blood specimen / Unknown 03/10/2025 9:43 AM EDT us Mae Hall MD POINT OF CARE TEST ENTER/EDIT OR DERABLES Final Result * POCT glucose manually resulted (03/10/2025 9:40 AM EDT) Glucose Blood, POC 191 60 - 200 mg/dL QC Media Lot # [id number] Lot# Expiration Date Blood Capillary blood specimen / Unknown 03/10/2025 9:40 AM EDT Mae Hall MD POINT OF CARE TEST ENTER/EDIT OR DERABLES Final Result * (ABNORMAL) Lipid Panel with Reflex to Direct LDL (11/30/2024 10:24 AM EDT) Pathologist [facility] Triglycerides 154(H) <150 mg/dL [facility] Comment:Desirable Triglyceri de: less than 150 mg/dLBorderline High Triglyceride 150-199 mg/dLHigh Triglyceride: 200-499 mg/dLVery High Triglyceride: greater than or equal to 5OO mg/dL Cholesterol 131 <200 mg/dL [facility] Comment:Desirable Cholestero l: less than 200 mg/dLBorderline High Cholesterol: 200-239 mg/dLHigh Cholesterol: greater than 239 mg/dL LDL Cholesterol Calculated 63 <100 mg/dL [facility] Comment:Desirable LDL: less than 100 mg/dLNear Optimal/Above Optimal LDL: 110- 129 mg/dLBorderline High LDL: 130-159 mg/dLHigh LDL: 160-189 mg/dLVery High LDL: greater than or equal to 190 mg/dL HDL Cholesterol 38(L) >40 mg/dL [facility] Comment:Desirable HDL: great er than 40 mg/dL Note: This HDL assay may give artificially low results in patients with liver disease. Blood 11/30/2024 10:2 4 AM EDT 11/30/2024 11:16 AM EDT us Mae Hall MD LAB BLOOD ORDERABLES Final Resul t [facility] [address] [place] [phone] * (ABNORMAL) Albumin, Random Urine W/Creatinine (11/30/2024 10:24 AM EDT) Creatinine, Urine 129.79 mg/dL [facility] Microalbumin Urine 68.0 mg/L H [facility] Microalbum Creatinine Ratio Ur 52.3(H) <30 ug/mg cr [facility] Comment:Albumin/Creatinine R atio Reference Ranges: Normal: < 30 ug/mg creatinine Microalbuminuria: 30 - 300 ug/mg creatinineClinical Albuminuria: > 300 ug/mg creatinine Urine 11/30/2024 10:2 4 AM EDT 11/30/2024 11:13 AM EDT us Mae Hall MD LAB URINE ORDERABLES Final Resul t Performing Organization Address City/[facility] Co de Phone Number [facility] [address] [place] [phone] * Hepatitis C Ab (07/30/2023 10:11 AM EST) Hepatitis C Antibody Nonreactive Nonreactive [facility] Comment:Antibodies to HCV no t detected; does not exclude early acuteHCV infection. Blood 07/30/2023 10:1 1 AM EST 07/30/2023 11:19 AM EST us Mae Hall MD LAB BLOOD ORDERABLES Final Resul t Performing Organization Address [facility] Co de Phone Number [facility] [address] [place] [phone] * HIV-1/2 Antigen and Antibodies, Fourth Generation, with Reflexes (07/30/2023 10:11 AM EST) HIV AB/AG Nonreactive Nonreactive [facility] Comment:HIV-1 p24 Ag and/or HIV-1/HIV-2 Ab not detected.A test result that is nonreactive does not exclude thepossibility of exposure to or infection with HIV-1 and/orHIV-2. Nonreactive results in this assay for individualswith prior exposure to HIV-1 and/or HIV-2 may be due toantigen and antibody levels that are below the limit ofdetection of this assay.The [employer] HIV Ag/Ab Combo assay result andsupplemental assay results should be interpreted inconjunction with the patient's clinical presentation,history and other laboratory results. If the results areinconsistent with clinical evidence, additional testing issuggested to confirm the result. Blood Venous blood specimen / Unknown 07/30/2023 10:11 AM EST 07/30/2023 11:19 AM EST Mae Hall MD LAB BLOOD ORDERABLES Final Resul t [facility] [address] [place] [phone] * (ABNORMAL) Colonoscopy (07/01/2022) Colonoscopy Abnormal(A ) Normal Mae Hall MD HEALTH MAINTENANCE Edited Result - Final from Last 3 Months or Most Recently Relevant to Health Maintenance Insurance [facility] STANDARD [employer] MEDICARE REPLACEMENT D[place]AL[place] STAND ADULT Care Teams Demo Coordinator Relationship Specialty Start Date End Date Mae Hall MD [address] [place], [place] PCP - General Family Medicine 09/01/18 Connor Bergeron, KizzyD [address] [place], [place] Pharmacist Internal Medicine 07/04/23 [facility] 02/11/25
--- OUTSIDE RECORDS SUMMARY | 2025-05-27 12:11 | XMS_ITS | Encounter Summary ---
Author Organization [employer] Address [address] [facility] 7t [place] [address] Care Team Providers Care Telemarketer Supervisor Name Role Phone Mae Hall MD Primary Care Provider [phone] Connor Bergeron PharmD Unavailable [phone] Encounter Details Date Type Department Care Team ([facility] st Contact Info) Description 03/21/2025 Orders Only [facility] MEDICINE [address] [place], [place] [phone] Mae Hall MD [address] [place], [place] [phone] Social History Tobacco Use Types Packs/Day Years [...] Info) Description 06/02/2025 11:30 AM EDT Telemedicine [facility] MEDICINE [address] [place] [phone] Connor Bergeron, PharmD [address] [place] [address] 06/06/2025 10:30 AM EDT Telemedicine [facility] MED & PEDS [address] [place] [address] Heather Bello, RN [address] [place] [address] 06/08/2025 1:00 PM EDT Office Visit [facility] ADULT DENTAL [address] [place] [address] Rolando Kahn, DMD [address] [place] [address] 06/20/2025 1:00 PM EDT Office Visit [facility] MEDICINE [address] [place] [phone] Mae Hall MD [address] [place] [address] documented as of this encounter Goals Goal [...] documented as of this encounter Care Teams Telemarketer Supervisor Relationship Specialty Start Date End Date Mae Hall MD [address] [place] [address] PCP - General Family Medicine 09/01/18 Connor Bergeron PharmD [address] [place] [address] Pharmacist Internal Medicine 07/04/23 [facility] 02/11/25 documented as of this encounter
--- OUTSIDE RECORDS SUMMARY | 2025-05-27 12:11 | XMS_ITS | Encounter Summary ---
Author Organization [facility] Address [address] [place] [address] Care Team Providers Care Bucket Wash Operator Name Role Phone Mae Hall MD Primary Care Provider [phone] Encounter Details Date Type Department Care Team (Late st Contact Info) Description 01/16/2025 Lab Requisition [facility] - Main Lab [address] [facility] [place] [phone] Zuleika Cheema MD [address] [phone] Type 2 diabetes mellitus without complications (CMS/HCC [...] Associated Diagnosis Comments COMPLETE BLOOD COUNT Routine 01/17/2025 8:10 AM EDT Type 2 diabetes mellitus without complications (CMS/HCC V24, CMS/HCC V28) Anemia, unspecified Other disorders of electrolyte and fluid balance, not elsewhere classified COMPREHENSIVE METABOLIC PANEL Routine 01/17/2025 8:10 AM EDT Type 2 diabetes mellitus without complications (CMS/HCC V24, CMS/HCC V28) Anemia, unspecified Other disorders of electrolyte and fluid balance, not elsewhere classified documented in this encounter Results * (ABNORMAL) Comprehensive metabolic panel (01/17/2025 8:10 AM EDT) Sodium 138 133 - 145 mmol/L LAB CHEMISTRY METHOD 01/17/2025 1:52 PM [facility] Potassium 4.1 3.5 - 5.5 mmol/L LAB CHEMISTRY METHOD 01/17/2025 1:52 PM [facility] Chloride 102 96 - 110 mmol/L LAB CHEMISTRY METHOD 01/17/2025 1:52 PM [facility] CO2 26 21 - 32 mmol/L LAB CHEMISTRY METHOD 01/17/2025 1:52 PM [facility] Anion Gap 10 3 - 11 LAB CHEMISTRY METHOD 01/17/2025 1:52 PM [facility] Glucose 290(H) 70 - 100 mg/dL LAB CHEMISTRY METHOD 01/17/2025 1:52 PM [facility] BUN 14 5 - 25 mg/dL LAB CHEMISTRY METHOD 01/17/2025 1:52 PM [facility] Creatinine 0.98 0.70 - 1.30 mg/dL LAB CHEMISTRY METHOD 01/17/2025 1:52 PM [facility] eGFR 91 >=60 mL/min/1. 73m2 LAB CHEMISTRY METHOD 01/17/2025 1:52 PM [facility] Comment:Calculation based on the Chronic Kidney Disease Epidemiology Collaboration (CKD-EPI) equation refit without adjustment for race. BUN/Creatinine Ratio 14.3 LAB CHEMISTRY METHOD 01/17/2025 1:52 PM [facility] Calcium 8.3(L) 8.5 - 10.5 mg/dL LAB CHEMISTRY METHOD 01/17/2025 1:52 PM [facility] AST (SGOT) 16 10 - 42 unit/L LAB CHEMISTRY METHOD 01/17/2025 1:52 PM EDT [facility] ALT (SGPT) 25 10 - 60 unit/L LAB CHEMISTRY METHOD 01/17/2025 1:52 PM EDT [facility] Alkaline Phosphatase 94 42 - 121 unit/L LAB CHEMISTRY METHOD 01/17/2025 1:52 PM EDT [facility] Total Protein 6.7 6.0 - 8.0 g/dL LAB CHEMISTRY METHOD 01/17/2025 1:52 PM EDT [facility] Albumin 3.3 3.2 - 5.0 g/dL LAB CHEMISTRY METHOD 01/17/2025 1:52 PM EDT [facility] Total Bilirubin 0.3 0.0 - 1.4 mg/dL LAB CHEMISTRY METHOD 01/17/2025 1:52 PM EDT [facility] Blood Venous blood specimen / Unknown Venipuncture / Unknown 01/17/2025 8:10 AM EDT 01/17/2025 12:31 PM EDT us Zuleika Cheema MD LAB BLOOD ORDERABLES Fin al Result [facility] [address] [place] [address], * (ABNORMAL) Complete blood count (01/17/2025 8:10 AM EDT) WBC 5.6 4.8 - 10.8 K/mcL LAB HEMETOLOGY METHOD 01/17/2025 2:49 PM EDT [facility] RBC 3.90(L) 4.50 - 5.50 M/mcL LAB HEMETOLOGY METHOD 01/17/2025 2:49 PM EDT [facility] Hemoglobin 11.0(L) 13.5 - 17.5 g/dL LAB HEMETOLOGY METHOD 01/17/2025 2:49 PM EDT [facility] Hematocrit 36.4(L) 42.0 - 54.0 % LAB HEMETOLOGY METHOD 01/17/2025 2:49 PM EDT [facility] MCV 94.1 79.0 - 98.0 FL LAB HEMETOLOGY METHOD 01/17/2025 2:49 PM EDT [facility] MCH 28.4 27.0 - 32.0 pcg LAB HEMETOLOGY METHOD 01/17/2025 2:49 PM EDT [facility] MCHC 30.2(L) 32.0 - 37.0 g/dL LAB HEMETOLOGY METHOD 01/17/2025 2:49 PM EDT [facility] RDW 14.4 11.0 - 15.0 % LAB HEMETOLOGY METHOD 01/17/2025 2:49 PM EDT [facility] Platelets 190 130 - 400 K/mcL LAB HEMETOLOGY METHOD 01/17/2025 2:49 PM EDT [facility] MPV 10.0 7.0 - 11.0 FL LAB HEMETOLOGY METHOD 01/17/2025 2:49 PM EDT [facility] NRBC 0.0 <1.0 % LAB HEMETOLOGY METHOD 01/17/2025 2:49 PM EDT [facility] NRBC Absolute 0.00 <0.10 K/mcL LAB HEMETOLOGY METHOD 01/17/2025 2:49 PM EDT [facility] Blood Venous blood specimen / Unknown Venipuncture / Unknown 01/17/2025 8:10 AM EDT 01/17/2025 12:31 PM EDT us Zuleika Cheema MD LAB BLOOD ORDERABLES Fin al Result [facility] [address] [place] [address], documented in this encounter Visit Diagnoses Diagnosis Type 2 diabetes mellitus without complications (CMS/[facility] V24, CMS/[facility] V28) Anemia, unspecified Other disorders of electrolyte and fluid balance, not elsewhere classified documented in this encounter Care Teams Bucket Wash Operator Relationship Specialty Start Date End Date Mae Hall MD [address] [place] [phone] PCP - General 07/03/23 documented as of this encounter
--- OUTSIDE RECORDS SUMMARY | 2025-05-27 12:11 | XMS_ITS | Encounter Summary ---
Author Organization [facility] Address [address] [place] [address] Care Team Providers Care Culturist Name Role Phone Mae Hall MD Primary Care Provider [phone] Encounter Details Date Type Department Care Team (Late st Contact Info) Description 01/01/2025 Lab Requisition [facility] - Main Lab 299 [facility] [place] [phone] Zuleika Cheema MD [address] [address] Type 2 diabetes mellitus without complications (CMS/HCC [...] classified documented in this encounter Care Teams Culturist Relationship Specialty Start Date End Date Mae Hall MD [address] [place] [phone] PCP - General 07/03/23 documented as of this encounter
--- OUTSIDE RECORDS SUMMARY | 2025-05-27 12:11 | XMS_ITS | Encounter Summary ---
Author Organization [employer] Address [address] [facility] 7t [place] [address] Care Team Providers Care Commercial Marketing Specialist Name Role Phone Mae Hall MD Primary Care Provider Connor Bergeron PharmD Unavailable [phone] Reason for Visit * Reason Onset Date Comments Appointment Request 02/11/2025 Encounter Details Date Type Department Care Team ([facility] st Contact Info) Description 02/11/2025 Telephone [facility] MEDICINE [address] [place] [address] Mae Hall MD [address] [place] [address] Appointment Request Social History Tobacco Use Types [...] encounter Miscellaneous Notes * Telephone Encounter - Mallory Esposito - 02/11/2025 9:58 AM EDT Tc from pt requesting r/s 02/03 appointment with Connor Bergeron. [phone] documented in this encounter Plan of Treatment Upcoming Encounters Date Type Department Care Team (Late st Contact Info) Description 06/02/2025 11:30 AM EDT Telemedicine [facility] MEDICINE [address] [place] [address] Connor Bergeron, PharmD [address] [place] [address] 06/06/2025 10:30 AM EDT Telemedicine [facility] MED & PEDS [address] [place] [address] Heather Bello, RN [address] [place] [address] 06/08/2025 1:00 PM EDT Office Visit [facility] ADULT DENTAL [address] [place] [address] Rolando Kahn DMD [address] [place] [address] 06/20/2025 1:00 PM EDT Office Visit [facility] MEDICINE [address] [place] [address] Mae Hall MD [address] [place] [address] documented as of this encounter Goals Goal [...] documented as of this encounter Care Teams Commercial Marketing Specialist Relationship Specialty Start Date End Date Mae Hall MD [address] [place] [address] PCP - General Family Medicine 09/01/18 Connor Bergeron, PharmD [address] [place] [phone] Pharmacist Internal Medicine 07/04/23 [facility] 02/11/25 documented as of this encounter
--- OUTSIDE RECORDS SUMMARY | 2025-05-27 12:11 | XMS_ITS | Encounter Summary ---
Author Organization [facility] Address [address] [place] [address] Care Team Providers Care Regional Hr Manager Name Role Phone Mae Hall MD Primary Care Provider [phone] Encounter Details Date Type Department Care Team (Late st Contact Info) Description 2025 Lab Requisition [facility] - Main Lab 299 [facility] [place] [phone] Zuleika Cheema MD [address] [id number] Type 2 diabetes mellitus without complications (CMS/HCC [...] Associated Diagnosis Comments COMPLETE BLOOD COUNT Routine 01/25/2025 7:10 AM EDT Type 2 diabetes mellitus without complications (CMS/HCC V24, CMS/HCC V28) Anemia, unspecified Other disorders of electrolyte and fluid balance, not elsewhere classified COMPREHENSIVE METABOLIC PANEL Routine 01/25/2025 7:10 AM EDT Type 2 diabetes mellitus without complications (CMS/HCC V24, CMS/HCC V28) Anemia, unspecified Other disorders of electrolyte and fluid balance, not elsewhere classified documented in this encounter Results * (ABNORMAL) Comprehensive metabolic panel (01/25/2025 7:10 AM EDT) Sodium 134 133 - 145 mmol/L LAB CHEMISTRY METHOD 01/25/2025 12:29 PM [facility] Potassium 4.2 3.5 - 5.5 mmol/L LAB CHEMISTRY METHOD 01/25/2025 12:29 PM [facility] Chloride 101 96 - 110 mmol/L LAB CHEMISTRY METHOD 01/25/2025 12:29 PM [facility] CO2 26 21 - 32 mmol/L LAB CHEMISTRY METHOD 01/25/2025 12:29 PM [facility] Anion Gap 7 3 - 11 LAB CHEMISTRY METHOD 01/25/2025 12:29 PM [facility] Glucose 242(H) 70 - 100 mg/dL LAB CHEMISTRY METHOD 01/25/2025 12:29 PM [facility] BUN 20 5 - 25 mg/dL LAB CHEMISTRY METHOD 01/25/2025 12:29 PM [facility] Creatinine 1.04 0.70 - 1.30 mg/dL LAB CHEMISTRY METHOD 01/25/2025 12:29 PM [facility] eGFR 84 >=60 mL/min/1. 73m2 LAB CHEMISTRY METHOD 01/25/2025 12:29 PM [facility] Comment:Calculation based on the Chronic Kidney Disease Epidemiology Collaboration (CKD-EPI) equation refit without adjustment for race. BUN/Creatinine Ratio 19.2 LAB CHEMISTRY METHOD 01/25/2025 12:29 PM [facility] Calcium 9.2 8.5 - 10.5 mg/dL LAB CHEMISTRY METHOD 01/25/2025 12:29 PM [facility] AST (SGOT) 9(L) 10 - 42 unit/L LAB CHEMISTRY METHOD 01/25/2025 12:29 PM EDT [facility] ALT (SGPT) 26 10 - 60 unit/L LAB CHEMISTRY METHOD 01/25/2025 12:29 PM EDT [facility] Alkaline Phosphatase 95 42 - 121 unit/L LAB CHEMISTRY METHOD 01/25/2025 12:29 PM EDT [facility] Total Protein 7.2 6.0 - 8.0 g/dL LAB CHEMISTRY METHOD 01/25/2025 12:29 PM EDT [facility] Albumin 3.5 3.2 - 5.0 g/dL LAB [facility] Total Bilirubin 0.2 0.0 - 1.4 mg/dL LAB CHEMISTRY METHOD 01/25/2025 12:29 PM [facility] Blood Venous blood specimen / Unknown Venipuncture / Unknown 01/25/2025 7:10 AM EDT 01/25/2025 10:35 AM EDT Zuleika Cheema MD LAB BLOOD ORDERABLES Fin al Result [facility] [address] [place] [address], * (ABNORMAL) Complete blood count (01/25/2025 7:10 AM EDT) WBC 5.9 4.8 - 10.8 K/mcL LAB HEMETOLOGY METHOD 01/25/2025 11:36 AM EDT [facility] RBC 4.10(L) 4.50 - 5.50 M/mcL LAB HEMETOLOGY METHOD 01/25/2025 11:36 AM EDT [facility] Hemoglobin 11.6(L) 13.5 - 17.5 g/dL LAB HEMETOLOGY METHOD 01/25/2025 11:36 AM EDT [facility] Hematocrit 37.0(L) 42.0 - 54.0 % LAB HEMETOLOGY METHOD 01/25/2025 11:36 AM EDT [facility] MCV 91.4 79.0 - 98.0 FL LAB HEMETOLOGY METHOD 01/25/2025 11:36 AM EDT [facility] MCH 28.6 27.0 - 32.0 pcg LAB HEMETOLOGY METHOD 01/25/2025 11:36 AM EDT [facility] MCHC 31.4(L) 32.0 - 37.0 g/dL LAB HEMETOLOGY METHOD 01/25/2025 11:36 AM EDT [facility] RDW 13.6 11.0 - 15.0 % LAB HEMETOLOGY METHOD 01/25/2025 11:36 AM EDT [facility] Platelets 166 130 - 400 K/mcL LAB HEMETOLOGY METHOD 01/25/2025 11:36 AM EDT [facility] MPV 10.2 7.0 - 11.0 FL LAB HEMETOLOGY METHOD 01/25/2025 11:36 AM EDT [facility] NRBC 0.0 <1.0 % LAB HEMETOLOGY METHOD 01/25/2025 11:36 AM T [facility] NRBC Absolute 0.00 <0.10 K/mcL LAB HEMETOLOGY METHOD 01/25/2025 11:36 AM EDT [facility] Blood Venous blood specimen / Unknown Venipuncture / Unknown 01/25/2025 7:10 AM EDT 01/25/2025 10:35 AM EDT us Zuleika Cheema MD LAB BLOOD ORDERABLES Fin al Result [facility] [address] [place] [address], documented in this encounter Visit Diagnoses Diagnosis Type 2 diabetes mellitus without complications (CMS/[facility] V24, CMS/[facility] V28) Anemia, unspecified Other disorders of electrolyte and fluid balance, not elsewhere classified documented in this encounter Care Teams Regional Hr Manager Relationship Specialty Start Date End Date Mae Hall MD [address] [place] [phone] PCP - General 07/03/23 documented as of this encounter
--- OUTSIDE RECORDS SUMMARY | 2025-05-27 12:11 | XMS_ITS | Encounter Summary ---
Author Organization [facility] Address [address] [place] [address] Care Team Providers Care Marine Safety Officer Name Role Phone Mae Hall MD Primary Care Provider [phone] Encounter Details Date Type Department Care Team (Late st Contact Info) Description 12/20/2024 Lab Requisition [facility] - Main Lab [address] [place] [phone] Zuleika Cheema MD [address] [address] Type 2 diabetes mellitus without complications (CMS/HCC V24, CMS/HCC V28); Hyperlipidemia, unspecified Social History Tobacco Use Types Packs/Day Years [...] Associated Diagnosis Comments COMPLETE BLOOD COUNT Routine 12/20/2024 8:42 AM EDT Type 2 diabetes mellitus without complications (CMS/HCC V24, CMS/HCC V28) Hyperlipidemia, unspecified HEMOGLOBIN A1C Routine 12/20/2024 8:42 AM EDT Type 2 diabetes mellitus without complications (CMS/HCC V24, CMS/HCC V28) Hyperlipidemia, unspecified COMPREHENSIVE METABOLIC PANEL Routine 12/20/2024 8:42 AM EDT Type 2 diabetes mellitus without complications ([facility] V24, [facility] V28) Hyperlipidemia, unspecified documented in this encounter Results * (ABNORMAL) Hemoglobin A1c (12/20/2024 8:42 AM EDT) Pathologist [facility] Hemoglobin A1C 8.1(H) <6.5 % LAB CHEMISTRY METHOD 12/20/2024 2:03 PM EDT [facility] Mean Bld Glu Estim. 186 mg/dL LAB CHEMISTRY METHOD 12/20/2024 2:03 PM EDT [facility] Blood Venous blood specimen / Unknown Venipuncture / Unknown 12/20/2024 8:42 AM EDT 12/20/2024 11:53 AM EDT us Zuleika Cheema MD LAB BLOOD ORDERABLES Fin al Result [facility] [address] [place] [address], * (ABNORMAL) Comprehensive metabolic panel (12/20/2024 8:42 AM EDT) [facility] Sodium 141 133 - 145 mmol/L LAB CHEMISTRY METHOD 12/20/2024 1:54 PM EDT [facility] Potassium 3.8 3.5 - 5.5 mmol/L LAB CHEMISTRY METHOD 12/20/2024 1:54 PM EDT [facility] Chloride 106 96 - 110 mmol/L LAB CHEMISTRY METHOD 12/20/2024 1:54 PM EDT [facility] CO2 25 21 - 32 mmol/L LAB CHEMISTRY METHOD 12/20/2024 1:54 PM T [facility] Anion Gap 10 3 - 11 LAB CHEMISTRY METHOD 12/20/2024 1:54 PM EDT [facility] Glucose 206(H) 70 - 100 mg/dL LAB CHEMISTRY METHOD 12/20/2024 1:54 PM [facility] BUN 18 5 - 25 mg/dL LAB CHEMISTRY METHOD 12/20/2024 1:54 PM [facility] Creatinine 0.76 0.70 - 1.30 mg/dL LAB CHEMISTRY METHOD 12/20/2024 1:54 PM [facility] eGFR 106 >=60 mL/min/1. 73m2 LAB CHEMISTRY METHOD 12/20/2024 1:54 PM [facility] Comment:Calculation based on the Chronic Kidney Disease Epidemiology Collaboration (CKD-EPI) equation refit without adjustment for race. BUN/Creatinine Ratio 23.7 LAB CHEMISTRY METHOD 12/20/2024 1:54 PM [facility] Calcium 9.0 8.5 - 10.5 mg/dL LAB CHEMISTRY METHOD 12/20/2024 1:54 PM [facility] AST (SGOT) 14 10 - 42 unit/L LAB CHEMISTRY METHOD 12/20/2024 1:54 PM [facility] ALT (SGPT) 28 10 - 60 unit/L LAB CHEMISTRY METHOD 12/20/2024 1:54 PM [facility] Alkaline Phosphatase 115 42 - 121 unit/L LAB CHEMISTRY METHOD 12/20/2024 1:54 PM [facility] Total Protein 6.9 6.0 - 8.0 g/dL LAB CHEMISTRY METHOD 12/20/2024 1:54 PM [facility] Albumin 3.2 3.2 - 5.0 g/dL LAB CHEMISTRY METHOD 12/20/2024 1:54 PM [facility] Total Bilirubin 0.4 0.0 - 1.4 mg/dL LAB CHEMISTRY METHOD 12/20/2024 1:54 PM [facility] Blood Venous blood specimen / Unknown Venipuncture / Unknown 12/20/2024 8:42 AM EDT 12/20/2024 11:53 AM EDT us Zuleika Cheema MD LAB BLOOD ORDERABLES Fin al Result [facility] [address] [place] [address], [place] [phone] * (ABNORMAL) Complete blood count (12/20/2024 8:42 AM EDT) [facility] Signature WBC 7.3 4.8 - 10.8 K/mcL LAB HEMETOLOGY METHOD 12/20/2024 12:42 PM EDT [facility] RBC 3.50(L) 4.50 - 5.50 M/mcL LAB HEMETOLOGY METHOD 12/20/2024 12:42 PM EDT [facility] Hemoglobin 10.2(L) 13.5 - 17.5 g/dL LAB HEMETOLOGY METHOD 12/20/2024 12:42 PM EDT [facility] Hematocrit 32.1(L) 42.0 - 54.0 % LAB HEMETOLOGY METHOD 12/20/2024 12:42 PM EDT [facility] MCV 92.5 79.0 - 98.0 FL LAB HEMETOLOGY METHOD 12/20/2024 12:42 PM EDT [facility] MCH 29.4 27.0 - 32.0 pcg LAB HEMETOLOGY METHOD 12/20/2024 12:42 PM EDT [facility] MCHC 31.8(L) 32.0 - 37.0 g/dL LAB HEMETOLOGY METHOD 12/20/2024 12:42 PM EDT [facility] RDW 14.6 11.0 - 15.0 % LAB HEMETOLOGY METHOD 12/20/2024 12:42 PM EDT [facility] Platelets 309 130 - 400 K/mcL LAB HEMETOLOGY METHOD 12/20/2024 12:42 PM EDT [facility] MPV 10.0 7.0 - 11.0 FL LAB HEMETOLOGY METHOD 12/20/2024 12:42 PM EDT [facility] NRBC 0.0 <1.0 % LAB HEMETOLOG METHOD 12/20/2024 12:42 PM EDT [facility] NRBC Absolute 0.00 <0.10 K/mcL LAB HEMETOLOG METHOD 12/20/2024 12:42 PM EDT [facility] Blood Venous blood specimen / Unknown Venipuncture / Unknown 12/20/2024 8:42 AM EDT 12/20/2024 11:53 AM EDT us Zuleika Cheema MD LAB BLOOD ORDERABLES Fin al Result [facility] [address] [place] [address], documented in this encounter Visit Diagnoses Diagnosis Type 2 diabetes mellitus without complications (CMS/HCC V24, CMS/HCC V28) Hyperlipidemia, unspecified documented in this encounter Care Teams Marine Safety Officer Relationship Specialty Start Date End Date Mae Hall MD [address] [place] [phone] PCP - General 07/03/23 documented as of this encounter
== END 2025-05-27 10:41 | disposition home or self-care (01) ==
LOC: HO.MAMMO 10:40
PROVIDERS: PCP Family Medicine; Visit Provider Radiology Vascular & Interventional Radiology
DX: M81.0 Age-related osteoporosis without current pathological fracture (principal)
CPT/HCPCS: 77080

== ENCOUNTER → 2025-05-27 11:00 | Outpatient (BNV) | payer MEDICARE, SELFPAY | PROVIDERS: PCP Family Medicine; Visit Provider Radiology Diagnostic Radiology | DX: M81.6 Localized osteoporosis [Lequesne] (principal) | CPT/HCPCS: 77080 ==

== ENCOUNTER 2025-06-26 21:19 | Emergency (ER) | payer MEDICARE, SELFPAY ==
[2025-06-26 21:28] VITALS: BP 168/94; BP 182/90; PULSE 67; PULSE 76; RESP 18; TEMP 37; O2SAT 98; BMI 27.6
[2025-06-26 21:36] VITALS: BP 168/94; PULSE 67; RESP 18; TEMP 37; O2SAT 98
[2025-06-26 21:43] VITALS: BP 161/91; PULSE 65; TEMP 37.4; O2SAT 99
[2025-06-26 21:56] LABS: Glucose, Whole Blood 110 mg/dL (60-115)
--- OUTSIDE RECORDS SUMMARY | 2025-06-26 22:43 | XMS_ITS | Encounter Summary ---
Author Organization [facility] Address [address] [place] [address] Care Team Providers Care Die Cleaner Name Role Phone Mae Hall MD Primary Care Provider [phone] Encounter Details Date Type Department Care Team (Late st Contact Info) Description 2025 Lab Requisition [facility] - Main Lab 299 [facility] [place] [phone] Zuleika Cheema MD [address] [phone] Type 2 diabetes mellitus without complications (CMS/HCC [...] mmol/L LAB CHEMISTRY METHOD 01/25/2025 12:29 PM [facility] Potassium 4.2 3.5 - 5.5 mmol/L LAB CHEMISTRY METHOD 01/25/2025 12:29 PM [facility] Chloride 101 96 - 110 mmol/L LAB CHEMISTRY METHOD 01/25/2025 12:29 PM [facility] CO2 26 21 - 32 mmol/L LAB CHEMISTRY METHOD 01/25/2025 12:29 PM [facility] Anion Gap 7 3 - 11 LAB CHEMISTRY METHOD 01/25/2025 12:29 PM [facility] Glucose 242(H) 70 - 100 mg/dL LAB CHEMISTRY METHOD 01/25/2025 12:29 PM [facility] BUN 20 5 - 25 mg/dL LAB CHEMISTRY METHOD 01/25/2025 12:29 PM [facility] Creatinine 1.04 0.70 - 1.30 mg/dL LAB CHEMISTRY METHOD 01/25/2025 12:29 PM [facility] eGFR 84 >=60 mL/min/1. 73m2 LAB CHEMISTRY METHOD 01/25/2025 12:29 PM [facility] Comment:Calculation based on the Chronic Kidney Disease Epidemiology Collaboration (CKD-EPI) equation refit without adjustment for race. BUN/Creatinine Ratio 19.2 LAB CHEMISTRY METHOD 01/25/2025 12:29 PM [facility] Calcium 9.2 8.5 - 10.5 mg/dL LAB CHEMISTRY METHOD 01/25/2025 12:29 PM [facility] AST (SGOT) 9(L) 10 - 42 unit/L LAB CHEMISTRY METHOD 01/25/2025 12:29 PM EDT [facility] ALT (SGPT) 26 10 - 60 unit/L LAB CHEMISTRY METHOD 01/25/2025 12:29 PM EDT [facility] Alkaline Phosphatase 95 42 - 121 unit/L LAB CHEMISTRY METHOD 01/25/2025 12:29 PM EDT [facility] Total Protein 7.2 6.0 - 8.0 g/dL LAB CHEMISTRY METHOD 01/25/2025 12:29 PM EDT [facility] Albumin 3.5 3.2 - 5.0 g/dL LAB [facility] Total Bilirubin 0.2 0.0 - 1.4 mg/dL LAB CHEMISTRY METHOD 01/25/2025 12:29 PM [facility] Blood Venous blood specimen / Unknown Venipuncture / Unknown 01/25/2025 7:10 AM EDT 01/25/2025 10:35 AM EDT Zuleika Cheema MD LAB BLOOD ORDERABLES Fin al Result [facility] [address] [place] [address], * (ABNORMAL) Complete blood count (01/25/2025 7:10 AM EDT) WBC 5.9 4.8 - 10.8 K/mcL LAB HEMETOLOGY METHOD 01/25/2025 11:36 AM EDT [facility] RBC 4.10(L) 4.50 - 5.50 M/mcL LAB HEMETOLOGY METHOD 01/25/2025 11:36 AM EDT [facility] Hemoglobin 11.6(L) 13.5 - 17.5 g/dL LAB HEMETOLOGY METHOD 01/25/2025 11:36 AM EDT [facility] Hematocrit 37.0(L) 42.0 - 54.0 % LAB HEMETOLOGY METHOD 01/25/2025 11:36 AM EDT [facility] MCV 91.4 79.0 - 98.0 FL LAB HEMETOLOGY METHOD 01/25/2025 11:36 AM EDT [facility] MCH 28.6 27.0 - 32.0 pcg LAB HEMETOLOGY METHOD 01/25/2025 11:36 AM EDT [facility] MCHC 31.4(L) 32.0 - 37.0 g/dL LAB HEMETOLOGY METHOD 01/25/2025 11:36 AM EDT [facility] RDW 13.6 11.0 - 15.0 % LAB HEMETOLOGY METHOD 01/25/2025 11:36 AM EDT [facility] Platelets 166 130 - 400 K/mcL LAB HEMETOLOGY METHOD 01/25/2025 11:36 AM EDT [facility] MPV 10.2 7.0 - 11.0 FL LAB HEMETOLOGY METHOD 01/25/2025 11:36 AM EDT [facility] NRBC 0.0 <1.0 % LAB HEMETOLOGY METHOD 01/25/2025 11:36 AM T [facility] NRBC Absolute 0.00 <0.10 K/mcL LAB HEMETOLOGY METHOD 01/25/2025 11:36 AM EDT [facility] Blood Venous blood specimen / Unknown Venipuncture / Unknown 01/25/2025 7:10 AM EDT 01/25/2025 10:35 AM EDT us Zuleika Cheema MD LAB BLOOD ORDERABLES Fin al Result [facility] [address] [place] [address], documented in this encounter Visit Diagnoses Diagnosis Type 2 diabetes mellitus without complications (CMS/[facility] V24, CMS/[facility] V28) Anemia, unspecified Other disorders of electrolyte and fluid balance, not elsewhere classified documented in this encounter Care Teams Die Cleaner Relationship Specialty Start Date End Date Mae Hall MD [address] [place] [phone] PCP - General 07/03/23 documented as of this encounter
--- OUTSIDE RECORDS SUMMARY | 2025-06-26 22:43 | XMS_ITS | Encounter Summary ---
Author Organization [employer] Address [address] [facility] [address] [place] [address] Care Team Providers Care Cytogenetic Technologist Name Role Phone Mae Hall MD Primary Care Provider [phone] Connor Bergeron PharmD Unavailable [phone] Reason for Visit * Reason Onset Date Comments Appointment Request 01/25/2025 Encounter Details Date Type Department Care Team ([facility] st Contact Info) Description 01/25/[address] [facility] [address] [place] [address] Mae Hall MD [address] [place] [address] Appointment Request Social History Tobacco Use Types [...] DM appointment with Connor. Contact pt at [phone] documented in this encounter Plan of Treatment Upcoming Encounters Date Type Department Care Team ([facility] st Contact Info) Description 06/30/2025 10:00 AM EDT Office Visit [facility] [address] [place] [address] Rolando Kahn, BREANNE [address] [place] [address] 07/21/2025 11:[address] [facility] [address] [place] [address] Connor Bergeron, PharmD [address] [place] [address] 07/25/2025 10:00 AM EST Telemedicine [facility] [address] [place] [address] Heather Bello, RN [address] [place] [address] documented as of this encounter Goals Goal Patient Goal Type Associated Problems Recent Progress Patient-Stated? Author Blood Pressure < 140/90 Blood Pressure 130/80(2024 1:10 PM EDT) No Connor Bergeron PharmD Hemoglobin A1c < 7 Result Component 8.8( 1:13 PM EDT) No Connor Bergeron PharmD documented as of this encounter Visit Diagnoses Not on filedocumented in this encounter Additional Health Concerns Assessment Noted Time PHQ-9 Depression Total Score: 13 025 3:49 PM EST documented as of this encounter Care Teams Cytogenetic Technologist Relationship Specialty Start Date End Date Mae Hall MD [address] [place] [id number] PCP - General Family Medicine 09/01/18 Connor Bergeron PharmD [address] [place] [phone] Pharmacist Internal Medicine 07/04/23 [facility] 02/11/25 documented as of this encounter
--- OUTSIDE RECORDS SUMMARY | 2025-06-26 22:43 | XMS_ITS | Encounter Summary ---
Author Organization [facility] Address [address] [place] [address] Care Team Providers Care Conveyor Feeder Offbearer Name Role Phone Mae Hall MD Primary Care Provider [phone] Encounter Details Date Type Department Care Team (Late st Contact Info) Description 12/29/2024 Lab Requisition [facility] - Main Lab [address] [place] [phone] Zuleika Cheema MD [address] [id number] Anemia, unspecified; Other disorders of electrolyte and fluid balance, not elsewhere classified; Other abnormal glucose; Abnormal results of thyroid function studies; Essential (primary) hypertension; Type 2 diabetes mellitus without complications (CMS/HCC V24, CMS/[facility] V28) Social History Tobacco Use Types Packs/Day [...] 2 diabetes mellitus without complications (CMS/HCC V24, CMS/[facility] V28) THYROID STIMULATING HORMONE Routine 12/29/2024 6:07 AM EDT Anemia, unspecified Other disorders of electrolyte and fluid balance, not elsewhere classified Other abnormal glucose Abnormal results of thyroid function studies Essential (primary) hypertension Type 2 diabetes mellitus without complications ([facility] V24, [facility] V28) COMPREHENSIVE METABOLIC PANEL Routine 12/29/2024 6:07 AM EDT Anemia, unspecified Other disorders of electrolyte and fluid balance, not elsewhere classified Other abnormal glucose Abnormal results of thyroid function studies Essential (primary) hypertension Type 2 diabetes mellitus without complications ([facility] V24, CMS/[facility] V28) documented in this encounter Results * Thyroid stimulating hormone (12/29/2024 6:07 AM EDT) Pathologist [facility] TSH 2.81 0.40 - 4.00 mcIU/mL LAB CHEMISTRY METHOD 12/29/2024 7:47 PM EDT [facility] Blood Venous blood specimen / Unknown Venipuncture / Unknown 12/29/2024 6:07 AM EDT 12/29/2024 11:33 AM EDT Zuleika Cheema MD LAB BLOOD ORDERABLES Fin al Result [facility] [address] [place] [address], * (ABNORMAL) Comprehensive metabolic panel (12/29/2024 6:07 AM EDT) [facility] Sodium 141 133 - 145 mmol/L LAB CHEMISTRY METHOD 12/29/2024 7:08 PM EDT [facility] Potassium 4.1 3.5 - 5.5 mmol/L LAB CHEMISTRY METHOD 12/29/2024 7:08 PM EDT [facility] Chloride 107 96 - 110 mmol/L LAB CHEMISTRY METHOD 12/29/2024 7:08 PM EDT [facility] CO2 24 21 - 32 mmol/L LAB CHEMISTRY METHOD 12/29/2024 7:08 PM [facility] Anion Gap 10 3 - 11 LAB CHEMISTRY METHOD 12/29/2024 7:08 PM [facility] Glucose 365(H) 70 - 100 mg/dL LAB CHEMISTRY METHOD 12/29/2024 7:08 PM [facility] BUN 15 5 - 25 mg/dL LAB CHEMISTRY METHOD 12/29/2024 7:08 PM [facility] Creatinine 0.98 0.70 - 1.30 mg/dL LAB CHEMISTRY METHOD 12/29/2024 7:08 PM [facility] eGFR 91 >=60 mL/min/1. 73m2 LAB CHEMISTRY METHOD 12/29/2024 7:08 PM [facility] Comment:Calculation based on the Chronic Kidney Disease Epidemiology Collaboration (CKD-EPI) equation refit without adjustment for race. BUN/Creatinine Ratio 15.3 LAB CHEMISTRY METHOD 12/29/2024 7:08 PM [facility] Calcium 8.3(L) 8.5 - 10.5 mg/dL LAB CHEMISTRY METHOD 12/29/2024 7:08 PM [facility] AST (SGOT) 9(L) 10 - 42 unit/L LAB CHEMISTRY METHOD 12/29/2024 7:08 PM [facility] ALT (SGPT) 20 10 - 60 unit/L LAB CHEMISTRY METHOD 12/29/2024 7:08 PM [facility] Alkaline Phosphatase 106 42 - 121 unit/L LAB CHEMISTRY METHOD 12/29/2024 7:08 PM [facility] Total Protein 6.3 6.0 - 8.0 g/dL LAB CHEMISTRY METHOD 12/29/2024 7:08 PM [facility] Albumin 2.9(L) 3.2 - 5.0 g/dL LAB CHEMISTRY METHOD 12/29/2024 7:08 PM [facility] Total Bilirubin 0.1 0.0 - 1.4 mg/dL LAB CHEMISTRY METHOD 12/29/2024 7:08 PM EDT [facility] Blood Venous blood specimen / Unknown Venipuncture / Unknown 12/29/2024 6:07 AM EDT 12/29/2024 11:33 AM EDT us Zuleika Cheema MD LAB BLOOD ORDERABLES Fin al Result [facility] [address] [place] [address], * (ABNORMAL) Complete blood count (12/29/2024 6:07 AM EDT) WBC 5.5 4.8 - 10.8 K/mcL LAB HEMETOLOGY METHOD 12/29/2024 12:21 PM [facility] RBC 3.40(L) 4.50 - 5.50 M/mcL LAB HEMETOLOGY METHOD 12/29/2024 12:21 PM [facility] Hemoglobin 9.9(L) 13.5 - 17.5 g/dL LAB HEMETOLOGY METHOD 12/29/2024 12:21 PM [facility] Hematocrit 31.7(L) 42.0 - 54.0 % LAB HEMETOLOGY METHOD 12/29/2024 12:21 PM [facility] MCV 93.8 79.0 - 98.0 FL LAB HEMETOLOGY METHOD 12/29/2024 12:21 PM [facility] MCH 29.3 27.0 - 32.0 pcg LAB HEMETOLOGY METHOD 12/29/2024 12:21 PM [facility] MCHC 31.2(L) 32.0 - 37.0 g/dL LAB HEMETOLOGY METHOD 12/29/2024 12:21 PM EDT [facility] RDW 14.1 11.0 - 15.0 % LAB HEMETOLOGY METHOD 12/29/2024 12:21 PM EDT [facility] Platelets 204 130 - 400 K/mcL LAB HEMETOLOGY METHOD 12/29/2024 12:21 PM EDT [facility] MPV 10.4 7.0 - 11.0 FL LAB HEMETOLOGY METHOD 12/29/2024 12:21 PM EDT [facility] NRBC 0.0 <1.0 % LAB HEMETOLOGY METHOD 12/29/2024 12:21 PM EDT [facility] NRBC Absolute 0.00 <0.10 K/mcL LAB HEMETOLOGY METHOD 12/29/2024 12:21 PM EDT [facility] Blood Venous blood specimen / Unknown Venipuncture / Unknown 12/29/2024 6:07 AM EDT 12/29/2024 11:33 AM EDT us Zuleika Cheema MD LAB BLOOD ORDERABLES Fin al Result [facility] [address] [place] [address], documented in this encounter Visit Diagnoses Diagnosis Anemia, unspecified Other disorders of electrolyte and fluid balance, not elsewhere classified Other abnormal glucose Abnormal results of thyroid function studies Nonspecific abnormal results of thyroid function study Essential (primary) hypertension Unspecified essential hypertension Type 2 diabetes mellitus without complications (CMS/HCC V24, CMS/HCC V28) documented in this encounter Care Teams Conveyor Feeder Offbearer Relationship Specialty Start Date End Date Mae Hall MD [address] [place] [phone] PCP - General 07/03/23 documented as of this encounter
--- OUTSIDE RECORDS SUMMARY | 2025-06-26 22:43 | XMS_ITS | Encounter Summary ---
Author [facility] Address [address] [place] [address] Care Team Providers Care Swimming Coach Name Role Phone Mae Hall MD Primary Care Provider [phone] Encounter Details Date Type Department Care Team (Late st Contact Info) Description 01/30/2025 Lab Requisition [facility] - Main Lab [address] [facility] [place] [phone] Zuleika Cheema MD [address] [phone] Type 2 diabetes mellitus without complications (CMS/HCC [...] mmol/L LAB CHEMISTRY METHOD 01/31/2025 12:26 PM [facility] Potassium 4.8 3.5 - 5.5 mmol/L LAB CHEMISTRY METHOD 01/31/2025 12:26 PM [facility] Chloride 100 96 - 110 mmol/L LAB CHEMISTRY METHOD 01/31/2025 12:26 PM [facility] CO2 24 21 - 32 mmol/L LAB CHEMISTRY METHOD 01/31/2025 12:26 PM [facility] Anion Gap 8 3 - 11 LAB CHEMISTRY METHOD 01/31/2025 12:26 PM [facility] Glucose 607(HH) 70 - 100 mg/dL LAB CHEMISTRY METHOD 01/31/2025 12:26 PM [facility] BUN 18 5 - 25 mg/dL LAB CHEMISTRY METHOD 01/31/2025 12:26 PM [facility] Creatinine 1.25 0.70 - 1.30 mg/dL LAB CHEMISTRY METHOD 01/31/2025 12:26 PM [facility] eGFR 68 >=60 mL/min/1. 73m2 LAB CHEMISTRY METHOD 01/31/2025 12:26 PM [facility] Comment:Calculation based on the Chronic Kidney Disease Epidemiology Collaboration (CKD-EPI) equation refit without adjustment for race. BUN/Creatinine Ratio 14.4 LAB CHEMISTRY METHOD 01/31/2025 12:26 PM [facility] Calcium 8.8 8.5 - 10.5 mg/dL LAB CHEMISTRY METHOD 01/31/2025 12:26 PM [facility] AST (SGOT) 9(L) 10 - 42 unit/L LAB CHEMISTRY METHOD 01/31/2025 12:26 PM EDT [facility] ALT (SGPT) 25 10 - 60 unit/L LAB CHEMISTRY METHOD 01/31/2025 12:26 PM [facility] Alkaline Phosphatase 97 42 - 121 unit/L LAB CHEMISTRY METHOD 01/31/2025 12:26 PM T [facility] Total Protein 6.9 6.0 - 8.0 g/dL LAB CHEMISTRY METHOD 01/31/2025 12:26 PM [facility] Albumin 3.5 3.2 - 5.0 g/dL LAB CHEMISTRY METHOD 01/31/2025 12:26 PM [facility] Total Bilirubin 0.2 0.0 - 1.4 mg/dL LAB CHEMISTRY METHOD 01/31/2025 12:26 PM [facility] Blood Venous blood specimen / Unknown Venipuncture / Unknown 01/31/2025 6:09 AM EDT 01/31/2025 10:29 AM EDT us Zuleika Cheema MD LAB BLOOD ORDERABLES Fin al Result [facility] [address] [place] [address], * (ABNORMAL) Complete blood count (01/31/2025 6:09 AM EDT) WBC 7.4 4.8 - 10.8 K/[facility] LAB HEMETOLOGY METHOD 01/31/2025 11:16 AM EDT [facility] RBC 4.00(L) 4.50 - 5.50 M/[facility] LAB HEMETOLOGY METHOD 01/31/2025 11:16 AM EDT [facility] Hemoglobin 11.4(L) 13.5 - 17.5 g/dL LAB HEMETOLOGY METHOD 01/31/2025 11:16 AM EDT [facility] Hematocrit 36.0(L) 42.0 - 54.0 % LAB HEMETOLOGY METHOD 01/31/2025 11:16 AM EDT [facility] MCV 90.5 79.0 - 98.0 FL LAB HEMETOLOGY METHOD 01/31/2025 11:16 AM EDT [facility] MCH 28.6 27.0 - 32.0 pcg LAB HEMETOLOGY METHOD 01/31/2025 11:16 AM EDT [facility] MCHC 31.7(L) 32.0 - 37.0 g/dL LAB HEMETOLOGY METHOD 01/31/2025 11:16 AM T [facility] RDW 13.6 11.0 - 15.0 % LAB HEMETOLOGY METHOD 01/31/2025 11:16 AM T [facility] Platelets 158 130 - 400 K/mcL LAB HEMETOLOGY METHOD 01/31/2025 11:16 AM EDT [facility] MPV 10.2 7.0 - 11.0 FL LAB HEMETOLOGY METHOD [facility] NRBC 0.0 <1.0 % LAB HEMETOLOGY METHOD 01/31/2025 11:16 AM T [facility] NRBC Absolute 0.00 <0.10 K/mcL LAB HEMETOLOGY METHOD 01/31/2025 11:16 AM T [facility] Blood Venous blood specimen / Unknown Venipuncture / Unknown 01/31/2025 6:09 AM EDT 01/31/2025 10:20 AM EDT us Zuleika Cheema MD LAB BLOOD ORDERABLES Fin al Result [facility] [address] [place], [place] [address] [phone] documented in this encounter Visit Diagnoses Diagnosis Type 2 diabetes mellitus without complications (CMS/[facility] V24, [facility] V28) Anemia, unspecified Other disorders of electrolyte and fluid balance, not elsewhere classified documented in this encounter Care Teams Swimming Coach Relationship Specialty Start Date End Date Mae Hall MD [address] [place] [phone] PCP - General 07/03/23 documented as of this encounter
--- OUTSIDE RECORDS SUMMARY | 2025-06-26 22:43 | XMS_ITS | Encounter Summary ---
Author Organization [employer] Address [address] [facility] 7t [place] [address] Care Team Providers Care Change Management Expert Name Role Phone Mae Hall MD Primary Care Provider [phone] Connor Bergeron PharmD Unavailable [phone] Reason for Visit * Reason Onset Date Comments FYI 05/25/2025 Encounter Details Date Type Department Care Team (Late st Contact Info) Description 05/25/2025 Telephone [facility] MEDICINE [address] [place] [address] Mae Hall MD [address] [place] [address] FYI Social History Tobacco Use Types Packs/Day [...] medication usage. Any questions contact OT at [phone] if OT does not answer LVM documented in this encounter Plan of Treatment Upcoming Encounters Date Type Department Care Team (Late st Contact Info) Description 06/30/2025 10:00 AM EDT Office Visit [facility] ADULT DENTAL [address] [place] [address] Rolando Kahn, BREANNE [address] [place] [address] 07/21/2025 11:30 AM EST Telemedicine [facility] MEDICINE [address] [place] [address] Connor Bergeron PharmD [address] [place] [address] 07/25/2025 10:00 AM EST Telemedicine [facility] MED & PEDS [address] [place] [address] Heather Bello, RN [address] [place], [place] [phone] documented as of this encounter Goals Goal Patient Goal Type Associated Problems Recent Progress Patient-Stated? Author Blood Pressure < 140/90 Blood Pressure 130/80(2024 1:10 PM EDT) No Connor Bergeron, PharmThais Hemoglobin A1c < 7 Result Component 8.8( 1:13 PM EDT) No Connor Bergeron PharmD documented as of this encounter Visit Diagnoses Not on filedocumented in this encounter Additional Health Concerns Assessment Noted Time PHQ-9 Depression Total Score: 4 03/10/20 25 9:39 AM EDT documented as of this encounter Care Teams Change Management Expert Relationship Specialty Start Date End Date Mae Hall MD [address] [place] [address] PCP - General Family Medicine 09/01/18 Connor Bergeron, PharmD [address] [place] [phone] Pharmacist Internal Medicine 07/04/23 [facility] 02/11/25 documented as of this encounter
--- OUTSIDE RECORDS SUMMARY | 2025-06-26 22:43 | XMS_ITS | Encounter Summary ---
Author Organization [email or web address] Address [address] [facility] 7t [place] [address] Care Team Providers Care Partner Management Consultant Name Role Phone Mae Hall MD Primary Care Provider [phone] Connor Bergeron PharmD Unavailable [phone] Reason for Visit * Reason Onset Date Comments Appointment Request 02/11/2025 Encounter Details Date Type Department Care Team ([facility] st Contact Info) Description 02/11/2025 Telephone [facility] MEDICINE [address] [place] [address] Mae Hall MD [address] [place] [address] Appointment Request Social History Tobacco Use Types [...] requesting r/s 02/03 appointment with Connor Bergeron. [phone] documented in this encounter Plan of Treatment Upcoming Encounters Date Type Department Care Team (Late st Contact Info) Description 06/30/2025 10:00 AM EDT Office Visit [facility] ADULT DENTAL [address] [place] [address] Rolanod Kahn, DMD [address] [place] [address] 07/21/2025 11:30 AM EST Telemedicine [facility] MEDICINE [address] [place] [address] Connor Bergeron, PharmD [address] [place] [address] 07/25/2025 10:00 AM EST Telemedicine [facility] MED & PEDS [address] [place] [address] Heather Bello, EMMETT [address] [place] [address] documented as of this encounter Goals Goal [...] documented as of this encounter Care Teams Partner Management Consultant Relationship Specialty Start Date End Date Mae Hall MD [address] [place] [address] PCP - General Family Medicine 09/01/18 Connor Bergeron PharmD [address] [place] [address] Pharmacist Internal Medicine 07/04/23 [facility] 02/11/25 documented as of this encounter
--- OUTSIDE RECORDS SUMMARY | 2025-06-26 22:43 | XMS_ITS | Encounter Summary ---
Author Organization [facility] Address [address] [place] [address] Care Team Providers Care Abe Teacher Name Role Phone Mae Hall MD Primary Care Provider [phone] Encounter Details Date Type Department Care Team (Late st Contact Info) Description 12/20/2024 Lab Requisition [facility] - Main Lab [address] [place] [phone] Zuleika Cheema MD [address] [address] Type 2 diabetes mellitus without complications (CMS/HCC [...] EDT Type 2 diabetes mellitus without complications ([facility] V24, [facility] V28) Hyperlipidemia, unspecified documented in this encounter Results * (ABNORMAL) Hemoglobin A1c (12/20/2024 8:42 AM EDT) Pathologist [facility] Hemoglobin A1C 8.1(H) <6.5 % LAB CHEMISTRY METHOD 12/20/2024 2:03 PM EDT [facility] Mean Bld Glu Estim. 186 mg/dL LAB CHEMISTRY METHOD 12/20/2024 2:03 PM EDT [facility] Blood Venous blood specimen / Unknown Venipuncture / Unknown 12/20/2024 8:42 AM EDT 12/20/2024 11:53 AM EDT us Zuleika Cheema MD LAB BLOOD ORDERABLES Fin al Result [facility] [address] [place] [address], * (ABNORMAL) Comprehensive metabolic panel (12/20/2024 8:42 AM EDT) [facility] Sodium 141 133 - 145 mmol/L LAB CHEMISTRY METHOD 12/20/2024 1:54 PM EDT [facility] Potassium 3.8 3.5 - 5.5 mmol/L LAB CHEMISTRY METHOD 12/20/2024 1:54 PM EDT [facility] Chloride 106 96 - 110 mmol/L LAB CHEMISTRY METHOD 12/20/2024 1:54 PM EDT [facility] CO2 25 21 - 32 mmol/L LAB CHEMISTRY METHOD 12/20/2024 1:54 PM T [facility] Anion Gap 10 3 - 11 LAB CHEMISTRY METHOD 12/20/2024 1:54 PM EDT [facility] Glucose 206(H) 70 - 100 mg/dL LAB CHEMISTRY METHOD 12/20/2024 1:54 PM [facility] BUN 18 5 - 25 mg/dL LAB CHEMISTRY METHOD 12/20/2024 1:54 PM [facility] Creatinine 0.76 0.70 - 1.30 mg/dL LAB CHEMISTRY METHOD 12/20/2024 1:54 PM [facility] eGFR 106 >=60 mL/min/1. 73m2 LAB CHEMISTRY METHOD 12/20/2024 1:54 PM [facility] Comment:Calculation based on the Chronic Kidney Disease Epidemiology Collaboration (CKD-EPI) equation refit without adjustment for race. BUN/Creatinine Ratio 23.7 LAB CHEMISTRY METHOD 12/20/2024 1:54 PM [facility] Calcium 9.0 8.5 - 10.5 mg/dL LAB CHEMISTRY METHOD 12/20/2024 1:54 PM [facility] AST (SGOT) 14 10 - 42 unit/L LAB CHEMISTRY METHOD 12/20/2024 1:54 PM [facility] ALT (SGPT) 28 10 - 60 unit/L LAB CHEMISTRY METHOD 12/20/2024 1:54 PM [facility] Alkaline Phosphatase 115 42 - 121 unit/L LAB CHEMISTRY METHOD 12/20/2024 1:54 PM [facility] Total Protein 6.9 6.0 - 8.0 g/dL LAB CHEMISTRY METHOD 12/20/2024 1:54 PM [facility] Albumin 3.2 3.2 - 5.0 g/dL LAB CHEMISTRY METHOD 12/20/2024 1:54 PM [facility] Total Bilirubin 0.4 0.0 - 1.4 mg/dL LAB CHEMISTRY METHOD 12/20/2024 1:54 PM [facility] Blood Venous blood specimen / Unknown Venipuncture / Unknown 12/20/2024 8:42 AM EDT 12/20/2024 11:53 AM EDT us Zuleika Cheema MD LAB BLOOD ORDERABLES Fin al Result [facility] [address] [place] [address], [place] [phone] * (ABNORMAL) Complete blood count (12/20/2024 8:42 AM EDT) [facility] Signature WBC 7.3 4.8 - 10.8 K/mcL LAB HEMETOLOGY METHOD 12/20/2024 12:42 PM EDT [facility] RBC 3.50(L) 4.50 - 5.50 M/mcL LAB HEMETOLOGY METHOD 12/20/2024 12:42 PM EDT [facility] Hemoglobin 10.2(L) 13.5 - 17.5 g/dL LAB HEMETOLOGY METHOD 12/20/2024 12:42 PM EDT [facility] Hematocrit 32.1(L) 42.0 - 54.0 % LAB HEMETOLOGY METHOD 12/20/2024 12:42 PM EDT [facility] MCV 92.5 79.0 - 98.0 FL LAB HEMETOLOGY METHOD 12/20/2024 12:42 PM EDT [facility] MCH 29.4 27.0 - 32.0 pcg LAB HEMETOLOGY METHOD 12/20/2024 12:42 PM EDT [facility] MCHC 31.8(L) 32.0 - 37.0 g/dL LAB HEMETOLOGY METHOD 12/20/2024 12:42 PM EDT [facility] RDW 14.6 11.0 - 15.0 % LAB HEMETOLOGY METHOD 12/20/2024 12:42 PM EDT [facility] Platelets 309 130 - 400 K/mcL LAB HEMETOLOGY METHOD 12/20/2024 12:42 PM EDT [facility] MPV 10.0 7.0 - 11.0 FL LAB HEMETOLOGY METHOD 12/20/2024 12:42 PM EDT [facility] NRBC 0.0 <1.0 % LAB HEMETOLOG METHOD 12/20/2024 12:42 PM EDT [facility] NRBC Absolute 0.00 <0.10 K/mcL LAB HEMETOLOG METHOD 12/20/2024 12:42 PM EDT [facility] Blood Venous blood specimen / Unknown Venipuncture / Unknown 12/20/2024 8:42 AM EDT 12/20/2024 11:53 AM EDT us Zuleika Cheema MD LAB BLOOD ORDERABLES Fin al Result [facility] [address] [place] [address], documented in this encounter Visit Diagnoses Diagnosis Type 2 diabetes mellitus without complications (CMS/HCC V24, CMS/HCC V28) Hyperlipidemia, unspecified documented in this encounter Care Teams Abe Teacher Relationship Specialty Start Date End Date Mae Hall MD [address] [place] [phone] PCP - General 07/03/23 documented as of this encounter
--- OUTSIDE RECORDS SUMMARY | 2025-06-26 22:43 | XMS_ITS | Encounter Summary ---
Author Organization [employer] Address [address] [facility] 7t [place] [address] Care Team Providers Care Ribbon Cleaner Name Role Phone Mae Hall MD Primary Care Provider [phone] Connor Bergeron PharmD Unavailable [phone] Encounter Details Date Type Department Care Team ([facility] st Contact Info) Description 06/13/2023 Orders Only [facility] MEDICINE [address] [place], [place] [phone] Mae Hall MD [address] [place], [place] [phone] Type 2 diabetes mellitus with hyperglycemia, with long-term current use of insulin ([facility]) Social History Tobacco Use Types Packs/Day Years [...] 10:00 AM EDT Office Visit [facility] ADULT DENTAL [address] [place] [address] Rolando Kahn, BREANNE [address] [place] [address] 07/21/2025 11:30 AM EST Telemedicine [facility] MEDICINE [address] [place] [address] Connor Bergeron, Michael [address] [place] [address] 07/25/2025 10:00 AM EST Telemedicine [facility] MED & PEDS [address] [place] [address] Heather Bello, EMMETT [address] [place] [address] documented as of this encounter Visit Diagnoses Diagnosis Type 2 diabetes mellitus with hyperglycemia, with long-term current use of insulin (HCC) documented in this encounter Additional Health Concerns Assessment Noted Time PHQ-9 Depression Total Score: 11 023 4:03 PM EST documented as of this encounter Care Teams Ribbon Cleaner Relationship Specialty Start Date End Date Mae Hall MD [address] [place] [address] PCP - General Family Medicine 09/01/18 Connor Bergeron, PharmD [address] [place] [address], [place] [address] Pharmacist Internal Medicine 07/04/23 [facility] 02/11/25 documented as of this encounter
--- OUTSIDE RECORDS SUMMARY | 2025-06-26 22:43 | XMS_ITS | Encounter Summary ---
Author Organization [facility] Address [address] [place] [address] Care Team Providers Care Brinell Tester Name Role Phone Mae Hall MD Primary Care Provider [phone] Encounter Details Date Type Department Care Team (Late st Contact Info) Description 02/04/2025 Lab Requisition [facility] - Main Lab [address] [facility] [place] [phone] Zuleika Cheema MD [address] [id number] Type 2 diabetes mellitus without complications (CMS/HCC [...] mmol/L LAB CHEMISTRY METHOD 02/07/2025 12:53 PM [facility] Potassium 4.1 3.5 - 5.5 mmol/L LAB CHEMISTRY METHOD 02/07/2025 12:53 PM [facility] Chloride 104 96 - 110 mmol/L LAB CHEMISTRY METHOD 02/07/2025 12:53 PM [facility] CO2 23 21 - 32 mmol/L LAB CHEMISTRY METHOD 02/07/2025 12:53 PM [facility] Anion Gap 11 3 - 11 LAB CHEMISTRY METHOD 02/07/2025 12:53 PM [facility] Glucose 339(H) 70 - 100 mg/dL LAB CHEMISTRY METHOD 02/07/2025 12:53 PM [facility] BUN 17 5 - 25 mg/dL LAB CHEMISTRY METHOD 02/07/2025 12:53 PM [facility] Creatinine 0.95 0.70 - 1.30 mg/dL LAB CHEMISTRY METHOD 02/07/2025 12:53 PM [facility] eGFR 94 >=60 mL/min/1. 73m2 LAB CHEMISTRY METHOD 02/07/2025 12:53 PM [facility] Comment:Calculation based on the Chronic Kidney Disease Epidemiology Collaboration (CKD-EPI) equation refit without adjustment for race. BUN/Creatinine Ratio 17.9 LAB CHEMISTRY METHOD 02/07/2025 12:53 PM [facility] Calcium 8.6 8.5 - 10.5 mg/dL LAB CHEMISTRY METHOD 02/07/2025 12:53 PM [facility] AST (SGOT) 9(L) 10 - 42 unit/L LAB CHEMISTRY METHOD 02/07/2025 12:53 PM EDT [facility] ALT (SGPT) 22 10 - 60 unit/L LAB CHEMISTRY METHOD 02/07/2025 12:53 PM EDT [facility] Alkaline Phosphatase 94 42 - 121 unit/L LAB CHEMISTRY METHOD 02/07/2025 12:53 PM EDT [facility] Total Protein 6.5 6.0 - 8.0 g/dL LAB CHEMISTRY METHOD 02/07/2025 12:53 PM EDT [facility] Albumin 3.3 3.2 - 5.0 g/dL LAB CHEMISTRY METHOD 02/07/2025 12:53 PM EDT [facility] Total Bilirubin 0.2 0.0 - 1.4 mg/dL LAB CHEMISTRY METHOD 02/07/2025 12:53 PM EDT [facility] Blood Venous blood specimen / Unknown Venipuncture / Unknown 02/07/2025 6:58 AM EDT 02/07/2025 10:59 AM EDT us Zuleika Cheema MD LAB BLOOD ORDERABLES Fin al Result [facility] [address] [place] [address], * (ABNORMAL) Complete blood count (02/07/2025 6:58 AM EDT) WBC 6.0 4.8 - 10.8 K/mcL LAB HEMETOLOGY METHOD 02/07/2025 2:18 PM EDT [facility] RBC 4.00(L) 4.50 - 5.50 M/mcL LAB HEMETOLOGY METHOD 02/07/2025 2:18 PM EDT [facility] Hemoglobin 11.2(L) 13.5 - 17.5 g/dL LAB HEMETOLOGY METHOD 02/07/2025 2:18 PM EDT [facility] Hematocrit 35.6(L) 42.0 - 54.0 % LAB HEMETOLOGY METHOD 02/07/2025 2:18 PM EDT [facility] MCV 90.1 79.0 - 98.0 FL LAB HEMETOLOGY METHOD 02/07/2025 2:18 PM EDT [facility] MCH 28.4 27.0 - 32.0 pcg LAB HEMETOLOGY METHOD 02/07/2025 2:18 PM EDT [facility] MCHC 31.5(L) 32.0 - 37.0 g/dL LAB HEMETOLOGY METHOD 02/07/2025 2:18 PM EDT [facility] RDW 13.2 11.0 - 15.0 % LAB HEMETOLOGY METHOD 02/07/2025 2:18 PM EDT [facility] Platelets 174 130 - 400 K/mcL LAB HEMETOLOGY METHOD 02/07/2025 2:18 PM EDT [facility] MPV 10.0 7.0 - 11.0 FL LAB HEMETOLOGY METHOD 02/07/2025 2:18 PM EDT [facility] NRBC 0.0 <1.0 % LAB HEMETOLOGY METHOD 02/07/2025 2:18 PM EDT [facility] NRBC Absolute 0.00 <0.10 K/mcL LAB HEMETOLOGY METHOD 02/07/2025 2:18 PM EDT [facility] Blood Venous blood specimen / Unknown Venipuncture / Unknown 02/07/2025 6:58 AM EDT 02/07/2025 10:59 AM EDT us Zuleika Cheema MD LAB BLOOD ORDERABLES Fin al Result [facility] [address] [place] [address], documented in this encounter Visit Diagnoses Diagnosis Type 2 diabetes mellitus without complications (CMS/[facility] V24, CMS/[facility] V28) Anemia, unspecified Other disorders of electrolyte and fluid balance, not elsewhere classified documented in this encounter Care Teams Brinell Tester Relationship Specialty Start Date End Date Mae Hall MD [address] [place] [phone] PCP - General 07/03/23 documented as of this encounter
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
--- OUTSIDE RECORDS SUMMARY | 2025-06-26 22:43 | XMS_ITS | Encounter Summary ---
Author Organization [employer] Address [address] [facility] 7t [place] [address] Care Team Providers Care Technology Trainer Name Role Phone Mae Hall MD Primary Care Provider [phone] Connor Bergeron PharmD Unavailable Reason for Visit * Reason Onset Date Comments Med Refill 04/12/2025 Encounter Details Date Type Department Care Team (Late st Contact Info) Description 04/12/2025 Telephone [facility] MEDICINE [address] [place] [address] Mae Hall MD [address] [place] [address] Med Refill Social History Tobacco Use Types [...] immediate release tablet To be sent to: [facility] documented in this encounter Plan of Treatment Upcoming Encounters Date Type Department Care Team ([facility] st Contact Info) Description 06/30/2025 10:00 AM EDT Office Visit [facility] ADULT DENTAL [address] [place] [address] Rolando Kahn, DMD [address] [place] [address] 07/21/2025 11:30 AM EST Telemedicine [facility] MEDICINE [address] [place] [address] Connor Bergeron, PharmD [address] [place] [address] 07/25/2025 10:00 AM EST Telemedicine [facility] MED & PEDS [address] [place] [address] Heather Bello, EMMETT [address] [place] [address] documented as of this encounter Goals Goal [...] documented as of this encounter Care Teams Technology Trainer Relationship Specialty Start Date End Date Mae Hall MD [address] [place] [id number] PCP - General Family Medicine 09/01/18 Connor Bergeron PharmD [address] [place] [phone] Pharmacist Internal Medicine 07/04/23 [facility] 02/11/25 documented as of this encounter
--- OUTSIDE RECORDS SUMMARY | 2025-06-26 22:43 | XMS_ITS | Encounter Summary ---
Author Organization [facility] Address [address] [place] [address] Care Team Providers Care Engine Room Helper Name Role Phone Mae Hall MD Primary Care Provider [phone] Encounter Details Date Type Department Care Team (Late st Contact Info) Description 01/01/[address] [facility] - Main Lab [address] [facility] [place] [phone] Zuleika Cheema MD [address] [address] Type 2 diabetes mellitus without complications (CMS/HCC [...] classified documented in this encounter Care Teams Engine Room Helper Relationship Specialty Start Date End Date Mae Hall MD [address] [place] [phone] PCP - General 07/03/23 documented as of this encounter
--- OUTSIDE RECORDS SUMMARY | 2025-06-26 22:43 | XMS_ITS | Clinical Summary ---
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 1970 Acct:[id number] Age/Sex: 55 / M ADM Date: 05/27/25 Loc: HO.MAMMO Attending Dr: Erlin Rodgers MD Ordering Physician: Erlin Rodgers MD Results: Date of Service: 05/27/25 Follow Up: Procedure(s): XR DEXA axial skeleton Accession Number(s): [id number] cc: Erlin Rodgers MD; Mae Hall MD Reason For Exam: OSTEOPOROSIS EXAMINATION: DXA BONE DENSITY AXIAL HISTORY: OSTEOPOROSIS TECHNIQUE: [email or web address] Dual energy absorptiometry (DEXA) of the lumbar [...] of the [employer] [place] for Metabolic Bone Disease, a World Health Organization (WHO) Collaborating Center. Electronically signed by: James Tineo MD 05/27/2025 11:15 AM EDT Dictated By: James Tineo MD Signed By: <Electronically signed by James Tineo MD in OV> 05/27/25 1115 DD/ 1045 TD/TT: 05/27/25 1109 Financial Specialist: Procedure Note Donotcourtneyinterpreter, Image - 05/27/2025 [facility] [address] [place], [place] [address] Mammography Report Signed Patient: Jose Alfredo Celis RMR#: [id number] 6 : 1970Acct:[id number] Age/Sex: 55 / MADM Date: 05/27/25 Loc: HO.MAMMO Attending Dr: Erlin Rodgers MD Ordering Physician: Erlin Rodgersults: Date of Service: 05/27/25Follow Up: Procedure(s): XR DEXA axial skeleton Accession Number(s): [id number] cc: Erlin Rodgers MD; Mae Hall MD Reason For Exam: OSTEOPOROSIS EXAMINATION: DXA BONE DENSITY AXIAL HISTORY: OSTEOPOROSIS TECHNIQUE: [email or web address] Dual energy absorptiometry (DEXA) of the lumbar [...] of the [employer] [place] for Metabolic Bone Disease, a World Health Organization (WHO) Collaborating Center. Electronically signed by: James Tineo MD 05/27/2025 11:15 AM EDT RP Dictated By: James Tineo MD Signed By: <Electronically signed by James Tineo MD in OV> 05/27/25 1115 DD/ 1045 TD/TT: 05/27/25 1109 Financial Specialist: [facility] External Provider IMG DXA PROCEDURES Final Result * Referral to Orthopaedic Surgery (04/19/2025) Mae Hall MD OUTPATIENT REFERRAL ORDERABLES F inal Result * (ABNORMAL) Lipid Panel with Reflex to Direct LDL (11/30/2024 10:24 AM EDT) Triglycerides 154(H) <150 mg/dL [facility] Comment:Desirable Triglyceri de: less than 150 mg/dLBorderline High Triglyceride 150-199 mg/dLHigh Triglyceride: 200-499 mg/dLVery High Triglyceride: greater than or equal to 5OO mg/dL Cholesterol 131 <200 mg/dL [facility] Comment:Desirable Cholestero l: less than 200 mg/dLBorderline High Cholesterol: 200-239 mg/dLHigh Cholesterol: greater than 239 mg/dL LDL Cholesterol Calculated 63 <100 mg/dL [facility] Comment:Desirable LDL: less than 100 mg/dLNear Optimal/Above Optimal LDL: 110- 129 mg/dLBorderline High LDL: 130-159 mg/dLHigh LDL: 160-189 mg/dLVery High LDL: greater than or equal to 190 mg/dL HDL Cholesterol 38(L) >40 mg/dL [facility] Comment:Desirable HDL: great er than 40 mg/dL Note: This HDL assay may give artificially low results in patients with liver disease. Blood 11/30/2024 10:2 4 AM EDT 11/30/2024 11:16 AM EDT us Mae Hall MD LAB BLOOD ORDERABLES Final Resul t Performing Organization Address City/[facility] Co de Phone Number [facility] [address] [place] [phone] * (ABNORMAL) Albumin, Random Urine W/Creatinine (11/30/2024 10:24 AM EDT) Creatinine, Urine 129.79 mg/dL [facility] Microalbumin Urine 68.0 mg/L [facility] Microalbum Creatinine Ratio Ur 52.3(H) <30 ug/mg cr [facility] Comment:Albumin/Creatinine R atio Reference Ranges: Normal: < 30 ug/mg creatinine Microalbuminuria: 30 - 300 ug/mg creatinineClinical Albuminuria: > 300 ug/mg creatinine Urine 11/30/2024 10:2 4 AM EDT 11/30/2024 11:13 AM EDT us Mae Hall MD LAB URINE ORDERABLES Final Resul t Performing Organization Address [facility] Co de Phone Number [facility] [address] [place] [phone] * Hepatitis C Ab (07/30/2023 10:11 AM EST) Hepatitis C Antibody Nonreactive Nonreactive [facility] Comment:Antibodies to HCV no t detected; does not exclude early acuteHCV infection. Blood 07/30/2023 10:1 1 AM EST 07/30/2023 11:19 AM EST us Mae Hall MD LAB BLOOD ORDERABLES Final Resul t Performing Organization Address City/[facility] Co de Phone Number [facility] [address] [place] [phone] * HIV-1/2 Antigen and Antibodies, Fourth Generation, with Reflexes (07/30/2023 10:11 AM EST) HIV AB/AG Nonreactive Nonreactive [facility] Comment:HIV-1 p24 Ag and/or HIV-1/HIV-2 Ab not detected.A test result that is nonreactive does not exclude thepossibility of exposure to or infection with HIV-1 and/orHIV-2. Nonreactive results in this assay for individualswith prior exposure to HIV-1 and/or HIV-2 may be due toantigen and antibody levels that are below the limit ofdetection of this assay.The [employer] HIV Ag/Ab Combo assay result andsupplemental assay [...] t Performing Organization Address [facility] Co de Phone Number [facility] [address] [place] [phone] * (ABNORMAL) Hm Colonoscopy (07/01/2022) Colonoscopy Abnormal(A ) Normal Mae Hall MD HEALTH MAINTENANCE Edited Result - Final from Last 3 Months or Most Recently Relevant to Health Maintenance Insurance [facility] STANDARD [employer] MEDICARE REPLACEMENT [facility] STAND ADULT Care Teams Medical Authorization Specialist Relationship Specialty Start Date End Date Mae Hall MD [address] [place] [address] PCP - General Family Medicine 09/01/18 Connor Bergeron, KizzyD [address] [place] [phone] Pharmacist Internal Medicine 07/04/23 [facility]
--- OUTSIDE RECORDS SUMMARY | 2025-06-26 22:43 | XMS_ITS | Encounter Summary ---
Author Organization [facility] Address [address] [place] [address] Care Team Providers Care Corrugated Box Machine Operator Name Role Phone Mae Hall MD Primary Care Provider [phone] Encounter Details Date Type Department Care Team (Late st Contact Info) Description 02/11/2025 Lab Requisition [facility] - Main Lab [address] [facility] [place] [phone] Zuleika Cheema MD [address] [address] Type 2 diabetes mellitus without complications (CMS/HCC [...] classified documented in this encounter Care Teams Corrugated Box Machine Operator Relationship Specialty Start Date End Date Mae Hall MD [address] [place] [phone] PCP - General 07/03/23 documented as of this encounter
--- OUTSIDE RECORDS SUMMARY | 2025-06-26 22:43 | XMS_ITS | Encounter Summary ---
Author Organization [employer] Address [address] [facility] 7t [place] [address] Care Team Providers Care Cattle Broker Name Role Phone Mae Hall MD Primary Care Provider [phone] Connor Bergeron PharmD Unavailable [phone] Encounter Details Date Type Department Care Team ([facility] st Contact Info) Description 03/21/2025 Orders Only [facility] [address] [place], [place] [phone] Mae Hall MD [address] [place], [place] [phone] Social History Tobacco Use Types Packs/Day Years [...] Description 06/30/2025 10:00 AM EDT Office Visit [facility]ULT [facility]AL [address] [place] [address] Rolando Kahn, BREANNE [address] [place] [address] 07/21/2025 11:30 AM EST Telemedicine [facility] [address] [place] [address] Connor Bergeron PharmD [address] [place] [address] 07/25/2025 10:00 AM EST Telemedicine [facility]ED[facility] [address] [place] [address] Heather Bello, RN [address] [place] [address] documented as of this encounter Goals Goal Patient Goal Type Associated Problems Recent Progress Patient-Stated? Author Blood Pressure < 140/90 Blood Pressure 130/80(2024 1:10 PM EDT) No Connor Bergeron, Michael Hemoglobin A1c < 7 Result Component 8.8( 1:13 PM EDT) No Connor Bergeron PharmD documented as of this encounter Visit Diagnoses Not on filedocumented in this encounter Additional Health Concerns Assessment Noted Time PHQ-9 Depression Total Score: 4 03/10/20 25 9:39 AM EDT documented as of this encounter Care Teams Cattle Broker Relationship Specialty Start Date End Date Mae Hall MD [address] [place] [address] PCP - General Family Medicine 09/01/18 Connor Bergeron, Michael [address] [place] [address] Pharmacist Internal Medicine 07/04/23 [facility] documented as of this encounter
--- OUTSIDE RECORDS SUMMARY | 2025-06-26 22:43 | XMS_ITS | Clinical Summary ---
Author Organization [facility] Address [address] [place] [address] Phone Care Team Providers Care Marine Painter Name Role Phone Mae Hall MD Primary Care Provider [phone] Immunizations Immunization Administration Dates Next Due Moderna SARS-CoV-2 COVID-19, [...] Health Maintenance Due Date Last Done Comments Colorectal Cancer Screening: Colonoscopy 1970 Diabetes: Annual Foot Exam 1979 Diabetes: Annual Retina Eye Exam 1979 RSV Immunization Adult Patients (1 - Risk 50-74 years 1-dose series) 2019 Cholesterol Screening (Lipid Panel) 09/25/2023 Hepatitis C Screening 09/25/2023 Medicare Annual [...] 07/30/2033 07/30/2023, 03/25/2012, 10/08/2011, Additional history exists Hepatitis A Vaccines Completed 01/17/2014, 01/19/20 13 [...] EDT Type 2 diabetes mellitus without complications ([facility] V24, [facility] V28) Anemia, unspecified Other disorders of electrolyte and fluid balance, not elsewhere classified HEMOGLOBIN A1C Routine 12/20/2024 8:42 AM EDT Type 2 diabetes mellitus without complications ([facility] V24, [facility] V28) Hyperlipidemia, unspecified from Last 3 Months or Most Recently Relevant to Health Maintenance Results * (ABNORMAL) Comprehensive metabolic panel (02/07/2025 6:58 AM EDT) Sodium 138 133 - 145 mmol/L LAB CHEMISTRY METHOD 02/07/2025 12:53 PM [facility] Potassium 4.1 3.5 - 5.5 mmol/L LAB CHEMISTRY METHOD 02/07/2025 12:53 PM [facility] Chloride 104 96 - 110 mmol/L LAB CHEMISTRY METHOD 02/07/2025 12:53 PM [facility] CO2 23 21 - 32 mmol/L LAB CHEMISTRY METHOD 02/07/2025 12:53 PM [facility] Anion Gap 11 3 - 11 LAB CHEMISTRY METHOD 02/07/2025 12:53 PM [facility] Glucose 339(H) 70 - 100 mg/dL LAB CHEMISTRY METHOD 02/07/2025 12:53 PM [facility] BUN 17 5 - 25 mg/dL LAB CHEMISTRY METHOD 02/07/2025 12:53 PM [facility] Creatinine 0.95 0.70 - 1.30 mg/dL LAB CHEMISTRY METHOD 02/07/2025 12:53 PM [facility] eGFR 94 >=60 mL/min/1. 73m2 LAB CHEMISTRY METHOD 02/07/2025 12:53 PM [facility] Comment:Calculation based on the Chronic Kidney Disease Epidemiology Collaboration (CKD-EPI) equation refit without adjustment for race. BUN/Creatinine Ratio 17.9 LAB CHEMISTRY METHOD 02/07/2025 12:53 PM [facility] Calcium 8.6 8.5 - 10.5 mg/dL LAB CHEMISTRY METHOD 02/07/2025 12:53 PM [facility] AST (SGOT) 9(L) 10 - 42 unit/L LAB CHEMISTRY METHOD 02/07/2025 12:53 PM [facility] ALT (SGPT) 22 10 - 60 unit/L LAB CHEMISTRY METHOD 02/07/2025 12:53 PM [facility] Alkaline Phosphatase 94 42 - 121 unit/L LAB CHEMISTRY METHOD 02/07/2025 12:53 PM [facility] Total Protein 6.5 6.0 - 8.0 g/dL LAB CHEMISTRY METHOD 02/07/2025 12:53 PM [facility] Albumin 3.3 3.2 - 5.0 g/dL LAB CHEMISTRY METHOD 02/07/2025 12:53 PM [facility] Total Bilirubin 0.2 0.0 - 1.4 mg/dL LAB CHEMISTRY METHOD 02/07/2025 12:53 PM [facility] Blood Venous blood specimen / Unknown Venipuncture / Unknown 02/07/2025 6:58 AM EDT 02/07/2025 10:59 AM EDT us Zuleika Cheema MD LAB BLOOD ORDERABLES Fin al Result [facility] [address] [place] [address], * (ABNORMAL) Hemoglobin A1c (12/20/2024 8:42 AM EDT) Hemoglobin A1C 8.1(H) <6.5 % LAB CHEMISTRY METHOD 12/20/2024 2:03 PM EDT [facility] Mean Bld Glu Estim. 186 mg/dL LAB CHEMISTRY METHOD 12/20/2024 2:03 PM EDT [facility] Blood Venous blood specimen / Unknown Venipuncture / Unknown 12/20/2024 8:42 AM EDT 12/20/2024 11:53 AM EDT us Zuleika Cheema MD LAB BLOOD ORDERABLES Fin al Result [facility] [address] [place] [address], from Last 3 Months or Most Recently Relevant to Health Maintenance Insurance MEDICAID - [place] AETNA MEDICARE ADVANTAGE Care Teams Marine Painter Relationship Specialty Start Date End Date Mae Hall MD [address] [place] [phone] PCP - General 07/03/23
--- OUTSIDE RECORDS SUMMARY | 2025-06-26 22:43 | XMS_ITS | Encounter Summary ---
Author Organization [employer] Address [address] [facility] 7t [place] [address] Care Team Providers Care Shank Maker Name Role Phone Mae Hall MD Primary Care Provider [phone] Connor Bergeron PharmD Unavailable [phone] Reason for Visit * Reason Onset Date Comments Med Refill 06/08/2025 Encounter Details Date Type Department Care Team (Late st Contact Info) Description 06/08/2025 Telephone [facility] [address] [place] [address] Mae Hall MD [address] [place] [address] Med Refill Social History Tobacco Use Types [...] encounter Miscellaneous Notes * Telephone Encounter - Nila Henry - 06/08/2025 10:00 AM EDT TC from pt requesting medication refill. Medications needing refill : oxyCODONE (Roxicodone) 10 MG immediate release tablet To be sent to: [facility] [place], [place] - [address] [place] [address] documented in this encounter Plan of Treatment Upcoming Encounters Date Type Department Care Team ([facility] st Contact Info) Description 06/30/2025 10:00 AM EDT Office Visit [facility] ADULT D[facility]AL [address] [place] [address] Rolando Kahn, DMD [address] [place] [address] 07/21/2025 11:30 AM EST Telemedicine [facility] MED[facility]INE [address] [place] [address] Connor Bergeron, PharmD [address] [place] [address] 07/25/2025 10:00 AM EST Telemedicine [facility]S [address] [place] [address] Heather Bello, RN [address] [place] [address] documented as of this encounter Goals Goal [...] documented as of this encounter Care Teams Shank Maker Relationship Specialty Start Date End Date Mae Hall MD [address] [place] [address] PCP - General Family Medicine 09/01/18 Connor Bergeron PharmD [address] [place] [address] Pharmacist Internal Medicine 07/04/23 [facility] 02/11/25 documented as of this encounter
--- OUTSIDE RECORDS SUMMARY | 2025-06-26 22:43 | XMS_ITS | Encounter Summary ---
Author Organization [facility] Address [address] [place] [address] Care Team Providers Care Proof Technician Name Role Phone Mae Hall MD Primary Care Provider [phone] Encounter Details Date Type Department Care Team (Late st Contact Info) Description 01/16/2025 Lab Requisition [facility] - Main Lab [address] [facility] [place] [phone] Zuleika Cheema MD [address] [phone] Type 2 diabetes mellitus without complications (CMS/HCC [...] mmol/L LAB CHEMISTRY METHOD 01/17/2025 1:52 PM [facility] Potassium 4.1 3.5 - 5.5 mmol/L LAB CHEMISTRY METHOD 01/17/2025 1:52 PM [facility] Chloride 102 96 - 110 mmol/L LAB CHEMISTRY METHOD 01/17/2025 1:52 PM [facility] CO2 26 21 - 32 mmol/L LAB CHEMISTRY METHOD 01/17/2025 1:52 PM [facility] Anion Gap 10 3 - 11 LAB CHEMISTRY METHOD 01/17/2025 1:52 PM [facility] Glucose 290(H) 70 - 100 mg/dL LAB CHEMISTRY METHOD 01/17/2025 1:52 PM [facility] BUN 14 5 - 25 mg/dL LAB CHEMISTRY METHOD 01/17/2025 1:52 PM [facility] Creatinine 0.98 0.70 - 1.30 mg/dL LAB CHEMISTRY METHOD 01/17/2025 1:52 PM [facility] eGFR 91 >=60 mL/min/1. 73m2 LAB CHEMISTRY METHOD 01/17/2025 1:52 PM [facility] Comment:Calculation based on the Chronic Kidney Disease Epidemiology Collaboration (CKD-EPI) equation refit without adjustment for race. BUN/Creatinine Ratio 14.3 LAB CHEMISTRY METHOD 01/17/2025 1:52 PM [facility] Calcium 8.3(L) 8.5 - 10.5 mg/dL LAB CHEMISTRY METHOD 01/17/2025 1:52 PM [facility] AST (SGOT) 16 10 - 42 unit/L LAB CHEMISTRY METHOD 01/17/2025 1:52 PM EDT [facility] ALT (SGPT) 25 10 - 60 unit/L LAB CHEMISTRY METHOD 01/17/2025 1:52 PM EDT [facility] Alkaline Phosphatase 94 42 - 121 unit/L LAB CHEMISTRY METHOD 01/17/2025 1:52 PM EDT [facility] Total Protein 6.7 6.0 - 8.0 g/dL LAB CHEMISTRY METHOD 01/17/2025 1:52 PM EDT [facility] Albumin 3.3 3.2 - 5.0 g/dL LAB CHEMISTRY METHOD 01/17/2025 1:52 PM EDT [facility] Total Bilirubin 0.3 0.0 - 1.4 mg/dL LAB CHEMISTRY METHOD 01/17/2025 1:52 PM EDT [facility] Blood Venous blood specimen / Unknown Venipuncture / Unknown 01/17/2025 8:10 AM EDT 01/17/2025 12:31 PM EDT us Zuleika Cheema MD LAB BLOOD ORDERABLES Fin al Result [facility] [address] [place] [address], * (ABNORMAL) Complete blood count (01/17/2025 8:10 AM EDT) WBC 5.6 4.8 - 10.8 K/mcL LAB HEMETOLOGY METHOD 01/17/2025 2:49 PM EDT [facility] RBC 3.90(L) 4.50 - 5.50 M/mcL LAB HEMETOLOGY METHOD 01/17/2025 2:49 PM EDT [facility] Hemoglobin 11.0(L) 13.5 - 17.5 g/dL LAB HEMETOLOGY METHOD 01/17/2025 2:49 PM EDT [facility] Hematocrit 36.4(L) 42.0 - 54.0 % LAB HEMETOLOGY METHOD 01/17/2025 2:49 PM EDT [facility] MCV 94.1 79.0 - 98.0 FL LAB HEMETOLOGY METHOD 01/17/2025 2:49 PM EDT [facility] MCH 28.4 27.0 - 32.0 pcg LAB HEMETOLOGY METHOD 01/17/2025 2:49 PM EDT [facility] MCHC 30.2(L) 32.0 - 37.0 g/dL LAB HEMETOLOGY METHOD 01/17/2025 2:49 PM EDT [facility] RDW 14.4 11.0 - 15.0 % LAB HEMETOLOGY METHOD 01/17/2025 2:49 PM EDT [facility] Platelets 190 130 - 400 K/mcL LAB HEMETOLOGY METHOD 01/17/2025 2:49 PM EDT [facility] MPV 10.0 7.0 - 11.0 FL LAB HEMETOLOGY METHOD 01/17/2025 2:49 PM EDT [facility] NRBC 0.0 <1.0 % LAB HEMETOLOGY METHOD 01/17/2025 2:49 PM EDT [facility] NRBC Absolute 0.00 <0.10 K/mcL LAB HEMETOLOGY METHOD 01/17/2025 2:49 PM EDT [facility] Blood Venous blood specimen / Unknown Venipuncture / Unknown 01/17/2025 8:10 AM EDT 01/17/2025 12:31 PM EDT us Zuleika Cheema MD LAB BLOOD ORDERABLES Fin al Result [facility] [address] [place] [address], documented in this encounter Visit Diagnoses Diagnosis Type 2 diabetes mellitus without complications (CMS/[facility] V24, CMS/[facility] V28) Anemia, unspecified Other disorders of electrolyte and fluid balance, not elsewhere classified documented in this encounter Care Teams Proof Technician Relationship Specialty Start Date End Date Mae Hall MD [address] [place] [phone] PCP - General 07/03/23 documented as of this encounter
--- OUTSIDE RECORDS SUMMARY | 2025-06-26 22:43 | XMS_ITS | Encounter Summary ---
Author Organization [employer] Address [address] [facility] 7t [place] [address] Care Team Providers Care Hydrogen Plant Operations Manager Name Role Phone Mae Hall MD Primary Care Provider [phone] Connor Bergeron PharmD Unavailable [phone] Reason for Visit * Reason Onset Date Comments Hospital Follow-up 02/24/2025 Encounter Details Date Type Department Care Team ([facility] st Contact Info) Description 02/24/2025 Telephone [facility] MEDICINE [address] [place] [address] Mae Hall MD [address] [place], [place] [phone] Hospital Follow-up Social History Tobacco Use Types [...] from pt requesting a HDF appt. Hospital: [facility] Date of admission: 02/19/25 Discharge date: 02/22/25 Diagnosed: Diabetic ketoacidosis documented in this encounter Plan of Treatment Upcoming Encounters Date Type Department Care Team (Late st Contact Info) Description 06/30/2025 10:00 AM EDT Office Visit [facility] ADULT DENTAL [address] [place] [address] Rolando Kahn, DMD [address] [place] [address] 07/21/2025 11:30 AM EST Telemedicine [facility] MEDICINE [address] [place] [address] Connor Bergeron, PharmD [address] [place] [address] 07/25/2025 10:00 AM EST Telemedicine [facility] MED & PEDS [address] [place] [address] Heather Bello, EMMETT [address] [place] [address] documented as of this encounter Goals Goal Patient Goal Type Associated Problems Recent Progress Patient-Stated? Author Blood Pressure < 140/90 Blood Pressure 130/80(2024 1:10 PM EDT) No Connor Bergeron PharmD Hemoglobin A1c < 7 Result Component 8.8( 1:13 PM EDT) No Connor Bergreon PharmD documented as of this encounter Visit Diagnoses Not on filedocumented in this encounter Additional Health Concerns Assessment Noted Time PHQ-9 Depression Total Score: 13 10/05/ 025 3:49 PM EST documented as of this encounter Care Teams Hydrogen Plant Operations Manager Relationship Specialty Start Date End Date Mae Hall MD [address] [place] [id number] PCP - General Family Medicine 09/01/18 Connor Bergeron PharmD [address] [place] [phone] Pharmacist Internal Medicine 07/04/23 [facility] 02/11/25 documented as of this encounter
--- OUTSIDE RECORDS SUMMARY | 2025-06-26 22:43 | XMS_ITS | Encounter Summary ---
Author Organization [employer] Address [address] [facility] 7t [place] [address] Care Team Providers Care Per Diem Nurse Name Role Phone Mae Hall MD Primary Care Provider [phone] Connor Bergeron PharmD Unavailable [phone] Reason for Referral * Cardiology (Routine) - Authorized Specialty Diagnoses / Procedures Referred By Contac t Referred To Contact Cardiology Diagnoses Bradycardia Procedures Holter monitor - 48 hour Mae Hall MD [address] [place] [address] Phone: tel: fax: [address] Phone: tel: fax: Referral ID Status Reason Start Date Expiration Date V isits Requested Visits Authorized [id number] Authorized 06/01/2025 06/01/2026 1 1 Encounter Details Date Type Department Care Team (Late st Contact Info) Description 06/01/2025 Orders Only [facility] MEDICINE [address] [place], [place] [phone] Mae Hall MD [address] [place], [place] [phone] Bradycardia (Primary Dx) Social History Tobacco Use Types Packs/Day Years [...] Description 06/30/2025 10:00 AM EDT Office Visit [facility] CHC ADULT DENTAL [address] [place] [address] Rolando Kahn, BREANNE [address] [place] [address] 07/21/2025 11:30 AM EST Telemedicine [facility] MEDICINE [address] [place] [address] BergeronConnor cali PharmD [address] [place] [address] 07/25/2025 10:00 AM EST Telemedicine [facility] CHC MED & PEDS [address] [place] [address] Heather Bello, RN [address] [place], [place] Scheduled Orders Name Type Priority Associated Diagnoses Orde r Schedule Holter monitor - 48 hour Cardiac Services Routine Bradycardia Expected: 06/01/2025 (Approximate), Expires: 06/01/2027 documented as of this encounter Goals Goal Patient Goal Type Associated Problems Recent Progress Patient-Stated? Author Blood Pressure < 140/90 Blood Pressure 130/80(2024 1:10 PM EDT) No Connor Bergeron PharmD Hemoglobin A1c < 7 Result Component 8.8( 1:13 PM EDT) No Connor Bergeron PharmD documented as of this encounter Visit Diagnoses Diagnosis Bradycardia- Primary Other specified cardiac dysrhythmias documented in this encounter Additional Health Concerns Assessment Noted Time PHQ-9 Depression Total Score: 4 03/10/20 25 9:39 AM EDT documented as of this encounter Care Teams Per Diem Nurse Relationship Specialty Start Date End Date Mae Hall MD [address] [place] [address] PCP - General Family Medicine 09/01/18 Connor Bergeron PharmD [address] [place] [address] Pharmacist Internal Medicine 07/04/23 [facility] 02/11/25 documented as of this encounter
--- OUTSIDE RECORDS SUMMARY | 2025-06-26 22:43 | XMS_ITS | Encounter Summary ---
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 Role Phone Mae Hall MD Primary Care Provider [phone] Encounter Details Date Type Department Care Team (Late st Contact Info) Description 01/09/2025 Lab Requisition [facility] Main Lab [address] [facility] [place] [phone] Zuleika Cheema MD [address] [phone] Type 2 diabetes mellitus without complications (CMS/HCC [...] mmol/L LAB CHEMISTRY METHOD 01/10/2025 1:25 PM [facility] Potassium 3.7 3.5 - 5.5 mmol/L LAB CHEMISTRY METHOD 01/10/2025 1:25 PM [facility] Chloride 104 96 - 110 mmol/L LAB CHEMISTRY METHOD 01/10/2025 1:25 PM [facility] CO2 27 21 - 32 mmol/L LAB CHEMISTRY METHOD 01/10/2025 1:25 PM [facility] Anion Gap 7 3 - 11 LAB CHEMISTRY METHOD 01/10/2025 1:25 PM [facility] Glucose 162(H) 70 - 100 mg/dL LAB CHEMISTRY METHOD 01/10/2025 1:25 PM [facility] BUN 13 5 - 25 mg/dL LAB CHEMISTRY METHOD 01/10/2025 1:25 PM [facility] Creatinine 0.91 0.70 - 1.30 mg/dL LAB CHEMISTRY METHOD 01/10/2025 1:25 PM [facility] eGFR 100 >=60 mL/min/1. 73m2 LAB CHEMISTRY METHOD 01/10/2025 1:25 PM [facility] Comment:Calculation based on the Chronic Kidney Disease Epidemiology Collaboration (CKD-EPI) equation refit without adjustment for race. BUN/Creatinine Ratio 14.3 LAB CHEMISTRY METHOD 01/10/2025 1:25 PM [facility] Calcium 8.5 8.5 - 10.5 mg/dL LAB CHEMISTRY METHOD 01/10/2025 1:25 PM [facility] AST (SGOT) 14 10 - 42 unit/L LAB CHEMISTRY METHOD 01/10/2025 1:25 PM EDT [facility] ALT (SGPT) 25 10 - 60 unit/L LAB CHEMISTRY METHOD 01/10/2025 1:25 PM EDT [facility] Alkaline Phosphatase 97 42 - 121 unit/L LAB CHEMISTRY METHOD 01/10/2025 1:25 PM EDT [facility] Total Protein 6.6 6.0 - 8.0 g/dL LAB CHEMISTRY METHOD 01/10/2025 1:25 PM EDT [facility] Albumin 3.3 3.2 - 5.0 g/dL LAB CHEMISTRY METHOD 01/10/2025 1:25 PM EDT [facility] Total Bilirubin 0.3 0.0 - 1.4 mg/dL LAB CHEMISTRY METHOD 01/10/2025 1:25 PM EDT [facility] Blood Venous blood specimen / Unknown Venipuncture / Unknown 01/10/2025 8:35 AM EDT 01/10/2025 12:02 PM EDT us Zuleika Cheema MD LAB BLOOD ORDERABLES Fin al Result [facility] [address] [place] [address], * (ABNORMAL) Complete blood count (01/10/2025 8:35 AM EDT) WBC 6.2 4.8 - 10.8 K/mcL LAB HEMETOLOGY METHOD 01/10/2025 2:36 PM EDT [facility] RBC 3.70(L) 4.50 - 5.50 M/mcL LAB HEMETOLOGY METHOD 01/10/2025 2:36 PM EDT [facility] Hemoglobin 11.0(L) 13.5 - 17.5 g/dL LAB HEMETOLOGY METHOD 01/10/2025 2:36 PM EDT [facility] Hematocrit 34.6(L) 42.0 - 54.0 % LAB HEMETOLOGY METHOD 01/10/2025 2:36 PM EDT [facility] MCV 92.8 79.0 - 98.0 FL LAB HEMETOLOGY METHOD 01/10/2025 2:36 PM EDT [facility] MCH 29.5 27.0 - 32.0 pcg LAB HEMETOLOGY METHOD 01/10/2025 2:36 PM EDT [facility] MCHC 31.8(L) 32.0 - 37.0 g/dL LAB HEMETOLOGY METHOD 01/10/2025 2:36 PM EDT [facility] RDW 13.9 11.0 - 15.0 % LAB HEMETOLOGY METHOD 01/10/2025 2:36 PM EDT [facility] Platelets 188 130 - 400 K/mcL LAB HEMETOLOGY METHOD 01/10/2025 2:36 PM EDT [facility] MPV 10.1 7.0 - 11.0 FL LAB HEMETOLOGY METHOD 01/10/2025 2:36 PM EDT [facility] NRBC 0.0 <1.0 % LAB HEMETOLOGY METHOD 01/10/2025 2:36 PM EDT [facility] NRBC Absolute 0.00 <0.10 K/mcL LAB HEMETOLOGY METHOD 01/10/2025 2:36 PM EDT [facility] Blood Venous blood specimen / Unknown Venipuncture / Unknown 01/10/2025 8:35 AM EDT 01/10/2025 12:02 PM EDT us Zuleika Cheema MD LAB BLOOD ORDERABLES Fin al Result [facility] [address] [place] [address], documented in this encounter Visit Diagnoses Diagnosis Type 2 diabetes mellitus without complications (CMS/[facility] V24, CMS/[facility] V28) Anemia, unspecified Other disorders of electrolyte and fluid balance, not elsewhere classified documented in this encounter Care Teams Hot Metal Car Operator Relationship Specialty Start Date End Date Mae Hall MD [address] [place] [phone] PCP - General 07/03/23 documented as of this encounter
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
[2025-06-27] MEDS: oxyCODONE HCl Immed Release 5 MG TABLET 10 MG PO (00:03)
--- NOTE | 2025-06-27 00:06 | PC.NURSE ---
provider into see pt, medicated pt per mar.
--- NOTE | 2025-06-27 00:21 | PC.NURSE ---
pt medicated per mar, reviewed discharge instructions with pt. pt verbalized understanding, no sign of distress upon discharge. pt ambulated with cane with a steady gait.
[2025-06-27 00:22] VITALS: BP 144/85; PULSE 64; RESP 20; TEMP 36.1; O2SAT 98
== END 2025-06-27 00:23 | disposition home or self-care (01) ==
PROVIDERS: Emergency Provider Emergency Medicine; PCP Family Medicine
DX: M54.50 Low back pain, unspecified (principal); E11.9 Type 2 diabetes mellitus without complications; Z79.899 Other long term (current) drug therapy; Z87.828 Personal history of other (healed) physical injury and trauma
CPT/HCPCS: 82947; 99283; 99284

== ENCOUNTER → 2025-07-21 13:22 | Outpatient (REF) | payer MEDICARE, SELFPAY ==
--- OUTSIDE RECORDS SUMMARY | 2025-07-20 10:00 | XMS_ITS | Encounter Summary ---
Author Organization [employer] Address [address] [facility] 7t [place] [address] Care Team Providers Care Welding Machine Operator Name Role Phone Mae Hall MD Primary Care Provider [phone] Connor Bergeron PharmD Unavailable [phone] Reason for Visit * Reason Comments Extraction Encounter Details Date Type Department Care Team ([facility] Contact Info) Description 07/20/2025 10:00 AM EST Office Visit [facility] ADULT DENTAL [address] [place], [place] [phone] Rolando Kahn, DMD [address] [place], [place] [phone] Severe dental caries (Primary Dx); History of tooth extraction, unspecified edentulism class; Periodontal disease Social History Tobacco Use Types Packs/Day Years Used Date Smoking Tobacco: Some Days Cigars Smokeless Tobacco: Never Alcohol Use Standard Drinks/Week Comments Never 0 (1 standard drink = 0.6 oz pur e alcohol) Depression Answer Date Recorded Patient Health Questionnaire-9 Score 4 03/10/2025 Patient Health Questionnaire-9 Score 4 03/10/2025 Last PHQ-9: Questionnaire Data Not on file 0 03/10/2025 Housing Stability Answer Date Recorded What is your housing situation today? I have audra blanca 09/21/[address] you li [...] AM EDT documented as of this encounter Last Filed Vital Signs Vital Sign Reading Time Taken Comments Blood Pressure 140/90 07/20/2025 10:34 AM EST Pulse - - Temperature - - Respiratory Rate - - Oxygen Saturation - - Inhaled Oxygen Concentration - - Weight - - Height - - Body Mass Index - - documented in this encounter Progress Notes * Rolando Kahn DMD - 07/20/2025 10:00 AM EST Patient ID: Jose Alfredo Celis is a 55 y.o. male. Time Out: No data recorded Location: [facility] Tooth: #20, #21, #22, #23, #24, #25, #26, #27, #28, and #31 Procedure: Extraction Verified the above with patient, registrar assistant, and provider. Confirmed via patient's chart, intraorally and by radiographs. Dental Equipment Technician: not applicable Chief Complaint Patient presents with Extraction Medical Hx: Vitals: Blood pressure (!) 140/90. Medical History[1] Medications: Encounter Medications[2] Consent Obtained: The risks, benefits, indications, potential complications, and alternatives were explained to the patient and informed consent was obtained with good understanding. Treatment Provided: Dental procedures in this visit D7140 - EXTRACTION, ERUPTED TOOTH OR EXPOSED ROOT (ELEVATION/FORCEPS REMOVAL) 31 (Completed) Service provider: Rolando Kahn DMD Billing provider: Rolando Kahn DMD D7140 - EXTRACTION, ERUPTED TOOTH OR EXPOSED ROOT (ELEVATION/FORCEPS REMOVAL) 27 (Completed) Service provider: Rolando Kahn DMD Billing provider: Rolando Kahn DMD D7140 - EXTRACTION, ERUPTED TOOTH OR EXPOSED ROOT (ELEVATION/FORCEPS REMOVAL) 28 (Completed) Service provider: Rolando Kahn DMD Billing provider: Rolando Kahn DMD D7140 - EXTRACTION, ERUPTED TOOTH OR EXPOSED ROOT (ELEVATION/FORCEPS REMOVAL) 26 (Completed) Service provider: Rolando Kahn DMD Billing provider: Rolando Kahn DMD D7140 - EXTRACTION, ERUPTED TOOTH OR EXPOSED ROOT (ELEVATION/FORCEPS REMOVAL) 25 (Completed) Service provider: Rolando Kahn DMD Billing provider: Rolando Kahn DMD D7140 - EXTRACTION, ERUPTED TOOTH OR EXPOSED ROOT (ELEVATION/FORCEPS REMOVAL) 24 (Completed) Service provider: Rolando Kahn DMD Billing provider: Rolando Kahn DMD D7140 - EXTRACTION, ERUPTED TOOTH OR EXPOSED ROOT (ELEVATION/FORCEPS REMOVAL) 23 (Completed) Service provider: Rolando Kahn DMD Billing provider: Rolando Kahn DMD D7140 - EXTRACTION, ERUPTED TOOTH OR EXPOSED ROOT (ELEVATION/FORCEPS REMOVAL) 22 (Completed) Service provider: Rolando Kahn DMD Billing provider: Rolando Kahn DMD D7140 - EXTRACTION, ERUPTED TOOTH OR EXPOSED ROOT (ELEVATION/FORCEPS REMOVAL) 21 (Completed) Service provider: Rolando Kahn DMD Billing provider: Rolando Kahn DMD D7140 - EXTRACTION, ERUPTED TOOTH OR EXPOSED ROOT (ELEVATION/FORCEPS REMOVAL) 20 (Completed) Service provider: Rolando Kahn DMD Billing provider: Rolando Kahn DMD [id number] - CASE PRESENTATION, DETAILED AND EXTENSIVE TREATMENT PLANNING (Completed) Service provider: Rolando Kahn DMD Billing provider: Rolando Kahn DMD Diagnosis: severe dental caries and periodontal disease, hopeless dentition #20,21,22,23,24,25,26,27,28,31 Topical: 20% Benzocaine Anesthesia: 2% Lidocaine (Xylocaine) w/ 1:100,000 epinephrine and 4% Septocaine (Articaine) w/ 1:200,000 epinephrine Number of Cartridges: 2 of each Injection Type: Buccal infiltration, Inferior alveolar nerve block, and Intrapapillary injection Confirmed profound anesthesia. Pharyngeal curtain and bite block placed. Removed tooth with elevators and forceps. Apices intact. Surgical Extraction: N/A Socket curetted & irrigated with sterile water. Compressed alveolar bone. Sutures: Chromic Gut size 3-0 continuous suture placed to reapproximate papilla All adjacent teeth intact. Hemostasis achieved. Complications: None - when elevating #21, elevator slipped in socket and possibly punctured throughbase of socket - note no excessive bleeding, no soft tissue tears. No pain per patient. Informed pt and discussed possibility of bruise occurring, possible hematoma formation. - recommend pt return for f/u - antibiotic and analgesic Rx written Written and verbal post-op instructions given. Patient discharged in stable condition; ambulatory, alert, and oriented. NV: F/U 1wk; EXT #32 Aircraft Engine Installer: Lourdes Joy Dentist: Rolando Kahn DMD [1] Past Medical History: Diagnosis Date Anemia of chronic disease 07/04/2015 Chronic pancreatitis (CMS/HCC) (HCC) Depression Diabetes mellitus (HCC) MALATHI (generalized anxiety disorder) 03/01/2025 Gastroesophageal reflux disease 08/13/2012 HLD (hyperlipidemia) Hypertension Obesity 02/27/2009 Rib fracture 02/15/2025 Vitamin D deficiency 02/15/2025 [2] Outpatient Encounter Medications as of 07/20/2025 Medication Sig Dispense Refill atorvastatin (Lipitor) 20 MG tablet TAKE 1 TABLET BY MOUTH AT BEDTIME 90 tablet 3 calcitonin, salmon, (Miacalcin) 200 UNIT/ACT nasal spray use 1 spray one nostril every day, alternating nostrils Continuous Glucose Second Facing Baster (FreeStyle Doug 3 [place]) device 1 Device Once per day. Use as directed to monitor blood glucose 1 each 0 Continuous Glucose Sensor (FreeStyle Doug 2 Plus Sensor) [employer] Apply 1 Device topically every 15 days. 2 each 11 Creon 40373-12819 units capsule TAKE 2 CAPSULES BY MOUTH THREE TIMES DAILY IN THE MORNING, AT NOON AND THE EVENING AND TAKE 1 CAPSULE WITH a SNACK 200 capsule 2 escitalopram (Lexapro) 20 MG tablet Take 1 tablet by mouth in the morning glucagon (Baqsimi One Pack) 3 MG/DOSE nasal powder 3 mg actuation In one nostril as needed; may repeat in 15 minutes alternate nostrils ibuprofen 800 MG tablet Take 1 tablet (800 mg) by mouth every 8 (eight) hours if needed for mild pain, moderate pain or fever. 60 tablet 3 insulin degludec (Tresiba FlexTouch) 100 UNIT/ML injection Inject 30 units subcutaneously daily in case of insulin pump failure 15 mL 5 Insulin Disposable Pump (Omnipod 5 Libre2 Plus G6 Pods) misc Apply 1 Device topically every 3rd (third) day. Change pod every 72 hours as directed 10 each 11 lidocaine (Lidoderm) 5 % patch Apply 1 patch topically Once per day. Remove & discard patch within 12 hours or as directed by MD. 30 patch 2 losartan (Cozaar) 25 MG tablet TAKE 1/2 TABLET BY MOUTH EVERY MORNING 45 tablet 3 metFORMIN XR (Glucophage-XR) 500 MG 24 hr tablet Take 2 tablets by mouth 2 times daily. Do not crush, chew, or split. naloxone (Narcan) 4 mg/0.1 mL nasal spray Administer 1 spray (4 mg) into affected nostril(s) if needed for opioid reversal. May repeat every 2-3 minutes if needed, alternating nostrils, until medicalassistance becomes available. 2 each 2 omeprazole (PriLOSEC) [address] capsule TAKE 1 CAPSULE BY MOUTH TWICE DAILY IN THE MORNING AND IN THE EVENING 180 capsule 3 oxyCODONE (Roxicodone) 10 MG immediate release tablet Take 1 tablet (10 mg) by mouth Every 4-6 hours as needed for severe pain for up to 14 days. Take 1 tablet (10 mg) by mouth Every 4-6 hours as needed for severe pain for up to 14 days. Maximum Daily Dose = 5 tabs 70 tablet 0 pregabalin (Lyrica) 50 MG capsule Take 50 mg by mouth at bedtime. traZODone (Desyrel) 150 MG tablet Take 1 tablet by mouth at bedtime as needed acetaminophen (Tylenol) 500 MG tablet Take 1 tablet (500 mg) by mouth every 6 (six) hours if neededfor mild pain for up to 20 doses. 20 tablet 0 Alcohol Swabs (Alcohol Prep) 70 % pads TEST BLOOD SUGAR THREE TIMES DAILY AND NEEDED 100 each 5 amoxicillin (Amoxil) 500 MG capsule Take 1 capsule (500 mg) by mouth every 8 (eight) hours for 7 days. 21 capsule 0 Aspirin EC Adult Low Dose 81 MG EC tablet TAKE 1 TABLET BY MOUTH EVERYDAY AT NOON (Patient not taking: Reported on 06/30/2025) 90 tablet 3 BD Pen Needle Ailin U/F 32G X 4 MM misc USE DIRECTED TO TEST BLOOD SUGAR FIVE TIMES DAILY 100 each 11 Blood Glucose Monitoring Suppl (Mixaloouch Verio) w/Device kit Use to test blood sugar three times daily as needed for hypoglycemia and sensor failure 1 kit 0 Blood Pressure kit Use to check blood pressure once daily 1 kit 0 clonazePAM (KlonoPIN) 1 MG tablet Take 1 tablet three times daily as needed cyanocobalamin (Vitamin B-12) 1000 MCG tablet TAKE 1 TABLET BY MOUTH EVERYDAY AT NOON 90 tablet 3 D3-1000 25 MCG (1000 UT) capsule TAKE 1 CAPSULE BY MOUTH EVERY MORNING 90 capsule 3 glucose blood (OneTouch Verio) test strip Use to test blood sugar three times daily as needed for hypoglycemia and sensor failure 100 each 11 insulin aspart (NovoLOG FLEXPEN) 100 UNIT/ML pen Inject 8-12 units three times daily before meals in case of insulin pump failure 15 mL 5 Insulin Aspart (NovoLOG) 100 UNIT/ML solution 2 mL (200 Units) every 3rd (third) day. Use to fill Omnipod every 72 hours as directed. 20 ml = 30 days 20 mL 11 Lancet Devices (Lancing Device) american hospital association 1 Device Once per day. 1 each 0 omega-3 (Fish Oil) 1000 MG capsule TAKE 2 CAPSULES BY MOUTH TWICE DAILY AT NOON AND BEDTIME 120 capsule 11 OneTouch Delica Lancets 33G mis Use to test blood sugar three times daily as needed for hypoglycemia and sensor failure 100 each 11 No facility-administered encounter medications on file as of 07/20/2025. documented in this encounter Plan of Treatment Upcoming Encounters Date Type Department Care Team (Late st Contact Info) Description 07/25/2025 10:00 AM EST Telemedicine [facility] MED & PEDS [address] [place] [address] Heather Bello, RN [address] [place] [address] 08/10/2025 9:30 AM EST Office Visit [facility] ADULT DENTAL [address] [place] [address] Rolando Kahn, DMD [address] [place] [address] Scheduled Orders Name Type Priority Associated Diagnoses Orde r Schedule NO CHARGE VISIT Dental Routine 1 Occurre nces starting 07/20/2025 documented as of this encounter Goals Goal Patient Goal Type Associated Problems Recent Progress Patient-Stated? Author Blood Pressure < 140/90 Blood Pressure 140/90(2024 10:34 AM EST) No Connor Bergeron, Michael Hemoglobin A1c < 7 Result Component 8.8( 1:13 PM EDT) No Connor Bergeron, Michael documented as of this encounter Procedures Procedure Name Priority Date/Time Associated Diagnosis Comments 20 EXTRACTION, ERUPTED TOOTH OR EXPOSED ROOT (ELEVATION/FORCEPS REMOVAL) Routine 07/20/2025 10:00 AM EST Severe dental caries Periodontal disease 21 EXTRACTION, ERUPTED TOOTH OR EXPOSED ROOT (ELEVATION/FORCEPS REMOVAL) Routine 07/20/2025 10:00 AM EST Severe dental caries Periodontal disease 22 EXTRACTION, ERUPTED TOOTH OR EXPOSED ROOT (ELEVATION/FORCEPS REMOVAL) Routine 07/20/2025 10:00 AM EST Severe dental caries Periodontal disease 23 EXTRACTION, ERUPTED TOOTH OR EXPOSED ROOT (ELEVATION/FORCEPS REMOVAL) Routine 07/20/2025 10:00 AM EST Severe dental caries Periodontal disease 25 EXTRACTION, ERUPTED TOOTH OR EXPOSED ROOT (ELEVATION/FORCEPS REMOVAL) Routine 07/20/2025 10:00 AM EST Severe dental caries Periodontal disease 24 EXTRACTION, ERUPTED TOOTH OR EXPOSED ROOT (ELEVATION/FORCEPS REMOVAL) Routine 07/20/2025 10:00 AM EST Severe dental caries Periodontal disease 26 EXTRACTION, ERUPTED TOOTH OR EXPOSED ROOT (ELEVATION/FORCEPS REMOVAL) Routine 07/20/2025 10:00 AM EST Severe dental caries Periodontal disease 28 EXTRACTION, ERUPTED TOOTH OR EXPOSED ROOT (ELEVATION/FORCEPS REMOVAL) Routine 07/20/2025 10:00 AM EST Severe dental caries Periodontal disease 27 EXTRACTION, ERUPTED TOOTH OR EXPOSED ROOT (ELEVATION/FORCEPS REMOVAL) Routine 07/20/2025 10:00 AM EST Severe dental caries Periodontal disease 31 EXTRACTION, ERUPTED TOOTH OR EXPOSED ROOT (ELEVATION/FORCEPS REMOVAL) Routine 07/20/2025 10:00 AM EST Severe dental caries Periodontal disease CASE PRESENTATION, DETAILED AND EXTENSIVE TREATMENT PLANNING Routine 07/20/2025 10:00 AM EST Severe dental caries Periodontal disease documented in this encounter Visit Diagnoses Diagnosis Severe dental caries- Primary History of tooth extraction, unspecified edentulism class Periodontal disease Unspecified gingival and periodontal disease documented in this encounter Additional Health Concerns Assessment Noted Time PHQ-9 Depression Total Score: 4 03/10/20 9:39 AM EDT documented as of this encounter Care Teams Welding Machine Operator Relationship Specialty Start Date End Date Mae Hall MD [address] [place] [id number] PCP - General Family Medicine 09/01/18 Connor Bergeron, Michael [address] [place] [id number] Pharmacist Internal Medicine 07/04/23 [facility] 02/11/25 documented as of this encounter
--- OUTSIDE RECORDS SUMMARY | 2025-07-21 11:30 | XMS_ITS | Encounter Summary ---
Author Organization [employer] Address [address] [facility] 7t [place] [address] Care Team Providers Care Director Home Name Role Phone Mae Hall MD Primary Care Provider [phone] Connor Bergeron PharmD Unavailable [phone] Reason for Visit * Consultation (Urgent) - Pending Review Specialty Diagnoses / Procedures Referred By Contac t Referred To Contact Pharmacy Diagnoses Other specified diabetes mellitus with hyperglycemia, with long-term current use of insulin (HCC) Mae Hall MD [address] [place] [address] Phone: tel: fax: Referral ID Status Reason Start Date Expiration Date Visits Requested Visits Authorized [id number] Pending Review Consult and Treat 10/10/2024 10/10/2025 12 12 Encounter Details Date Type Department Care Team ([facility] Contact Info) Description 07/21/2025 11:30 AM EST Telemedicine [facility] MEDICINE [address] [place] [address] Connor Bergeron, PharmD [address] [place] [address] Social History Tobacco Use Types Packs/Day Years [...] your housing situation today? I have audra sing 09/21/[address] you li [...] Info) Description 07/25/2025 10:00 AM EST Telemedicine [facility] MED & PEDS [address] [place] [address] Heather Bello, EMMETT [address] [place] [address] 08/10/2025 9:30 AM EST Office Visit [facility] ADULT DENTAL [address] [place] [address] Rolando Kahn DMD [address] [place] [address] documented as of this encounter Goals Goal Patient Goal Type Associated Problems Recent Progress Patient-Stated? Author Blood Pressure < 140/90 Blood Pressure 140/90(11/19/ 2025 10:34 AM EST) No Connor Bergeron PharmD Hemoglobin A1c < 7 Result Component 8.8( 1:13 PM EDT) No Connor Bergeron PharmD documented as of this encounter Visit Diagnoses Not on filedocumented in this encounter Additional Health Concerns Assessment Noted Time PHQ-9 Depression Total Score: 4 03/10/20 9:39 AM EDT documented as of this encounter Care Teams Director Home Relationship Specialty Start Date End Date Mae Hall MD [address] [place] [address] PCP - General Family Medicine 09/01/18 Connor Bergeron PharmD [address] [place] [phone] Pharmacist Internal Medicine 07/04/23 [facility] 02/11/25 documented as of this encounter
--- NOTE | 2025-07-21 13:25 | HM_ITS ---
* Total monitoring time 2 days. * Underlying rhythm is sinus with an average rate of 65/Min. * Rare supraventricular ectopy. * Frequent ventricular ectopy with a burden of 3.3%. One run for 4 beats.. One episode of AIVR for 5 beats. * No significant pauses or high-grade AV blocks. * No patient markers or diary events. MTDD
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
--- OUTSIDE RECORDS SUMMARY | 2025-07-21 18:51 | XMS_ITS | Encounter Summary ---
Author Organization [employer] Address [address] [facility] 7t [place] [address] Care Team Providers Care Rehabilitator Name Role Phone Mae Hall MD Primary Care Provider [phone] Connor Bergeron PharmD Unavailable [phone] Reason for Visit * Reason Comments Med Refill Encounter Details Date Type Department Care Team ([facility] st Contact Info) Description 06/27/2025 Refill [facility] MED & PEDS [address] [place] [address] Mae Hall MD [address] [place] [address] Other closed fracture of lumbar vertebra, unspecified lumbar vertebral level, initial encounter ([facility]) ([facility]); Closed fracture of both ankles with routine healing, subsequent encounter Social History Tobacco Use Types Packs/Day Years [...] 07/25/2025 10:00 AM EST Telemedicine [facility] MED & PEDS [address] [place] [address] Heather Bello, EMMETT [address] [place] [address] 08/10/2025 9:30 AM EST Office Visit [facility] ADULT DENTAL [address] [place] [address] Rolando Kahn, BREANNE [address] [place] [address] documented as of this encounter Goals Goal [...] vertebra, unspecified lumbar vertebral level, initial encounter ([facility]) ([facility]) Closed fracture of both ankles with routine healing, subsequent encounter documented in this encounter Additional Health Concerns Assessment Noted Time PHQ-9 Depression Total Score: 4 03/10/20 25 9:39 AM EDT documented as of this encounter Care Teams Rehabilitator Relationship Specialty Start Date End Date Mae Hall MD [address] [place] [address] PCP - General Family Medicine 09/01/18 Connor Bergeron, KizzyD [address] [place] [address] Pharmacist Internal Medicine 07/04/23 [facility] 02/11/25 documented as of this encounter
--- OUTSIDE RECORDS SUMMARY | 2025-07-21 18:51 | XMS_ITS | Encounter Summary ---
Author Organization [employer] Address [address] [facility] 7t [place] [address] Care Team Providers Care Filter Tank Tender Name Role Phone Mae Hall MD Primary Care Provider [phone] Connor Bergeron PharmD Unavailable Reason for Visit * Reason Onset Date Comments FYI 05/25/2025 Encounter Details Date Type Department Care Team (Late st Contact Info) Description 05/25/2025 Telephone [facility] MEDICINE [address] [place] [address] Mae Hall MD [address] [place] [address] FYI Social History Tobacco Use Types Packs/Day [...] Ariel Braswell - 05/25/2025 8:56 AM EDT Trmuan ashraf Ketty an Occupational Therapist reporting two [...] medication usage. Any questions contact OT at [phone] if OT does not answer LVM documented in this encounter Plan of Treatment Upcoming Encounters Date Type Department Care Team (Late st Contact Info) Description 07/25/2025 10:00 AM EST Telemedicine [facility] MED & PEDS [address] [place] [address] Heather Bello, EMMETT [address] [place], [place] [phone] 08/10/2025 9:30 AM EST Office Visit [facility] ADULT DENTAL [address] [place], [place] [phone] Rolando Kahn DMD [address] [place], [place] [phone] documented as of this encounter Goals Goal [...] documented as of this encounter Care Teams Filter Tank Tender Relationship Specialty Start Date End Date Mae Hall MD [address] [place], [place] [phone] PCP - General Family Medicine 09/01/18 Connor Bergeron PharmD [address] [place], [place] [phone] Pharmacist Internal Medicine 07/04/23 [facility] 02/11/25 documented as of this encounter
--- OUTSIDE RECORDS SUMMARY | 2025-07-21 18:51 | XMS_ITS | Encounter Summary ---
Author Organization [employer] Address [address] [facility] 7t [place] [address] Care Team Providers Care Electrical Designer Name Role Phone Mae Hall MD Primary Care Provider [phone] Connor Bergeron PharmD Unavailable [phone] Reason for Visit * Reason Onset Date Comments Med Refill 04/12/2025 Encounter Details Date Type Department Care Team (Late st Contact Info) Description 04/12/2025 Telephone [facility] MEDICINE [address] [place] [address] Mae Hall MD [address] [place] [address] Med Refill Social History Tobacco Use Types [...] tablet To be sent to: [facility] documented in this encounter Plan of Treatment Upcoming Encounters Date Type Department Care Team (Late st Contact Info) Description 07/25/2025 10:00 AM EST Telemedicine [facility] MED & PEDS [address] [place] [address] Heather Bello RN [address] [place] [address] 08/10/2025 9:30 AM EST Office Visit [facility] ADULT DENTAL [address] [place] [address] Rolando Kahn DMD [address] [place] [address] documented as of this encounter Goals Goal [...] documented as of this encounter Care Teams Electrical Designer Relationship Specialty Start Date End Date Mae Hall MD [address] [place] [address] PCP - General Family Medicine 09/01/18 Connor Bergeron PharmD [address] [place] [phone] Pharmacist Internal Medicine 07/04/23 [facility] 02/11/25 documented as of this encounter
--- OUTSIDE RECORDS SUMMARY | 2025-07-21 18:51 | XMS_ITS | Encounter Summary ---
Author Organization [employer] Address [address] [facility] 7t [place] [address] Care Team Providers Care Dentistry Professor Name Role Phone Mae Hall MD Primary Care Provider Connor Bergeron PharmD Unavailable [phone] Encounter Details Date Type Department Care Team ([facility] Contact Info) Description 07/13/2025 Telephone [facility] MEDICINE [address] [place], [place] [phone] aMe Hall MD [address] [place], [place] [phone] Social History Tobacco Use Types Packs/Day Years [...] * Telephone Encounter - Lauro Joy - 07/13/2025 3:15 PM EST TC from pt requesting medication refill. Medications needing refill :oxyCODONE (Roxicodone) 10 MG immediate release tablet To be sent to:[facility] - [place], [place] - [address] [facility] documented in this encounter Plan of Treatment Upcoming Encounters Date Type Department Care Team (Late st Contact Info) Description 07/25/2025 10:00 AM EST Telemedicine [facility] MED & PEDS [address] [place] [address] Heather Bello RN [address] [place] [address] 08/10/2025 9:30 AM EST Office Visit [facility] ADULT DENTAL [address] [place] [address] Rolando Kahn DMD [address] [place] [address] documented as of this encounter Goals Goal Patient Goal Type Associated Problems Recent Progress Patient-Stated? Author Blood Pressure < 140/90 Blood Pressure 140/90(2024 10:34 AM EST) No Connor Bergeron PharmD Hemoglobin A1c < 7 Result Component 8.8( 5 1:13 PM EDT) No Connor Bergeron PharmD documented as of this encounter Visit Diagnoses Not on filedocumented in this encounter Additional Health Concerns Assessment Noted Time PHQ-9 Depression Total Score: 4 03/10/20 25 9:39 AM EDT documented as of this encounter Care Teams Dentistry Professor Relationship Specialty Start Date End Date Mae Hall MD [address] [place] [address] PCP - General Family Medicine 09/01/18 Connor Bergeron PharmD [address] [place] [address] Pharmacist Internal Medicine 07/04/23 [facility] 02/11/25 documented as of this encounter
--- OUTSIDE RECORDS SUMMARY | 2025-07-21 18:51 | XMS_ITS | Encounter Summary ---
Author Organization [employer] Address [address] [facility] [address] [place] [address] Care Team Providers Care Garnetter Name Role Phone Mae Hall MD Primary Care Provider [phone] Connor Bergeron PharmD Unavailable [phone] Encounter Details Date Type Department Care Team ([facility] st Contact Info) Description 03/21/2025 Orders Only [facility] MEDICINE [address] [place], [place] [phone] Mae Hall MD [address] [place], [place] [phone] Social History Tobacco Use Types Packs/Day Years [...] Info) Description 07/25/2025 10:00 AM EST Telemedicine [facility] MED & PEDS [address] [place] [address] Heather Bello RN [address] [place] [address] 08/10/2025 9:30 AM EST Office Visit [facility] ADULT DENTAL [address] [place] [address] Rolando Kahn DMD [address] [place] [address] documented as of this encounter Goals Goal [...] documented as of this encounter Care Teams Garnetter Relationship Specialty Start Date End Date Mae Hall MD [address] [place] [address] PCP - General Family Medicine 09/01/18 Connor Bergeron, Michael [address] [place] [address] Pharmacist Internal Medicine 07/04/23 [facility] 02/11/25 documented as of this encounter
--- OUTSIDE RECORDS SUMMARY | 2025-07-21 18:51 | XMS_ITS | Encounter Summary ---
Author Organization [employer] Address [address] [facility] 7t [place] [address] Care Team Providers Care Press Tool Maker Name Role Phone Mae Hall MD Primary Care Provider [phone] Connor Bergeron PharmD Unavailable [phone] Reason for Visit * Reason Onset Date Comments Hospital Follow-up 02/24/2025 Encounter Details Date Type Department Care Team ([facility] st Contact Info) Description 02/24/2025 Telephone [facility] MEDICINE [address] [place] [address] Mae Hall MD [address] [place], [place] [phone] Hospital Follow-up Social History Tobacco Use Types [...] from pt requesting a HDF appt. Hospital: [facility] Date of admission: 02/19/25 Discharge date: 02/22/25 Diagnosed: Diabetic ketoacidosis documented in this encounter Plan of Treatment Upcoming Encounters Date Type Department Care Team (Late st Contact Info) Description 07/25/2025 10:00 AM EST Telemedicine [facility] MED & PEDS [address] [place] [address] Heather Bello RN [address] [place] [address] 08/10/2025 9:30 AM EST Office Visit [facility] ADULT DENTAL [address] [place] [address] Rolando Kahn DMD [address] [place] [address] documented as of this encounter Goals Goal [...] as of this encounter Care Teams Press Tool Maker Relationship Specialty Start Date End Date Mae Hall MD [address] [place] [address] PCP - General Family Medicine 09/01/18 Connor Bergeron PharmD [address] [place] [address] Pharmacist Internal Medicine 07/04/23 [facility] 02/11/25 documented as of this encounter
--- OUTSIDE RECORDS SUMMARY | 2025-07-21 18:51 | XMS_ITS | Clinical Summary ---
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 Bergeron, PharmD Hemoglobin A1c < 7 Result Component 8.8( 1:13 PM EDT) No Connor Bergeron, Michael Procedures Procedure Name Priority Date/Time Associated Diagnosis Comments CASE PRESENTATION, DETAILED AND EXTENSIVE TREATMENT PLANNING Routine 07/20/2025 10:00 AM EST Severe dental caries Periodontal disease 20 EXTRACTION, ERUPTED TOOTH OR EXPOSED ROOT [...] PRESENTATION, DETAILED AND EXTENSIVE TREATMENT PLANNING Routine 06/30/2025 10:00 AM EDT Severe dental caries Periodontal disease PANORAMIC RADIOGRAPHIC IMAGE Routine 06/30/2025 10:00 AM EDT Severe dental caries Periodontal disease PERIODIC ORAL EVALUATION - ESTABLISHED PATIENT Routine 06/30/2025 10:00 AM EDT Severe dental caries Periodontal disease POCT GLYCATED HEMOGLOBIN, TOTAL Routine 06/20/2025 1:13 PM EDT Type 2 diabetes mellitus with hyperglycemia, with long-term current use of insulin ([facility]) POCT GLUCOSE Routine 06/20/2025 1:12 PM EDT Type 2 diabetes mellitus with hyperglycemia, with long-term current use of insulin ([facility]) BD DEXA AXIAL Routine 05/27/2025 10:45 AM EDT ALBUMIN, RANDOM URINE W/CREATININE Routine 11/30/2024 10:24 AM EDT Hypertension, unspecified type LIPID PANEL WITH REFLEX TO DIRECT LDL Routine 11/30/2024 10:24 AM EDT Dyslipidemia Other specified diabetes mellitus with hyperglycemia, with long-term current use of insulin (CMS/HCC) HEPATITIS C ANTIBODY Routine 07/30/2023 10:11 AM EST Routine screening for STI (sexually transmitted infection) HIV 1/2 ANTIGEN/ANTIBODY, FOURTH GENERATION W/RFL Routine 07/30/2023 10:11 AM EST Routine screening for STI (sexually transmitted infection) HM COLONOSCOPY Routine 07/01/2022 BITEWING - SINGLE RADIOGRAPHIC IMAGE Routine 09/22/2018 12:00 AM EST PROPHYLAXIS - ADULT Routine 12/25/2017 1 2:00 AM EDT from Last 3 Months or Most Recently Relevant to Health Maintenance Results * (ABNORMAL) POCT Hgb A1c (06/20/2025 1:13 PM EDT) Hemoglobin A1C 8.8(A) 4.0 - 5.7 % QC Media Lot # [id number] Lot# Expiration Date [id number] Blood 06/20/2025 1:13 PM EDT us Mae Hall MD POINT OF CARE TEST ENTER/EDIT OR DERABLES Final Result * (ABNORMAL) POCT Glucose (06/20/2025 1:12 PM EDT) Glucose Blood, POC 221(A) 60 - 200 mg/dL QC Media Lot # [id number] Lot# Expiration Date [id number] Blood Capillary blood specimen / Unknown 06/20/2025 1:12 PM EDT Mae Hall MD POINT OF CARE TEST ENTER/EDIT OR DERABLES Final Result * BD DEXA Axial (05/27/2025 10:45 AM EDT) Anatomical Region Laterality Modality Body Radiographic Delfina ging 05/27/2025 10:4 5 AM EDT Narrative 05/27/2025 11:18 AM EDT [facility] [address] [place] [address] Mammography Report Signed Patient: Jose Alfredo Celis MR#: [id number] 6 : 1970 Acct:[id number] Age/Sex: 55 / M ADM Date: 05/27/25 Loc: HO.MAMMO Attending Dr: Erlin Rodgers MD Ordering Physician: Erlin Rodgers MD Results: Date of Service: 05/27/25 Follow Up: Procedure(s): XR DEXA axial skeleton Accession Number(s): [id number] cc: Erlin Rodgers MD; Mae Hall MD Reason For Exam: OSTEOPOROSIS EXAMINATION: DXA BONE DENSITY AXIAL HISTORY: OSTEOPOROSIS TECHNIQUE: [employer] Dual energy absorptiometry (DEXA) of the lumbar [...] of the [employer] [place] for Metabolic Bone Disease, a World Health Organization (WHO) Collaborating Center. Electronically signed by: James Tineo MD 05/27/2025 11:15 AM EDT Dictated By: James Tineo MD Signed By: <Electronically signed by James Tineo MD in OV> 05/27/25 1115 DD/ 1045 TD/TT: 05/27/25 1109 Surgical Instrument Technician: Procedure Note Donotuseinterpreter, Image - 05/27/2025 [facility] [address] [place] [address] Mammography Report Signed Patient: Jose Alfredo Celis RMR#: [id number] 6 : 1970Acct:[id number] Age/Sex: 55 / MADM Date: 05/27/25 Loc: HO.MAMMO Attending Dr: Erlin Rodgers MD Ordering Physician: Erlin Rodgersults: Date of Service: 05/27/25Follow Up: Procedure(s): XR DEXA axial skeleton Accession Number(s): [id number] cc: Erlin Rodgers MD; Mae Hall MD Reason For Exam: OSTEOPOROSIS EXAMINATION: DXA BONE DENSITY AXIAL HISTORY: OSTEOPOROSIS TECHNIQUE: [employer] Dual energy absorptiometry (DEXA) of the lumbar [...] of the [employer] [place] for Metabolic Bone Disease, a World Health Organization (WHO) Collaborating Center. Electronically signed by: James Tineo MD 05/27/2025 11:15 AM EDT RP Dictated By: James Tineo MD Signed By: <Electronically signed by James Tineo MD in OV> 05/27/25 1115 DD/ 1045 TD/TT: 05/27/25 1109 Surgical Instrument Technician: [facility] External Provider IMG DXA PROCEDURES Final Result * (ABNORMAL) Lipid Panel with Reflex to Direct LDL (11/30/2024 10:24 AM EDT) Triglycerides 154(H) <150 mg/dL [facility] Comment:Desirable Triglyceri de: less than 150 mg/dLBorderline High Triglyceride 150-199 mg/dLHigh Triglyceride: 200-499 mg/dLVery High Triglyceride: greater than or equal to 5OO mg/dL Cholesterol 131 <200 mg/dL [facility] Comment:Desirable Cholestero l: less than 200 mg/dLBorderline High Cholesterol: 200-239 mg/dLHigh Cholesterol: greater than 239 mg/dL LDL Cholesterol Calculated 63 <100 mg/dL [facility] Comment:Desirable LDL: less than 100 mg/dLNear Optimal/Above Optimal LDL: 110- 129 mg/dLBorderline High LDL: 130-159 mg/dLHigh LDL: 160-189 mg/dLVery High LDL: greater than or equal to 190 mg/dL HDL Cholesterol 38(L) >40 mg/dL [facility] Comment:Desirable HDL: great er than 40 mg/dL Note: This HDL assay may give artificially low results in patients with liver disease. Blood 11/30/2024 10:2 4 AM EDT 11/30/2024 11:16 AM EDT us Mae Hall MD LAB BLOOD ORDERABLES Final Resul t Performing Organization Address [facility] Co de Phone Number [facility] [address] [place] [phone] * (ABNORMAL) Albumin, Random Urine W/Creatinine (11/30/2024 10:24 AM EDT) Creatinine, Urine 129.79 mg/dL [facility] Microalbumin Urine 68.0 mg/L [facility] Microalbum Creatinine Ratio Ur 52.3(H) <30 ug/mg cr [facility] Comment:Albumin/Creatinine R atio Reference Ranges: Normal: < 30 ug/mg creatinine Microalbuminuria: 30 - 300 ug/mg creatinineClinical Albuminuria: > 300 ug/mg creatinine Urine 11/30/2024 10:2 4 AM EDT 11/30/2024 11:13 AM EDT us Mae Hall MD LAB URINE ORDERABLES Final Resul t Performing Organization Address [facility] de Phone Number [facility] [address] [place] [phone] * Hepatitis C Ab (07/30/2023 10:11 AM EST) Hepatitis C Antibody Nonreactive Nonreactive [facility] Comment:Antibodies to HCV no t detected; does not exclude early acuteHCV infection. Blood 07/30/2023 10:1 1 AM EST 07/30/2023 11:19 AM EST us Mae Hall MD LAB BLOOD ORDERABLES Final Resul t Performing Organization Address [facility] de Phone Number [facility] [address] [place] [phone] * HIV-1/2 Antigen and Antibodies, Fourth Generation, with Reflexes (07/30/2023 10:11 AM EST) HIV AB/AG Nonreactive Nonreactive [facility] Comment:HIV-1 p24 Ag and/or HIV-1/HIV-2 Ab not detected.A test result that is nonreactive does not exclude thepossibility of exposure to or infection with HIV-1 and/orHIV-2. Nonreactive results in this assay for individualswith prior exposure to HIV-1 and/or HIV-2 may be due toantigen and antibody levels that are below the limit ofdetection of this assay.The [employer] HIV Ag/Ab Combo assay result andsupplemental assay results should be interpreted inconjunction with the patient's clinical presentation,history and other laboratory results. If the results areinconsistent with clinical evidence, additional testing issuggested to confirm the result. Blood Venous blood specimen / Unknown 07/30/2023 10:11 AM EST 07/30/2023 11:19 AM EST Mae Hall MD LAB BLOOD ORDERABLES Final Resul t [facility] [address] [place] [phone] [phone] * (ABNORMAL) Hm Colonoscopy (07/01/2022) Colonoscopy Abnormal(A ) Normal Mae Hall MD HEALTH MAINTENANCE Edited Result - Final from Last 3 Months or Most Recently Relevant to Health Maintenance Insurance [facility] STANDARD [employer] MEDICARE REPLACEMENT [facility] ST[facility] ADULT Care Teams Foreign Language Instructor Relationship Specialty Start Date End Date Mae Hall MD [address] [place] [phone] PCP - General Family Medicine 09/01/18 Connor Bergeron, PharmD [address] [place] [address] [place] [address] Pharmacist Internal Medicine 07/04/23 [facility] 02/11[facility]
--- OUTSIDE RECORDS SUMMARY | 2025-07-21 18:51 | XMS_ITS | Encounter Summary ---
Author Organization [facility] Address [address] [facility] 7t [place] [address] Care Team Providers Care Paper Hanger Name Role Phone Mae Hall MD Primary Care Provider [phone] Connor Bergeron PharmD Unavailable [phone] Reason for Referral * Cardiology (Routine) - Authorized Specialty Diagnoses / Procedures Referred By Contac t Referred To Contact Cardiology Diagnoses Bradycardia Procedures Holter monitor - 48 hour Mae Hall MD [address] [place] [address] Phone: tel: fax: [address] Phone: tel: fax: Referral ID Status Reason Start Date Expiration Date V isits Requested Visits Authorized [id number] Authorized 06/01/2025 06/01/2026 1 1 Encounter Details Date Type Department Care Team (Late st Contact Info) Description 06/01/[address] [facility] MEDICINE [address] [place], [place] [phone] Mae Hall MD [address] [place], [place] [phone] Bradycardia (Primary Dx) Social History Tobacco Use [...] [facility] [address] [place] [address] Heather Bello, EMMTET [address] [place] [address] 08/10/2025 9:30 AM EST Office Visit [facility] ADULT DENTAL [address] [place] [address] Rolando Kahn DMD [address] [place] [address] Scheduled Orders Name Type Priority Associated Diagnoses [...] documented as of this encounter Care Teams Paper Hanger Relationship Specialty Start Date End Date Mae Hall MD [address] [place] [address] PCP - General Family Medicine 09/01/18 Connor Bergeron, KizzyD [address] [place] [address] Pharmacist Internal Medicine 07/04/23 [facility] 02/11/25 documented as of this encounter
--- OUTSIDE RECORDS SUMMARY | 2025-07-21 18:51 | XMS_ITS | Encounter Summary ---
Author Organization [employer] Address [address] [facility] 7t [place] [address] Care Team Providers Care Hand Packer/Packager Name Role Phone Mae Hall MD Primary Care Provider [phone] Connor Bergeron PharmD Unavailable [phone] Reason for Visit * Reason Onset Date Comments Appointment Request 01/25/2025 Encounter Details Date Type Department Care Team ([facility] st Contact Info) Description 01/25/2025 Telephone [facility] MEDICINE [address] [place] [address] Mae Hall MD [address] [place] [address] Appointment Request Social History Tobacco Use Types [...] DM appointment with Connor. Contact pt at [phone] documented in this encounter Plan of Treatment Upcoming Encounters Date Type Department Care Team (Late st Contact Info) Description 07/25/2025 10:00 AM EST Telemedicine [facility] MED & PEDS [address] [place] [address] Heather Bello RN [address] [place] [address] 08/10/2025 9:30 AM EST Office Visit [facility] ADULT DENTAL [address] [place] [address] Rolando Kahn, BREANNE [address] [place] [address] documented as of this encounter Goals Goal [...] documented as of this encounter Care Teams Hand Packer/Packager Relationship Specialty Start Date End Date Mae Hall MD [address] [place] [address] PCP - General Family Medicine 09/01/18 Connor Bergeron PharmD [address] [place] [address] Pharmacist Internal Medicine 07/04/23 [facility] 02/11/25 documented as of this encounter
--- OUTSIDE RECORDS SUMMARY | 2025-07-21 18:51 | XMS_ITS | Encounter Summary ---
Author Organization [employer] Address [address] [facility] 7t [place] [address] Care Team Providers Care Front Desk Admin Name Role Phone Mae Hall MD Primary Care Provider [phone] Connor Bergeron PharmD Unavailable [phone] Reason for Visit * Reason Onset Date Comments Med Refill 06/08/2025 Encounter Details Date Type Department Care Team (Late st Contact Info) Description 06/08/2025 Telephone [facility] MEDICINE [address] [place] [address] Mae Hall MD [address] [place] [address] Med Refill Social History Tobacco Use Types [...] immediate release tablet To be sent to: [facility] [place] - [address] [facility] documented in this encounter Plan of Treatment Upcoming Encounters Date Type Department Care Team (Late st Contact Info) Description 07/25/2025 10:00 AM EST Telemedicine [facility] MED & PEDS [address] [place] [address] Heather Bello RN [address] [place] [address] 08/10/2025 9:30 AM EST Office Visit [facility] ADULT DENTAL [address] [place] [address] Rolando Kahn DMD [address] [place] [address] documented as of this encounter Goals Goal [...] documented as of this encounter Care Teams Front Desk Admin Relationship Specialty Start Date End Date Mae Hall MD [address] [place] [address] PCP - General Family Medicine 09/01/18 Connor Bergeron PharmD [address] [place] [address] Pharmacist Internal Medicine 07/04/23 [facility] 02/11/25 documented as of this encounter
--- OUTSIDE RECORDS SUMMARY | 2025-07-21 18:52 | XMS_ITS | Encounter Summary ---
Author Organization [employer] Address [address] [facility] 7t [place] [address] Care Team Providers Care Mechanical Spreader Operator Name Role Phone Mae Hall MD Primary Care Provider [phone] Connor Bergeron PharmD Unavailable [phone] Reason for Visit * Reason Onset Date Comments Appointment Request 02/11/2025 Encounter Details Date Type Department Care Team ([facility] st Contact Info) Description 02/11/2025 Telephone [facility] MEDICINE [address] [place] [address] Mae Hall MD [address] [place] [address] Appointment Request Social History Tobacco Use Types [...] requesting r/s 02/03 appointment with Connor Bergeron. [phone] documented in this encounter Plan of Treatment Upcoming Encounters Date Type Department Care Team (Late st Contact Info) Description 07/25/2025 10:00 AM EST Telemedicine [facility] MED & PEDS [address] [place] [address] Heather Bello RN [address] [place] [address] 08/10/2025 9:30 AM EST Office Visit [facility] ADULT DENTAL [address] [place] [address] Rolando Kahn DMD [address] [place] [address] documented as of this encounter Goals Goal [...] documented as of this encounter Care Teams Mechanical Spreader Operator Relationship Specialty Start Date End Date Mae Hall MD [address] [place] [address] PCP - General Family Medicine 09/01/18 Connor Bergeron PharmD [address] [place] [address] Pharmacist Internal Medicine 07/04/23 [facility] 02/11/25 documented as of this encounter
--- OUTSIDE RECORDS SUMMARY | 2025-07-21 18:52 | XMS_ITS | Encounter Summary ---
Author Organization [employer] Address [address] [facility] 7t [place] [address] Care Team Providers Care Event Organizer Name Role Phone Mae Hall MD Primary Care Provider [phone] Connor Bergeron PharmD Unavailable [phone] Encounter Details Date Type Department Care Team ([facility] st Contact Info) Description 06/13/2023 Orders Only [facility] MEDICINE [address] [place], [place] [phone] Mae Hall MD [address] [place], [place] [phone] Type 2 diabetes mellitus with hyperglycemia, with long-term current use of insulin ([facility]) Social History [...] Info) Description 07/25/2025 10:00 AM EST Telemedicine [facility] MED & PEDS [address] [place] [address] Heather Bello RN [address] [place] [address] 08/10/2025 9:30 AM EST Office Visit [facility] ADULT DENTAL [address] [place] [address] Rolando Kahn DMD [address] [place] [address] documented as of this encounter Visit Diagnoses Diagnosis Type 2 diabetes mellitus with hyperglycemia, with long-term current use of insulin (HCC) documented in this encounter Additional Health Concerns Assessment Noted Time PHQ-9 Depression Total Score: 11 023 4:03 PM EST documented as of this encounter Care Teams Event Organizer Relationship Specialty Start Date End Date Mae Hall MD [address] [place] [address] PCP - General Family Medicine 09/01/18 Connor Bergeron, Michael [address] [place] [address] Pharmacist Internal Medicine 07/04/23 [facility] 02/11/25 documented as of this encounter
== END ==
LOC: HO.CARD 13:22
PROVIDERS: PCP Family Medicine; Visit Provider Family Medicine
DX: R00.1 Bradycardia, unspecified (principal)
CPT/HCPCS: 93225

== ENCOUNTER → 2025-07-21 13:25 | Outpatient (BNV) | payer MEDICARE, SELFPAY | PROVIDERS: PCP Family Medicine; Visit Provider Internal Medicine | DX: I49.3 Ventricular premature depolarization (principal); I49.49 Other premature depolarization | CPT/HCPCS: 93227 ==